=== PATIENT | female | born 1995 | race Caucasian/White ===

== ENCOUNTER 2021-01-01 10:14 | Emergency (ER) | payer BC, SELFPAY ==
[2021-01-01 11:43] VITALS: BP 106/68; PULSE 51; RESP 14; TEMP 36.9; O2SAT 100; BMI 33.3
[2021-01-01 11:45] VITALS: BP 106/68; PULSE 53; RESP 14; TEMP 36.9
--- NOTE | 2021-01-01 11:59 | ED_ITS ---
[facility] [place] Disposition Clinical Impression: Exposure to COVID-19 virus Disposition: Home, Self-Care Condition on Discharge: Good Instructions: Preventing the Spread of Coronavirus Discharge Instructions Additional Instructions: You have been tested for COVID19. Please isolate yourself as if you are positive until test results received. Referrals: Almita West [Primary Care Provider] - Forms: Work/School Release Time of Disposition: 12:02 Medical Decision Making - Fercho Inquiry Pt receiving controlled substance: No Vital Signs: 01/01/21 11:43 01/01/21 11:45 Temperature 98.4 F 98.4 F Temperature Source Oral Pulse Rate 53 L Pulse Rate [Left] 51 L Respiratory Rate 14 14 Blood Pressure 106/68 L Blood Pressure [Right Arm] 106/68 L Blood Pressure Mean [Right Arm] 80 02 Sat by Pulse Oximetry 100 [facility] [place] HPI - General Stated complaint: covid test Time Seen by Provider: 01/01/21 11:59 Mode of Arrival: Ambulatory Source of Information: Patient Limitations: No Limitations Description of Symptoms (Recalled from Triage Doc. by RN): pt c/o a cough and MELISSA HEENT Symptoms (Recalled from RN notes): Yes (MELISSA) Resp Symptoms (Recalled from RN notes): Yes (cough) Skin Symptoms (Recalled from RN notes): No MS Symptoms (Recalled from RN notes): No Functional Status (Recalled from RN notes): na - History of Present Illness Provider Complaint: Mild cough, runny nose, headache X 2-3 days. No fever. Has been exposed to COVID19 and needs to be tested. No loss of taste or smell. No vomiting or diarrhea. Onset (ago): day(s) (3) Location: head Relieving factors: none Exacerbating factors: none Associated symptoms: headaches, malaise Treatments prior to arrival: NSAID - Worker's Comp Is this a Worker's Comp case?: No [facility] History - Hepatitis A Screen Drug use history?: No High risk sexual behaviors?: No History of sexually transmitted infection?: No Currently employed?: No Childcare worker?: No Do you have indoor plumbing?: Yes Do you have electricity?: Yes Attestation statement:: This patient has been screened for Hepatitis A risk factors. I have reviewed the patient's past medical history: Yes ROS Obtained: Yes All systems reviewed & no additional complaints - ENT Ears, Nose, Mouth, and Throat: Reports nasal congestion - Respiratory Respiratory: Reports cough Physical Exam - General General appearance: alert, in no apparent distress - Head Head exam: normocephalic - Eye Eye exam: Present: PERRL - ENT ENT exam: Present: normal oropharynx, TM's normal bilaterally - Expanded ENT Exam Nose exam: Absent: sinus tenderness Throat exam: Present: normal inspection - Chest Chest inspection: Present: normal inspection, symmetric chest wall rise - Respiratory Respiratory exam: Present: normal lung sounds bilaterally - Cardiovascular Cardiovascular exam: Present: regular rate, normal rhythm - Neurological Exam Neurological exam: Present: alert, oriented X3 - Psychiatric Psychiatric exam: Present: normal affect, normal mood - Skin Skin exam: Present: warm, dry, intact
== END 2021-01-01 12:44 | disposition home or self-care (01) ==
PROVIDERS: Emergency Provider Physician Assistant; PCP Nurse Practitioner Family
DX: Z20.822 Contact with and (suspected) exposure to COVID-19 (principal); R05 Cough
CPT/HCPCS: 99202; G0463; U0003

== ENCOUNTER → 2021-06-26 16:20 | Outpatient (CLI) | payer BC, SELFPAY ==
[2021-06-26 18:31] LABS: HCG,Quantitative 186 mIU/ml (0-5.42)
== END ==
PROVIDERS: Visit Provider Nurse Practitioner Obstetrics & Gynecology
DX: N92.6 Irregular menstruation, unspecified (principal)
CPT/HCPCS: 36415; 84702

== ENCOUNTER → 2021-07-10 12:05 | Outpatient (CLI) | payer BC, SELFPAY ==
[2021-07-10 12:52] LABS: Basophils # 0.1 K/mm3 (0-0.2); Basophils % 1.1 % (0.1-2.0); Eosinophils # 0.1 K/mm3 (0.0-0.4); Eosinophils % 1.2 % (0.1-12.0); Lymphocytes % 22.6 % (10-50); Mean Corpuscular HGB Conc 33.3 g/dL (31.8-35.4); Mean Corpuscular Hemoglobin 28.9 pg (27.0-31.2); Mean Corpuscular Volume 86.7 fl (81-99); Mean Platelet Volume 7.2 fl (7.4-10.4); Monocytes # 0.6 K/mm3 (0.1-1.0); Monocytes % 6.2 % (1.7-9.3); Neutrophils # 6.2 K/mm3 (1.8-7.8); Neutrophils % 68.9 % (37.0-80.0); Platelet Count 351 K/mm3 (142-424); Red Blood Count 4.85 M/mm3 (4.20-5.40); Red Cell Distribution Width 12.9 % (11.5-17.5)
[2021-07-11 07:12] LABS: HIV Screen 4th Generation wRfx Non Reactive (Non Reactive)
[2021-07-11 08:18] LABS: HSV 1 IgG, Type Spec <0.91 index (0.00-0.90); HSV 2 IgG, Type Spec 5.62 index (0.00-0.90); Rubella Antibodies, IgG 1.75 index (Immune >0.99)
[2021-07-11 10:18] LABS: Hepatitis B Surface Antigen Negative (Negative); Hepatitis C Antibody <0.1 s/co ratio (0.0-0.9); Rapid Plasma Reagin Ab Titer Non Reactive (NonRea<1:1)
== END ==
PROVIDERS: Visit Provider Nurse Practitioner Obstetrics & Gynecology
DX: Z34.90 Encounter for supervision of normal pregnancy, unspecified, unspecified trimester (principal); Z3A.01 Less than 8 weeks gestation of pregnancy
CPT/HCPCS: 36415; 85025; 86592; 86695; 86703; 86762; 86790; 86850; 87340; 87380; G0432

== ENCOUNTER → 2021-07-13 10:29 | Outpatient (CLI) | payer BC, SELFPAY ==
--- NOTE | 2021-07-13 10:29 | US_ITS ---
FINAL REPORT TECHNIQUE: Sonographic imaging of the pelvis was obtained. CLINICAL HISTORY: US OB before 14 wks, DATES and confirmation pt asymptomatic -- dr Chinchilla notified FINDINGS: The uterus measures 7.4 x 4.9 x 3.9 cm. There is a heterogeneous area seen in the endometrium measuring 1.2 cm. Blood clot not excluded. No intrauterine is identified. The right ovary measures 3.3 cm in length. Left ovary measures 3.2 cm in length. There are multiple small follicles bilaterally. There is a mass in the right adnexa measuring 2.6 x 1.8 x 2.1 cm of uncertain etiology. Ectopic not excluded. No free fluid is identified. IMPRESSION: No intrauterine identified. Possible blood clot within the endometrial cavity. Right adnexal mass, ectopic not excluded. Reviewed, Interpreted and Dictated by Eduardo Baez III, MD Transcribed by Molly Perez Authenticated by Eduardo Baez III, MD on 07/13/2021 12:31:34 PM [facility]
[2021-07-13 12:58] LABS: HCG,Quantitative 1590 mIU/ml (0-5.42)
== END ==
PROVIDERS: Visit Provider Nurse Practitioner Obstetrics & Gynecology
DX: O26.841 Uterine size-date discrepancy, first trimester (principal)
CPT/HCPCS: 36415; 76801; 84702

== ENCOUNTER → 2021-07-15 09:31 | Outpatient (CLI) | payer BC, SELFPAY ==
[2021-07-15 10:13] LABS: Basophils # 0.1 K/mm3 (0-0.2); Basophils % 1.6 % (0.1-2.0); Eosinophils # 0.2 K/mm3 (0.0-0.4); Eosinophils % 2.4 % (0.1-12.0); Hematocrit 42.6 % (37.0-47.0); Hemoglobin 14.3 g/dL (12.2-16.2); Lymphocytes % 24.1 % (10-50); Mean Corpuscular HGB Conc 33.6 g/dL (31.8-35.4); Mean Corpuscular Hemoglobin 29.2 pg (27.0-31.2); Mean Corpuscular Volume 86.9 fl (81-99); Mean Platelet Volume 7.9 fl (7.4-10.4); Monocytes # 0.5 K/mm3 (0.1-1.0); Monocytes % 6.4 % (1.7-9.3); Neutrophils # 5.4 K/mm3 (1.8-7.8); Neutrophils % 65.4 % (37.0-80.0); Platelet Count 387 K/mm3 (142-424); Red Cell Distribution Width 12.7 % (11.5-17.5); White Blood Count 8.3 K/mm3 (4.8-10.8)
[2021-07-15 11:29] LABS: Anion Gap 12.2 mEq/L (5-15); Blood Urea Nitrogen 15 mg/dl (7-17); Carbon Dioxide 25 mmol/L (22.0-30.0); Chloride 106 mmol/L (98-107); Estimated Glomerular Filt Rate 124 ml/min (>60); GFR (African American) 150 ML/MIN (>60); Glucose 65 mg/dl (74-100); Potassium 4.2 mmoL/L (3.5-5.1); Sodium 139 mmol/L (136-145)
[2021-07-15 11:45] LABS: HCG,Quantitative 2035 mIU/ml (0-5.42)
== END ==
PROVIDERS: Visit Provider Nurse Practitioner Obstetrics & Gynecology
DX: Z01.818 Encounter for other preprocedural examination (principal); O02.1 Missed abortion; U07.1 COVID-19
CPT/HCPCS: 36415; 80048; 84702; 85025; C9803; U0003; U0005

== ENCOUNTER 2021-07-18 08:55 | Day surgery (SDC) | payer BC, SELFPAY ==
[2021-07-17 15:22] VITALS: BMI 34.7
[2021-07-18] VITALS (10 sets, daily range): BP systolic 110–142; BP diastolic 64–78; PULSE 70–94; RESP 16–18; TEMP 36.1–43; O2SAT 97–100
--- NOTE | 2021-07-18 09:15 | US_ITS ---
FINAL REPORT CLINICAL HISTORY: verify if viable preop COMPARISON: 07/13/2021 FINDINGS: Transvaginal sonographic images of the pelvis were obtained. The uterus measures 8.0 x 3.9 x 5.3 cm. there is no gestational sac identified in the uterus. There is heterogeneous endometrial thickening measuring up 17 mm with a possible clot. The right ovary measures 3.5 cm in length. There is a hypoechoic mass in the right adnexa adjacent to the right ovary measuring 3 cm of uncertain etiology. This was present on the prior exam and is stable. A right adnexal ectopic is not excluded. The left ovary is normal measuring 2.9 cm in length. There is normal blood flow with no mass. There is no significant free fluid. IMPRESSION: No evidence of intrauterine . Endometrial thickening with possible endometrial cavity clot. Stable right adnexal cyst of uncertain etiology. Ectopic not excluded. Reviewed, Interpreted and Dictated by Eduardo Baez III, MD Transcribed by Maggie Kam Authenticated by Eduardo Baez III, MD on 07/18/2021 11:06:[address] [facility]
--- NOTE | 2021-07-18 12:53 | HMH.OPNOTE ---
Date of procedure: 07/18/21 Pre-op Diagnosis:: Missed , possible ectopic on the right Post-op Diagnosis:: Missed , no obvious mass on the right-hand side. Possible retroperitoneal mass, ovarian adhesions Procedure performed:: Hysteroscopy, dilation and curettage, Kermit suction, diagnostic laparoscopy Surgeon:: Alberto Chinchilla MD DISPUTE SPECIALIST:: Dieudonne Delaney Anesthesia: GETA Estimated blood loss (mL): 50 Clinical Note:: She is a 25-year-old 1 now para 0 who had slowly rising beta hCGs. She had a small amount of spotting a couple days ago. She had an ultrasound that showed a mass on the right side. There was no within the uterine cavity but there was thickened endometrium consistent with placental tissue. After having discussed the risks and benefits we elected to perform a dilation and evacuation with Collingsworth suction. We also performed a diagnostic laparoscopy to look at this mass on the right side. Operative findings:: She had an anteverted bulky uterus that had copious tissue within the endometrium. On examination of the pelvis at the time of laparoscopy there were some filmy adhesions from the pelvic sidewall to the right ovary. The right tube appeared normal and had a couple of small adhesions but the distal end was completely clear. There were no masses on the right side that I could see. The right ovary was however adherent to the right pelvic sidewall. The left ovary appeared normal and the left tube was adherent with filmy adhesions to the pelvic sidewall but the distal end of the left tube was completely clear. The appendix was visualized and appeared normal. She had had a previous suspension surgery that shortened her round ligaments to the inguinal canal bilaterally. There were permanent sutures here evident. The rest the pelvis appeared completely normal. Operative note:: She was taken the operating room where general anesthesia was found be adequate. She is prepped draped normal sterile fashion in the semilithotomy position. A weighted speculum is placed in the vagina and the anterior lip of the cervix was grasped with a tenaculum. I dilated the cervix to approximately 10 mm. Then using a 10 mm curved Kermit suction curette I evacuated the uterine contents. This was followed by gentle curettage. I then changed gloves and reposition the patient. I injected 10 cc of 0.25% ropivacaine around the umbilicus and made a small incision within the umbilicus. I then inserted a Veress needle into the abdominal cavity. The abdominal cavity was then insufflated to a pressure of 20 mmHg with carbon dioxide gas. I then inserted a 5 mm trocar under direct vision. I injected through and through the pubic hairline, made a small incision here and inserted another 5 mm trocar under direct vision. The findings were as previously dictated. I then injected approximately 10 cc of 0.25% ropivacaine into the pelvis. The secondary trocar was removed under direct vision. The gas was letter the abdomen and once again hemostasis was assured. The 5 mm trochars were then closed with subcuticular 4-0 Monocryl suture. Sterile dressings were applied. She tolerated procedure well and was taken to recovery room in excellent condition. All sponge, instrument and needle counts were correct. Estimated blood loss was less than 50 cc. Condition: stable Disposition: PACU Specimens:: Products of conception Complications:: None
--- NOTE | 2021-07-18 12:57 | P.PN_ITS ---
[facility] Anesthesia Checklist - Patient Identification Patient Identification: Arm Band - Structural Data Admitted From: Home Planned Operative Procedure/s: D&C, Diagnostic Laparoscopy Consent for Planned Operative Procedure(s) Verified: Yes Verified Documents: Surgical Consent, History and Physical - NPO Status Verified Time NPO: 00:00 - Additional verifications Anesthesia Reactions: No Hx Blood Transfusions: No Blood Transfusion Reaction: No - Airway Assessment C-Spine Mobility Assessed: Yes (mp2) TMJ Mobility Assessed: Yes Dentition: Good Dentition - Neurological Assessment Level of Consciousness: Awake, Alert - Anesthesia Plan Anesthesia Risk discussed: Yes Anesthesia Plan: Verified ASA Class: I Anesthesia Type: General [facility] History I have reviewed the patient's past medical history: Yes Medical History: Reports:: Anxiety Denies:: Cancer, Diabetes Mellitus Type 1, Diabetes Mellitus Type 2, Internal Pacemaker, MRSA, Seizures *Have you ever received a pneumonia vaccine?: No *Have you received a flu vaccine this season?: Yes Other Medical History: Denies: Blood Transfusion Reaction Anesthesia experience/problems:: nac Other Surgeries: Yes: Other. No: Pacemaker Amputation: No Fractures: No - *Social History Last grade of school completed: Some college Smoking Status: Never smoker Alcohol Intake: never Alcohol Intake Frequency:: other Substance Use Type: denies use *Occupational Status:: employed Housing: house Household Members: spouse *Travel in the last 8 weeks: None - Psychiatric History Pschychiatric History:: Reports:: Anxiety Family Hx:: No significant family history
--- NOTE | 2021-07-18 12:59 | HMH.ANESI ---
[facility] Anesthesia Record Part I Intake, IV Amount: 600 Estimated blood loss (mL): 50 Urine output (mL): 0 Blood Pressure: 133/78 SaO2: 97 Pulse Rate: 94 Respiratory Rate: 16 Temperature: 97 F Patient is:: Drowsy, Stable Stable to PACU at:: 12:50
--- NOTE | 2021-07-19 08:26 | HMH.ANESII ---
[facility] Anesthesia Record Part II Discharge Time: 13:20 Destination: Surgical Day Care (OP Surgery) PACU nurse assessment reviewed?: Yes Patient Condition:: Good Anesthesia Complications:: None Swallowing reflex intact?: Yes Cyanosis?: No Blood Pressure: 115/78 Pulse Rate: 72 Temperature: 97.1 F Mental Status: Alert & Oriented Pain level:: 0 Nausea and/or vomitting:: None Intake, IV Amount: 0
[2021-07-19 08:27] VITALS: BP 115/78; PULSE 72; TEMP 36.2
== END 2021-07-18 13:52 | disposition home or self-care (01) ==
LOC: OR 08:55
PROVIDERS: PCP Nurse Practitioner Family; Visit Provider Nurse Practitioner Obstetrics & Gynecology
PROC: (CPT 59820; principal; 2021-07-18 10:30)
DX: O02.1 Missed abortion (principal); F41.9 Anxiety disorder, unspecified
CPT/HCPCS: 59820; 76830; 96374; J2405; J2710

== ENCOUNTER → 2022-02-05 16:21 | Outpatient (CLI) | payer BC, SELFPAY ==
[2022-02-05 18:43] LABS: HCG,Quantitative 3386 mIU/ml (0-5.42)
== END ==
PROVIDERS: PCP Nurse Practitioner Family; Visit Provider Nurse Practitioner Obstetrics & Gynecology
DX: N92.6 Irregular menstruation, unspecified (principal)
CPT/HCPCS: 36415; 84702

== ENCOUNTER → 2022-02-13 14:06 | Outpatient (CLI) | payer BC, SELFPAY ==
[2022-02-13 14:47] LABS: Basophils # 0.2 K/mm3 (0-0.2); Basophils % 1.6 % (0.1-2.0); Eosinophils # 0.1 K/mm3 (0.0-0.4); Eosinophils % 1.4 % (0.1-12.0); Hematocrit 43.6 % (37.0-47.0); Hemoglobin 14.8 g/dL (12.2-16.2); Lymphocytes # 2.2 K/mm3 (0.7-4.5); Lymphocytes % 22.4 % (10-50); Mean Corpuscular HGB Conc 33.8 g/dL (31.8-35.4); Mean Corpuscular Hemoglobin 29.4 pg (27.0-31.2); Mean Corpuscular Volume 86.8 fl (81-99); Mean Platelet Volume 7.3 fl (7.4-10.4); Monocytes # 0.6 K/mm3 (0.1-1.0); Monocytes % 6.1 % (1.7-9.3); Neutrophils # 6.8 K/mm3 (1.8-7.8); Neutrophils % 68.5 % (37.0-80.0); Platelet Count 351 K/mm3 (142-424); Red Blood Count 5.03 M/mm3 (4.20-5.40); Red Cell Distribution Width 12.5 % (11.5-17.5)
[2022-02-15 06:10] LABS: HIV Screen 4th Generation wRfx Non Reactive (Non Reactive)
[2022-02-15 07:14] LABS: Hepatitis B Surface Antigen Negative (Negative); Hepatitis C Antibody <0.1 s/co ratio (0.0-0.9)
[2022-02-15 08:15] LABS: Rubella Antibodies, IgG 1.63 index (Immune >0.99)
[2022-02-15 12:20] LABS: Rapid Plasma Reagin Ab Titer Non Reactive (NonRea<1:1)
== END ==
PROVIDERS: PCP Nurse Practitioner Family; Visit Provider Nurse Practitioner Obstetrics & Gynecology
DX: Z34.90 Encounter for supervision of normal pregnancy, unspecified, unspecified trimester (principal)
CPT/HCPCS: 36415; 85025; 86592; 86703; 86762; 86850; 87340; 87380; G0432

== ENCOUNTER 2022-02-15 08:05 | Emergency (ER) | payer BC, SELFPAY ==
[2022-02-15 08:06] VITALS: BP 121/71; PULSE 94; RESP 15; TEMP 36.8; O2SAT 98; BMI 33.5
--- NOTE | 2022-02-15 08:25 | US_ITS ---
FINAL REPORT CLINICAL HISTORY: bleeding in first trimester FINDINGS: PELVIC ULTRASOUND A single living intrauterine is present. A yolk sac is identified. Cardiac activity is confirmed at 118 beats per minute. Estimated gestational age is 6 weeks 3 days based on a crown-rump length of 5.4 mm. Appropriate amount of fluid is present. There may be a minimal amount of fluid in the cervix anterior to the gestational sac. The right ovary 2 measures up to 3.7 cm. The left ovary measures up to 2.0 cm. IMPRESSION: Single living intrauterine with an estimated gestational age of 6 weeks 3 days. Reviewed, Interpreted and Dictated by Jarrett Kumar MD Transcribed by Chan Siddiqi Authenticated and [facility]
--- NOTE | 2022-02-15 08:28 | HMH.EDGENADL ---
Discharge Plan Disposition Patient Disposition: Home, Self-Care Condition: Good Prescriptions Prescriptions: No Action prenat.vits,saira,[id number] Tablet 1 tab PO DAILY Referrals Follow up/Referrals: Almita West [Primary Care Provider] - See instructions Activity Restrictions/Add. Instructions Additional Instructions/Restrictions: Pelvic rest. Avoid strenuous activity. Follow-up promptly with your SPECIAL PROCEDURE TECH. Return for worsening bleeding, pain or other concerns. Off work through and including February 18. Afterwards follow-up with your SPECIAL PROCEDURE TECH for additional work leave recommendations. Clinical Impressions Clinical Impression: Threatened miscarriage in early Stand Alone Forms Stand Alone Forms: Work/School Release Discharge ED Provider: Scooter Beverly Adult HPI General Chief complaint: OB/Uterine Contractions Stated complaint: 6 weeks Antepartum, cramping and bleeding Time Seen by Provider: 02/15/22 08:31 Mode of Arrival: Ambulatory Source of Information: Patient Limitations: No Limitations Description of Symptoms (Recalled from ER Triage Doc. by RN): Pt states that she seen OB on 02/13 and was diagnosed with being 6 weeks . Pt states that following her appt she went to work. While at work, pt states that she coughed and had a large amount of vaginal bleeding. Advises of minor abd cramping that day, but denies any pain or bleeding since Saturday. History of Present Illness MD complaint: Patient presents complaining of pelvic pain and vaginal bleeding that began Related Data Home Medications Medication Instructions Recorded Confirmed prenat.vits,saira,[id number] 1 tab PO DAILY Supplement 07/10/21 02/13/22 Allergies Allergy/AdvReac Type Severity Reaction Status Date / Time No Known Allergies Allergy Verified 02/13/22 13:30 PFSH PFSH Surgical History Hx of dilation and curettage Social History (Updated 02/13/22 @ 13:31 by LOU Sloan) Smoking Status: Never smoker alcohol intake: former substance use type: marijuana current occupational status: employed Travel in the last 8 weeks: None household members: spouse housing: house current occupational exposures/hazards: No caffeine: Yes ROS Obtained: Yes All systems reviewed & no additional complaints except as documented Physical Exam General General appearance: alert and in no apparent distress Head Head exam: atraumatic Eye Eye exam: Present normal appearance ENT ENT exam: Present normal exam Neck Neck exam: Present normal inspection Chest Chest inspection: Present normal inspection Respiratory Respiratory exam: Present normal lung sounds bilaterally Cardiovascular Cardiovascular exam: Present regular rate and normal rhythm Abdominal Exam Abdominal exam: Present soft and tenderness (There is mild bilateral lower abdominal tenderness without rebound or guarding. Bowel sounds are normal.) External exam: Present normal external exam Extremities Exam Extremities exam: Present normal inspection Back Exam Back exam: Present normal inspection Neurological Exam Neurological exam: Present alert and oriented X3 Psychiatric Psychiatric exam: Present normal affect Skin Skin exam: Present warm and dry Lymphatic Lymphatic Findings: no adenopathy Medical Decision Making Fercho Inquiry Pt receiving controlled substance: No Vital Signs: 02/15/22 08:06 02/15/22 10:04 Temperature 98.3 F 98.4 F Temperature Source Oral Oral Pulse Rate 83 Pulse Rate [Right Radial] 94 H Respiratory Rate 15 16 Blood Pressure 112/63 Blood Pressure [Right Arm] 121/71 Blood Pressure Mean [Right Arm] 87 Blood Pressure Source Automatic Cuff Blood Pressure Source [Right Arm] Automatic Cuff Blood Pressure Position Supine Blood Pressure Position [Right Arm] Sitting 02 Sat by Pulse Oximetry 98 Oxygen Delivery Method Room Air Room Air
--- NOTE | 2022-02-15 08:34 | PC.NURSE ---
pt given gown, feminine pad and blanket
[2022-02-15 09:04] LABS: Basophils # 0.2 K/mm3 (0-0.2); Basophils % 2.4 % (0.1-2.0); Eosinophils # 0.1 K/mm3 (0.0-0.4); Eosinophils % 1.3 % (0.1-12.0); Hematocrit 39.6 % (37.0-47.0); Hemoglobin 13.5 g/dL (12.2-16.2); Lymphocytes # 1.6 K/mm3 (0.7-4.5); Lymphocytes % 20.9 % (10-50); Mean Corpuscular Hemoglobin 29.1 pg (27.0-31.2); Mean Corpuscular Volume 85.6 fl (81-99); Mean Platelet Volume 7.5 fl (7.4-10.4); Monocytes # 0.5 K/mm3 (0.1-1.0); Monocytes % 6.1 % (1.7-9.3); Neutrophils # 5.5 K/mm3 (1.8-7.8); Neutrophils % 69.3 % (37.0-80.0); Platelet Count 324 K/mm3 (142-424); Red Blood Count 4.63 M/mm3 (4.20-5.40); Red Cell Distribution Width 12.6 % (11.5-17.5); White Blood Count 7.9 K/mm3 (4.8-10.8)
[2022-02-15 09:32] LABS: Chloride 103 mmol/L (98-107)
[2022-02-15 09:33] LABS: Potassium 3.6 mmoL/L (3.5-5.1); Sodium 138 mmol/L (136-145)
[2022-02-15 09:35] LABS: Alanine Aminotransferase 43 U/L (12-78); Aspartate Amino Transferase 43 U/L (14-36); Blood Urea Nitrogen 14 mg/dl (7-17); Creatinine Clearance Estimated 189 mL/min (50-200); Estimated Glomerular Filt Rate 123 ml/min (>60); GFR (African American) 149 ML/MIN (>60)
[2022-02-15 09:36] LABS: Albumin Level 4.1 g/dl (3.5-5.0); Albumin/Globulin Ratio 1.4 (1.1-1.8); Alkaline Phosphatase 66 U/L (38-126); Anion Gap 13.6 mEq/L (5-15); Bilirubin,Total 0.5 mg/dl (0.2-1.3); Calcium 8.6 mg/dl (8.4-10.2); Carbon Dioxide 25 mmol/L (22.0-30.0); Globulin 2.9 g/dL (1.3-3.2); Glucose 91 mg/dl (74-100)
[2022-02-15 10:04] VITALS: BP 112/63; PULSE 83; RESP 16; TEMP 36.9; O2SAT 98
== END 2022-02-15 10:02 | disposition home or self-care (01) ==
PROVIDERS: Emergency Provider Emergency Medicine; PCP Nurse Practitioner Family
DX: O20.0 Threatened abortion (principal); Z3A.01 Less than 8 weeks gestation of pregnancy
CPT/HCPCS: 76801; 80053; 85025; 99283

== ENCOUNTER → 2022-05-24 12:30 | Outpatient (CLI) | payer BC, SELFPAY ==
--- NOTE | 2022-05-24 12:30 | US_ITS ---
FINAL REPORT CLINICAL HISTORY: 20 week anatomy scan COMPARISON: 02/15/2022 FINDINGS: There is a single live intrauterine gestation. Presentation is cephalic. The cervix is closed and measures 3.33 cm. Placenta is posterior. movement is noted. heart rate is documented at 153 beats per minute. Three-vessel cord with satisfactory umbilical cord insertion. Four-chamber heart is noted. brain and ventricles are unremarkable. Chest and diaphragm are unremarkable. ABDOMEN: Both kidneys are unremarkable. Stomach is unremarkable. SPINE: No anomalies identified. Both arms and legs noted. AMNIOTIC FLUID: Appropriate amount. MEASUREMENTS: ULTRASOUND AGE: 19 weeks 6 days. GESTATION AGE: 20 weeks 1 days. ESTIMATED WEIGHT: 302 g GROWTH PERCENTILE: 19 % BPD: 4.7 cm consistent with 20 weeks 2 days. OFD: 5.81 cm consistent with 20 weeks 1 days. HC: 16.6 cm consistent with 19 weeks 3 days. AC: 14.2 cm consistent with 19 weeks 4 days. FL: 3.12 cm consistent with 19 weeks 5 days. HUMERUS: 3.1 cm consistent with 20 weeks 3 days. HC/AC: 1.17 CI: 81% FL/BPD: 66% FL/AC: 22% IMPRESSION: Single living IUP with ultrasound age of 19 weeks 6 days Reviewed, Interpreted and Dictated by Phyllis Santamaria MD Transcribed by Sheron Yeager Authenticated and . [facility]
== END ==
LOC: RAD 12:30
PROVIDERS: PCP Nurse Practitioner Family; Visit Provider Nurse Practitioner Obstetrics & Gynecology
DX: Z34.90 Encounter for supervision of normal pregnancy, unspecified, unspecified trimester (principal); Z3A.20 20 weeks gestation of pregnancy
CPT/HCPCS: 76811

== ENCOUNTER 2022-06-01 18:24 | Emergency (ER) | payer BC, SELFPAY ==
[2022-06-01 18:25] VITALS: BP 129/73; PULSE 120; RESP 17; TEMP 36.7; O2SAT 100; BMI 37.3
--- NOTE | 2022-06-01 18:33 | HMH.EDGENADL ---
Discharge Plan Disposition Patient Disposition: Home, Self-Care Condition: Fair Chief Complaint: Nausea/Vomiting/Diarrhea Prescriptions Prescriptions: No Action famotidine [Pepcid] 20 mg tablet 20 mg PO DAILY Qty: 60 4RF prenat.vits,saira,[id number] Tablet 1 tab PO DAILY promethazine 25 mg tablet 25 mg PO Q6H PRN (Reason: ) Qty: 20 4RF ferrous sulfate [Feosol] 325 mg (65 mg iron) tablet 325 mg PO DAILY Qty: 30 8RF Referrals Follow up/Referrals: Almita West [Primary Care Provider] - See instructions Activity Restrictions/Add. Instructions Additional Instructions/Restrictions: Drink plenty of fluids. You may take Tylenol for fever control and pain. Follow-up with your school services officer in the next 2 to 3 days if you do not feel better. Return to the emergency department immediately if you feel worse in any way. Your strep screen today was negative. Clinical Impressions Clinical Impression: Upper respiratory infection, viral Instructions Patient Instructions: DI for Viral Upper Respiratory Infection -- Adult Discharge ED Provider: Riana Ash General Adult HPI General Chief complaint: Nausea/Vomiting/Diarrhea Stated complaint: Preg due 10/10 Fever& MELISSA Time Seen by Provider: 06/01/22 18:33 Mode of Arrival: Ambulatory Source of Information: Patient History of Present Illness HPI narrative: Patient presents to the emergency department complaining of sore throat and stuffiness. She states that she measured a temperature of 101 at home. She is afebrile here. She states that she is approximately 21 weeks . She denies any bleeding, diarrhea, vomiting. She does confirm some mild coughing. Onset (ago): hour(s) (10) Related Data Home Medications Medication Instructions Recorded Confirmed prenat.vits,saira,[id number] 1 tab PO DAILY Supplement 07/10/21 05/31/22 Previous Rx's Medication Instructions Recorded promethazine 25 mg tablet 25 mg PO Q6H PRN #20 tabs 02/16/22 famotidine 20 mg tablet (Pepcid) 20 mg PO DAILY #60 tabs 05/03/22 ferrous sulfate 325 mg (65 mg 325 mg PO DAILY #30 tabs 05/31/22 iron) tablet (Feosol) Allergies Allergy/AdvReac Type Severity Reaction Status Date / Time No Known Allergies Allergy Verified 05/31/22 09:25 [facility] Disclaimer: The information contained in this section may have been updated after the patient was seen, as this information can be updated by other users. Surgical History Hx of dilation and curettage Family History Other Diabetes Hyperlipidemia Hypertension Stroke Social History Smoking Status: Never smoker alcohol intake: former substance use type: marijuana current occupational status: employed Travel in the last 8 weeks: None household members: spouse housing: house current occupational exposures/hazards: No caffeine: Yes ROS Obtained: Yes All systems reviewed & no additional complaints except as documented Physical Exam General General appearance: alert Head Head exam: atraumatic Eye Eye exam: Present normal appearance ENT ENT exam: Present normal exam, normal oropharynx and TM's normal bilaterally Neck Neck exam: Present normal inspection, full ROM and trachea midline; Absent tenderness or meningismus Chest Chest inspection: Present normal inspection and symmetric chest wall rise; Absent tenderness Respiratory Respiratory exam: Present normal lung sounds bilaterally; Absent respiratory distress or accessory muscle use Cardiovascular Cardiovascular exam: Present regular rate, normal rhythm, tachycardia and normal heart sounds Abdominal Exam Abdominal exam: Present soft and normal bowel sounds; Absent distention, tenderness, heel tap sign, Neff's sign, Rovsing's sign, tenderness at M
--- NOTE | 2022-06-01 18:45 | PC.NURSE ---
Strep swab sent to lab. Patient currently drinking Gatorade for rehydration per attending order
[2022-06-01 18:52] LABS: Strep Scrn Group A (Rapid) Negative (Negative)
[2022-06-01 19:16] VITALS: BP 105/66; PULSE 112; RESP 18; TEMP 37.1; O2SAT 98
== END 2022-06-01 19:23 | disposition home or self-care (01) ==
PROVIDERS: Emergency Provider Emergency Medicine; PCP Nurse Practitioner Family
DX: O99.891 Other specified diseases and conditions complicating pregnancy (principal); J06.9 Acute upper respiratory infection, unspecified; Z3A.21 21 weeks gestation of pregnancy; Z83.3 Family history of diabetes mellitus; Z82.49 Family history of ischemic heart disease and other diseases of the circulatory system; Z83.42 Family history of familial hypercholesterolemia; Z82.3 Family history of stroke
CPT/HCPCS: 87430; 99283

== ENCOUNTER → 2022-07-12 07:04 | Outpatient (CLI) | payer BC, SELFPAY ==
[2022-07-12 07:33] LABS: Basophils # 0.1 K/mm3 (0-0.2); Basophils % 0.6 % (0.1-2.0); Eosinophils # 0.1 K/mm3 (0.0-0.4); Eosinophils % 1.2 % (0.1-12.0); Hemoglobin 12.7 g/dL (12.2-16.2); Mean Corpuscular HGB Conc 34.4 g/dL (31.8-35.4); Mean Corpuscular Hemoglobin 29.8 pg (27.0-31.2); Mean Corpuscular Volume 86.7 fl (81-99); Mean Platelet Volume 7.5 fl (7.4-10.4); Monocytes # 0.5 K/mm3 (0.1-1.0); Monocytes % 4.8 % (1.7-9.3); Neutrophils # 8.2 K/mm3 (1.8-7.8); Neutrophils % 75.4 % (37.0-80.0); Platelet Count 318 K/mm3 (142-424); Red Blood Count 4.27 M/mm3 (4.20-5.40); Red Cell Distribution Width 13.2 % (11.5-17.5); White Blood Count 10.9 K/mm3 (4.8-10.8)
[2022-07-12 08:59] LABS: Glucose,Fasting 99 mg/dl (74-100)
[2022-07-12 09:52] LABS: Glucose 1 Hour 125 mg/dL (74-100)
== END ==
PROVIDERS: PCP Nurse Practitioner Family; Visit Provider Nurse Practitioner Obstetrics & Gynecology
DX: Z34.90 Encounter for supervision of normal pregnancy, unspecified, unspecified trimester (principal)
CPT/HCPCS: 36415; 82951; 85025

== ENCOUNTER 2022-08-22 09:58 | Observation (INO) | payer BC, SELFPAY ==
[2022-08-22 07:19] VITALS: BMI 41.1
[2022-08-22 07:40] LABS: Microscopic, Urine URINE MICROSCOPIC (MICROSCOPIC)
[2022-08-22 07:48] LABS: Appearance,Urine CLEAR (Clear); Bilirubin,Urine Negative (Negative); Blood, Urine Negative (Negative); Color,Urine YELLOW (Yellow); Glucose,Urine (UA) Negative (Negative); Ketones,Urine Negative (Negative); Leukocyte Esterase,Urine 2+ (Negative); Nitrate,Urine Negative (Negative); PH,Urine 6.5 (5.0-8.5); Protein,Urine Negative (Negative); Specific Gravity, Urine 1.015 (1.005-1.030); Urobilinogen,Urine 0.2 EU/dl (0.2)
[2022-08-22 07:49] VITALS: BMI 41.1
[2022-08-22 08:01] LABS: Barbiturates Screen,Urine Negative ng/ml (<200)
[2022-08-22 08:02] LABS: Amphetamine/Metha Screen,Urine Negative ng/ml (<1000); Benzodiazepines Screen,Urine Negative ng/ml (<200)
[2022-08-22 08:03] LABS: Methadone Screen,Urine Negative ng/ml (<300)
--- NOTE | 2022-08-22 08:03 | US_ITS ---
FINAL REPORT CLINICAL HISTORY: rlq pain FINDINGS: Sonographic images of the right upper quadrant were obtained. The pancreas is partially obscured.The liver has an unremarkable appearance. There is a large amount of sludge within the gallbladder with questionable small stones without well-defined shadowing. There is no evidence of biliary ductal dilatation.The common duct measures 2 mm. The appendix is not well seen. The right kidney measures 12.8 cm in length. There is mild right hydronephrosis which is normal in . IMPRESSION: Large amount of sludge within the gallbladder with questionable small stones. Reviewed, Interpreted and Dictated by Eduardo Baez III, MD Transcribed by Angy Landin Authenticated and [facility]
[2022-08-22 08:04] LABS: Cannabinoid Screen,Urine Negative ng/ml (<50); Cocaine Screen,Urine Negative ng/ml (<300)
[2022-08-22 08:05] LABS: Bacteria,Urine 4+ /lpf; Opiate Screen,Urine Negative ng/ml (<300); Phencyclidine Screen,Urine Negative ng/ml (<25)
[2022-08-22 08:10] LABS: Fetal Fibronectin (Rapid) Negative (Negative)
[2022-08-22 08:20] VITALS: BP 122/74; PULSE 87; RESP 17; TEMP 36.6; O2SAT 100
--- NOTE | 2022-08-22 08:35 | US_ITS ---
FINAL REPORT CLINICAL HISTORY: rt lower quad pain FINDINGS: TRANSABDOMINAL ULTRASOUND There is a single live intrauterine gestation. Presentation is breech. The cervix measures 1.5 cm in length with some endocervical fluid present and funneling. Placenta is lateral posterior, grade 1. Cardiac activity is confirmed at 135 bpm. breathing and movement is noted. NURIA: 10.2 cm MEASUREMENTS: GESTATION AGE: 33 weeks 2 days. BREATHIN/2 MOVEMENT: 2/2 TONE: 2/2 FLUID VOLUME: 2/2 BPP SCORE: 8/8 IMPRESSION: Single living IUP with a gestation age of 33 weeks 2 days. Breech position. BPP SCORE: 8/8 NURIA: 10.2 1.5 cm cervix with some endocervical fluid and funneling. Ordering physician was notified of this finding by the coroner forensic technician at the time of the exam. Reviewed, Interpreted and Dictated by Eduardo Baez III, MD Transcribed by Angy Landin Authenticated and [facility]
[2022-08-22 08:39] LABS: Basophils % 0.2 % (0.1-2.0); Eosinophils # 0.1 K/mm3 (0.0-0.4); Eosinophils % 0.8 % (0.1-12.0); Hematocrit 35.8 % (37.0-47.0); Hemoglobin 11.8 g/dL (12.2-16.2); Lymphocytes # 1.8 K/mm3 (0.7-4.5); Lymphocytes % 18.6 % (10-50); Mean Corpuscular HGB Conc 33.1 g/dL (31.8-35.4); Mean Corpuscular Volume 84.6 fl (81-99); Mean Platelet Volume 7.7 fl (7.4-10.4); Monocytes # 0.6 K/mm3 (0.1-1.0); Monocytes % 6.1 % (1.7-9.3); Neutrophils # 7.3 K/mm3 (1.8-7.8); Neutrophils % 74.4 % (37.0-80.0); Platelet Count 274 K/mm3 (142-424); Red Blood Count 4.23 M/mm3 (4.20-5.40); Red Cell Distribution Width 13.2 % (11.5-17.5); White Blood Count 9.8 K/mm3 (4.8-10.8)
[2022-08-22 08:43] LABS: Chloride 104 mmol/L (98-107)
[2022-08-22 08:44] LABS: Sodium 134 mmol/L (136-145)
[2022-08-22 08:46] LABS: Alanine Aminotransferase 20 U/L (12-78); Alkaline Phosphatase 134 U/L (38-126); Aspartate Amino Transferase 22 U/L (14-36); Bilirubin,Total 0.4 mg/dl (0.2-1.3); Blood Urea Nitrogen 7 mg/dl (7-17); Creatinine Clearance Estimated 280 mL/min (50-200); Estimated Glomerular Filt Rate 152 ml/min (>60); GFR (African American) 183 ML/MIN (>60)
[2022-08-22 08:47] LABS: Albumin Level 3.1 g/dl (3.5-5.0); Anion Gap 8.8 mEq/L (5-15); Calcium 8.3 mg/dl (8.4-10.2); Carbon Dioxide 24 mmol/L (22.0-30.0); Globulin 3.2 g/dL (1.3-3.2); Glucose 102 mg/dl (74-100); Total Protein,Serum 6.3 g/dl (6.3-8.2)
[2022-08-22 08:52] LABS: Potassium 2.8 mmoL/L (3.5-5.1)
[2022-08-22 11:18] LABS: Coronavirus 19, PCR Not Detected (NotDetected); Influenza A, PCR Not Detected (NotDetected); Influenza B, PCR Not Detected (NotDetected)
--- NOTE | 2022-08-22 12:35 | EXP.OB.APHP ---
OB - H&P: HPI Antepartum History of Present Illness Chief complaint: RLQ pain, acute abdominal pain History of present illness: Ms Librado Delgado is a 26 yo at 33w2d who presented to [facility] L&D with complaint of RLQ abdominal pain that began last night. Baby is active. No vaginal bleeding or leakage of fluid. Denies fever/chills, chest pain and shortness of breath. No nausea or vomiting. History of Present Criteria for establishing EDC:: based on 1st trimester US only care: good care Ultrasounds: normal mid trimester US Obstetrical complications: none Medical complications: none Labs Blood type: A (+) positive Rubella: immune RPR/VDRL: nonreactive HBsAG: negative PFSH [facility] Disclaimer: The information contained in this section may have been updated after the patient was seen, as this information can be updated by other users. Medical History (Updated 08/22/22 @ 12:59 by Micaela Rao DO) 33 weeks gestation of Breech presentation PCOS (polycystic ovarian syndrome) uterine contractions in third trimester, antepartum RLQ abdominal pain Short cervix in third trimester, antepartum Surgical History Hx of dilation and curettage Family History Other Diabetes Hyperlipidemia Hypertension Stroke Social History Smoking Status: Never smoker alcohol intake: former substance use type: marijuana current occupational status: employed Travel in the last 8 weeks: None household members: spouse housing: house current occupational exposures/hazards: No caffeine: Yes Review of Systems Review of Systems Review of systems:: pertinent systems reviewed and negative unless documented below *Gastrointestinal Gastrointestinal: Reports abdominal pain Meds Home Medications and Allergies Home Medications Medication Instructions Recorded Confirmed Type prenat.vits,saira,yqu-oude-imqbb 1 tab PO DAILY Supplement 07/10/21 08/13/22 History famotidine 20 mg tablet (Pepcid) 20 mg PO DAILY #60 tabs 05/03/22 08/13/22 Rx ferrous sulfate 325 mg (65 mg 325 mg PO DAILY #30 tabs 05/31/22 08/13/22 Rx iron) tablet (Feosol) potassium chloride 20 mEq 40 meq PO TID #10 tabs 08/22/22 Rx tablet,extended release New Prescriptions to Start Prescriptions: Allergies Allergy/AdvReac Type Severity Reaction Status Date / Time No Known Allergies Allergy Verified 08/13/22 08:52 OB - H&P: Exam Constitutional no acute distress Routine HEENT Exam Head: Present normocephalic and atraumatic Eye: Absent conjunctivae pink ENT: Present mucous membranes moist and dentition normal Routine Neck Exam Present full ROM Routine Respiratory Exam Present CTA bilaterally and normal respiratory effort Routine Cardiovascular Exam Present RRR Routine Abdominal Exam Present soft (Gravid); Absent tenderness Routine Rectal Exam Patient deferred: visual exam Routine Exam Patient deferred: external exam Routine Extremities Exam Present full ROM; Absent edema or calf tenderness Detailed Labor and Delivery Exam Dilation (cm): 0 Effacement (%): 30 Cervix position: posterior station: -3 Membranes: intact Baseline heart rate: 140 monitor accelerations: Present monitor decelerations: None sales vice president variability: Moderate (11-25) Comments: [place]: occasoinal irregular contractions with irritability OB - Results Labs Labs: Short CBC 08/22/22 Range/Units 08:20 WBC 9.8 (4.8-10.8) K/mm3 Hgb 11.8 L (12.2-16.2) g/dL Hct 35.8 L (37.0-47.0) % Plt Count 274 (142-424) K/mm3 BMP 08/22/22 08:20 Sodium 134 L Potassium 2.8 L* Chloride 104 Carbon Dioxide 24 BUN 7 Creatinine 0.50 L Glucose 102 H Calcium 8.3 L Liver Function 08/22/22 Range/Units 08:20
[2022-08-22 12:40] VITALS: BP 118/69; PULSE 72; RESP 18
[2022-08-22 20:00] VITALS: BP 116/68; PULSE 121; RESP 17; TEMP 36.5; O2SAT 98
[2022-08-23 04:00] VITALS: BP 113/68; PULSE 85; RESP 18; TEMP 36.9; O2SAT 99
[2022-08-23 07:57] LABS: Potassium 3.1 mmoL/L (3.5-5.1)
[2022-08-23 08:39] VITALS: BP 124/71; PULSE 103; RESP 18; TEMP 37
--- NOTE | 2022-08-23 11:44 | EXP.DC.SUM ---
General Admission date:: 08/22/22 Discharge date: 08/23/22 HPI HPI HPI: She was admitted with right lower quadrant pain. Ultrasound did not show an enlarged appendix. She did however have shortening of her cervix. It was about a centimeter long. On digital examination the cervix was closed. She does not have any further episodes of contractions. She was having a few contractions on admission. She has received a course of steroids. She also received 1 dose of Procardia. Hospital Course Hospital Course Hospital Course: She is admitted and observed overnight. She has received 2 doses of steroids for lung maturity. She received 1 dose of Procardia for contractions. An ultrasound did not reveal a cause of her right lower quadrant pain but she did have shortening of the cervix. There was also some funneling. She has done well and today is doing much better. She denies any contractions. The baby is active. Nonstress test is reactive. We will plan to send her home and she will follow-up with me in a few days time in the office. She will remain on bedrest while at home. We will recheck her cervical length at that time. Exam Data for Last 24 hours Vital signs and Labs for Last 24 Hours: Temp Pulse Resp BP Pulse Ox 98.6 F 103 H 18 124/71 99 08/23/22 08:39 08/23/22 08:39 08/23/22 08:39 08/23/22 08:39 08/23/22 04:00 Laboratory Results - last 24 hr 08/22/22 11:00: SARS-CoV-2 (PCR) Not detected, Influenza A Untype (PCR) Not detected, Influenza Type B (PCR) Not detected 08/23/22 07:43: Potassium 3.1 L I & O for Last 24 hours: Intake & Output 08/20/22 08/21/22 08/22/22 08/23/22 11:59 11:59 11:59 11:59 Weight 225 lb Microbiology Reports for the Last 24 Hours: Microbiology 08/22/22 07:13 Urine,Clean Catch Urine Culture - Preliminary NO GROWTH AFTER 24 HOURS Constitutional Constitutional: no acute distress and obese *Routine HEENT Exam Head: Present normocephalic *Routine Respiratory Exam Respiratory: Present normal respiratory effort; Absent accessory muscle use Results Data Completed and Pending Labs on day of discharge: Labs from last 24 hours 08/23/22 08/22/22 07:43 11:00 Potassium 3.1 L SARS-CoV-2 (PCR) Not detected Influenza A Untype (PCR) Not detected Influenza Type B (PCR) Not detected Preliminary micro results at discharge 08/22/22 07:13 Urine Culture - Preliminary Urine,Clean Catch NO GROWTH AFTER 24 HOURS DS: Diagnosis Discharge Diagnosis (1) 33 weeks gestation of : Status: Acute (2) RLQ abdominal pain: Status: Acute (3) uterine contractions in third trimester, antepartum: Status: Acute (4) Short cervix in third trimester, antepartum: Status: Acute (5) Breech presentation: Status: Acute Meds Home Medications and Allergies Home Medications Medication Instructions Recorded Confirmed Type prenat.vits,saira,[id number] 1 tab PO DAILY Supplement 07/10/21 08/22/22 History famotidine 20 mg tablet (Pepcid) 20 mg PO DAILY Heartburn 08/22/22 08/22/22 History ferrous sulfate 325 mg (65 mg 325 mg PO DAILY Supplement 08/22/22 08/22/22 History iron) tablet (Feosol) potassium chloride 20 mEq 40 meq PO TID #10 tabs 08/22/22 Rx tablet,extended release nifedipine 10 mg capsule 10 mg PO QID PRN Contractions #60 08/23/22 Rx caps New Prescriptions to Start Prescriptions: nifedipine Alberto Chinchilla Allergies Allergy/AdvReac Type Severity Reaction Status Date / Time No Known Allergies Allergy Verified 08/13/22 08:52 Discharge Plan Disposition Patient Disposition: Home, Self-Care Follow up Plan Follow up with: Alberto Chinchilla MD [Staff Physician] - Enter time for follow up Prescriptions/Medication Reconciliation: New nifedipine 10 mg capsule 10 mg PO QID PRN (Reason: Contractions) Qty: 60 1RF Harish
== END 2022-08-23 13:20 | disposition home or self-care (01) ==
LOC: OBOUT 09:59 → OB 09:59
PROVIDERS: Admitting Provider Obstetrics & Gynecology; PCP Nurse Practitioner Family; Visit Provider Obstetrics & Gynecology
DX: O60.03 Preterm labor without delivery, third trimester (principal); Z3A.33 33 weeks gestation of pregnancy; R10.31 Right lower quadrant pain; O32.1XX0 Maternal care for breech presentation, not applicable or unspecified; O26.873 Cervical shortening, third trimester
CPT/HCPCS: 36415; 59025; 76705; 76819; 80053; 80305; 81001; 82731; 84132; 85025; 87086; 96372; C9803; G0378; U0003; U0005

== ENCOUNTER 2022-08-27 08:59 | Outpatient (CLI) | payer BC, SELFPAY ==
[2022-08-27 09:14] VITALS: BMI 41.1
[2022-08-27 09:22] VITALS: BP 138/90; PULSE 98; RESP 18; TEMP 36.9; O2SAT 97; BMI 41.1
[2022-08-27 09:56] LABS: Microscopic, Urine URINE MICROSCOPIC (MICROSCOPIC)
[2022-08-27 10:07] LABS: Appearance,Urine CLEAR (Clear); Bilirubin,Urine Negative (Negative); Blood, Urine Negative (Negative); Color,Urine YELLOW (Yellow); Glucose,Urine (UA) TRACE (Negative); Ketones,Urine Negative (Negative); Leukocyte Esterase,Urine 1+ (Negative); Nitrate,Urine Negative (Negative); PH,Urine 6.5 (5.0-8.5); Protein,Urine Negative (Negative); Urobilinogen,Urine 0.2 EU/dl (0.2)
[2022-08-27 10:29] LABS: Barbiturates Screen,Urine Negative ng/ml (<200)
[2022-08-27 10:30] LABS: Amphetamine/Metha Screen,Urine Negative ng/ml (<1000); Benzodiazepines Screen,Urine Negative ng/ml (<200)
[2022-08-27 10:31] LABS: Cannabinoid Screen,Urine Negative ng/ml (<50)
[2022-08-27 10:32] LABS: Cocaine Screen,Urine Negative ng/ml (<300)
[2022-08-27 10:33] LABS: Methadone Screen,Urine Negative ng/ml (<300); Opiate Screen,Urine Negative ng/ml (<300)
[2022-08-27 10:34] LABS: Phencyclidine Screen,Urine Negative ng/ml (<25)
[2022-08-27 10:39] LABS: Bacteria,Urine Trace /lpf
== END 2022-08-27 10:35 | disposition home or self-care (01) ==
LOC: OBOUT 09:01 → OB 09:02
PROVIDERS: PCP Nurse Practitioner Family; Visit Provider Obstetrics & Gynecology
DX: O26.893 Other specified pregnancy related conditions, third trimester (principal); Z3A.34 34 weeks gestation of pregnancy; R10.2 Pelvic and perineal pain; R11.0 Nausea; R51.9 Headache, unspecified
CPT/HCPCS: 59025; 80305; 81001; 87086; G0463

== ENCOUNTER → 2022-09-10 16:41 | Outpatient (CLI) | payer BC, SELFPAY | PROVIDERS: PCP Obstetrics & Gynecology; Visit Provider Obstetrics & Gynecology | DX: Z34.90 Encounter for supervision of normal pregnancy, unspecified, unspecified trimester (principal) | CPT/HCPCS: 86403 ==

== ENCOUNTER 2022-09-17 15:02 | Inpatient (IN) | payer BC, SELFPAY ==
[2022-09-17 15:16] VITALS: BMI 45.8
[2022-09-17 15:42] LABS: Coronavirus 19, PCR Not Detected (NotDetected); Influenza A, PCR Not Detected (NotDetected); Influenza B, PCR Not Detected (NotDetected); Microscopic, Urine URINE MICROSCOPIC (MICROSCOPIC)
[2022-09-17 15:48] LABS: Appearance,Urine SL CLOUDY (Clear); Bilirubin,Urine Negative (Negative); Blood, Urine Negative (Negative); Color,Urine YELLOW (Yellow); Glucose,Urine (UA) Negative (Negative); Ketones,Urine Negative (Negative); Leukocyte Esterase,Urine 1+ (Negative); Nitrate,Urine Negative (Negative); PH,Urine 6.5 (5.0-8.5); Protein,Urine Negative (Negative); Specific Gravity, Urine 1.015 (1.005-1.030)
[2022-09-17 16:03] LABS: Barbiturates Screen,Urine Negative ng/ml (<200); Benzodiazepines Screen,Urine Negative ng/ml (<200)
[2022-09-17 16:04] LABS: Amphetamine/Metha Screen,Urine Negative ng/ml (<1000); Cannabinoid Screen,Urine Negative ng/ml (<50)
[2022-09-17 16:05] LABS: Cocaine Screen,Urine Negative ng/ml (<300)
[2022-09-17 16:06] LABS: Methadone Screen,Urine Negative ng/ml (<300); Opiate Screen,Urine Negative ng/ml (<300)
[2022-09-17 16:07] LABS: Phencyclidine Screen,Urine Negative ng/ml (<25)
[2022-09-17 16:11] LABS: Amorphous Sediment,Urine 3+ /lpf; Bacteria,Urine 1+ /lpf
[2022-09-17 16:21] LABS: Basophils % 0.1 % (0.1-2.0); Eosinophils # 0.1 K/mm3 (0.0-0.4); Eosinophils % 0.8 % (0.1-12.0); Hematocrit 32.4 % (37.0-47.0); Mean Corpuscular HGB Conc 34.1 g/dL (31.8-35.4); Mean Corpuscular Hemoglobin 27.6 pg (27.0-31.2); Mean Corpuscular Volume 80.8 fl (81-99); Mean Platelet Volume 8.9 fl (7.4-10.4); Monocytes # 0.7 K/mm3 (0.1-1.0); Neutrophils # 7.6 K/mm3 (1.8-7.8); Neutrophils % 73.1 % (37.0-80.0); Platelet Count 306 K/mm3 (142-424); Red Cell Distribution Width 13.3 % (11.5-17.5); White Blood Count 10.4 K/mm3 (4.8-10.8)
--- NOTE | 2022-09-17 16:23 | EXP.HP ---
History of Present Illness *Admission Date: 09/17/22 *Reason for visit:: -induced hypertension, breech presentation *History of present illness: She is a 26-year-old 2 para 0 at 37 weeks gestational age. She was seen in my office today for an NST and her blood pressure was found to be elevated in the 150s over 90s range. She also has significant pedal edema. She is known to have a breech presentation. This has not changed. As result of the increased blood pressure she is admitted and we will plan a tomorrow. [facility] Disclaimer: The information contained in this section may have been updated after the patient was seen, as this information can be updated by other users. Medical History Breech presentation Hypokalemia PCOS (polycystic ovarian syndrome) RLQ abdominal pain Short cervix in third trimester, antepartum Upper respiratory infection, viral Surgical History Hx of dilation and curettage Family History Diabetes Hyperlipidemia Hypertension Stroke Social History Smoking Status: Never smoker alcohol intake: former substance use type: marijuana current occupational status: unemployed Travel in the last 8 weeks: None household members: spouse housing: house current occupational exposures/hazards: No caffeine: Yes Review of Systems Review of Systems Review of systems:: pertinent systems reviewed and negative unless documented below Meds Home Medications and Allergies Home Medications Medication Instructions Recorded Confirmed Type prenat.vits,saira,yek-ywhk-zpaff 1 tab PO DAILY Supplement 07/10/21 09/17/22 History famotidine 20 mg tablet (Pepcid) 20 mg PO DAILY Heartburn 08/22/22 09/17/22 History ferrous sulfate 325 mg (65 mg 325 mg PO DAILY Supplement 08/22/22 09/17/22 History iron) tablet (Feosol) nifedipine 10 mg capsule 10 mg PO QID PRN Contractions #60 08/23/22 09/17/22 Rx caps New Prescriptions to Start Prescriptions: Allergies Allergy/AdvReac Type Severity Reaction Status Date / Time No Known Allergies Allergy Verified 09/17/22 13:57 Exam Data for Last 24 hours Vital signs and Labs for Last 24 Hours: Laboratory Results - last 24 hr 09/17/22 15:21: Urine Opiates Screen Negative, Urine Methadone Screen Negative, Ur Barbituates Screen Negative, Ur Phencyclidine Scrn Negative, Ur Amphetamines Screen Negative, U Benzodiazepines Scrn Negative, Urine Cocaine Screen Negative, U Marijuana (THC) Screen Negative 09/17/22 15:21: Urine Color Yellow, Urine Appearance Sl cloudy, Urine pH 6.5, Ur Specific [place] 1.015, Urine Protein Negative, Urine Glucose (UA) Negative, Urine Ketones Negative, Urine Blood Negative, Urine Nitrate Negative, Urine Bilirubin Negative, Urine Urobilinogen 1.0, Ur Leukocyte Esterase 1+ A, Urine RBC None, Urine WBC 3-5, Ur Squamous Epith Cells 3-5, Amorphous Sediment 3+, Urine Bacteria 1+ I & O for Last 24 hours: Intake & Output 09/15/22 09/16/22 09/17/22 09/18/22 11:59 11:59 11:59 11:59 Weight 251 lb Constitutional Constitutional: no acute distress *Routine HEENT Exam Head: Present normocephalic Eye: Present EOMI and PERRL ENT: Present mucous membranes moist *Routine Neck Exam Neck: Present supple; Absent lymphadenopathy *Routine Respiratory Exam Respiratory: Present CTA bilaterally *Routine Cardiovascular Exam Cardiovascular: Present RRR *Routine Abdominal Exam Abdominal: Present soft and normoactive bowel sounds; Absent tenderness *Routine Rectal Exam Rectal:: deferred *Routine Genitalia Exam Genitalia:: deferred *Routine Extremities Exam Extremities: Absent cyanosis, clubbing or edema *Routine Skin Exam Skin: Present warm; Absent rash *Routine Neurological Exam Neurological: Present alert and orie
[2022-09-17 16:26] VITALS: BP 142/77; PULSE 87; RESP 18; TEMP 36.8; O2SAT 98; BMI 46.1
[2022-09-17 16:34] LABS: Activated Partial Thrombo Time 23.4 seconds (22.8-30.6); Fibrinogen 443 mg/dL (229.9-363.5); INR 0.92 (0.9-1.1)
[2022-09-17 16:52] LABS: D-Dimer 1.96 ug/mL (0.0-0.5)
[2022-09-17 16:57] LABS: Alanine Aminotransferase 21 U/L (12-78); Anion Gap 13.2 mEq/L (5-15); Aspartate Amino Transferase 26 U/L (14-36); Blood Urea Nitrogen 8 mg/dl (7-17); Calcium 8.4 mg/dl (8.4-10.2); Carbon Dioxide 24 mmol/L (22.0-30.0); Chloride 101 mmol/L (98-107); Creatinine Clearance Estimated 131 mL/min (50-200); Estimated Glomerular Filt Rate 152 ml/min (>60); GFR (African American) 183 ML/MIN (>60); Glucose 115 mg/dl (74-100); Potassium 3.2 mmoL/L (3.5-5.1); Sodium 135 mmol/L (136-145)
[2022-09-17 20:22] VITALS: BP 140/78; PULSE 72; RESP 20; TEMP 36.8; O2SAT 98
[2022-09-17 21:35] VITALS: BP 143/82; PULSE 75
[2022-09-17 22:05] VITALS: BP 135/65; PULSE 79
[2022-09-17 22:36] VITALS: BP 137/77; PULSE 86
[2022-09-17 23:52] LABS: Magnesium 1.5 mg/dl (1.6-2.3)
[2022-09-18] VITALS (39 sets, daily range): BP systolic 115–195; BP diastolic 57–102; PULSE 58–100; RESP 16–20; TEMP 36.5–36.9; O2SAT 98–99
--- NOTE | 2022-09-18 07:20 | HMH.PHAINT1 ---
Pharmacy Intervention Comments: MEDICATION RECONCILIATION COMPLETED ON PATIENT USING EXTERNAL FILL HISTORY FROM PHARMACY AND LIST FROM [facility] OFFICE. -LIVIA ZULETAD
--- NOTE | 2022-09-18 07:57 | EXP.ANES.CKL ---
[facility] Disclaimer: The information contained in this section may have been updated after the patient was seen, as this information can be updated by other users. Medical History Breech presentation Hypokalemia PCOS (polycystic ovarian syndrome) RLQ abdominal pain Short cervix in third trimester, antepartum Upper respiratory infection, viral Surgical History Hx of dilation and curettage Family History Other Diabetes Hyperlipidemia Hypertension Stroke Social History Smoking Status: Never smoker alcohol intake: former substance use type: marijuana current occupational status: employed Travel in the last 8 weeks: None household members: spouse housing: house current occupational exposures/hazards: No caffeine: Yes [facility] Anesthesia Checklist Patient Identification Patient Identification: Arm Band and Verbal (Name & ) Structural Data Admitted From: Inpatient Planned Operative Procedure/s: C Section Consent for Planned Operative Procedure(s) Verified: Yes NPO Status Verified Time NPO: 00:00 Chart Verification Results Verified: CBC and BMP Additional verifications Patient : Yes Anesthesia Reactions: No Hx Blood Transfusions: No Blood Transfusion Reaction: No Airway Assessment C-Spine Mobility Assessed: Yes TMJ Mobility Assessed: Yes Dentition: Good Dentition Neurological Assessment Level of Consciousness: Awake Hx Seizures: No Numbness or tingling in extremities: No Anesthesia Plan Anesthesia Risk discussed: Yes Anesthesia Plan: Verified ASA Class: III Anesthesia Type: Spinal
--- NOTE | 2022-09-18 11:52 | P.PNANES_ITS ---
[facility] Anesthesia Record Part I Anesthesia Record I Intake, IV Amount: 700 Estimated blood loss (mL): 600 Urine output (mL): 100 Blood Pressure: 140/87 SaO2: 99 Pulse Rate: 88 Respiratory Rate: 16 Temperature: 97.7 F Patient is:: Awake Stable to PACU at:: 11:50
--- NOTE | 2022-09-18 11:59 | EXP.OP.NOTE ---
Date of procedure: 09/18/22 Pre-op Diagnosis:: -induced hypertension, breech presentation, mild polyhydramnios, Post-op Diagnosis:: -induced hypertension, breech presentation, mild polyhydramnios, large for gestational age infant Procedure performed:: Primary lower segment transverse section Surgeon:: Alberto Chinchilla MD Net Application Support Specialist(s):: Dr. Jhaveri STRUCTURAL STEEL ENGINEER:: Florencio Smith Anesthesia: spinal Estimated blood loss (mL): 600 Clinical Note:: She is a 26-year-old 2 para 0 at 37 weeks gestational age. She was seen in my office yesterday and her blood pressure was elevated in the 150s over 90s. As result of that she was admitted for control of her blood pressure and monitoring of her blood pressure. Her blood pressure remains slightly elevated in the 140 range. She has been taking nifedipine and we started her on labetalol 200 mg this morning. Her blood work was all normal. There was no evidence of help syndrome. As result of the elevated blood pressure we elected to deliver her today. Operative findings:: She delivered a liveborn female child in the neeru breech presentation at 11:09 AM on the morning of September 18, 2022. Baby had Apgars of 7 at 1 minute and 9 at 5 minutes. pH was 7.43. Ovaries and tubes appeared normal. Operative note:: She was taken to the operating room where spinal anesthesia was found be adequate. She was prepped and draped in normal sterile fashion in the supine position. A Bacon catheter was in the bladder. A Pfannenstiel skin incision was made with knife then carried through to the underlying layer of fascia with cautery. The fascia was opened in the midline with cautery and extended laterally using Camarena scissors. Rock clamps were applied to the superior aspect of the fascial incision which was tented up and the underlying rectus muscles dissected off using cautery. The Badin clamps were then applied to the inferior aspect of the fascial incision which in a similar fashion was tented up and the underlying rectus muscles dissected off using cautery. The rectus muscles were then in the midline, the peritoneum identified, and entered sharply. An Gaurang retractor was then inserted into the abdominal cavity. Transverse incision was made through the uterine muscle above the bladder flap to the amnion. This incision was then extended superiorly and inferiorly using the fingers as traction. The amnion was entered sharply with knife. There was clear amniotic fluid. The infant's breech was then delivered atraumatically. This was followed by the shoulders and the infant's head atraumatically. The oropharynx and nasopharynx were bulb suctioned. The cord was then doubly clamped and cut. The was then handed off to Dr. raymundo who assigned Apgars of 7 at 1 minute and 9 at 5 minutes. We then obtained cord blood as well as cord pH. Using gentle traction on the cord and fundal massage I was able to easily deliver the placenta intact. It had a normal three-vessel cord. The uterus was then cleared of clots and debris . The uterine incision was then closed using running 0 Vicryl suture in a locked fashion. A second layer of the same suture was used to imbricate the first layer. The bladder peritoneum was then closed using running 2-0 Vicryl suture in a locked fashion. There was a small amount of bleeding at the left side of the bladder peritoneum and individual [id number] sutures were used here to obtain excellent hemostasis. The gutters and cul-de-sac were then cleared of clots and debris . Once again hemostasis was assured. I placed a large piece of Surgicel along the bladder peritoneum. I then closed the peritoneum using running 2-0 Vicryl suture. I reapproximated the rectus muscles using running 0 Vicryl suture. The fascia was closed using running #1 Vicryl suture. The subcutaneous tissues were then irrigated with warm water followed by closure Caroline's fascia using running 2-0 Monocryl suture. The skin
--- NOTE | 2022-09-18 13:41 | SUR.OPER ---
1109- tob of viable female . Apgars 7/9. PH 7.43
[2022-09-18 13:45] LABS: Microscopic,Cath URINE MICROSCOPIC (MICROSCOPIC)
--- NOTE | 2022-09-18 13:47 | SUR.PHASEI ---
1218- detailed report called to maverick tony on OB floor 1221- pt left in stable condition with maverick tony. Pt VSS, dressings CDI. maverick Tony confirming placement at bedside.
[2022-09-18 13:51] LABS: Appearance,Urine/Cath CLEAR (Clear); Bilirubin,Cath Negative (Negative); Blood, Urine/Cath Negative (Negative); Color,Urine/Cath YELLOW (Yellow); Glucose,Urine/Cath (UA) Negative (Negative); Ketones,Urine/Cath 1+ (Negative); Leukocyte Esterase,Cath Negative (Negative); Nitrate,Cath Negative (Negative); Protein,Urine/Cath TRACE (Negative); Specific Gravity, Urine/Cath 1.015 (1.005-1.030)
[2022-09-18 14:25] LABS: Amorphous Sediment,Ur/Cath 2+ /lpf; Bacteria,Urine/Cath 1+ /lpf; RBC,Urine/Cath Occasional # /hpf (0-3)
[2022-09-19] VITALS (12 sets, daily range): BP systolic 119–151; BP diastolic 60–89; PULSE 82–96; RESP 16–18; TEMP 36.6–37.1; O2SAT 96–100
[2022-09-19 07:02] LABS: Hemoglobin 9.5 g/dL (12.2-16.2)
[2022-09-19 07:09] LABS: Magnesium 4.7 mg/dl (1.6-2.3)
--- NOTE | 2022-09-19 08:17 | EXP.ANES.II ---
[facility] Anesthesia Record Part II Anesthesia Record Part II Discharge Time: 12:20 Destination: Obstetric Gynecology Dept PACU nurse assessment reviewed?: Yes Patient Condition:: Good Anesthesia Complications:: None Swallowing reflex intact?: Yes Cyanosis?: No Blood Pressure: 145/89 Pulse Rate: 91 Temperature: 97.9 F Mental Status: Alert & Oriented Pain level:: 0 Nausea and/or vomitting:: None Intake, IV Amount: 0
--- NOTE | 2022-09-19 08:47 | EXP.ACUTE.PN ---
Subjective *Date: 09/19/22 *Time: 08:47 Interval history: She continues to do very well. She is eating and drinking and ambulating. She is still on magnesium sulfate 2 g an hour we will keep this up for 24 hours. Her blood pressures have improved and they are in the 120s over 70s. She denies headache or scotomata. Medical Exam Vital signs and Labs for Last 24 Hours: Vital Signs Temp Pulse Pulse Resp BP BP Pulse Ox 09/19/22 07:10 88 16 131/67 09/19/22 08:03 98.2 F 95 H 16 126/77 100 09/19/22 06:01 140/73 09/19/22 05:58 134/70 09/19/22 05:58 17 09/19/22 04:02 98.8 F 89 17 127/66 96 09/19/22 02:02 119/70 09/19/22 03:02 133/73 09/19/22 01:02 134/71 09/19/22 00:08 98.2 F 96 H 17 127/60 100 09/18/22 23:53 18 09/18/22 23:06 145/79 H 09/18/22 22:50 117/57 L 09/18/22 21:54 130/58 L 09/18/22 21:35 18 143/82 H 09/18/22 20:02 98 F 92 H 17 122/70 98 09/18/22 18:50 122/70 09/18/22 15:20 134/85 09/18/22 14:17 136/75 09/18/22 14:12 132/62 09/18/22 14:07 146/64 H 09/18/22 14:02 156/70 H 09/18/22 13:55 148/76 H 09/18/22 13:35 150/100 H 09/18/22 12:45 168/88 H 09/18/22 17:24 124/77 09/18/22 16:24 139/73 09/18/22 13:09 195/98 H 09/18/22 12:28 174/90 H 09/18/22 12:20 97.9 F 91 H 16 145/89 H 99 09/18/22 12:10 90 16 142/93 H 99 09/18/22 12:00 89 16 138/90 99 09/18/22 11:50 97.7 F 100 H 16 140/87 99 09/19/22 08:18 97.9 F 91 H 145/89 H 09/18/22 11:55 97.7 F 88 16 140/87 Intake and Output 09/18/22 09/19/22 09/19/22 19:59 03:59 11:59 Intake Total 0 / 0 Output Total 400 / 1100 700 / 1100 Balance -400 / -1100 -700 / -1100 Intake: Intake, Total IV Amount 0 / 0 Output: Output, Urine Amount 400 / 1100 700 / 1100 Other: Number of Voids 1 Laboratory Results - last 24 hr 09/18/22 10:40: Urine Color Yellow, Urine Appearance Clear, Urine pH 7.0, Ur Specific [place] 1.015, Urine Protein Trace, Urine Glucose (UA) Negative, Urine Ketones 1+, Urine Blood Negative, Urine Nitrate Negative, Urine Bilirubin Negative, Urine Urobilinogen 1.0, Ur Leukocyte Esterase Negative, Urine RBC Occasional, Urine WBC 3-5, Ur Squamous Epith Cells 3-5, Urine Bacteria 1+ 09/19/22 06:49: Hgb 9.5 L, Hct 28.0 L 09/19/22 06:49: Magnesium 4.7 H D I & O for Labs for Last 24 Hours: Intake & Output 09/16/22 09/17/22 09/18/22 09/19/22 11:59 11:59 11:59 11:59 Intake Total 700 / 700 0 / 0 Output Total 1100 / 1100 Balance 700 / 700 -1100 / -1100 Weight 251 lb 0.011 oz Microbiology Reports for the Last 24 Hours: Microbiology 09/17/22 15:21 Urine,Clean Catch Urine Culture - Preliminary Head: Present atraumatic ENT: Present normal exam Neck: Present normal inspection Respiratory: Present normal respiratory effort; Absent accessory muscle use Assessment and Plan *Assessment and plan (1) Hypertension affecting in third trimester: Status: Acute Category: Medical Code(s): O16.3 - Unspecified maternal hypertension, third trimester (2) Breech presentation: Status: Acute Category: Medical Code(s): O32.1XX0 - Maternal care for breech presentation, not applicable or unspecified (3) delivery delivered: Status: Acute Category: Medical Code(s): O82 - Encounter for delivery without indication Plan She is doing very well this morning. Her pain is well controlled. She had a tap block yesterday. Her blood pressures have stabilized. She will continue with the magnesium sulfate for a total of 24 hours. We will continue with the labetalol 200 mg twice daily as well. We will plan to send her home in 48 hours.
[2022-09-20 00:18] VITALS: BP 143/82
[2022-09-20 04:00] VITALS: BP 126/58; PULSE 88; RESP 18; TEMP 36.6; O2SAT 98
--- NOTE | 2022-09-20 09:04 | EXP.ACUTE.PN ---
Subjective *Date: 09/20/22 *Time: 09:04 Interval history: She is doing well again this morning. She is breast-feeding but does not have a lot of breastmilk yet. She is supplementing. Her pain is well controlled. Her blood pressures have been slightly elevated at times in the 150/90 range. She denies any headache or scotomata. She is can continue to take her labetalol 200 mg twice daily. Medical Exam Vital signs and Labs for Last 24 Hours: Vital Signs Temp Pulse Resp BP Pulse Ox 09/20/22 04:00 97.9 F 88 18 126/58 L 98 09/20/22 00:18 143/82 H 09/19/22 20:03 97.9 F 82 18 151/75 H 99 09/19/22 13:45 16 Intake and Output 09/19/22 09/20/22 09/20/22 19:59 03:59 11:59 Other: Number of Bowel Movements 1 I & O for Labs for Last 24 Hours: Intake & Output 09/17/22 09/18/22 09/19/22 09/20/22 11:59 11:59 11:59 11:59 Intake Total 700 / 700 0 / 0 Output Total 1100 / 1100 Balance 700 / 700 -1100 / -1100 Weight 251 lb 0.011 oz Microbiology Reports for the Last 24 Hours: Microbiology 09/17/22 15:21 Urine,Clean Catch Urine Culture - Final Multiple organisms, suggests contamination. Head: Present atraumatic ENT: Present normal exam Neck: Present normal inspection Respiratory: Present normal respiratory effort Extremities: Present full ROM and edema (She has significant pedal edema.); Absent calf tenderness Assessment and Plan *Assessment and plan (1) delivery delivered: Status: Acute Category: Medical Code(s): O82 - Encounter for delivery without indication (2) Hypertension affecting in third trimester: Status: Acute Category: Medical Code(s): O16.3 - Unspecified maternal hypertension, third trimester (3) Breech presentation: Status: Acute Category: Medical Code(s): O32.1XX0 - Maternal care for breech presentation, not applicable or unspecified Plan She is doing well although she has decreased breast milk production. She really has not started producing enough yet. I encouraged her to continue pumping. Her blood pressure is slightly labile with it being up occasionally but not critically high. At this point in time we will continue with her labetalol 200 mg twice daily. We will plan to send her home tomorrow.
[2022-09-20 09:18] VITALS: BP 155/75; PULSE 80; RESP 16; TEMP 36.7; O2SAT 100
--- NOTE | 2022-09-20 09:42 | SW/DCPLANNER ---
Addendum entered by Paty Heller 09/24/22 14:16: Infant cord screen is NEGATIVE. Original Note: I received a consult on this patient regarding THC during first visit. Patient did test positive on 02/13/22. Patient and were negative on admission on 09/18/22. Patient stated that she did not use THC once she found out she was . Patient, and infant's father (Keven Delgado 03/31/96) will reside at [address] [place] [address]. Patient's phone number [phone]. Patient is currently established with [facility] and is interested in HANDS. I will call and [facility] pool/ NIK and inform her of patient delivering and interested in services. Patient stated that she has the following items at home: crib, carseat, clothing, diapers and will be bottle/breast feeding. Patient will have transportation to all follow up appointments. PEDS MD is Dr Meyers. The plan for this patient pending no setbacks is to discharge home tomorrow 09/21/22.
[2022-09-20 22:06] VITALS: BP 141/82; PULSE 90; RESP 17; TEMP 37.1; O2SAT 100
[2022-09-21 04:15] VITALS: BP 128/62; PULSE 69; RESP 17; TEMP 36.6; O2SAT 98
--- NOTE | 2022-09-21 07:43 | EXP.DC.SUM ---
General Admission date:: 09/17/22 Discharge date: 09/21/22 HPI HPI HPI: POD # 3 Sitting at bedside table eating breakfast. States she is feeling well. Pain is controlled. She is breast and formula feeding. Voiding without difficulty and passing flatus. Light lochia. Denies headaches and vison changes. Admits to lower extremity swelling. Denies calf pain. Hospital Course Hospital Course Hospital Course: Ms Librado Delgado is a 26-year-old 2 para 0 at 37 weeks gestational age admitted to [facility] for preeclampsia, BP 150's/90's and lower extremity swelling. Baby was breech presentation.?She was taking Procardia 10 mg TID. Procardia was stopped and she was started on Labetalol 200 mg BID the morning of 09/18/22. She underwent primary section on 09/18/22. She had a live female baby (baby's name is Mariaelena Pena) weighing 8 lb 2 oz, APGARs 7, 9. She was started on magnesium sulfate and it was continued for 24 hours after delivery. She did well /post operatively. Pain controlled. Light lochia. She is breast and formula feeding. Voiding without difficulty and passing flatus. Tolerating regular diet. She continued on Labetalol 200 mg BID. BP mild range and normotensive. Remainder of vitals stable, afebrile. Heart regular rate and rhythm. Lungs clear to auscultation. Abdomen soft, nontender. Incision clean/dry/intact. She has +3 bilateral lower extremity/pedal edema. No calf pain. She was discharged home on POD # 3 and instructed to follow-up in 5 days for BP check. Normal hospital course. Exam Data for Last 24 hours Vital signs and Labs for Last 24 Hours: Temp Pulse Resp BP Pulse Ox 97.9 F 69 17 128/62 98 09/21/22 04:15 09/21/22 04:15 09/21/22 04:15 09/21/22 04:15 09/21/22 04:15 I & O for Last 24 hours: Intake & Output 09/18/22 09/19/22 09/20/22 09/21/22 23:59 23:59 23:59 23:59 Intake Total 700 / 700 0 / 0 Output Total 400 / 400 700 / 700 Balance 300 / 300 -700 / -700 Microbiology Reports for the Last 24 Hours: Microbiology 09/17/22 15:21 Urine,Clean Catch Urine Culture - Final Multiple organisms, suggests contamination. Constitutional Constitutional: no acute distress *Routine HEENT Exam Head: Present normocephalic and atraumatic Eye: Absent conjunctivae pink ENT: Present mucous membranes moist and dentition normal *Routine Neck Exam Neck: Present full ROM *Routine Respiratory Exam Respiratory: Present CTA bilaterally and normal respiratory effort *Routine Cardiovascular Exam Cardiovascular: Present RRR *Routine Abdominal Exam Abdominal: Present soft and normoactive bowel sounds; Absent tenderness Comments: Uterine fundus firm and below umbilicus, pfannenstiel incision clean/dry/intact *Routine Rectal Exam Patient deferred: visual exam *Routine Exam Patient deferred: external exam *Routine Extremities Exam Extremities: Present edema (+3 bilateral lower extremity edema) and full ROM; Absent calf tenderness *Routine Neurological Exam Neurological: Present alert, oriented X3 and moving all extremities Routine Psychiatric Exam Psychiatric: Present normal affect and cooperative DS: Diagnosis Discharge Diagnosis (1) delivery delivered: Status: Acute (2) Hypertension affecting in third trimester: Status: Acute (3) Breech presentation: Status: Acute (4) Acute blood loss anemia: Status: Acute Meds Home Medications and Allergies Home Medications Medication Instructions Recorded Confirmed Type prenat.vits,saira,[id number] 1 tab PO DAILY Supplement 07/10/21 09/17/22 History ferrous sulfate 325 mg (65 mg 325 mg PO DAILY Supplement 08/22/22 09/17/22 History iron) tablet (Feosol) ibuprofen 400 mg tablet 800 mg PO Q8H PRN Mild To Moderate 09/21/22 Rx Pain #40 tabs labetalol 100 mg tablet 200 mg PO BID #120 tabs 09/21/22 Rx oxycodone-acetaminophen 5 mg-325 1 tab PO Q6H PRN mare
== END 2022-09-21 10:00 | disposition home or self-care (01) | DRG 787 ==
PROVIDERS: Admitting Provider Nurse Practitioner Obstetrics & Gynecology; PCP Nurse Practitioner Family; Visit Provider Nurse Practitioner Obstetrics & Gynecology
PROC: 10D00Z1 Extraction of Products of Conception, Low, Open Approach (ICD-10-PCS; CPT 59514; principal; 2022-09-18 12:00)
DX: O13.4 Gestational [pregnancy-induced] hypertension without significant proteinuria, complicating childbirth (principal); D62 Acute posthemorrhagic anemia; Z3A.37 37 weeks gestation of pregnancy; Z37.0 Single live birth; O40.3XX0 Polyhydramnios, third trimester, not applicable or unspecified; O36.63X0 Maternal care for excessive fetal growth, third trimester, not applicable or unspecified; Z23 Encounter for immunization; O90.81 Anemia of the puerperium; O32.1XX0 Maternal care for breech presentation, not applicable or unspecified
CPT/HCPCS: 59514; 36415; 59025; 80048; 80305; 81001; 82800; 83735; 84450; 84460; 84550; 85014; 85018; 85025; 85378; 85384; 85610; 85730; 86850; 87086; 87636; 94761; C9290; C9803; G0283; J2405; U0003; U0005

== ENCOUNTER 2022-09-23 20:12 | Outpatient (CLI) | payer BC, SELFPAY ==
[2022-09-23] VITALS (7 sets, daily range): BP systolic 141–163; BP diastolic 86–107; PULSE 80–96; RESP 18; TEMP 37.1; O2SAT 100; BMI 43.4
--- NOTE | 2022-09-23 20:40 | PC.NURSE ---
PT ARRIVED TO UNIT STATING SHE JUST DOES NOT FEEL WELL,UA OBTAINED .PT REPORTS ONLY PAIN IS HER RIGHT FOOT.SHE DENIES ANY MELISSA OR VISUIAL DISTURBANCES,SHE SAID LAST NIGHT SHE HAD SOME LINES ACROSS HER EYES.B/P WAS 154/103.HR 96,TEMP 98.8,RESP-18,SAT LEVEL ON RA 100%.3+PITTING EDEMA IN FEET AND ANKLES AND LOWER LEGS.
[2022-09-23 20:42] LABS: Microscopic, Urine URINE MICROSCOPIC (MICROSCOPIC)
[2022-09-23 20:44] LABS: Appearance,Urine TURBID (Clear); Bilirubin,Urine Negative (Negative); Blood, Urine 3+ (Negative); Color,Urine RED (Yellow); Glucose,Urine (UA) Negative (Negative); Ketones,Urine Negative (Negative); Leukocyte Esterase,Urine 3+ (Negative); Nitrate,Urine Negative (Negative); PH,Urine 7.5 (5.0-8.5); Protein,Urine 1+ (Negative); Specific Gravity, Urine 1.015 (1.005-1.030)
--- NOTE | 2022-09-23 20:50 | PC.NURSE ---
NOTIFIED OF PT ARRIVAL AND HER FIRST 2 B/P WAS 154/103,P-96 AND 159/104 P-88,DENIES ANY MELISSA OR VISUIAL DISTURBANCES,REPORTS LINES BEFORE EYES LAST NIGHT,3+ PITTING EDEMA IN FEET AND LEGS,DTR'S LITTLE BRISK,NO CLONUS,WAITING ON URINE RESULTS,ORDERS FOR CBC,CMP AND LABETOLOL 20 MD IV NOW
--- NOTE | 2022-09-23 20:50 | PC.NURSE ---
IV STARTED PER JABIER WANG RN AND CBC AND CMP DRAW AT THIS TIME,PT TOLERATED WELL
[2022-09-23 20:59] LABS: Bacteria,Urine 1+ /lpf; RBC,Urine TNTC #/hpf (0-3)
--- NOTE | 2022-09-23 21:02 | PC.NURSE ---
LABETOLOL 20 MG IV GIVEN
[2022-09-23 21:08] LABS: Basophils % 0.2 % (0.1-2.0); Eosinophils # 0.4 K/mm3 (0.0-0.4); Eosinophils % 4.2 % (0.1-12.0); Hematocrit 28.4 % (37.0-47.0); Hemoglobin 9.5 g/dL (12.2-16.2); Lymphocytes # 1.9 K/mm3 (0.7-4.5); Lymphocytes % 18.5 % (10-50); Mean Corpuscular HGB Conc 33.5 g/dL (31.8-35.4); Mean Corpuscular Hemoglobin 27.8 pg (27.0-31.2); Mean Platelet Volume 7.7 fl (7.4-10.4); Monocytes # 0.6 K/mm3 (0.1-1.0); Monocytes % 5.7 % (1.7-9.3); Neutrophils # 7.2 K/mm3 (1.8-7.8); Neutrophils % 71.3 % (37.0-80.0); Platelet Count 354 K/mm3 (142-424); Red Blood Count 3.43 M/mm3 (4.20-5.40); Red Cell Distribution Width 13.5 % (11.5-17.5); White Blood Count 10.1 K/mm3 (4.8-10.8)
[2022-09-23 21:12] LABS: Alanine Aminotransferase 29 U/L (12-78); Albumin Level 3.3 g/dl (3.5-5.0); Alkaline Phosphatase 133 U/L (38-126); Anion Gap 10.2 mEq/L (5-15); Aspartate Amino Transferase 28 U/L (14-36); Bilirubin,Total 0.3 mg/dl (0.2-1.3); Blood Urea Nitrogen 17 mg/dl (7-17); Calcium 8.5 mg/dl (8.4-10.2); Carbon Dioxide 27 mmol/L (22.0-30.0); Chloride 106 mmol/L (98-107); Creatinine Clearance Estimated 86 mL/min (50-200); Estimated Glomerular Filt Rate 88 ml/min (>60); GFR (African American) 107 ML/MIN (>60); Globulin 3.2 g/dL (1.3-3.2); Glucose 89 mg/dl (74-100); Potassium 3.2 mmoL/L (3.5-5.1); Sodium 140 mmol/L (136-145); Total Protein,Serum 6.5 g/dl (6.3-8.2)
--- NOTE | 2022-09-23 21:50 | PC.NURSE ---
NOTIFIED DR BELLA THAT PT FEELING BETTER LAST 2 B/P WAS 156/86 AND 141/98,CBC WAS OK,CMP THE POTASSIUM WAS 3.2 ns her urine was 3+ blood and 3 + leuks,1+ bacteria but pt is still having lochiaorders for potassim 40meq and labetolol 200mg po now and send her home.have her take her dose of labetolol in morning,rest and call office tomorrow to see if yanez wants to see her before sat.will take several weeks for janeth to go down.wait to see want urine culture shows
--- NOTE | 2022-09-23 22:23 | PC.NURSE ---
labetolol 200mg po and potassium 40 meq.po given.iv d/c.gauze and coban applied,preeclampsia discharge instructions given.pt and and infant leaving unit
== END 2022-09-23 22:25 | disposition home or self-care (01) ==
LOC: OBOUT 20:15 → OB 20:16
PROVIDERS: PCP Nurse Practitioner Family; Visit Provider Obstetrics & Gynecology
DX: O16.5 Unspecified maternal hypertension, complicating the puerperium (principal)
CPT/HCPCS: 80053; 81001; 85025; 87086

== ENCOUNTER → 2023-01-22 14:06 | Outpatient (CLI) | payer BC, SELFPAY ==
[2023-01-22 16:26] LABS: HCG,Quantitative 3986 mIU/ml (0-5.42)
[2023-01-24 08:38] LABS: Progesterone 7.9 ng/mL (.)
== END ==
PROVIDERS: PCP Nurse Practitioner Family; Visit Provider Nurse Practitioner Obstetrics & Gynecology
DX: Z32.01 Encounter for pregnancy test, result positive (principal)
CPT/HCPCS: 36415; 84144; 84702

== ENCOUNTER → 2023-02-19 10:06 | Outpatient (CLI) | payer BC, SELFPAY ==
[2023-02-19 10:30] LABS: Basophils % 0.3 % (0.1-2.0); Eosinophils # 0.2 K/mm3 (0.0-0.4); Eosinophils % 1.8 % (0.1-12.0); Hematocrit 37.2 % (37.0-47.0); Hemoglobin 13.2 g/dL (12.2-16.2); Lymphocytes # 1.8 K/mm3 (0.7-4.5); Lymphocytes % 20.6 % (10-50); Mean Corpuscular HGB Conc 35.4 g/dL (31.8-35.4); Mean Corpuscular Hemoglobin 27.6 pg (27.0-31.2); Mean Platelet Volume 6.8 fl (7.4-10.4); Monocytes # 0.3 K/mm3 (0.1-1.0); Monocytes % 3.8 % (1.7-9.3); Neutrophils # 6.5 K/mm3 (1.8-7.8); Neutrophils % 73.5 % (37.0-80.0); Platelet Count 283 K/mm3 (142-424); Red Blood Count 4.76 M/mm3 (4.20-5.40); White Blood Count 8.9 K/mm3 (4.8-10.8)
[2023-02-20 10:55] LABS: HIV Screen 4th Generation wRfx Non Reactive (Non Reactive)
[2023-02-20 12:05] LABS: Rapid Plasma Reagin Ab Titer Non Reactive titer (NonRea<1:1)
[2023-02-21 23:37] LABS: Neisseria gonorrhoeae, NAA Negative (Negative)
[2023-02-27 12:04] LABS: Hepatitis B Surface Antigen Negative; Hepatitis C Antibody Non Reactive
[2023-02-27 12:05] LABS: Rubella Antibodies, IgG 1.66
== END ==
PROVIDERS: PCP Nurse Practitioner Family; Visit Provider Obstetrics & Gynecology
DX: Z34.91 Encounter for supervision of normal pregnancy, unspecified, first trimester (principal); Z3A.09 9 weeks gestation of pregnancy
CPT/HCPCS: 36415; 85025; 86593; 86703; 86762; 86850; 87086; 87340; 87380; 87491; 87591; G0432

== ENCOUNTER 2023-05-08 14:52 | Outpatient (CLI) | payer BC, SELFPAY ==
--- NOTE | 2023-05-08 14:53 | US_ITS ---
PROCEDURE: US OB /MATERNAL DETAIL CLINICAL INDICATION: 20 WEEK ANATOMY SCAN COMPARISON: No exams were available for comparison FINDINGS: Transabdominal sonographic images of the pelvis were obtained. From her established due date she is 20 weeks 2 days. Single viable intrauterine gestation. Breech position. Placenta: Posteriorplacenta grade 1. There is an average amount of fluid. The cervix appears satisfactory. Closed and measuring 3.1 cm in length. Complete survey performed and was unremarkable on the submitted images as in PACS. No discrete anomalies identified on survey imaging by technologist. Active fetus. Three-vessel cord with satisfactory umbilical cord insertion. 4- chamber heart noted. Situs, aortic arch, LVOT, RVOT, three-vessel view appear normal. Survey of brain & ventricles Unremarkable. Cerebellum, thalamus, choroid plexus, cisterna magna appear normal. There is a 6.3 mm right choroid plexus cyst. Face and neck survey unremarkable. Profile, nasion, lips and nose appeared normal. Diaphragm and chest views unremarkable. Abdomen: Both kidneys noted and unremarkable. Stomach and bladder noted and satisfactory. Spine: Survey of the spine satisfactory with no anomalies identified nor imaged. Cervical, thoracic, lower spine appear normal. Both arms and legs noted. Amniotic Fluid: Adequate. Measurements: Average ultrasound age 20weeks 1day. Estimated due date by ultrasound age 0509/24/2023. Estimated weight 341g BPD = 20weeks 0 days HC = 19weeks 5days AC = 20weeks 4days FL = 20weeks 1day Growth Percentile= 42 Heart Rate = 153bpm Cerebellum = 19weeks 5days Humerus = 20weeks HC/AC is 1.1 FL/BPD is 0.7 FL/AC is 0.21 IMPRESSION: 1. Viable fetus in the breech presentation with a posterior placenta grade 1. 2. The fluid is within normal limits. 3. Anatomical scan appears normal. 4. There is a 6.3 mm right choroid plexus cyst and recommend consult with [facility] for completeness. 5. biometry is consistent with a dates. Dictated by: Alberto Chinchilla MD 05/08/2023 17:17 Alberto Chinchilla MD in OV 05/08/2023 17:17
== END 2023-05-08 23:59 ==
LOC: RAD 14:53
PROVIDERS: PCP Nurse Practitioner Family; Visit Provider Obstetrics & Gynecology
DX: Z34.92 Encounter for supervision of normal pregnancy, unspecified, second trimester (principal); Z3A.20 20 weeks gestation of pregnancy
CPT/HCPCS: 76811

== ENCOUNTER 2023-06-15 08:53 | Outpatient (CLI) | payer BC, SELFPAY ==
[2023-06-15 09:29] LABS: Basophils % 0.2 % (0.1-2.0); Eosinophils # 0.1 K/mm3 (0.0-0.4); Eosinophils % 0.6 % (0.1-12.0); Hematocrit 37.1 % (37.0-47.0); Hemoglobin 12.5 g/dL (12.2-16.2); Lymphocytes # 2.2 K/mm3 (0.7-4.5); Mean Corpuscular HGB Conc 33.8 g/dL (31.8-35.4); Mean Corpuscular Hemoglobin 27.4 pg (27.0-31.2); Mean Corpuscular Volume 81.1 fl (81-99); Mean Platelet Volume 7.9 fl (7.4-10.4); Monocytes # 0.7 K/mm3 (0.1-1.0); Monocytes % 5.7 % (1.7-9.3); Neutrophils % 75.4 % (37.0-80.0); Platelet Count 291 K/mm3 (142-424); Red Blood Count 4.57 M/mm3 (4.20-5.40); Red Cell Distribution Width 14.5 % (11.5-17.5); White Blood Count 11.9 K/mm3 (4.8-10.8)
[2023-06-15 09:44] LABS: Glucose,Fasting 96 mg/dl (74-100)
[2023-06-15 10:43] LABS: Glucose 1 Hour 146 mg/dL (74-100)
== END 2023-06-15 23:59 ==
LOC: LAB 08:54
PROVIDERS: PCP Nurse Practitioner Family; Visit Provider Obstetrics & Gynecology
DX: Z34.92 Encounter for supervision of normal pregnancy, unspecified, second trimester (principal); Z3A.25 25 weeks gestation of pregnancy
CPT/HCPCS: 36415; 82951; 85025

== ENCOUNTER 2023-06-24 07:36 | Outpatient (CLI) | payer BC, SELFPAY ==
[2023-06-24 08:38] LABS: Glucose,Fasting 98 mg/dl (74-100)
[2023-06-24 09:52] LABS: Glucose 1 Hour 127 mg/dL (74-100)
[2023-06-24 11:11] LABS: Glucose 2 Hour 107 mg/dL (74-100)
[2023-06-24 12:01] LABS: Glucose 3 Hour 112 mg/dL (74-100)
== END 2023-06-24 23:59 ==
LOC: LAB 07:36
PROVIDERS: PCP Nurse Practitioner Family; Visit Provider Obstetrics & Gynecology
DX: O26.892 Other specified pregnancy related conditions, second trimester (principal); Z3A.26 26 weeks gestation of pregnancy
CPT/HCPCS: 36415; 82951

== ENCOUNTER 2023-08-20 17:26 | Outpatient (CLI) | payer BC, SELFPAY ==
[2023-08-20 17:34] VITALS: BMI 45.3
[2023-08-20 17:44] VITALS: BP 120/70; PULSE 94; RESP 16; TEMP 37.1; O2SAT 96; BMI 45.3
[2023-08-20 18:20] LABS: Microscopic, Urine URINE MICROSCOPIC (MICROSCOPIC)
[2023-08-20 18:40] LABS: Appearance,Urine SL CLOUDY (Clear); Bilirubin,Urine Negative (Negative); Blood, Urine Negative (Negative); Color,Urine YELLOW (Yellow); Glucose,Urine (UA) TRACE (Negative); Ketones,Urine Negative (Negative); Leukocyte Esterase,Urine 2+ (Negative); Nitrate,Urine Negative (Negative); PH,Urine 6.5 (5.0-8.5); Protein,Urine Negative (Negative); Specific Gravity, Urine 1.025 (1.005-1.030)
[2023-08-20 18:54] LABS: Amphetamine/Metha Screen,Urine Negative ng/ml (<1000)
[2023-08-20 18:55] LABS: Barbiturates Screen,Urine Negative ng/ml (<200)
[2023-08-20 18:56] LABS: Benzodiazepines Screen,Urine Negative ng/ml (<200); Cannabinoid Screen,Urine Negative ng/ml (<50)
[2023-08-20 18:57] LABS: Cocaine Screen,Urine Negative ng/ml (<300)
[2023-08-20 18:58] LABS: Methadone Screen,Urine Negative ng/ml (<300); Opiate Screen,Urine Negative ng/ml (<300)
[2023-08-20 18:59] LABS: Phencyclidine Screen,Urine Negative ng/ml (<25)
[2023-08-20 19:11] LABS: Bacteria,Urine Trace /lpf; RBC,Urine Occasional #/hpf (0-3)
[2023-08-20 19:12] LABS: Calcium Oxalate Crystals,Urine Trace /lpf
== END 2023-08-20 19:16 | disposition home or self-care (01) ==
LOC: OBOUT 17:28 → OB 17:28
PROVIDERS: PCP Nurse Practitioner Family; Visit Provider Obstetrics & Gynecology
DX: O36.8130 Decreased fetal movements, third trimester, not applicable or unspecified (principal); Z3A.35 35 weeks gestation of pregnancy
CPT/HCPCS: 80307; 81001; 87086; G0463

== ENCOUNTER 2023-08-21 11:20 | Outpatient (CLI) | payer BC, SELFPAY ==
[2023-08-21 11:52] VITALS: BMI 45.3
[2023-08-21 11:59] VITALS: BP 133/85; PULSE 94; RESP 18; TEMP 37.3; O2SAT 99; BMI 45.3
[2023-08-21 12:56] LABS: Chloride 108 mmol/L (98-107)
[2023-08-21 12:57] LABS: Potassium 3.2 mmoL/L (3.5-5.1); Sodium 135 mmol/L (136-145)
[2023-08-21 12:59] LABS: Blood Urea Nitrogen 6 mg/dl (7-17); Creatinine Clearance Estimated 136 mL/min (50-200); Estimated Glomerular Filt Rate 150 ml/min (>60); GFR (African American) 182 ML/MIN (>60)
[2023-08-21 13:00] LABS: Alanine Aminotransferase 20 U/L (12-78); Anion Gap 5.2 mEq/L (5-15); Aspartate Amino Transferase 24 U/L (14-36); Calcium 8.8 mg/dl (8.4-10.2); Carbon Dioxide 25 mmol/L (22.0-30.0); Glucose 83 mg/dl (74-100)
[2023-08-21] MEDS: ACETAMINOPHEN 325MG TAB 650 MG PO (13:04)
[2023-08-21] MEDS: DEXTROSE 5%-LACTATED RINGERS 1,000 ML 999 ML IV (13:06)
[2023-08-21 13:11] LABS: Uric Acid 3.5 mg/dl (2.5-6.2)
[2023-08-21 13:18] LABS: Amphetamine/Metha Screen,Urine Negative ng/ml (<1000); Barbiturates Screen,Urine Negative ng/ml (<200)
[2023-08-21 13:19] LABS: Benzodiazepines Screen,Urine Negative ng/ml (<200)
[2023-08-21 13:20] LABS: Cannabinoid Screen,Urine Negative ng/ml (<50); Cocaine Screen,Urine Negative ng/ml (<300)
[2023-08-21 13:21] LABS: Methadone Screen,Urine Negative ng/ml (<300)
[2023-08-21 13:21] LABS: Basophils % 0.4 % (0.1-2.0); Eosinophils % 0.4 % (0.1-12.0); Hemoglobin 10.3 g/dL (12.2-16.2); Lymphocytes # 1.6 K/mm3 (0.7-4.5); Lymphocytes % 19.3 % (10-50); Mean Corpuscular HGB Conc 33.1 g/dL (31.8-35.4); Mean Corpuscular Hemoglobin 24.7 pg (27.0-31.2); Mean Corpuscular Volume 74.5 fl (81-99); Mean Platelet Volume 7.6 fl (7.4-10.4); Monocytes # 0.5 K/mm3 (0.1-1.0); Monocytes % 5.8 % (1.7-9.3); Neutrophils # 6.3 K/mm3 (1.8-7.8); Platelet Count 247 K/mm3 (142-424); Red Blood Count 4.17 M/mm3 (4.20-5.40); Red Cell Distribution Width 15.2 % (11.5-17.5); White Blood Count 8.5 K/mm3 (4.8-10.8)
[2023-08-21 13:22] LABS: Opiate Screen,Urine Negative ng/ml (<300); Phencyclidine Screen,Urine Negative ng/ml (<25)
[2023-08-21 13:47] LABS: Activated Partial Thrombo Time 25.5 seconds (22.8-30.6); Fibrinogen 541 mg/dL (229.9-363.5); INR 0.95 (0.9-1.1); Prothrombin Time 10.3 seconds (10.1-12.5)
[2023-08-21 14:04] LABS: Microscopic, Urine URINE MICROSCOPIC (MICROSCOPIC)
[2023-08-21] MEDS: BUTALB/ACETAMINOPHEN/CAFFEINE 50MG/325MG/40MG TAB 1 EACH PO (14:05)
[2023-08-21 14:37] LABS: Appearance,Urine CLEAR (Clear); Bilirubin,Urine Negative (Negative); Blood, Urine Negative (Negative); Color,Urine YELLOW (Yellow); Glucose,Urine (UA) Negative (Negative); Ketones,Urine TRACE (Negative); Leukocyte Esterase,Urine 2+ (Negative); Nitrate,Urine Negative (Negative); Protein,Urine Negative (Negative); Specific Gravity, Urine 1.015 (1.005-1.030)
[2023-08-21 15:07] LABS: Bacteria,Urine Trace /lpf
== END 2023-08-21 15:04 | disposition home or self-care (01) ==
LOC: OBOUT 11:23 → OB 11:24
PROVIDERS: PCP Nurse Practitioner Family; Visit Provider Nurse Practitioner Obstetrics & Gynecology
DX: O26.853 Spotting complicating pregnancy, third trimester (principal); R51.9 Headache, unspecified; R42 Dizziness and giddiness; Z3A.35 35 weeks gestation of pregnancy; B96.89 Other specified bacterial agents as the cause of diseases classified elsewhere
CPT/HCPCS: 36415; 80048; 80307; 81001; 84450; 84460; 84550; 85025; 85384; 85610; 85730; G0463

== ENCOUNTER 2023-08-23 14:35 | Outpatient (CLI) | payer BC, SELFPAY ==
[2023-08-23 14:42] VITALS: BMI 45.3
[2023-08-23 15:06] VITALS: BP 120/72; PULSE 101; RESP 22; TEMP 37.1; O2SAT 98; BMI 45.5
[2023-08-23 15:21] LABS: Microscopic, Urine URINE MICROSCOPIC (MICROSCOPIC)
[2023-08-23 15:24] LABS: Appearance,Urine SL CLOUDY (Clear); Blood, Urine TRACE-I (Negative); Color,Urine YELLOW (Yellow); Glucose,Urine (UA) Negative (Negative); Ketones,Urine Negative (Negative); Leukocyte Esterase,Urine 2+ (Negative); Nitrate,Urine Negative (Negative); PH,Urine 6.5 (5.0-8.5); Protein,Urine TRACE (Negative); Specific Gravity, Urine 1.025 (1.005-1.030)
[2023-08-23 15:28] LABS: Bilirubin,Urine 1+ (Negative)
[2023-08-23 15:40] LABS: Benzodiazepines Screen,Urine Negative ng/ml (<200)
[2023-08-23 15:41] LABS: Amphetamine/Metha Screen,Urine Negative ng/ml (<1000); Barbiturates Screen,Urine Positive ng/ml (<200)
[2023-08-23 15:42] LABS: Cannabinoid Screen,Urine Negative ng/ml (<50)
[2023-08-23 15:43] LABS: Cocaine Screen,Urine Negative ng/ml (<300); Methadone Screen,Urine Negative ng/ml (<300)
[2023-08-23 15:45] LABS: Opiate Screen,Urine Negative ng/ml (<300); Phencyclidine Screen,Urine Negative ng/ml (<25)
[2023-08-23 15:47] LABS: Bacteria,Urine 3+ /lpf
== END 2023-08-23 16:39 | disposition home or self-care (01) ==
LOC: OBOUT 14:37 → OB 14:38
PROVIDERS: PCP Nurse Practitioner Family; Visit Provider Obstetrics & Gynecology
DX: O26.893 Other specified pregnancy related conditions, third trimester (principal); B95.2 Enterococcus as the cause of diseases classified elsewhere; B96.89 Other specified bacterial agents as the cause of diseases classified elsewhere; N39.0 Urinary tract infection, site not specified; Z3A.35 35 weeks gestation of pregnancy
CPT/HCPCS: 80307; 81001; 87070; 87086; 87205; G0463

== ENCOUNTER 2023-08-27 21:36 | Inpatient (IN) | payer BC, SELFPAY ==
[2023-08-27 15:41] VITALS: BMI 46.4
[2023-08-27 15:48] LABS: Microscopic, Urine URINE MICROSCOPIC (MICROSCOPIC)
[2023-08-27 15:56] VITALS: BP 135/68; PULSE 86; RESP 18; TEMP 36.8; O2SAT 98; BMI 46.4
[2023-08-27 16:12] LABS: Appearance,Urine CLEAR (Clear); Bilirubin,Urine Negative (Negative); Blood, Urine Negative (Negative); Color,Urine YELLOW (Yellow); Glucose,Urine (UA) Negative (Negative); Ketones,Urine Negative (Negative); Leukocyte Esterase,Urine 1+ (Negative); Nitrate,Urine Negative (Negative); Protein,Urine Negative (Negative); Specific Gravity, Urine 1.025 (1.005-1.030)
[2023-08-27 16:24] LABS: Barbiturates Screen,Urine Positive ng/ml (<200)
[2023-08-27 16:25] LABS: Benzodiazepines Screen,Urine Negative ng/ml (<200)
[2023-08-27 16:26] LABS: Amphetamine/Metha Screen,Urine Negative ng/ml (<1000); Methadone Screen,Urine Negative ng/ml (<300)
[2023-08-27 16:27] LABS: Cannabinoid Screen,Urine Negative ng/ml (<50)
[2023-08-27 16:28] LABS: Cocaine Screen,Urine Negative ng/ml (<300); Opiate Screen,Urine Negative ng/ml (<300)
[2023-08-27 16:29] LABS: Phencyclidine Screen,Urine Negative ng/ml (<25)
[2023-08-27] MEDS: LACTATED RINGERS 1000ML 1,000 ML 999 ML IV (16:30)
[2023-08-27 16:45] LABS: Bacteria,Urine 1+ /lpf
[2023-08-27] MEDS: BETAMETHASONE ACET/PHOS 6MG/ML 5ML MDV 12 MG IM (17:32)
[2023-08-27] MEDS: TERBUTALINE SULFATE 1MG/ML VIAL 0.25 MG SQ (18:19)
[2023-08-27] MEDS: BUTORPHANOL TARTRATE 2 MG/ML VIAL 1 MG IV (20:00)
[2023-08-27] MEDS: LACTATED RINGERS 1000ML 2,000 ML 999 ML IV (21:37)
--- NOTE | 2023-08-27 21:45 | PC.NURSE ---
OR team paged at 2140 Molly returned call at 2141 Jagruti returned call at 2142 Swathi returned call at 2144
--- NOTE | 2023-08-27 21:46 | PC.NURSE ---
Dr Gareth alexander.
--- NOTE | 2023-08-27 21:50 | PC.NURSE ---
Dr. Servin returned call and spoke with Marni.
[2023-08-27] MEDS: AZITHROMYCIN 500 MG in 0.9 % SODIUM CHLORIDE 250 ML 250 MG IV (22:08)
[2023-08-27] MEDS: CEFAZOLIN SODIUM 2 GM in 0.9 % SODIUM CHLORIDE 100 ML IV (22:08)
--- NOTE | 2023-08-27 22:10 | EXP.HP ---
History of Present Illness *Admission Date: 08/27/23 *Reason for visit:: abdominal pain *History of present illness: Becky Delgado is a 27yo at 36w1d gestation with an MARTINEZ of 09/23/23 based on first trimester US. She presented to labor and delivery with regular painful contractions that were persistent after terbutaline and Butorphanol. The FHT were Cat I on arrival but Deteriorated to category 2 with persistent tachycardia and decreasing variability Her has been complicated by short interval , history of delivery, anxiety, marijuana use, and maternal obesity. On presentation patient endorsed good movement and denies any leakage of fluid or vaginal bleeding. She has been admitted several times throughout the last week for similar abdominal pain/contraction complaints A+, antibody negative, rubella immune, hepatitis B negative, hepatitis C negative, RPR negative, HIV negative 1 hour GTT: 146 3 hour GTT: 98/127/107/112 PFSH PFS Disclaimer: The information contained in this section may have been updated after the patient was seen, as this information can be updated by other users. Medical History (Updated 08/27/23 @ 23:22 by Nay Manzo DO) Anxiety in , antepartum 35 weeks gestation of Marijuana use during Short interval between pregnancies complicating , antepartum Maternal obesity affecting , antepartum History of gestational hypertension hypertension Acute blood loss anemia Hypokalemia PCOS (polycystic ovarian syndrome) Surgical History History of delivery Hx of dilation and curettage Family History Other Diabetes Hyperlipidemia Hypertension Stroke Social History Smoking Status: Never smoker alcohol intake: former substance use type: marijuana current occupational status: employed Travel in the last 8 weeks: None household members: spouse housing: house current occupational exposures/hazards: No caffeine: Yes Review of Systems Review of Systems Review of systems (narrative): Review of Systems Constitutional: Denies fever, chills, and sweats Eyes: Denies vision change/ pain Respiratory: Denies cough and shortness of breath Cardiovascular: Denies chest pain and lightheadedness Gastrointestinal: Admits abdominal pain with contractions. Denies nausea, vomiting. Genitourinary: Denies dysuria and incontinence Musculoskeletal: Denies shoulder pain and back pain Neurological: Denies change in speech or headaches Meds Home Medications and Allergies Home Medications Medication Instructions Recorded Confirmed Type prenat.vits,saira,cly-jeko-nerqn 1 tab PO DAILY Supplement 07/10/21 08/19/23 History aspirin 81 mg tablet,delayed 81 mg PO DAILY 05/15/23 08/19/23 History release (Adult Low Dose Aspirin) famotidine 20 mg tablet 20 mg PO BID #60 tabs 07/01/23 08/19/23 Rx buspirone 10 mg tablet 10 mg PO PRN 08/05/23 08/19/23 History sertraline 50 mg tablet 50 mg PO DAILY 08/05/23 08/19/23 History New Prescriptions to Start Prescriptions: Allergies Allergy/AdvReac Type Severity Reaction Status Date / Time No Known Allergies Allergy Verified 08/19/23 09:10 Exam Data for Last 24 hours Vital signs and Labs for Last 24 Hours: Temp Pulse Resp BP Pulse Ox O2 Del Method 98.2 F 86 18 135/68 98 Room Air 08/27/23 15:56 08/27/23 15:56 08/27/23 15:56 08/27/23 15:56 08/27/23 15:56 08/27/23 15:56 Laboratory Results - last 24 hr 08/27/23 15:40: Urine Color Yellow, Urine Appearance Clear, Urine pH 7.0, Ur Specific [place] 1.025, Urine Protein Negative, Urine Glucose (UA) Negative, Urine Ketones Negative, Urine Blood Negative, Urine Nitrate Negative, Urine Bilirubin Negative, Urine Urobilinogen 1.0, Ur Leukocyte Esterase 1+ A, Urine RBC None, Urine WBC 3-5, Ur Squamous Epith Cells 5-10, Urine Bacteria 1+, Urine Opiates Screen Negative, Urine Methadone Screen Negative, Ur Barbituates Screen Positive H, Ur Phencyclidine Scrn Negative, Ur Amphetamines Screen Negative, U Benzodiazepines Scrn Negative, Urine Cocaine Screen Negative, U Marijuana (THC) Screen Negative I & O for Last 24 hours: Intake & Output 08/24/23 08/25/23 08/26/23 08/27/23 23:59 23:59 23:59 23:59 Weight 254 lb Narrative: General: patient is alert oriented in mild to moderate distress with contractions. Responds appropriately to questions. HEENT: NCAT, EOMI, moist mucous membranes, neck supple with full ROM Cardiovascular: RRR +S1/S2, no murmurs or rubs Pulmonary: Clear to auscultation bilaterally, nonlabored breathing, symmetric chest rise Abdominal: Gravid abdomen appropriate for gestation. No guarding, rebound noted. Patient visibly in pain with contractions every 1 to 2 minutes SVE: No change from previous exam. 1-1/2 cm dilated, per RN. No vaginal bleeding noted Extremities: trace edema, no tenderness or cyanosis noted Skin: Normal turgor, intact, warm. Negative for erythema, pallor, petechia, or lesions Neurologic: Negative for sensory or motor deficit Psychiatric: Normal affect, normal thought process, good judgment and insight, no depression or anxious mood appreciated. *Routine HEENT Exam Head: Present normocephalic and atraumatic Eye: Present EOMI, PERRL and normal accommodation; Absent conjunctival icterus, scleral injection, nystagmus or exophthalmos ENT: Present mucous membranes moist *Routine Respiratory Exam Respiratory: Present CTA bilaterally, normal respiratory effort, able to speak in complete sentences and symmetric chest movement; Absent accessory muscle use, decreased breath sounds, rales, respiratory distress, wheezes, distant breath sounds or diminished air movement *Routine Cardiovascular Exam Cardiovascular: Present RRR, Normal S1 and Normal S2; Absent murmur or gallop *Routine Abdominal Exam Abdominal: Present soft and normoactive bowel sounds; Absent tenderness, distended, rebound or guarding *Routine Rectal Exam Rectal:: deferred *Routine Genitalia Exam Genitalia:: normal female Assessment and Plan *Assessment and plan (1) Anxiety in , antepartum: Status: Acute Category: Medical Code(s): O99.340 - Other mental disorders complicating , unspecified trimester; F41.9 - Anxiety disorder, unspecified (2) Marijuana use during : Status: Acute Category: Medical Code(s): O99.320 - Drug use complicating , unspecified trimester; F12.90 - Cannabis use, unspecified, uncomplicated (3) Short interval between pregnancies complicating , antepartum: Status: Acute Category: Medical Code(s): O09.899 - Supervision of other high risk pregnancies, unspecified trimester (4) Maternal obesity affecting , antepartum: Status: Acute Qualifiers: Obesity type affecting : unspecified obesity Qualified Code(s): O99.210 - Obesity complicating , unspecified trimester Category: Medical Code(s): O99.210 - Obesity complicating , unspecified trimester (5) History of delivery: Status: Acute Category: Surgical Code(s): Z98.891 - History of uterine scar from previous surgery (6) History of gestational hypertension: Status: Acute Category: Medical Code(s): Z87.59 - Personal history of other complications of , childbirth and the puerperium (7) PCOS (polycystic ovarian syndrome): Status: Acute Category: Medical Code(s): E28.2 - Polycystic ovarian syndrome (8) Category II heart rate tracing during maternal care in third trimester: Status: Acute Category: Medical Code(s): O36.8330 - Maternal care for abnormalities of the heart rate or rhythm, third trimester, not applicable or unspecified Plan Patient was initially admitted to labor and delivery for monitoring secondary to persistent uterine contractions. She was given terbutaline which relieved her contractions for approximately 45 minutes followed by dose of Stadol which provided relief for approximately 30 minutes. After these medications were off each time she was in severe persistent pain. Initially the infant heart rate was reassuring and reactive with category 1 tracing. The patient was given a dose of betamethasone for lung maturity. We discussed repeating this dose in 24 hours. However secondary to persistent uterine contractions and abdominal pain and a category 2 tracing decision was made to proceed with repeat delivery. I personally counseled the patient on risk of repeat delivery to include an increased injury risk to the surrounding structures including the bowel, bladder, reproductive organs, and neurovascular bundles. The patient consented to a blood transfusion if deemed medically necessary. She will be given Ancef and azithromycin for infection prophylaxis. The patient stated she had no known drug allergies. She consented to a blood transfusion if deemed medically necessary. We discussed the small and very rare risk of hysterectomy if her bleeding was not able to be controlled. We discussed that after 2 delivery she would not be a candidate for a trial of labor or a . I discussed with the patient that this could possibly be a uterine rupture and the importance of delivery. We discussed with the gestational age the possibility of needing NICU care and transfer of the infant. The patient voiced understanding to all of these risk and consented to proceed with delivery.
[2023-08-27 22:19] LABS: Basophils % 0.1 % (0.1-2.0); Eosinophils % 0.1 % (0.1-12.0); Hematocrit 28.7 % (37.0-47.0); Hemoglobin 9.6 g/dL (12.2-16.2); Lymphocytes # 1.1 K/mm3 (0.7-4.5); Lymphocytes % 9.7 % (10-50); Mean Corpuscular HGB Conc 33.3 g/dL (31.8-35.4); Mean Corpuscular Volume 72.3 fl (81-99); Mean Platelet Volume 8.7 fl (7.4-10.4); Monocytes # 0.2 K/mm3 (0.1-1.0); Monocytes % 1.7 % (1.7-9.3); Neutrophils # 9.7 K/mm3 (1.8-7.8); Neutrophils % 88.5 % (37.0-80.0); Platelet Count 277 K/mm3 (142-424); Red Blood Count 3.97 M/mm3 (4.20-5.40)
[2023-08-27 22:21] LABS: Anion Gap 9.1 mEq/L (5-15); Blood Urea Nitrogen 6 mg/dl (7-17); Calcium 8.9 mg/dl (8.4-10.2); Carbon Dioxide 22 mmol/L (22.0-30.0); Chloride 108 mmol/L (98-107); Creatinine Clearance Estimated 136 mL/min (50-200); Estimated Glomerular Filt Rate 150 ml/min (>60); GFR (African American) 182 ML/MIN (>60); Glucose 124 mg/dl (74-100); Potassium 3.1 mmoL/L (3.5-5.1); Sodium 136 mmol/L (136-145)
[2023-08-27 22:24] LABS: MANUAL DIFFERENTIAL MANUAL DIFFERENTIAL (MANUAL DIFF)
[2023-08-27 22:44] LABS: Lymphocytes % 9 % (10-50); Monocytes % 1 % (2-9); Neutrophils % 90 % (42-76); Total Cells Counted 100
[2023-08-27 22:45] LABS: Hypochromasia 1+; Microcytosis 1+; Platelet Estimate Normal
--- NOTE | 2023-08-27 23:26 | P.OP_ITS ---
Date of procedure: 08/27/23 Pre-op Diagnosis:: 1. 36 weeks 1days gestation, Prakash 2. Previous delivery 3. Category 2 heart rate tracing 4. Suspected possible uterine dehiscence 5. Abdominal pain/persistent uterine contractions 6. Rh Positive Post-op Diagnosis:: 1. 36 weeks 1days gestation, Prakash 2. Previous delivery 3. Category 2 heart rate tracing 4. Suspected possible uterine dehiscence 5. Abdominal pain/persistent uterine contractions 6. Rh Positive 7. Uterine Window 8. Meconium stained fluid Procedure performed:: Repeat Delivery Surgeon:: Nay Manzo DO Front Desk Auxiliary(s):: Valentin Rao DO JUDICIAL ADMINISTRATIVE ASSISTANT:: Molly Hagen Anesthesia: spinal Estimated blood loss (mL): 400 Operative findings:: 1. Live viable female : Andreina Soto. Weight: pending at this time. Apgars 6 and 7 at 1 and 5 minutes respectively 2. Normal-appearing fallopian tubes and ovaries bilaterally Operative note:: Medications: 2 g of Ancef, 500mg IV Azithromycin Summary: Procedure explained in its entirety. The patient was counseled on the risks and benefits of section including bleeding, vascular injury, infection, and injury to the surrounding structures. Hemorrhage requiring life saving blood transfusion resulting in blood born viral infection or allergic reaction was explained and the patient consented to blood transfusion. Possible need for further operative measures prolonging recovery time and hospitalization reviewed to include hysterectomy. Procedure explained in its entirety and patient had no further questions. Consented to procedure. The patient was taken back to the operating room where adequate spinal anesthesia was obtained. Pneumatic compression stockings applied to lower extremities. Above listed medications were administered for infection prophylaxis. She was placed in the dorsal supine position Urinary catheter was placed and found to be draining clear urine. The patient was prepped and draped in sterile fashion. Anesthesia was tested and and found to be adequate. A Pfannenstiel skin incision was made with the scalpel. Subcutaneous bleeding vessels were cauterized with the bovie. There was some scarring of the subcutaneous tissue but the fascia was easily identified. The incision was taken down to the fascia with the bovie. The fascia was knicked in the midline and sharply extended laterally. The superior aspect of the fascia was grasped with Barber clamps and the rectus muscle was taken down with the Bovie. The rectus muscle was sharply dissected from the midline with Mayos. This process was repeated inferiorly. The rectus muscles were adherent in the midline but and peritoneum was identified and entered bluntly. Quick evaluation revealed that there were no bowel adhesions appreciated. The bladder blade was placed and there were significant bladder adhesions on the anterior abdominal wall. These were carefully taken down with Metzenbaum scissors and [place] pickups until the lower uterine segment was easily identified. Bladder blade removed and Gaurang O retractor was placed and the bladder was noted to be out of the operative field. Of note there was an area in the lower uterine segment which was avoided in the incisional line that was noted to be approximately 2 cm and very thin, approximately 1 cell layer. The lower uterine segment was easily identified, sharply incised, and entered bluntly with the surgeon's index finger. Incision was then extended in a superior and inferior fashion by blunt separation. Membranes were ruptured revealing meconium stained fluid. The fetus was in cephalic presentation. The head was carefully elevated out of the pelvis. Fundal pressure was applied when head was brought into incision. The infants head was delivered without difficulty. The shoulder and body followed without complication. The mouth and nose were suctioned with a bulb. The umbilical cord was clamped and cut. Infant was taken to warmer for evaluation by the wallcovering texturer. Cord blood was collected and sent for routine evaluation. The placenta was delivered via fundal massage and found to be normal and intact. IV Pitocin was initiated. Inside of the uterus was gently cleared of blood and clots with lap sponge. The hysterotomy was closed with #1 Vicryl in a running locked fashion. A second #1 Vicryl was used to place an imbricating layer across the hysterotomy. A small [id number] stitch was placed to reapproximate the thin uterine dehiscence area. The lower uterine segment was visualized and noted to be hemostatic. The ovaries and tubes were found to be normal. The posterior aspect of the uterus was cleared of blood clot with a damp lap sponge. The gutters were inspected bilaterally and cleared of blood and clots with lap sponges. The uterine incision was reinspected and hemostasis noted. Gaurang O retractor was removed. The peritoneum was reapproximated using a 2-0 Monocryl in a nonlocked running fashion. The fascia was closed in a running nonlocked fashion using 0 Vicryl x2 meeting right of midline. Fascia was noted as not having gaps or defects. The subcutaneous fat was closed with 2-0 Vicryl inter rupted sutures x3. Skin was closed with the INSORB suture in a subcuticular fashion. Patient tolerated the procedure well and all counts were correct x3, per nursing. Patient was taken to the OB PACU in stable condition. Condition: stable Disposition: PACU Specimens:: Live viable female Placenta Complications:: None
--- NOTE | 2023-08-27 23:56 | EXP.ANES.CKL ---
[facility] Disclaimer: The information contained in this section may have been updated after the patient was seen, as this information can be updated by other users. Medical History (Updated 08/27/23 @ 23:22 by Nay Manzo DO) Anxiety in , antepartum 35 weeks gestation of Marijuana use during Short interval between pregnancies complicating , antepartum Maternal obesity affecting , antepartum History of gestational hypertension hypertension Acute blood loss anemia Hypokalemia PCOS (polycystic ovarian syndrome) Surgical History History of delivery Hx of dilation and curettage Family History Other Diabetes Hyperlipidemia Hypertension Stroke Social History Smoking Status: Never smoker alcohol intake: former substance use type: marijuana current occupational status: employed Travel in the last 8 weeks: None household members: spouse housing: house current occupational exposures/hazards: No caffeine: Yes [facility] Anesthesia Checklist Patient Identification Patient Identification: Arm Band and Verbal (Name & ) Structural Data Admitted From: Inpatient (275) Planned Operative Procedure/s: Emergent C-sxn Consent for Planned Operative Procedure(s) Verified: Yes Verified Documents: Surgical Consent and History and Physical NPO Status Verified Time NPO: 18:00 Chart Verification Results Verified: CBC and BMP Additional verifications Patient : Yes (36 wk. IUP in labor) Anesthesia Reactions: No Hx Blood Transfusions: No Blood Transfusion Reaction: No Cardiovascular Assessment Heart Sounds: S1 & S2 Pulse Rhythm: Irregular Peripheral Edema: No Airway Assessment Mallampati Score:: Class II C-Spine Mobility Assessed: Yes (FROM) TMJ Mobility Assessed: Yes Dentition: Good Dentition (Nothing loose per pt.) Neurological Assessment Level of Consciousness: Awake, Alert, Appropriate and Follows Commands Hx Seizures: No Numbness or tingling in extremities: No Anesthesia Plan Anesthesia Risk discussed: Yes Anesthesia Type: Spinal (+ TAY TAP blocks for post-op pain control)
--- NOTE | 2023-08-27 23:57 | P.PNANES_ITS ---
[facility] Anesthesia Record Part I Anesthesia Record I Intake, IV Amount: 1,500 Hydration: Adequate Estimated blood loss (mL): 500 Urine output (mL): 100 Blood Products used (#): none Blood Pressure: 144/68 SaO2: 96 Pulse Rate: 94 Airway Patency: Patent Respiratory Rate: 18 Temperature: 98.1 F Patient is:: Awake (Talking) and Stable Stable to PACU at:: 23:47
[2023-08-27 23:59] VITALS: BP 144/68; PULSE 94; RESP 18; TEMP 36.7; O2SAT 96
[2023-08-28] MEDS: KETOROLAC 30MG/ML VIAL 30 MG IV ×3 (01:24→17:31)
[2023-08-28] MEDS: HYDROMORPHONE 2MG/ML SYRINGE 2 MG IV ×2 (01:25→13:28)
[2023-08-28] MEDS: OXYTOCIN/RINGERS LACTATE 30 UNITS/500 ML BAG 40 UNITS IV (01:25)
--- NOTE | 2023-08-28 02:31 | SUR.OPER ---
2245- viable infant female born at this time No cord blood gas needed per MD Servin 2343- Bedside report given to Kelsy Doshi RN at this time. Bed in lowest position and wheels locked. All questions answered. Pt voiced no questions or concerns at this time
[2023-08-28 07:00] LABS: Basophils % 0.1 % (0.1-2.0); Hematocrit 28.1 % (37.0-47.0); Hemoglobin 9.2 g/dL (12.2-16.2); Lymphocytes # 1.1 K/mm3 (0.7-4.5); Mean Corpuscular HGB Conc 32.7 g/dL (31.8-35.4); Mean Corpuscular Hemoglobin 24.1 pg (27.0-31.2); Mean Corpuscular Volume 73.9 fl (81-99); Mean Platelet Volume 9.4 fl (7.4-10.4); Monocytes # 0.2 K/mm3 (0.1-1.0); Monocytes % 1.7 % (1.7-9.3); Neutrophils % 90.1 % (37.0-80.0); Platelet Count 303 K/mm3 (142-424); Red Cell Distribution Width 16.1 % (11.5-17.5); White Blood Count 13.3 K/mm3 (4.8-10.8)
[2023-08-28 07:04] LABS: MANUAL DIFFERENTIAL MANUAL DIFFERENTIAL (MANUAL DIFF)
--- NOTE | 2023-08-28 07:25 | P.PN_ITS ---
Date: 08/28/23 Time: 07:25 Noted: doing well Comment:: resuscitation note: Asked to be at the emergency of this that was done because of decelerations and tachycardia. Mom is 36 weeks but extremely short interval between pregnancies. done, uncomplicated. delivered on the abdomen, cried immediately, kept on the abdomen for 1 minute for placental flow facilitation. Handed to pediatrics table crying and slightly hypotonic. Initial at 1 minute was 6 with 1 off for tone, color and cry, along with heart rate of 90. Initial resuscitation was 30 seconds of positive pressure ventilation and towel drying and stimulation. Heart rate responded very nicely. Infant was noted to have thin meconium. Suctioning was done on the abdomen and with DeLee suctioning on the table. Lots of thin yellow mucus was obtained from mouth and nose. Infant responded well was transferred to nursery in good condition. Given age and high likelihood of TTN placed on oxygen in nursery for TTN issues. Follow-Up Objective Objective: Last Vital Signs:: Last Vital Signs Temp 98.1 F 08/27/23 23:59 Pulse 94 H 08/27/23 23:59 Resp 18 08/27/23 23:59 BP 144/68 H 08/27/23 23:59 Pulse Ox 98 08/27/23 15:56 O2 Del Method Room Air 08/27/23 15:56 Test Results for Last 24 Hours: Laboratory Results - last 24 hr 08/27/23 15:40: Urine Color Yellow, Urine Appearance Clear, Urine pH 7.0, Ur Specific [place] 1.025, Urine Protein Negative, Urine Glucose (UA) Negative, Urine Ketones Negative, Urine Blood Negative, Urine Nitrate Negative, Urine Bilirubin Negative, Urine Urobilinogen 1.0, Ur Leukocyte Esterase 1+ A, Urine RBC None, Urine WBC 3-5, Ur Squamous Epith Cells 5-10, Urine Bacteria 1+, Urine Opiates Screen Negative, Urine Methadone Screen Negative, Ur Barbituates Screen Positive H, Ur Phencyclidine Scrn Negative, Ur Amphetamines Screen Negative, U Benzodiazepines Scrn Negative, Urine Cocaine Screen Negative, U Marijuana (THC) Screen Negative 08/27/23 21:55: WBC 11.0 H, RBC 3.97 L, Hgb 9.6 L, Hct 28.7 L, MCV 72.3 L, MCH 24.0 L, MCHC 33.3, RDW 16.0, Plt Count 277, MPV 8.7, Neut % (Auto) 88.5 H, Lymph % (Auto) 9.7 L, [place] % (Auto) 1.7, Eos % (Auto) 0.1, Baso % (Auto) 0.1, Neut # (Auto) 9.7 H, Lymph # (Auto) 1.1, [place] # (Auto) 0.2, Eos # (Auto) 0.0, Baso # (Auto) 0.0, Total Counted 100, Neutrophils % (Manual) 90 H, Lymphocytes % (Manual) 9 L, Monocytes % (Manual) 1 L, Platelet Estimate Normal, Hypochromasia 1+, Microcytosis 1+, Sodium 136, Potassium 3.1 L, Chloride 108 H, Carbon Dioxide 22, Anion Gap 9.1, BUN 6 L, Creatinine 0.50 L, Estimated Creat Clear 136, Estimated GFR 150, Est GFR ( Amer) 182, Glucose 124 H, Calcium 8.9, Blood Type A Positive, Antibody Screen Negative 08/28/23 06:34: WBC 13.3 H, RBC 3.80 L, Hgb 9.2 L, Hct 28.1 L, MCV 73.9 L, MCH 24.1 L, MCHC 32.7, RDW 16.1, Plt Count 303, MPV 9.4, Neut % (Auto) 90.1 H, Lymph % (Auto) 8.0 L, [place] % (Auto) 1.7, Eos % (Auto) 0.0 L, Baso % (Auto) 0.1, Neut # (Auto) 12.0 H, Lymph # (Auto) 1.1, [place] # (Auto) 0.2, Eos # (Auto) 0.0, Baso # (Auto) 0.0 [facility] NB Plan Plan Current Active Problems (Updated 08/27/23 @ 23:22 by Nay Manzo DO) Category II heart rate tracing during maternal care in third trimester (Acute) Anxiety in , antepartum (Acute) Marijuana use during (Acute) Short interval between pregnancies complicating , antepartum (Acute) Maternal obesity affecting , antepartum (Acute) History of delivery (Acute) History of gestational hypertension (Acute) PCOS (polycystic ovarian syndrome) (Acute) Medications: Current Medications Acetaminophen (Acetaminophen 500mg Tab) 1,000 mg PO Q6H [facility] Stop: 09/26/23 23:44 Last Admin: 08/28/23 07:03 Dose: Not Given Al Hydrox/Mg Hydrox/Simethicone (Aluminum/Magnesium/Simethicone 30ml Udc) 30 ml PO Q4HP PRN PRN Reason: Dyspepsia Stop: 09/26/23 23:35 Benzocaine/Menthol (Benzocaine-Menthol [place] 56gm Can) 0 gm TP NEEDED PRN PRN Reason: Vaginal Irritation Stop: 09/26/23 23:35 Buspirone HCl (Buspirone Hcl 10 Mg Tablet) 10 mg PO DAILY [facility] Stop: 09/27/23 08:59 Diphenhydramine HCl (Diphenhydramine 25mg Capsule) 25 mg PO Q6HP PRN PRN Reason: Itching Stop: 09/26/23 23:35 Diphenhydramine HCl (Diphenhydramine 50mg/Ml Vial) 12.5 mg IV Q6HP PRN PRN Reason: Itching Stop: 09/26/23 23:52 Emollient Ointment (Lanolin Cream 40gm) 0 gm TP NEEDED PRN PRN Reason: Breast Tenderness Stop: 09/26/23 23:35 Famotidine (Famotidine 20mg Tablet) 20 mg PO BID [facility] Stop: 09/27/23 08:59 Glycerin (Glycerin Adult 3gm Supp) 3 gm RC NEEDED PRN PRN Reason: Constipation Stop: 09/26/23 23:35 Hydromorphone HCl (Hydromorphone 2mg/Ml Syringe) 2 mg IV Q3HP PRN PRN Reason: Severe Pain (7-10) Stop: 08/28/23 23:36 Last Admin: 08/28/23 01:25 Dose: 2 mg Hydromorphone HCl (Hydromorphone 2mg/Ml Syringe) 1 mg IV Q3HP PRN PRN Reason: Moderate Pain (4-6) Stop: 08/28/23 23:36 Lactated Ringer's (Lactated Ringer's 1000 Ml Bag) 2,000 mls @ 999 mls/hr IV .Q2H1M ONE Stop: 08/27/23 23:47 Last Admin: 08/27/23 21:37 Dose: 999 mls/hr Azithromycin 500 mg/ Sodium (Chloride) 250 mls @ 250 mls/hr IV ONCE ONE Stop: 08/27/23 21:49 Last Admin: 08/27/23 22:08 Dose: 250 mls/hr Cefazolin Sodium 2 gm/ Sodium (Chloride) 100 mls @ 200 mls/hr IV PREOP ONE Stop: 08/27/23 22:18 Last Admin: 08/27/23 22:08 Dose: 200 mls/hr Lactated Ringer's (Lactated Ringer's 1000 Ml Bag) 1,000 mls @ 125 mls/hr IV .Q8H [facility] Stop: 09/26/23 23:44 Last Admin: 08/28/23 07:03 Dose: Not Given Oxytocin/Lactated Ringer's (Pitocin 30 Units/Lr 500ml Iv) 30 units in 500 mls @ 40 mls/hr IV .[id number] [facility] Stop: 09/26/23 23:44 Last Admin: 08/28/23 01:25 Dose: 40 mls/hr Ibuprofen (Ibuprofen 400 Mg Tablet) 800 mg PO Q8H [facility] Stop: 09/27/23 23:44 Ketorolac Tromethamine (Ketorolac 30mg/Ml Vial) 30 mg IV Q6H [facility] Stop: 08/28/23 23:37 Last Admin: 08/28/23 07:03 Dose: Not Given Measles/Mumps/Rubella Vaccine Live (Measles,Mumps,Rubella Vaccine Vial) 0.5 ml SQ NEEDED PRN PRN Reason: Immunization Stop: 09/26/23 23:35 Morphine Sulfate (Morphine 2mg/Ml Syringe) 2 mg IV Q6MINP PRN PRN Reason: Moderate Pain (4-6) Stop: 08/28/23 01:54 Naloxone HCl (Naloxone 0.4mg/Ml Vial) 0.4 mg IV Q3MINP PRN PRN Reason: Decreased Respirations Stop: 08/28/23 01:54 Nicotine (Nicotine 21mg/24hr Patch) 21 mg TD DAILYP PRN PRN Reason: Smoking Cessation Stop: 09/26/23 23:35 Ondansetron HCl (Ondansetron 4mg/2ml Vial) 4 mg IV Q6HP PRN PRN Reason: Nausea Stop: 08/28/23 01:54 Oxycodone HCl (Oxycodone 5mg Immediate Release Tablet) 5 mg PO Q4HP PRN PRN Reason: Moderate Pain (4-6) Stop: 09/26/23 23:35 Pneumococcal Polyvalent Vaccine (Pneumovax 25mcg/0.5ml Vial) 0.5 ml IM .ONCE ONE Stop: 08/27/23 23:37 Last Admin: 08/28/23 07:03 Dose: Not Given Multivit/Folic Acid/Iron ( Multivitamin W/Iron) 1 each PO 1700 [facility] Stop: 09/27/23 16:59 Promethazine HCl (Promethazine Hcl 25mg/Ml 1ml Vial) 12.5 mg IV Q4HP PRN PRN Reason: Nausea And Vomiting Stop: 08/28/23 23:36 Sennosides (Senna 8.6mg Tablet) 8.6 mg PO BIDP PRN PRN Reason: Constipation Stop: 09/26/23 23:35 Sertraline HCl (Sertraline 50mg Tablet) 50 mg PO DAILY [facility] Stop: 09/27/23 08:59 Simethicone (Simethicone 80mg Chewable Tablet) 160 mg PO Q4HP PRN PRN Reason: Gas Pain and Discomfort Stop: 09/26/23 23:35 Sodium Chloride (Sodium Chloride 0.9% 10ml Flush Syringe) 10 ml IV NEEDED PRN PRN Reason: Maintain IV Site Stop: 09/26/23 23:35 Sodium Chloride (Sodium Chloride 0.9% 25ml Bag) 25 ml IV NEEDED PRN PRN Reason: for Use with IV Promethazine Stop: 09/26/23 23:35 Tetanus/Reduced Diphtheria/Acell Pertussis (Tet/Diphth/Pert-Adult 0.5ml Syringe) 0.5 ml IM NEEDED PRN PRN Reason: Immunization Stop: 09/26/23 23:35 Witch Kelley (Witch Kelley 40 Pads/Box) 1 each TP NEEDED PRN PRN Reason: Hemorrhoids Stop: 09/26/23 23:35
--- NOTE | 2023-08-28 07:35 | P.CONPHA_ITS ---
Pharmacy Intervention Comments: MEDICATION RECONCILIATION COMPLETED ON PATIENT USING EXTERNAL FILL HISTORY FROM PHARMACY AND LIST FROM [employer] [facility] OFFICE. -LIVIA ZULETAD
--- NOTE | 2023-08-28 07:35 | HMH.PHAINT1 ---
Pharmacy Intervention Comments: MEDICATION RECONCILIATION COMPLETED ON PATIENT USING EXTERNAL FILL HISTORY FROM PHARMACY AND LIST FROM [employer] OFFICE. -LIVIA ZULETAD
--- NOTE | 2023-08-28 07:35 | HMH.PHAINT1 ---
Pharmacy Intervention Comments: HOME MEDICATION LIST VERIFIED VIA OUTSIDE PHARMACY AND OFFICE VISIT NOTE
[2023-08-28] MEDS: ACETAMINOPHEN 500MG TAB 1000 MG PO ×3 (07:40→23:27)
[2023-08-28] MEDS: SERTRALINE 50MG TABLET 50 MG PO (08:05)
[2023-08-28] MEDS: FAMOTIDINE 20MG TABLET 20 MG PO ×2 (08:05→20:00)
--- NOTE | 2023-08-28 09:09 | EXP.ACUTE.PN ---
Subjective *Date: 08/28/23 *Time: 09:09 Interval history: POD # 1 s/p RLTCS Resting comfortably. Pain controlled. Lochia appropriate. Formula feeding. Bacon catheter in place and draining clear urine. No nausea or vomiting. Denies fever/chills, chest pain and shortness of breath. No headaches, vision changes or RUQ pain. Admits to lower extremity swelling. No calf pain. Medical Exam Vital signs and Labs for Last 24 Hours: Vital Signs Temp Pulse Pulse Resp BP BP Pulse Ox 08/27/23 23:59 98.1 F 94 H 18 144/68 H 08/27/23 15:56 98.2 F 86 18 135/68 98 O2 Del Method 08/27/23 23:59 08/27/23 15:56 Room Air Intake and Output 08/27/23 08/28/23 08/28/23 23:59 07:59 15:59 Intake Total 1500 / 1500 Balance 1500 / 1500 Intake: Intake, Total IV Amount 1500 / 1500 Laboratory Results - last 24 hr 08/27/23 15:40: Urine Color Yellow, Urine Appearance Clear, Urine pH 7.0, Ur Specific [place] 1.025, Urine Protein Negative, Urine Glucose (UA) Negative, Urine Ketones Negative, Urine Blood Negative, Urine Nitrate Negative, Urine Bilirubin Negative, Urine Urobilinogen 1.0, Ur Leukocyte Esterase 1+ A, Urine RBC None, Urine WBC 3-5, Ur Squamous Epith Cells 5-10, Urine Bacteria 1+, Urine Opiates Screen Negative, Urine Methadone Screen Negative, Ur Barbituates Screen Positive H, Ur Phencyclidine Scrn Negative, Ur Amphetamines Screen Negative, U Benzodiazepines Scrn Negative, Urine Cocaine Screen Negative, U Marijuana (THC) Screen Negative 08/27/23 21:55: WBC 11.0 H, RBC 3.97 L, Hgb 9.6 L, Hct 28.7 L, MCV 72.3 L, MCH 24.0 L, MCHC 33.3, RDW 16.0, Plt Count 277, MPV 8.7, Neut % (Auto) 88.5 H, Lymph % (Auto) 9.7 L, [place] % (Auto) 1.7, Eos % (Auto) 0.1, Baso % (Auto) 0.1, Neut # (Auto) 9.7 H, Lymph # (Auto) 1.1, [place] # (Auto) 0.2, Eos # (Auto) 0.0, Baso # (Auto) 0.0, Total Counted 100, Neutrophils % (Manual) 90 H, Lymphocytes % (Manual) 9 L, Monocytes % (Manual) 1 L, Platelet Estimate Normal, Hypochromasia 1+, Microcytosis 1+, Sodium 136, Potassium 3.1 L, Chloride 108 H, Carbon Dioxide 22, Anion Gap 9.1, BUN 6 L, Creatinine 0.50 L, Estimated Creat Clear 136, Estimated GFR 150, Est GFR ( Amer) 182, Glucose 124 H, Calcium 8.9, Blood Type A Positive, Antibody Screen Negative 08/28/23 06:34: WBC 13.3 H, RBC 3.80 L, Hgb 9.2 L, Hct 28.1 L, MCV 73.9 L, MCH 24.1 L, MCHC 32.7, RDW 16.1, Plt Count 303, MPV 9.4, Neut % (Auto) 90.1 H, Lymph % (Auto) 8.0 L, [place] % (Auto) 1.7, Eos % (Auto) 0.0 L, Baso % (Auto) 0.1, Neut # (Auto) 12.0 H, Lymph # (Auto) 1.1, [place] # (Auto) 0.2, Eos # (Auto) 0.0, Baso # (Auto) 0.0 I & O for Labs for Last 24 Hours: Intake & Output 08/25/23 08/26/23 08/27/23 08/28/23 23:59 23:59 23:59 23:59 Intake Total 1500 / 1500 Balance 1500 / 1500 Weight 254 lb Head: Present atraumatic and normocephalic ENT: Present mucous membranes moist Neck: Present normal inspection Respiratory: Present CTA bilaterally and normal respiratory effort Cardiac: Present Reg Rate and Rhythm GI: Present soft and normal bowel sounds; Absent distention or tenderness Comments:: Uterine fundus firm and below umbilicus, pfannenstiel incision clean/dry/intact Rectal (female): Present deferred (female): Present deferred Extremities: Present full ROM and edema (+3 bilateral lower extremity edema); Absent calf tenderness Neuro: Present alert, awake and moves all extremities Assessment and Plan *Assessment and plan (1) S/P : Status: Acute Category: Surgical Code(s): Z98.891 - History of uterine scar from previous surgery (2) 36 weeks gestation of : Status: Acute Category: Medical Code(s): Z3A.36 - 36 weeks gestation of (3) Category II heart rate tracing during maternal care in third trimester: Status: Acute Category: Medical Code(s): O36.8330 - Maternal care for abnormalities of the heart rate or rhythm, third trimester, not applicable or unspecified (4) Short interval between pregnancies complicating , antepartum: Status: Acute Category: Medical Code(s): O09.899 - Supervision of other high risk pregnancies, unspecified trimester (5) Maternal obesity affecting , antepartum: Status: Acute Qualifiers: Obesity type affecting : unspecified obesity Qualified Code(s): O99.210 - Obesity complicating , unspecified trimester Category: Medical Code(s): O99.210 - Obesity complicating , unspecified trimester (6) Anxiety in , antepartum: Status: Acute Category: Medical Code(s): O99.340 - Other mental disorders complicating , unspecified trimester; F41.9 - Anxiety disorder, unspecified (7) Marijuana use during : Status: Acute Category: Medical Code(s): O99.320 - Drug use complicating , unspecified trimester; F12.90 - Cannabis use, unspecified, uncomplicated (8) History of delivery: Status: Acute Category: Surgical Code(s): Z98.891 - History of uterine scar from previous surgery (9) History of gestational hypertension: Status: Acute Category: Medical Code(s): Z87.59 - Personal history of other complications of , childbirth and the puerperium (10) Acute on chronic anemia: Status: Acute Category: Medical Code(s): D64.9 - Anemia, unspecified Plan Continue routine care Encouraged increased ambulation later today Ferrous sulfate 325 mg PO daily Plan d/c home POD #2 or POD # 3
[2023-08-28 09:19] LABS: Hypochromasia 1+; Lymphocytes % 13 % (10-50); Neutrophils % 87 % (42-76); Platelet Estimate Normal; Total Cells Counted 100
[2023-08-28] MEDS: SIMETHICONE 80MG CHEWABLE TABLET 160 MG PO (10:07)
[2023-08-28] MEDS: OXYCODONE 5MG IMMEDIATE RELEASE TABLET 5 MG PO (10:07)
[2023-08-28] MEDS: SENNA 8.6MG TABLET 8.59999999999999964 MG PO (10:09)
[2023-08-28] MEDS: FERROUS SULFATE 325MG TABLET 325 MG PO (10:17)
[2023-08-28 11:04] VITALS: BP 136/72; PULSE 72; RESP 18; TEMP 36.8; O2SAT 96
--- NOTE | 2023-08-28 13:31 | P.PNANES_ITS ---
[facility] Anesthesia Record Part II Anesthesia Record Part II Discharge Time: 00:12 Destination: Obstetric Gynecology Dept PACU nurse assessment reviewed?: Yes Patient Condition:: Good Anesthesia Complications:: None Swallowing reflex intact?: Yes Airway Patency: Patent Cyanosis?: No Blood Pressure: 145/71 SaO2: 99 Respiratory Rate: 17 Pulse Rate: 87 Temperature: 97.7 F Mental Status: Alert & Oriented Pain level:: 0 Nausea and/or vomitting:: None Intake, IV Amount: 1,500 Hydration: Adequate
[2023-08-28 13:33] VITALS: BP 145/71; PULSE 87; RESP 17; TEMP 36.5; O2SAT 99
[2023-08-28] MEDS: PROMETHAZINE 25MG TABLET 25 MG PO (16:00)
[2023-08-28 16:15] VITALS: BP 136/78; PULSE 78; RESP 16; TEMP 36.8; O2SAT 98
[2023-08-28] MEDS: PRENATAL MULTIVITAMIN W/IRON 1 EACH PO (17:33)
[2023-08-28] MEDS: IBUPROFEN 400 MG TABLET 800 MG PO (23:27)
[2023-08-29] MEDS: IBUPROFEN 400 MG TABLET 800 MG PO (08:46)
[2023-08-29] MEDS: ACETAMINOPHEN 500MG TAB 1000 MG PO (08:53)
[2023-08-29 09:15] VITALS: BP 140/70; PULSE 71; RESP 16; TEMP 36.7; O2SAT 100
[2023-08-29] MEDS: FAMOTIDINE 20MG TABLET 20 MG PO (09:54)
[2023-08-29] MEDS: FERROUS SULFATE 325MG TABLET 325 MG PO (09:54)
[2023-08-29] MEDS: SERTRALINE 50MG TABLET 50 MG PO (09:55)
[2023-08-29] MEDS: SENNA 8.6MG TABLET 8.59999999999999964 MG PO (09:58)
[2023-08-29] MEDS: OXYCODONE 5MG IMMEDIATE RELEASE TABLET 5 MG PO (09:58)
--- NOTE | 2023-08-29 12:10 | EXP.DC.SUM ---
General Admission date:: 08/27/23 Discharge date: 08/29/23 HPI HPI HPI: POD # 2 s/p RLTCS Becky is resting comfortably. Pain controlled. Formula feeding. Light lochia. Voiding without difficulty and passing flatus. No nausea or vomiting. Tolerating regular diet. Denies fever/chills, chest pain and shortness of breath. No headaches, vision changes, or RUQ pain. Admits to lower extremity swelling. No calf pain. Ambulating well ad salomón. Hospital Course Hospital Course Hospital Course: Mrs Becky Delgado is a 27yo at 36w1d gestation with an MARTINEZ of 09/23/23 based on first trimester US. She presented to labor and delivery with regular painful contractions that were persistent after terbutaline and Butorphanol. The FHT were Category 1 on arrival but Deteriorated to category 2 with persistent tachycardia and decreasing variability. Her has been complicated by short interval , history of delivery, anxiety, marijuana use, and maternal obesity. She has been admitted several times throughout the last week for similar abdominal pain/contraction complaints. Decision was made to proceed with repeat secondary to persistent uterine contractions, abdominal pain and a category 2 tracing. She underwent repeat on 08/27/23. She delivered a live female baby, Andreina Soto, weighing 7 lb 10. APGARs 6 (1 min), 7 (5 min). EBL 400 mL. She did well /postoperatively. Pain controlled. Formula feeding. Light lochia. Voiding without difficulty and passing flatus. Tolerating regular diet. Denies fever/chills, chest pain and shortness of breath. No headaches, dizziness/lightheadedness or vision changes. Vital signs stable, afebrile. Heart regular rate and rhythm. Lungs clear to auscultation. Abdomen soft, nontender. She had +2 bilateral lower extremity swelling. No calf tenderness to palpation. Ambulating well ad salomón. Normal hospital course. She was discharged to home on POD # 2 with instructions to follow-up in the office in 2 weeks or sooner if needed. Exam Data for Last 24 hours Vital signs and Labs for Last 24 Hours: Temp Pulse Resp BP Pulse Ox O2 Del Method FiO2 98.1 F 71 16 140/70 100 Room Air 08/29/23 09:15 08/29/23 09:15 08/29/23 09:15 08/29/23 09:15 08/29/23 09:15 08/29/23 09:15 08/28/23 08:15 I & O for Last 24 hours: Intake & Output 08/26/23 08/27/23 08/28/23 08/29/23 23:59 23:59 23:59 23:59 Intake Total 1500 / 1500 1500 / 1500 Balance 1500 / 1500 1500 / 1500 Weight 254 lb Constitutional Constitutional: no acute distress and cooperative *Routine HEENT Exam Head: Present normocephalic and atraumatic Eye: Absent conjunctivae pink ENT: Present mucous membranes moist *Routine Neck Exam Neck: Present full ROM *Routine Respiratory Exam Respiratory: Present CTA bilaterally and normal respiratory effort *Routine Cardiovascular Exam Cardiovascular: Present RRR *Routine Abdominal Exam Abdominal: Present soft and normoactive bowel sounds; Absent tenderness or distended Comments: Uterine fundus firm and below umbilicus, pfannenstiel incision clean/dry/intact *Routine Rectal Exam Patient deferred: visual exam *Routine Exam Patient deferred: external exam *Routine Extremities Exam Extremities: Present edema (+2 bilateral lower extremity edema ) and full ROM; Absent calf tenderness *Routine Neurological Exam Neurological: Present alert, moving all extremities and normal speech Routine Psychiatric Exam Psychiatric: Present normal affect and cooperative DS: Diagnosis Discharge Diagnosis (1) S/P : Status: Acute Code(s): Z98.891 - History of uterine scar from previous surgery (2) 36 weeks gestation of : Status: Acute Code(s): Z3A.36 - 36 weeks gestation of (3) Category II heart rate tracing during maternal care in third trimester: Status: Acute Code(s): O36.8330 - Maternal care for abnormalities of the heart rate or rhythm, third trimester, not applicable or unspecified (4) Short interval between pregnancies complicating , antepartum: Status: Acute Code(s): O09.899 - Supervision of other high risk pregnancies, unspecified trimester (5) Maternal obesity affecting , antepartum: Status: Acute Code(s): O99.210 - Obesity complicating , unspecified trimester Qualifiers: Obesity type affecting : unspecified obesity Qualified Code(s): O99.210 - Obesity complicating , unspecified trimester (6) Anxiety in , antepartum: Status: Acute Code(s): O99.340 - Other mental disorders complicating , unspecified trimester; F41.9 - Anxiety disorder, unspecified (7) Marijuana use during : Status: Acute Code(s): O99.320 - Drug use complicating , unspecified trimester; F12.90 - Cannabis use, unspecified, uncomplicated (8) History of delivery: Status: Acute Code(s): Z98.891 - History of uterine scar from previous surgery (9) History of gestational hypertension: Status: Acute Code(s): Z87.59 - Personal history of other complications of , childbirth and the puerperium (10) Acute on chronic anemia: Status: Acute Code(s): D64.9 - Anemia, unspecified Meds Home Medications and Allergies Home Medications Medication Instructions Recorded Confirmed Type famotidine 20 mg tablet 20 mg PO BID #60 tabs 07/01/23 08/28/23 Rx buspirone 10 mg tablet 10 mg PO TIDP PRN Anxiety 08/05/23 08/28/23 History sertraline 50 mg tablet 50 mg PO DAILY 08/05/23 08/28/23 History ibuprofen 800 mg tablet 800 mg PO Q8H PRN pain #20 tabs 08/29/23 Rx oxycodone 5 mg tablet 5 mg PO Q4-6H PRN Moderate Pain 08/29/23 Rx (4-6) #20 tabs New Prescriptions to Start Prescriptions: Micaela Fong oxycodone Micaela Rao Allergies Allergy/AdvReac Type Severity Reaction Status Date / Time No Known Allergies Allergy Verified 08/19/23 09:10 Discharge Plan Disposition Patient Disposition: Home, Self-Care Condition: Good Discharge Order Discharge Orders: Discharge Order (Routine); Ordered 08/29/23 Ordered By: Micaela Rao Follow up Plan Follow up with: Micaela Rao DO [Staff Physician] - 09/10/23 10:15 am Prescriptions/Medication Reconciliation: New oxycodone 5 mg Tablet 5 mg PO Q4-6H PRN (Reason: Moderate Pain (4-6)) Qty: 20 0RF ibuprofen 800 mg tablet 800 mg PO Q8H PRN (Reason: pain) Qty: 20 0RF Continued buspirone 10 mg tablet 10 mg PO TIDP PRN (Reason: Anxiety) sertraline 50 mg tablet 50 mg PO DAILY famotidine 20 mg tablet 20 mg PO BID Qty: 60 3RF Discontinued aspirin [Adult Low Dose Aspirin] 81 mg tablet,delayed release (DR/EC) 81 mg PO DAILY PNV cmb#[id number]-ferrous fumarate-FA [] 28 mg iron- 800 mcg Tablet 1 tab PO DAILY Problem Reconciliation Problems Reviewed?: Yes Patient Discharge Instructions ACTIVITY: Limited activity DIET: continue same diet and regular diet Additional Instructions: Discharge: 1. Take 800 mg Ibuprofen every 8 hours as needed for pain. You can also take 500-1000 mg of Tylenol in between doses, every 6-8 hours. If pain persists you can take Oxycodone 5 mg, 1 tablet every 4-6 hours or longer, as needed. 2. Nothing in the vagina for 6 weeks - no intercourse, douching or tampons. No tub baths/hot tubs or swimming pools - Drink plenty of fluids. - No strenuous activity or driving until released by your doctor. - Don't lift anything heavier than your . 3. Reasons to return to L&D or call On-Call doctor - fever (greater than 100.4) - heavy vaginal bleeding (soaking through 1 pad in less than 2 hours) - vaginal discharge (malodorous and/or purulent) - severe headaches not resolved by medication or rest and leg tenderness/edema 4. depression/blues - Normal to feel anxious/overwhelmed for first 2 weeks - Talk to your doctor if: severe anxiety, trouble bonding with baby, withdrawing from other family members, thoughts of harming yourself or others Patient Instructions: Depression, Hemorrhage, DI for , DI for Pre-eclampsia, [facility] Post Discharge Instructions Providers Primary Care Provider: Almita West Admit Provider: Nay Manzo Attending Provider: Nay Manzo
== END 2023-08-29 13:30 | disposition home or self-care (01) | DRG 787 ==
LOC: OBOUT 21:37 → OB 21:37
PROVIDERS: Admitting Provider Obstetrics & Gynecology; PCP Nurse Practitioner Family; Visit Provider Obstetrics & Gynecology
PROC: 10D00Z1 Extraction of Products of Conception, Low, Open Approach (ICD-10-PCS; CPT 59514; principal; 2023-08-27 22:15)
DX: O34.211 Maternal care for low transverse scar from previous cesarean delivery (principal); O99.324 Drug use complicating childbirth; O99.214 Obesity complicating childbirth; O77.0 Labor and delivery complicated by meconium in amniotic fluid; Z3A.36 36 weeks gestation of pregnancy; Z37.0 Single live birth; F41.9 Anxiety disorder, unspecified; O99.344 Other mental disorders complicating childbirth; O90.81 Anemia of the puerperium
CPT/HCPCS: 59514; 36415; 80048; 80307; 81001; 85007; 85025; 86850; 87086; 94761; C9290; G0283; G0463; J0456; J0690; J2405

== ENCOUNTER 2023-10-28 10:25 | Outpatient (CLI) | payer BC, SELFPAY ==
[2023-10-28 11:11] LABS: Basophils % 0.6 % (0.1-2.0); Eosinophils # 0.1 K/mm3 (0.0-0.4); Eosinophils % 2.2 % (0.1-12.0); Hematocrit 35.4 % (37.0-47.0); Hemoglobin 11.5 g/dL (12.2-16.2); Lymphocytes # 2.3 K/mm3 (0.7-4.5); Lymphocytes % 37.1 % (10-50); Mean Corpuscular HGB Conc 32.4 g/dL (31.8-35.4); Mean Corpuscular Hemoglobin 24.3 pg (27.0-31.2); Mean Corpuscular Volume 74.8 fl (81-99); Mean Platelet Volume 7.7 fl (7.4-10.4); Monocytes # 0.4 K/mm3 (0.1-1.0); Monocytes % 6.6 % (1.7-9.3); Neutrophils # 3.2 K/mm3 (1.8-7.8); Neutrophils % 53.5 % (37.0-80.0); Platelet Count 315 K/mm3 (142-424); Red Blood Count 4.73 M/mm3 (4.20-5.40); Red Cell Distribution Width 18.4 % (11.5-17.5); White Blood Count 6.1 K/mm3 (4.8-10.8)
[2023-10-28 11:27] LABS: Chloride 105 mmol/L (98-107); Potassium 4.5 mmoL/L (3.5-5.1); Sodium 136 mmol/L (136-145)
[2023-10-28 11:30] LABS: Alanine Aminotransferase 87 U/L (12-78); Albumin Level 4.2 g/dl (3.5-5.0); Albumin/Globulin Ratio 1.3 (1.1-1.8); Alkaline Phosphatase 110 U/L (38-126); Anion Gap 10.5 mEq/L (5-15); Aspartate Amino Transferase 43 U/L (14-36); Bilirubin,Total 0.4 mg/dl (0.2-1.3); Blood Urea Nitrogen 21 mg/dl (7-17); Calcium 9.5 mg/dl (8.4-10.2); Carbon Dioxide 25 mmol/L (22.0-30.0); Estimated Glomerular Filt Rate 76 ml/min (>60); GFR (African American) 92 ML/MIN (>60); Globulin 3.2 g/dL (1.3-3.2); Glucose 90 mg/dl (74-100); Total Protein,Serum 7.4 g/dl (6.3-8.2)
[2023-10-28 11:34] LABS: Urine Pregnancy, HCG Qual. Negative (Negative)
== END 2023-10-28 23:59 | disposition home or self-care (01) ==
LOC: LAB 10:26
PROVIDERS: PCP Nurse Practitioner Family; Visit Provider Surgery
DX: R10.11 Right upper quadrant pain (principal)
CPT/HCPCS: 80053; 81025; 85025

== ENCOUNTER 2023-10-31 06:19 | Day surgery (SDC) | payer BC, SELFPAY ==
[2023-10-29 13:05] VITALS: BMI 41.1
[2023-10-31] VITALS (10 sets, daily range): BP systolic 104–175; BP diastolic 42–99; PULSE 49–114; RESP 13–23; TEMP 36.1–43; O2SAT 94–100
[2023-10-31] MEDS: LACTATED RINGERS 1000ML 1,000 ML 25 ML IV (07:09)
--- NOTE | 2023-10-31 07:20 | ECG_ITS ---
APPROVED REPORT Exam: Resting ECG HR:51 bpm ECG Measurements Heart Rate 51 AXES ND 149 P 46 QRSd 87 QRS 56 QT 463 T 36 QTc 440 Conclusion SINUS BRADYCARDIA WITH SINUS ARRHYTHMIA BORDERLINE ECG UNCONFIRMED REPORT Electronically signed by : Marcelino Servin MD 11/01/2023 08:46:44
--- NOTE | 2023-10-31 08:07 | EXP.ANES.CKL ---
[facility] Disclaimer: The information contained in this section may have been updated after the patient was seen, as this information can be updated by other users. Medical History Encounter for insertion of mirena IUD Acute on chronic anemia 36 weeks gestation of Anxiety in , antepartum 35 weeks gestation of Marijuana use during Short interval between pregnancies complicating , antepartum Maternal obesity affecting , antepartum History of gestational hypertension hypertension Acute blood loss anemia Hypokalemia PCOS (polycystic ovarian syndrome) Surgical History History of hysterectomy S/P History of delivery Hx of dilation and curettage Family History Other Diabetes Hyperlipidemia Hypertension Stroke Social History Smoking Status: Never smoker alcohol intake: former substance use type: marijuana current occupational status: employed Travel in the last 8 weeks: None household members: spouse housing: house current occupational exposures/hazards: No caffeine: Yes [facility] Anesthesia Checklist Patient Identification Patient Identification: Arm Band and Verbal (Name & ) Structural Data Admitted From: Home Planned Operative Procedure/s: Lap cholecystectomy Consent for Planned Operative Procedure(s) Verified: Yes Verified Documents: Surgical Consent and History and Physical NPO Status Verified Time NPO: 00:00 Chart Verification Results Verified: HCG Additional verifications Anesthesia Reactions: No Hx Blood Transfusions: No Blood Transfusion Reaction: No Airway Assessment Mallampati Score:: Class II C-Spine Mobility Assessed: Yes TMJ Mobility Assessed: Yes Dentition: Good Dentition Neurological Assessment Level of Consciousness: Awake Hx Seizures: No Numbness or tingling in extremities: No Anesthesia Plan Anesthesia Risk discussed: Yes Anesthesia Plan: Verified ASA Class: III Anesthesia Type: General
[2023-10-31] MEDS: CEFAZOLIN SODIUM 2 GM in 0.9 % SODIUM CHLORIDE 100 ML IV (08:26)
[2023-10-31] MEDS: LIDOCAINE 1% 20ML MDV 20 ML (08:44)
--- NOTE | 2023-10-31 09:23 | P.OP_ITS ---
Date of procedure: 10/31/23 Pre-op Diagnosis:: Chronic calculus cholecystitis Post-op Diagnosis:: Same Procedure performed:: Laparoscopic cholecystectomy Surgeon:: Bhupendra Montenegro MD POLICE CLERK:: Florencio Smith Anesthesia: BRANDON Estimated blood loss (mL): 10 Operative findings:: Infundibular thickening Operative note:: After informed consent was obtained, the patient was taken to the operating room and placed in the supine position. General anesthesia was induced and the abdomen was prepped and draped in a sterile fashion. After infiltration with local anesthetic an infraumbilical incision was made. A Veress needle was placed in position. The abdomen was insufflated. A 5 mm optical trocar was placed in position. Under direct visualization, a 12 mm trocar was placed in the subxiphoid position and 2 additional 5 mm trocars were placed in the right upper quadrant. The gallbladder was elevated up and over the liver margin. The tissue around the cystic duct was carefully dissected. 3 clips were placed proximally and the duct was transected with harmonic lucero. Harmonic lucero were then utilized to dissect the gallbladder away from the liver margin with careful attention to the control of the cystic artery. The gallbladder was placed in a retrieval bag and removed through the subxiphoid trocar site. The right upper quadrant was thoroughly irrigated. No active bleeding or bile leak was noted. Fascia at the subxiphoid trocar site was reapproximated utilizing the NeoClose device. The remaining trocars were removed. All wounds were irrigated and skin was closed with 4-0 Monocryl in a subcuticular fashion. Steri-Strips were applied. The patient's anesthetic agents were reversed and extubation was completed prior to transfer to recovery in stable condition. Condition: stable Disposition: PACU Specimens:: Gallbladder and contents Complications:: No immediate
--- NOTE | 2023-10-31 09:46 | P.PNANES_ITS ---
[facility] Anesthesia Record Part I Anesthesia Record I Intake, IV Amount: 1,000 Hydration: Adequate Estimated blood loss (mL): 15 Urine output (mL): 0 Blood Pressure: 162/99 SaO2: 94 Pulse Rate: 114 Airway Patency: Patent Respiratory Rate: 23 Temperature: 98.1 F Patient is:: Awake Stable to PACU at:: 09:45
[2023-10-31] MEDS: MEPERIDINE 25MG/ML 1ML SYRINGE 12.5 MG IV (09:55)
[2023-10-31] MEDS: MORPHINE 2MG/ML SYRINGE 2 MG IV (10:11)
--- NOTE | 2023-11-01 14:30 | P.PNANES_ITS ---
[facility] Anesthesia Record Part II Anesthesia Record Part II Discharge Time: 10:12 Destination: Surgical Day Care (OP Surgery) PACU nurse assessment reviewed?: Yes Patient Condition:: Good Anesthesia Complications:: None Swallowing reflex intact?: Yes Airway Patency: Patent Cyanosis?: No Blood Pressure: 110/78 SaO2: 99 Respiratory Rate: 16 Pulse Rate: 80 Temperature: 97.5 F Mental Status: Alert & Oriented Pain level:: 3 Nausea and/or vomitting:: None Intake, IV Amount: 0 Hydration: Adequate
[2023-11-01 14:31] VITALS: BP 110/78; PULSE 80; RESP 16; TEMP 36.4; O2SAT 99
== END 2023-10-31 10:47 | disposition home or self-care (01) ==
PROVIDERS: PCP Nurse Practitioner Family; Visit Provider Surgery
PROC: 0FT44ZZ Resection of Gallbladder, Percutaneous Endoscopic Approach (ICD-10-PCS; CPT 47562; principal; 2023-10-31 08:30)
DX: R10.11 Right upper quadrant pain (principal); K80.10 Calculus of gallbladder with chronic cholecystitis without obstruction
CPT/HCPCS: 47562; 93005; J3490; J0131; J0690; J1100; J1885; J2175; J2250; J2270; J2405; J3010; J7120

== ENCOUNTER 2023-11-19 17:22 | Emergency (ER) | payer BC, SELFPAY ==
[2023-11-19 18:05] VITALS: BP 113/67; PULSE 109; RESP 19; TEMP 38.5; O2SAT 100; BMI 40.6
[2023-11-19] MEDS: IBUPROFEN 600 MG TABLET PO (18:18)
[2023-11-19 18:24] LABS: Apearance,Urine Cloudy (Clear); Bilirubin,Urine Negative (Negative); Blood, Urine Trace (Negative); Color,Urine Yellow (Yellow); Glucose,Urine (UA) Negative (Negative); Ketones,Urine Negative (Negative); PH,Urine 6.5 (5.0-8.5); Protein,Urine 1+ (Negative); Specific Gravity, Urine 1.015 (1.005-1.030); UTC Leukocyte Esterase,Urine 2+ (Negative); UTC Nitrate,Urine Negative (Negative); UTC Pregnancy Test, Urine Negative (Negative); Urobilinogen,Urine 0.2 EU/dl (0.2)
--- NOTE | 2023-11-19 18:41 | EXP.UTC ---
Discharge Plan Disposition Patient Disposition: Still a Patient Condition: Fair Prescriptions Prescriptions: No Action No Known Home Medications Referrals Follow up/Referrals: Almita West [Primary Care Provider] - See instructions Discharge ED Provider: Scooter Blake [facility] HPI General Stated complaint: poss UTI Mode of Arrival: Ambulatory Source of Information: Patient Limitations: No Limitations Time Seen by Provider: 11/19/23 18:42 Description of Symptoms (Recalled from Triage Doc. by RN): PATIENT C/O LOWER BACK PAIN, PAIN WITH URINATION THAT STARTED A FEW WEEKS AGO AND WAS WORSE TODAY, AND PATIENT STATES SHE RECENTLY STARTED HAVING CHILLS AND GENERALLY FEELING BAD HEENT Symptoms (Recalled from RN notes): No Resp Symptoms (Recalled from RN notes): No Skin Symptoms (Recalled from RN notes): No MS Symptoms (Recalled from RN notes): No Functional Status (Recalled from RN notes): WNL History of Present Illness Provider Complaint: Patient states that she started about 2 weeks ago with low back pain and burning with urination States that she took some OTC UTI Medication and she thought it was getting better but today she started having body aches, chills, low back pain, and over all not feeling well so this evening as her she continued to feel worse she came in to get checked worried that she may have a bad UTI Related Data Home Medications Medication Instructions Recorded Confirmed No Known Home Medications 11/19/23 11/19/23 Allergies Allergy/AdvReac Type Severity Reaction Status Date / Time No Known Allergies Allergy Verified 11/13/23 10:59 Worker's Comp Is this a Worker's Comp case?: No [facility] Disclaimer: The information contained in this section may have been updated after the patient was seen, as this information can be updated by other users. Medical History (Updated 11/13/23 @ 10:59 by Bhupendra Montenegro MD) Encounter for insertion of mirena IUD Acute on chronic anemia 36 weeks gestation of Anxiety in , antepartum 35 weeks gestation of Marijuana use during Short interval between pregnancies complicating , antepartum Maternal obesity affecting , antepartum History of gestational hypertension hypertension Acute blood loss anemia Hypokalemia PCOS (polycystic ovarian syndrome) Surgical History (Updated 11/13/23 @ 10:59 by Bhupendra Montenegro MD) Hx laparoscopic cholecystectomy History of hysterectomy S/P History of delivery Hx of dilation and curettage Family History Other Diabetes Hyperlipidemia Hypertension Stroke Social History Smoking Status: Never smoker alcohol intake: former substance use type: marijuana current occupational status: employed Travel in the last 8 weeks: None household members: spouse housing: house current occupational exposures/hazards: No caffeine: Yes ROS Obtained: Yes All systems reviewed & no additional complaints except as documented and Yes Systems reviewed as appropriate & no additional complaints except as documented Constitutional Constitutional: Reports system reviewed and no additional complaints, except as documented, Reports as per HPI, Reports body ache, Reports chills and Reports fever(s) ENT Ears, Nose, Mouth, and Throat: Reports system reviewed and no additional complaints, except as documented and Reports as per HPI Cardiovascular Cardiovascular: Reports system reviewed and no additional complaints, except as documented and Reports as per HPI Respiratory Respiratory: Reports system reviewed and no additional complaints, except as documented and Reports as per HPI Gastrointestinal Gastrointestingal: Reports system reviewed and no additional complaints, except as documented, as per HPI and nausea Genitourinary Female Genitourinary: Reports system reviewed and no additional complaints, except as documented, Reports as per HPI, Reports dysuria, Reports urinary frequency and Reports urinary urgency Musculoskeletal Musculoskeletal: Reports system reviewed and no additional complaints, except as documented, Reports as per HPI and Reports back pain (reports achy like pain in lower back area) Physical Exam General General appearance: alert and in no apparent distress Respiratory Respiratory exam: Present normal lung sounds bilaterally; Absent respiratory distress or wheezes Cardiovascular Cardiovascular exam: Present regular rate, normal rhythm and tachycardia Back Exam Back 1 view image: 1. Patient reports achy like feeling in her lower back area Neurological Exam Neurological exam: Present alert, oriented X3 and normal gait Medical Decision Making Fercho Inquiry Pt receiving controlled substance: No Fercho was queried for this patient: No Vital Signs: 11/19/23 18:05 Temperature 101.3 F H Temperature Source Oral Pulse Rate [Left Brachial] 109 H Respiratory Rate 19 Blood Pressure [Left Arm] 113/67 Blood Pressure Mean [Left Arm] 82 Blood Pressure Source [Left Arm] Automatic Cuff Blood Pressure Position [Left Arm] Sitting 02 Sat by Pulse Oximetry 100 Oxygen Delivery Method Room Air Lab Data Lab results reviewed: Yes I reviewed the patient's lab results. Lab Results 11/19/23 18:18: Urine Color Yellow, Urine Appearance Cloudy, Urine pH 6.5, Ur Specific Melvin 1.015, Urine Protein 1+, Urine Glucose (UA) Negative, Urine Ketones Negative, Urine Blood Trace, Urine Nitrate Negative, Urine Bilirubin Negative, Urine Urobilinogen 0.2, Ur Leukocyte Esterase 2+ A, Tst Clinic Negative Orders (Tests/Meds): ED MEDICATIONS Generic Name Dose Route Start Last Admin Trade Name Rakesh PRN Reason Stop Dose Admin Ibuprofen 600 mg 11/19/23 18:17 11/19/23 18:18 Ibuprofen 600 Mg Tablet PO 11/19/23 18:18 600 mg ONCE ONE Administration ORDERS Category Date Time Status Urine Culture Stat Micro 11/19/23 18:18 Ordered Medical Decision Narrative: Patient laying on exam table states does not feel well cheeks flush States she started a couple weeks ago with burning with urination and took OTC medicine for it but today she began to feel worse, having chills, body aches, fever and achy like pain in her lower back and just not feeling well so this evening she came in Discussed with patient and due to patient having fever with other associated symptoms recommended transfer to the ED for further work up and testing and she agreed Spoke to ED and patient was moved to the ED for further work up and evaluation
[2023-11-19] MEDS: ACETAMINOPHEN 325MG TAB 650 MG PO (18:56)
--- NOTE | 2023-11-19 19:11 | HMH.EDGENADL ---
Discharge Plan Disposition Patient Disposition: Still a Patient Condition: Fair Prescriptions Prescriptions: No Action No Known Home Medications Referrals Follow up/Referrals: Almita Wset [Primary Care Provider] - See instructions Discharge ED Provider: Scooter Blake General Adult HPI General Stated complaint: poss UTI Time Seen by Provider: 11/19/23 18:42 Mode of Arrival: Ambulatory Source of Information: Patient Limitations: No Limitations Description of Symptoms (Recalled from ER Triage Doc. by RN): PATIENT C/O LOWER BACK PAIN, PAIN WITH URINATION THAT STARTED A FEW WEEKS AGO AND WAS WORSE TODAY, AND PATIENT STATES SHE RECENTLY STARTED HAVING CHILLS AND GENERALLY FEELING BAD Related Data Home Medications Medication Instructions Recorded Confirmed No Known Home Medications 11/19/23 11/19/23 Allergies Allergy/AdvReac Type Severity Reaction Status Date / Time No Known Allergies Allergy Verified 11/13/23 10:59 [facility] Disclaimer: The information contained in this section may have been updated after the patient was seen, as this information can be updated by other users. Medical History (Updated 11/13/23 @ 10:59 by Bhupendra Montenegro MD) Encounter for insertion of mirena IUD Acute on chronic anemia 36 weeks gestation of Anxiety in , antepartum 35 weeks gestation of Marijuana use during Short interval between pregnancies complicating , antepartum Maternal obesity affecting , antepartum History of gestational hypertension hypertension Acute blood loss anemia Hypokalemia PCOS (polycystic ovarian syndrome) Surgical History (Updated 11/13/23 @ 10:59 by Bhupendra Montenegro MD) Hx laparoscopic cholecystectomy History of hysterectomy S/P History of delivery Hx of dilation and curettage Family History Other Diabetes Hyperlipidemia Hypertension Stroke Social History Smoking Status: Never smoker alcohol intake: former substance use type: marijuana current occupational status: employed Travel in the last 8 weeks: None household members: spouse housing: house current occupational exposures/hazards: No caffeine: Yes ROS Obtained: Yes Systems reviewed as appropriate & no additional complaints except as documented Physical Exam General General appearance: alert and in no apparent distress Head Head exam: atraumatic and normal inspection Eye Eye exam: Present normal appearance, PERRL and EOMI ENT ENT exam: Present normal exam, normal oropharynx and mucous membranes moist Neck Neck exam: Present normal inspection, full ROM and trachea midline; Absent lymphadenopathy Chest Chest inspection: Present normal inspection and symmetric chest wall rise Respiratory Respiratory exam: Present normal lung sounds bilaterally; Absent accessory muscle use Cardiovascular Cardiovascular exam: Present regular rate, normal rhythm, normal heart sounds, +S1 and +S2 Abdominal Exam Abdominal exam: Present soft and normal bowel sounds; Absent tenderness, guarding or rebound Extremities Exam Extremities exam: Present normal inspection and full ROM Neurological Exam Neurological exam: Present alert, oriented X3 and CN II-XII intact Psychiatric Psychiatric exam: Present normal affect and normal mood Skin Skin exam: Present warm, dry and normal color Lymphatic Lymphatic Findings: no adenopathy Medical Decision Making Vital Signs: 11/19/23 18:05 Temperature 101.3 F H Temperature Source Oral Pulse Rate [Left Brachial] 109 H Respiratory Rate 19 Blood Pressure [Left Arm] 113/67 Blood Pressure Mean [Left Arm] 82 Blood Pressure Source [Left Arm] Automatic Cuff Blood Pressure Position [Left Arm] Sitting 02 Sat by Pulse Oximetry 100 Oxygen Delivery Method Room Air Lab Data Lab Results 11/19/23 18:18: Urine Color Yellow, Urine Appearance Cloudy, Urine pH 6.5, Ur Specific [place] 1.015, Urine Protein 1+, Urine Glucose (UA) Negative, Urine Ketones Negative, Urine Blood Trace, Urine Nitrate Negative, Urine Bilirubin Negative, Urine Urobilinogen 0.2, Ur Leukocyte Esterase 2+ A, Tst Clinic Negative Orders (Tests/Meds): ED MEDICATIONS Discontinued Medications Generic Name Dose Route Start Last Admin Trade Name Freq PRN Reason Stop Dose Admin Acetaminophen 650 mg 11/19/23 18:52 11/19/23 18:56 Acetaminophen 325mg Tab PO 11/19/23 18:53 650 mg ONCE ONE Administration Ibuprofen 600 mg 11/19/23 18:17 11/19/23 18:18 Ibuprofen 600 Mg Tablet PO 11/19/23 18:18 600 mg ONCE ONE Administration ORDERS Category Date Time Status Urine Culture Stat Micro 11/19/23 18:18 Ordered Medical Decision Narrative: In summary patient is a [age, sex] who presents to the emergency department for evaluation of [complaint]. Patient is [hemodynamically stable/unstable] upon arrival, [febrile/afebrile]. [Unremarkable physical exam, nonfocal exam versus focal remarkable exam]. Differential diagnosis includes [DDx]. Initial workup will be conducted with [hematologic labs, imaging, respiratory swab, describe workup]. Initial interventions include [crystalloid bolus, medications, p.o. challenge, etc.] initial workup reviewed by me [hematologic labs are remarkable for... Imaging remarkable for... Urinalysis remarkable for]. Upon repeat evaluation [patient had acceptable resolution of symptoms, had persistent pain for which additional interventions were conducted (describe interventions), tolerated p.o., was ambulatory, etc.]. Given this [patient is appropriate for discharge at this time and will be discharged with a prescription for... The case was discussed with hospital medicine regarding management and they will admit the patient their service for continued evaluation at this time... Etc.] Places where you can increase complexity: I informally interpreted the patient's chest x-ray or CT read and is remarkable for... Documenting what the convex grinder shows with rate and rhythm Consideration of test but deferring. Ex: I considered chest x-ray on this patient however given that they have no oxygen requirement and are clear to auscultation all lung johnson will be deferred. Social determinants of health: Given that patient is undomiciled increases complexity. Given that patient has polysubstance abuse compounds all aspects of care
[2023-11-19 19:13] VITALS: BP 118/77; PULSE 111; RESP 18; TEMP 38.1; O2SAT 99; BMI 40.6
[2023-11-19 19:27] LABS: Microscopic, Urine URINE MICROSCOPIC (MICROSCOPIC)
[2023-11-19 19:29] LABS: Appearance,Urine SL CLOUDY (Clear); Bilirubin,Urine Negative (Negative); Blood, Urine TRACE-I (Negative); Color,Urine YELLOW (Yellow); Glucose,Urine (UA) Negative (Negative); Ketones,Urine Negative (Negative); Leukocyte Esterase,Urine 2+ (Negative); Nitrate,Urine POSITIVE (Negative); Protein,Urine 1+ (Negative)
[2023-11-19 19:38] LABS: Basophils % 0.2 % (0.1-2.0); Eosinophils # 0.1 K/mm3 (0.0-0.4); Eosinophils % 0.5 % (0.1-12.0); Hematocrit 32.4 % (37.0-47.0); Hemoglobin 10.9 g/dL (12.2-16.2); Lymphocytes # 1.2 K/mm3 (0.7-4.5); Lymphocytes % 9.1 % (10-50); Mean Corpuscular HGB Conc 33.7 g/dL (31.8-35.4); Mean Corpuscular Hemoglobin 24.6 pg (27.0-31.2); Mean Platelet Volume 7.4 fl (7.4-10.4); Monocytes # 0.9 K/mm3 (0.1-1.0); Monocytes % 6.5 % (1.7-9.3); Neutrophils # 11.3 K/mm3 (1.8-7.8); Neutrophils % 83.8 % (37.0-80.0); Platelet Count 297 K/mm3 (142-424); Red Blood Count 4.43 M/mm3 (4.20-5.40); Red Cell Distribution Width 17.8 % (11.5-17.5); White Blood Count 13.5 K/mm3 (4.8-10.8)
[2023-11-19 19:40] LABS: Bacteria,Urine 3+ /lpf; Squamous Epithelial Cell,Urine Occasional #/hpf (0-5); WBC,Urine 20-50 #/hpf (0-3)
[2023-11-19 19:41] LABS: Chloride 108 mmol/L (98-107); Sodium 138 mmol/L (136-145)
[2023-11-19 19:42] LABS: Potassium 3.5 mmoL/L (3.5-5.1)
[2023-11-19 19:44] LABS: Alanine Aminotransferase 106 U/L (12-78); Albumin Level 4.2 g/dl (3.5-5.0); Albumin/Globulin Ratio 1.2 (1.1-1.8); Alkaline Phosphatase 126 U/L (38-126); Anion Gap 10.5 mEq/L (5-15); Aspartate Amino Transferase 43 U/L (14-36); Bilirubin,Total 0.7 mg/dl (0.2-1.3); Blood Urea Nitrogen 19 mg/dl (7-17); Carbon Dioxide 23 mmol/L (22.0-30.0); Creatinine Clearance Estimated 113 mL/min (50-200); Estimated Glomerular Filt Rate 54 ml/min (>60); GFR (African American) 66 ML/MIN (>60); Globulin 3.4 g/dL (1.3-3.2); Total Protein,Serum 7.6 g/dl (6.3-8.2)
[2023-11-19 19:45] LABS: Calcium 8.9 mg/dl (8.4-10.2); Glucose 103 mg/dl (74-100)
[2023-11-19] MEDS: CEFTRIAXONE 1 GM 1 GM in 0.9 % SODIUM CHLORIDE 50 ML IV (19:45)
[2023-11-19] MEDS: LACTATED RINGERS 1000ML 1,000 ML 999 ML IV (19:51)
--- NOTE | 2023-11-19 20:18 | ED_ITS ---
Discharge Plan Disposition Patient Disposition: Home, Self-Care Condition: Fair Prescriptions Prescriptions: New cefdinir 300 mg capsule 300 mg PO BID 10 Days Qty: 20 0RF Referrals Follow up/Referrals: Almita West [Primary Care Provider] - See instructions Activity Restrictions/Add. Instructions Additional Instructions/Restrictions: Cefdinir twice daily for 10 days. Take Tylenol 1000 mg every 6 hours (4 times daily) and ibuprofen 400 mg every 6 hours (4 times daily) as needed with food and water to prevent GI upset and kidney damage. Call your family doctor to establish care for this visit to the emergency department and schedule follow-up within 48 hours to ensure improvement. If you have any worsening of your condition or any other concerning signs or symptoms, return to the emergency department or your primary care doctor for further evaluation. Clinical Impressions Clinical Impression: Pyelonephritis Instructions Patient Instructions: DI for Urinary Tract Infection (UTI), DI for Urinary Tract Infection in Children Discharge ED Provider: Scooter Blake General Adult HPI General Chief complaint: Urogenital-Female Stated complaint: poss UTI Time Seen by Provider: 11/19/23 18:42 Mode of Arrival: Ambulatory Source of Information: Patient Limitations: No Limitations Description of Symptoms (Recalled from ER Triage Doc. by RN): Patient sent from [facility] to ER with complaints of bilateral flank pain along with radiating lower back pain. She states that this pain has continued x1week. Complains of burning and frequency with urination and is febrile upon assessment of 100.5. History of Present Illness HPI narrative: Please note that above description of symptoms, in this electronic medical record under categorization of recalled from ER triage doctor by RN are reflective of an initial nursing assessment, however, is not reflective of my full history and physical exam that was personally taken and clarified. Consequentially, this preceding description of symptoms, which may include the patient's categorized chief complaint in the EMR, do not reflect my personal clinical impression, and the ultimate description of history of present illness and patient stated complaints should be deferred to this section of the note. Unless stated otherwise or congruent with this section of the note, additional signs, symptoms, or incongruence should be interpreted as inaccurate with my clinical impression. Related Data Previous Rx's Medication Instructions Recorded cefdinir 300 mg capsule 300 mg PO BID 10 days #20 caps 11/19/23 Allergies Allergy/AdvReac Type Severity Reaction Status Date / Time No Known Allergies Allergy Verified 11/13/23 10:59 [facility] Disclaimer: The information contained in this section may have been updated after the patient was seen, as this information can be updated by other users. Medical History (Updated 11/19/23 @ 21:11 by Scooter Blake MD) Encounter for insertion of mirena IUD Acute on chronic anemia 36 weeks gestation of Anxiety in , antepartum 35 weeks gestation of Marijuana use during Short interval between pregnancies complicating , antepartum Maternal obesity affecting , antepartum History of gestational hypertension hypertension Acute blood loss anemia Hypokalemia PCOS (polycystic ovarian syndrome) Surgical History (Updated 11/13/23 @ 10:59 by Bhupendra Montenegro MD) Hx laparoscopic cholecystectomy History of hysterectomy S/P History of delivery Hx of dilation and curettage Family History Other Diabetes Hyperlipidemia Hypertension Stroke Social History Smoking Status: Never smoker alcohol intake: former substance use type: marijuana current occupational status: employed Travel in the last 8 weeks: None household members: spouse housing: house current occupational exposures/hazards: No caffeine: Yes ROS Obtained: Yes All systems reviewed & no additional complaints except as documented Physical Exam General General appearance: alert and in no apparent distress Head Head exam: atraumatic and normocephalic Eye Eye exam: Present normal appearance, PERRL and EOMI Neck Neck exam: Present normal inspection, full ROM and trachea midline Respiratory Respiratory exam: Absent respiratory distress, wheezes, stridor, accessory muscle use or prolonged expiratory phase Cardiovascular Cardiovascular exam: Present other (Pulses equal symmetric in upper and lower extremities) Abdominal Exam Abdominal exam: Present soft; Absent distention, tenderness or pulsatile mass Extremities Exam Extremities exam: Absent edema Back Exam Back exam: Present CVA tenderness (L); Absent CVA tenderness (R) Neurological Exam Neurological exam: Present alert, oriented X3 and CN II-XII intact; Absent motor sensory deficit Skin Skin exam: Present warm and dry; Absent diaphoresis or erythema Medical Decision Making Medical Records Medical records reviewed: Yes I reviewed the patient's medical records. Fercho Inquiry Pt receiving controlled substance: No Fercho was queried for this patient: No Vital Signs: 11/19/23 18:05 11/19/23 19:13 Temperature 101.3 F H 100.5 F H Temperature Source Oral Oral Pulse Rate [Left Brachial] 109 H 111 H Respiratory Rate 19 18 Blood Pressure [Left Arm] 113/67 118/77 Blood Pressure Mean [Left Arm] 82 90 Blood Pressure Source [Left Arm] Automatic Cuff Blood Pressure Position [Left Arm] Sitting 02 Sat by Pulse Oximetry 100 99 Oxygen Delivery Method Room Air Room Air Lab Data Lab Results 11/19/23 18:00: Urine Color Yellow, Urine Appearance Sl cloudy, Urine pH 6.0, Ur Specific [place] 1.010, Urine Protein 1+, Urine Glucose (UA) Negative, Urine Ketones Negative, Urine Blood Trace-i, Urine Nitrate Positive, Urine Bilirubin Negative, Urine Urobilinogen 1.0, Ur Leukocyte Esterase 2+ A, Urine RBC 3-5, Urine WBC 20-50, Ur Squamous Epith Cells Occasional, Urine Bacteria 3+ 11/19/23 18:18: Urine Color Yellow, Urine Appearance Cloudy, Urine pH 6.5, Ur Specific [place] 1.015, Urine Protein 1+, Urine Glucose (UA) Negative, Urine Ketones Negative, Urine Blood Trace, Urine Nitrate Negative, Urine Bilirubin Negative, Urine Urobilinogen 0.2, Ur Leukocyte Esterase 2+ A, Tst Clinic Negative 11/19/23 19:25: WBC 13.5 H, RBC 4.43, Hgb 10.9 L, Hct 32.4 L, MCV 73.0 L, MCH 24.6 L, MCHC 33.7, RDW 17.8 H, Plt Count 297, MPV 7.4, Neut % (Auto) 83.8 H, L ymph % (Auto) 9.1 L, [place] % (Auto) 6.5, Eos % (Auto) 0.5, Baso % (Auto) 0.2, N eut # (Auto) 11.3 H, Lymph # (Auto) 1.2, [place] # (Auto) 0.9, Eos # (Auto) 0.1, Baso # (Auto) 0.0, Sodium 138, Potassium 3.5, Chloride 108 H, Carbon Dioxide 23, Anion Gap 10.5, BUN 19 H, Creatinine 1.20 H, Estimated Creat Clear 113, E stimated GFR 54 L, Est GFR ( Amer) 66, Glucose 103 H, Calcium 8.9, Total Bilirubin 0.7, AST 43 H, ALT 106 H, Alkaline Phosphatase 126, Total Protein 7.6, Albumin 4.2, Globulin 3.4 H, Albumin/Globulin Ratio 1.2 11/19/23 20:13: Lactate 0.7 11/19/23 19:25 11/19/23 19:25 Orders (Tests/Meds): ED MEDICATIONS Discontinued Medications Generic Name Dose Route Start Last Admin Trade Name Rakesh PRN Reason Stop Dose Admin Acetaminophen 650 mg 11/19/23 18:52 11/19/23 18:56 Acetaminophen 325mg Tab PO 11/19/23 18:53 650 mg ONCE ONE Administration Ceftriaxone Sodium 1 gm/ 50 mls @ 100 mls/hr 11/19/23 19:36 11/19/23 19:45 Sodium Chloride IV 11/19/23 20:05 100 mls/hr ONCE ONE Administration Lactated Ringer's 1,000 mls @ 999 mls/hr 11/19/23 19:50 11/19/23 19:51 Lactated Ringer's 1000 Ml Bag IV 11/19/23 20:50 999 mls/hr .Q1H1M ONE Administration Ibuprofen 600 mg 11/19/23 18:17 11/19/23 18:18 Ibuprofen 600 Mg Tablet PO 11/19/23 18:18 600 mg ONCE ONE Administration ORDERS Category Date Time Status POCUS Point of Care (ER Only) Stat Exams 11/19/23 19:17 Ordered CBC w/Auto Diff [Complete Blood Count Auto Diff] Stat Lab 11/19/23 19:25 Completed CMP [Comprehensive Metabolic Panel] Stat Lab 11/19/23 19:25 Completed Lactic Acid Stat Lab 11/19/23 20:13 Completed UA [Urinalysis and Microscopic] Stat Lab 11/19/23 18:00 Completed Blood Culture Stat Micro 11/19/23 19:25 Received Urine Culture Stat Micro 11/19/23 18:00 Received Medical Decision Narrative: 28-year-old female history of cholecystectomy presenting with concern for fever, low back pain. Patient states that she has had UTIs in the past, never history of kidney infection. States that this has been going on for couple of days, started with low back pain that she says was responsive to 600 mg ibuprofen. Has been taking notes, has been feeling better, but today, 11/18, started having fevers up to 101 ?F. Also responsive to Tylenol and Motrin. Went to the urgent care, because of flank pain, was sent to the emergency department for further evaluation. Patient also having associated dysuria without hematuria. No vomiting, change in bowel pattern, or any other concerns. History was obtained via conversation with patient and [facility] provider. On arrival, patient hemodynamically stable, alert, oriented x4, appropriate, GCS 15, moving all extremities spontaneously, pupils equal and reactive to light. Full physical exam performed and significant for uncomfortable appearing female in no acute distress. She is mildly tachycardic. Abdomen is soft, nontender, nondistended, right upper quadrant exam negative. She does have left flank tenderness on percussion. Differential includes pyelonephritis,, nephrolithiasis, ectopic , intrauterine , PID, among others. Patient was given fluids, ceftriaxone 1 g for symptomatic management and correction of underlying abnormalities. On independent rotation, workup significant for leukocytosis 13.5 with neutrophilia. Patient's kidney function with mild DEYSI creatinine 1.2 up from normal baseline. LFTs mildly elevated. hCG negative. Lactate negative. Blood cultures drawn. Urinalysis with bacteria, leukocyte Estrace, protein and blood. This concerning for pyelonephritis. Bedside [id number] ultrasound without perinephric abscess, hydronephrosis, or any other concerns.On reevaluation, patient resting comfortably, feeling much better after meds and 1 L fluid. Given patient presentation, workup, history, this most likely represents uncomplicated pyelonephritis. Because patient at baseline without signs or symptoms of clinical decompensation, deemed appropriate for discharge. Results were relayed to patient who voiced understanding and were agreeable to outpatient management and follow up. I discussed my clinical impression with patient and answered all questions. At this time, the evidence for any other entities in the differential is insufficient to warrant any further testing or ED observation. This was explained as well. Advisory was given that persistent or worsening symptoms require further evaluation. I confirmed the understanding of this discussion. Furnace Clerk disclaimer Much of this encounter note is an electronic labor delivery specialist spoken language to printed text. Electronic labor delivery specialist of the spoken language may permit errors. Although I have reviewed the note, some errors may still exist. Procedures Limited Ultrasound Indication:: Limited renal ultrasound Indication: A focused ultrasound of the kidneys was performed to evaluate for hydronephrosis and nephrolithiasis. The ultrasound was performed with the following indications, as noted in the H&P: Flank pain, fever Identified structures: Bilateral kidneys Findings: Normal bilateral kidneys, no evidence of hydronephrosis, perinephric inflammation, abscess, or other abnormality Impression: Normal bilateral renal ultrasound Images were saved to permanent archive The study was technically adequate CPT: 45281-57 This study was performed by me, and I personally interpreted all images/videos. Based on my clinical judgement, these images were adequate and did not necessitate further imaging. Critical Care Critical Care Time Critical Care Time: No
[2023-11-19 20:28] LABS: Lactic Acid 0.7 mmol/L (0.7-2.1)
[2023-11-19 21:37] VITALS: BP 108/67; PULSE 82; RESP 15; TEMP 36.9; O2SAT 97
--- NOTE | 2023-11-21 15:35 | PC.NURSE ---
DISCUSSED URINE CULTURE WITH DR MOSHER, WOULD LIKE STAFF TO CALL AND FOLLOW-UP WITH PT AND SEE HOW SHE IS FEELING. ATTEMPTED TO CALL PT, NO ANSWER. MESSAGE LEFT TO RETURN CALL
--- NOTE | 2023-11-22 10:28 | PC.NURSE ---
attempted to call pt and follow-up again. no answer. message left
--- NOTE | 2023-11-22 16:00 | PC.NURSE ---
spoke with pt's mother, will try and talk with pt and have pt call back
--- NOTE | 2023-11-22 16:19 | PC.NURSE ---
spoke with pt, reports continued intermittent fevers and chills. instructed to return to ed for further treatment. 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
== END 2023-11-19 21:38 | disposition home or self-care (01) ==
LOC: UTC 18:50 → ER 19:04
PROVIDERS: Nurse Practitioner; Emergency Provider Emergency Medicine; PCP Nurse Practitioner Family
DX: N10 Acute pyelonephritis (principal); B96.29 Other Escherichia coli [E. coli] as the cause of diseases classified elsewhere; R50.9 Fever, unspecified; M54.59 Other low back pain; R30.0 Dysuria
CPT/HCPCS: 80053; 81001; 81003; 81025; 83605; 85025; 87040; 87086; 87088; 87186; 96365; 99284; J0696; J7120

== ENCOUNTER 2023-11-22 20:03 | Observation (INO) | payer BC, SELFPAY ==
[2023-11-22 20:04] VITALS: BP 116/76; PULSE 69; RESP 17; TEMP 37.1; O2SAT 98; BMI 36.6
--- NOTE | 2023-11-22 20:20 | PC.NURSE ---
Dr. Jhaveri at bedside. Pt has not SIRS criteria at this time. Blood cultures have been obtained
--- NOTE | 2023-11-22 20:26 | ED_ITS ---
Discharge Plan Disposition Patient Disposition: Admitted Prescriptions Prescriptions: No Action cefdinir 300 mg capsule 300 mg PO BID 10 Days Qty: 20 0RF Referrals Follow up/Referrals: Almita West [Primary Care Provider] - See instructions Clinical Impressions Clinical Impression: Infection due to ESBL-producing Escherichia coli, Pyelonephritis Discharge ED Provider: Kavya Jhaveri General Adult HPI General Stated complaint: Recheck,F/U Urine test Time Seen by Provider: 11/22/23 20:15 History of Present Illness HPI narrative: Patient is a 28-year-old female brought in today after she was found to have an ESBL E. coli organism growing on her urine culture with a recent diagnosis of sepsis and pyelonephritis. She was here few days ago with started on cefdinir for which this organism is resistant. She was called and stated that she has had fevers as recently as yesterday she does feel little bit better today. Urinary symptoms have improved somewhat. She was advised to come back to the hospital to be admitted for IV meropenem or ertapenem establishment of a PICC line and outpatient infusion to be coordinated. She has no other new complaints. Related Data Previous Rx's Medication Instructions Recorded cefdinir 300 mg capsule 300 mg PO BID 10 days #20 caps 11/19/23 Allergies Allergy/AdvReac Type Severity Reaction Status Date / Time No Known Allergies Allergy Verified 11/13/23 10:59 [facility] Disclaimer: The information contained in this section may have been updated after the patient was seen, as this information can be updated by other users. Medical History (Updated 11/22/23 @ 20:23 by Kavya Jhaveri MD) Encounter for insertion of mirena IUD Acute on chronic anemia 36 weeks gestation of Anxiety in , antepartum 35 weeks gestation of Marijuana use during Short interval between pregnancies complicating , antepartum Maternal obesity affecting , antepartum History of gestational hypertension hypertension Acute blood loss anemia Hypokalemia PCOS (polycystic ovarian syndrome) Surgical History (Updated 11/13/23 @ 10:59 by Bhupendra Montenegro MD) Hx laparoscopic cholecystectomy History of hysterectomy S/P History of delivery Hx of dilation and curettage Family History Other Diabetes Hyperlipidemia Hypertension Stroke Social History (Reviewed 10/31/23 @ 08:08 by AMADOR Werner Smoking Status: Never smoker alcohol intake: former substance use type: marijuana current occupational status: employed Travel in the last 8 weeks: None household members: spouse housing: house current occupational exposures/hazards: No caffeine: Yes ROS Obtained: Yes All systems reviewed & no additional complaints except as documented Physical Exam General General appearance: alert Respiratory Respiratory exam: Present normal lung sounds bilaterally Cardiovascular Cardiovascular exam: Present normal rhythm Abdominal Exam Abdominal exam: Present soft; Absent distention or tenderness Back Exam Back exam: Absent CVA tenderness (R) or CVA tenderness (L) Neurological Exam Neurological exam: Present alert and oriented X3 Medical Decision Making Fercho Inquiry Pt receiving controlled substance: No Orders (Tests/Meds): ED MEDICATIONS Generic Name Dose Route Start Last Admin Trade Name Freq PRN Reason Stop Dose Admin Lactated Ringer's 1,000 mls @ 999 mls/hr 11/22/23 20:30 Lactated Ringer's 1000 Ml Bag IV 11/22/23 21:30 .Q1H1M LEIF Discontinued Medications Generic Name Dose Route Start Last Admin Trade Name Freq PRN Reason Stop Dose Admin Ertapenem 1 gm/ Sodium 50 mls @ 100 mls/hr 11/22/23 20:22 Chloride IV 11/22/23 20:23 ONCE ONE ORDERS Category Date Time Status CBC w/Auto Diff [Complete Blood Count Auto Diff] Stat Lab 11/22/23 20:21 Ordered CMP [Comprehensive Metabolic Panel] Stat Lab 11/22/23 20:21 Ordered Lactic Acid Stat Lab 11/22/23 20:21 Ordered UA [Urinalysis and Microscopic] Stat Lab 11/22/23 20:21 Ordered Blood Culture Stat Micro 11/22/23 20:21 Ordered Medical Decision Narrative: 28-year-old with recent pyelonephritis and sepsis symptomatic and febrile as recently as yesterday. She states that she feels somewhat better today but felt miserable yesterday. Given the fact that she has an ESBL E. coli organism with no oral medications that are susceptible to this we advised that she come back in to be admitted for IV antibiotics namely ertapenem or meropenem. I initiated a ertapenem given the fact that I think she looks good enough to likely go home in the morning after PICC line is established and outpatient infusions are arranged. She is aware this plan and will be admitted for further management. Critical Care Critical Care Time Critical Care Time: No
[2023-11-22 20:31] LABS: Basophils % 0.6 % (0.1-2.0); Eosinophils # 0.2 K/mm3 (0.0-0.4); Eosinophils % 3.3 % (0.1-12.0); Hematocrit 33.3 % (37.0-47.0); Hemoglobin 10.9 g/dL (12.2-16.2); Lymphocytes # 2.5 K/mm3 (0.7-4.5); Lymphocytes % 37.2 % (10-50); Mean Corpuscular HGB Conc 32.7 g/dL (31.8-35.4); Mean Corpuscular Hemoglobin 24.5 pg (27.0-31.2); Mean Platelet Volume 7.5 fl (7.4-10.4); Monocytes # 0.5 K/mm3 (0.1-1.0); Monocytes % 6.8 % (1.7-9.3); Neutrophils # 3.5 K/mm3 (1.8-7.8); Neutrophils % 52.1 % (37.0-80.0); Platelet Count 345 K/mm3 (142-424); Red Blood Count 4.45 M/mm3 (4.20-5.40); Red Cell Distribution Width 17.8 % (11.5-17.5); White Blood Count 6.7 K/mm3 (4.8-10.8)
[2023-11-22 20:33] LABS: Chloride 108 mmol/L (98-107); Potassium 3.3 mmoL/L (3.5-5.1); Sodium 142 mmol/L (136-145)
[2023-11-22 20:35] LABS: Alanine Aminotransferase 87 U/L (12-78); Blood Urea Nitrogen 21 mg/dl (7-17); Estimated Glomerular Filt Rate 60 ml/min (>60); GFR (African American) 73 ML/MIN (>60); Lactic Acid 0.5 mmol/L (0.7-2.1)
[2023-11-22 20:36] LABS: Albumin Level 4.1 g/dl (3.5-5.0); Albumin/Globulin Ratio 1.1 (1.1-1.8); Alkaline Phosphatase 109 U/L (38-126); Anion Gap 9.3 mEq/L (5-15); Aspartate Amino Transferase 39 U/L (14-36); Bilirubin,Total 0.3 mg/dl (0.2-1.3); Calcium 9.8 mg/dl (8.4-10.2); Carbon Dioxide 28 mmol/L (22.0-30.0); Globulin 3.8 g/dL (1.3-3.2); Glucose 87 mg/dl (74-100); Total Protein,Serum 7.9 g/dl (6.3-8.2)
[2023-11-22] MEDS: ERTAPENEM SODIUM 1 GM in 0.9 % SODIUM CHLORIDE 50 ML IV (20:38)
[2023-11-22] MEDS: LACTATED RINGERS 1000ML 1,000 ML 999 ML IV (20:38)
--- NOTE | 2023-11-22 20:38 | PC.NURSE ---
Dr. Jhaveri s/w hospitalist for admission
[2023-11-22 20:40] LABS: Creatinine Clearance Estimated 111 mL/min (50-200)
--- NOTE | 2023-11-22 20:41 | PC.NURSE ---
house servant notified of need for room
--- NOTE | 2023-11-22 20:53 | PC.NURSE ---
Report called to NENO Kahn
[2023-11-22 21:00] VITALS: BP 116/75; PULSE 60; RESP 16; TEMP 36.9; O2SAT 99
[2023-11-22 21:10] VITALS: BP 118/72; PULSE 54; RESP 16; TEMP 36.9; O2SAT 100; BMI 42.0
--- NOTE | 2023-11-22 21:12 | PC.NURSE ---
Pt arrived to the floor via wheelchair @ 2108
[2023-11-22 22:42] LABS: Microscopic, Urine URINE MICROSCOPIC (MICROSCOPIC)
[2023-11-22 22:44] LABS: Blood, Urine Negative (Negative); Color,Urine YELLOW (Yellow); Glucose,Urine (UA) Negative (Negative); Ketones,Urine TRACE (Negative); Leukocyte Esterase,Urine Negative (Negative); Nitrate,Urine Negative (Negative); Protein,Urine Negative (Negative); Specific Gravity, Urine 1.025 (1.005-1.030); Urobilinogen,Urine 0.2 EU/dl (0.2)
[2023-11-22 22:47] VITALS: O2SAT 100
[2023-11-22 22:48] LABS: Appearance,Urine Clear (Clear); Bilirubin,Urine 1+ (Negative)
[2023-11-22 22:59] LABS: Bacteria,Urine Trace /lpf; Mucus,Urine Trace /lpf; Squamous Epithelial Cell,Urine Occasional #/hpf (0-5); WBC,Urine Occasional #/hpf (0-3)
--- NOTE | 2023-11-22 23:27 | EXP.HP ---
History of Present Illness *Admission Date: 11/22/23 *Reason for visit:: Positive Urine culture *History of present illness: Librado Delgado is a 28-year-old female past medical history significant for PCOS who initially presented to the emergency room couple of days ago for UTI symptoms. Patient was having dysuria, severe flank pain, and was having some chills and fevers at home. Patient's urine at that time was noted to be positive for acute cystitis. She was sent home with cefdinir and has been taking medications as prescribed. Culture of the urine actually came back today and was noted to have ESBL producing E. coli which was resistant to cefdinir. Patient actually tells me that today she felt better than she has in the last 2 days. Denies any back pain at this time, no dysuria, hematuria noted. No fevers noted today. Denies any chest pain, cough, shortness of breath, abdominal pain, bowel or bladder dysfunction. No focal neurodeficits noted. Does not take any blood thinners. Denies tobacco use, alcohol use, illicit drug use. Lab work showed cellulitic creatinine of 1.1, potassium below 3.3. ALT and AST slightly elevated at 87 and 39. UA looks improved from 3 days ago. No white count noted. H&H a bit low at 10.9 and 33 which is stable for her. She will be admitted to the hospitalist service for acute cystitis Secondary to ESBL producing E. coli. [facility] Disclaimer: The information contained in this section may have been updated after the patient was seen, as this information can be updated by other users. Medical History (Updated 11/22/23 @ 23:33 by Kimberly Mcclain APRN) Encounter for insertion of mirena IUD Acute on chronic anemia 36 weeks gestation of Anxiety in , antepartum 35 weeks gestation of Marijuana use during Short interval between pregnancies complicating , antepartum Maternal obesity affecting , antepartum History of gestational hypertension hypertension Acute blood loss anemia Hypokalemia PCOS (polycystic ovarian syndrome) Surgical History Hx laparoscopic cholecystectomy History of hysterectomy S/P History of delivery Hx of dilation and curettage Family History Other Diabetes Hyperlipidemia Hypertension Stroke Social History (Updated 11/22/23 @ 21:37 by Criss Perez RN) Smoking Status: Never smoker alcohol intake: former substance use type: marijuana current occupational status: employed Travel in the last 8 weeks: None household members: spouse housing: house current occupational exposures/hazards: No caffeine: Yes Review of Systems Review of Systems Review of systems:: pertinent systems reviewed and negative unless documented below Meds Home Medications and Allergies Home Medications Medication Instructions Recorded Confirmed Type Ertapenem Sodium [Invanz 1gm Vial] 100 mls/hr IV 1500 11/23/23 Rx 1 gm New Prescriptions to Start Prescriptions: Ertapenem Sodium [Invanz 1gm Vial] 1 gm 0.9 % Sodium Chloride [Sod Chlor 0.9% 50mL bag] 50 ml 100 mls/hr IV 1500 Allergies Allergy/AdvReac Type Severity Reaction Status Date / Time No Known Allergies Allergy Verified 11/13/23 10:59 Exam Data for Last 24 hours Vital signs and Labs for Last 24 Hours: Temp Pulse Resp BP Pulse Ox O2 Del Method 98.4 F 54 L 16 118/72 100 Room Air 11/22/23 21:10 11/22/23 21:10 11/22/23 21:10 11/22/23 21:10 11/22/23 22:47 11/22/23 23:00 Laboratory Results - last 24 hr 11/22/23 20:15: WBC 6.7, RBC 4.45, Hgb 10.9 L, Hct 33.3 L, MCV 75.0 L, MCH 24.5 L, MCHC 32.7, RDW 17.8 H, Plt Count 345, MPV 7.5, Neut % (Auto) 52.1, Lymph % (Auto) 37.2, [place] % (Auto) 6.8, Eos % (Auto) 3.3, Baso % (Auto) 0.6, Neut # (Auto) 3.5, Lymph # (Auto) 2.5, [place] # (Auto) 0.5, Eos # (Auto) 0.2, Baso # (Auto) 0.0, Sodium 142, Potassium 3.3 L, Chloride 108 H, Carbon Dioxide 28, Anion Gap 9.3, BUN 21 H, Creatinine 1.10 H, Estimated Creat Clear 111, Estimated GFR 60, Est GFR ( Amer) 73, Glucose 87, Lactate 0.5 L, Calcium 9.8, Total Bilirubin 0.3, AST 39 H, ALT 87 H, Alkaline Phosphatase 109, Total Protein 7.9, Albumin 4.1, Globulin 3.8 H, Albumin/Globulin Ratio 1.1 11/22/23 22:37: Urine Color Yellow, Urine Appearance Clear, Urine pH 6.0, Ur Specific [place] 1.025, Urine Protein Negative, Urine Glucose (UA) Negative, Urine Ketones Trace, Urine Blood Negative, Urine Nitrate Negative, Urine Bilirubin 1+ A, Urine Urobilinogen 0.2, Ur Leukocyte Esterase Negative, Urine RBC None, Urine WBC Occasional, Ur Squamous Epith Cells Occasional, Urine Bacteria Trace, Urine Mucus Trace I & O for Last 24 hours: Intake & Output 11/19/23 11/20/23 11/21/23 11/22/23 23:59 23:59 23:59 23:59 Intake Total 1100 / 1100 Output Total 0 / 0 Balance 1100 / 1100 Weight 103.737 kg *Routine HEENT Exam Head: Present normocephalic and atraumatic Eye: Present EOMI and PERRL ENT: Present mucous membranes moist *Routine Neck Exam Neck: Present supple *Routine Respiratory Exam Respiratory: Present CTA bilaterally *Routine Cardiovascular Exam Cardiovascular: Present RRR, Normal S1 and Normal S2 *Routine Abdominal Exam Abdominal: Present soft and normoactive bowel sounds *Routine Rectal Exam Rectal:: deferred *Routine Genitalia Exam Genitalia:: deferred *Routine Extremities Exam Extremities: Present pulses intact and normal capillary refill *Routine Skin Exam Skin: Present intact *Routine Neurological Exam Neurological: Present alert and oriented X3 Assessment and Plan *Assessment and plan (1) Infection due to ESBL-producing Escherichia coli: Status: Acute Category: Medical Code(s): A49.8 - Other bacterial infections of unspecified site; Z16.12 - Extended spectrum beta lactamase (ESBL) resistance (2) Pyelonephritis: Status: Acute Category: Medical Code(s): N12 - Tubulo-interstitial nephritis, not specified as acute or chronic (3) Acute cystitis: Status: Acute Category: Medical Code(s): N30.00 - Acute cystitis without hematuria Plan Assessment: This is a 28-year-old female being admitted for acute cystitis secondary to ESBL producing E. coli. On my exam, patient is lying in bed in no acute stress. No complaints this time. Acute cystitis ESBL producing E. coli Pyelonephritis -Patient symptoms are actually improving -Sensitivity report shows bacteria susceptible to ertapenem, ertapenem was started in the ER, will continue -Will give a liter of IV fluids as patient creatinine is still slightly bumped -Pain management as needed -PICC line needed for IV antibiotics at home Hypokalemia -Replace per protocol -Recheck potassium level in the morning DVT prophylaxis: Lovenox CODE STATUS: Full code Surrogate decision maker: Shaina [phone] Skin: Low risk Rounded on patient after nurse practitioner. Personally examined and interviewed patient. Agree with exam findings and care plan as documented.
[2023-11-23] MEDS: LACTATED RINGERS 1000ML 1,000 ML 100 ML IV
[2023-11-23] MEDS: POTASSIUM CHLORIDE 20MEQ TAB 40 MEQ PO
[2023-11-23 04:00] VITALS: BP 122/60; PULSE 52; RESP 16; TEMP 36.8; O2SAT 100; BMI 42.0
--- NOTE | 2023-11-23 04:03 | PC.NURSE ---
Patient id alert & oriented x4. Has rested well tonight. Tolerating room air well. Tolerating ambulation independently to/from bathroom. Urine sample collected and sent to lab for UA. LR currently running at 100 mls/hr, patient tolerating well. Potassium administered this shift per JUL. Patient states there is no frequent urination, burning with urination, or other urinary complaints. Lung sounds clear. Bowel sounds active. No needs or complaints expressed this shift. VSS. Call light within reach.
[2023-11-23 07:15] LABS: Anion Gap 7.8 mEq/L (5-15); Blood Urea Nitrogen 18 mg/dl (7-17); Calcium 9.3 mg/dl (8.4-10.2); Carbon Dioxide 28 mmol/L (22.0-30.0); Chloride 109 mmol/L (98-107); Creatinine Clearance Estimated 80 mL/min (50-200); Estimated Glomerular Filt Rate 87 ml/min (>60); GFR (African American) 105 ML/MIN (>60); Glucose 97 mg/dl (74-100); Potassium 3.8 mmoL/L (3.5-5.1); Sodium 141 mmol/L (136-145)
[2023-11-23 07:21] LABS: Basophils % 0.4 % (0.1-2.0); Eosinophils # 0.2 K/mm3 (0.0-0.4); Eosinophils % 3.6 % (0.1-12.0); Hematocrit 31.8 % (37.0-47.0); Hemoglobin 10.4 g/dL (12.2-16.2); Lymphocytes # 1.8 K/mm3 (0.7-4.5); Lymphocytes % 29.9 % (10-50); Mean Corpuscular HGB Conc 32.7 g/dL (31.8-35.4); Mean Corpuscular Hemoglobin 24.6 pg (27.0-31.2); Mean Corpuscular Volume 75.3 fl (81-99); Mean Platelet Volume 7.6 fl (7.4-10.4); Monocytes # 0.4 K/mm3 (0.1-1.0); Monocytes % 6.6 % (1.7-9.3); Neutrophils # 3.5 K/mm3 (1.8-7.8); Neutrophils % 59.5 % (37.0-80.0); Platelet Count 317 K/mm3 (142-424); Red Blood Count 4.22 M/mm3 (4.20-5.40); Red Cell Distribution Width 17.6 % (11.5-17.5)
[2023-11-23 08:00] VITALS: BP 121/75; PULSE 72; RESP 18; TEMP 36.8; O2SAT 98
--- NOTE | 2023-11-23 08:01 | EXP.DC.SUM ---
General Admission date:: 11/22/23 Discharge date: 11/23/23 HPI HPI HPI: Librado Delgado is a 28-year-old female past medical history significant for PCOS who initially presented to the emergency room couple of days ago for UTI symptoms. Patient was having dysuria, severe flank pain, and was having some chills and fevers at home. Patient's urine at that time was noted to be positive for acute cystitis. She was sent home with cefdinir and has been taking medications as prescribed. Culture of the urine actually came back today and was noted to have ESBL producing E. coli which was resistant to cefdinir. Patient actually tells me that today she felt better than she has in the last 2 days. Denies any back pain at this time, no dysuria, hematuria noted. No fevers noted today. Denies any chest pain, cough, shortness of breath, abdominal pain, bowel or bladder dysfunction. No focal neurodeficits noted. Does not take any blood thinners. Denies tobacco use, alcohol use, illicit drug use. Lab work showed cellulitic creatinine of 1.1, potassium below 3.3. ALT and AST slightly elevated at 87 and 39. UA looks improved from 3 days ago. No white count noted. H&H a bit low at 10.9 and 33 which is stable for her. She will be admitted to the hospitalist service for acute cystitis Secondary to ESBL producing E. coli. Hospital Course Hospital Course Hospital Course: Ms. Delgado is a 28-year-old female being admitted for acute cystitis secondary to ESBL producing E. coli. On my exam, patient is lying in bed in no acute stress. No complaints this time. Admitted to medicine for further management. Initially presented to the ER on , started on cefdinir. Urine culture showed resistance with ESBL. Admitted for initiation of IV antibiotics. Has been stable overnight. Will continue antibiotics as an outpatient with daily infusions. Problems addressed as follows: Acute cystitis ESBL producing E. coli Pyelonephritis, improving -Admitted for acute cystitis. Had fever on Saturday but is afebrile with normal white count on admission to the hospital at this time. Based on previous culture, E. coli sensitive to meropenem and ertapenem. Patient started on ertapenem for once daily dosing. Received a dose at admission. Second dose on afternoon of discharge. Will complete 5 days total of antibiotics given normal white count of 6, no CVA tenderness, no fever, and normal kidney function. Attempted to place midline, unfortunately unable to during admission. Will plan for daily IV placement and infusion for 3 more days. Instructed patient to return to registration in the afternoon for the next 3 days for 1 g ertapenem infusion. Overall doing well. Stable to discharge home. Hypokalemia -Replaced overnight. Improved to 3 point 7 in the morning. Extensive discussion about need for continued IV antibiotics. Explained how her resistance pattern cannot be treated with oral antibiotics. Total time spent on discharge 32 minutes in counseling, documentation, chart review, and direct care with patient. Exam Data for Last 24 hours Vital signs and Labs for Last 24 Hours: Temp Pulse Resp BP Pulse Ox O2 Del Method 98.3 F 52 L 16 122/60 100 Room Air 11/23/23 04:00 11/23/23 04:00 11/23/23 04:00 11/23/23 04:00 11/23/23 04:00 11/23/23 06:51 Laboratory Results - last 24 hr 11/22/23 20:15: WBC 6.7, RBC 4.45, Hgb 10.9 L, Hct 33.3 L, MCV 75.0 L, MCH 24.5 L, MCHC 32.7, RDW 17.8 H, Plt Count 345, MPV 7.5, Neut % (Auto) 52.1, Lymph % (Auto) 37.2, [place] % (Auto) 6.8, Eos % (Auto) 3.3, Baso % (Auto) 0.6, Neut # (Auto) 3.5, Lymph # (Auto) 2.5, [place] # (Auto) 0.5, Eos # (Auto) 0.2, Baso # (Auto) 0.0, Sodium 142, Potassium 3.3 L, Chloride 108 H, Carbon Dioxide 28, Anion Gap 9.3, BUN 21 H, Creatinine 1.10 H, Estimated Creat Clear 111, Estimated GFR 60, Est GFR ( Amer) 73, Glucose 87, Lactate 0.5 L, Calcium 9.8, Total Bilirubin 0.3, AST 39 H, ALT 87 H, Alkaline Phosphatase 109, Total Protein 7.9, Albumin 4.1, Globulin 3.8 H, Albumin/Globulin Ratio 1.1 11/22/23 22:37: Urine Color Yellow, Urine Appearance Clear, Urine pH 6.0, Ur Specific [place] 1.025, Urine Protein Negative, Urine Glucose (UA) Negative, Urine Ketones Trace, Urine Blood Negative, Urine Nitrate Negative, Urine Bilirubin 1+ A, Urine Urobilinogen 0.2, Ur Leukocyte Esterase Negative, Urine RBC None, Urine WBC Occasional, Ur Squamous Epith Cells Occasional, Urine Bacteria Trace, Urine Mucus Trace 11/23/23 06:45: WBC 6.0, RBC 4.22, Hgb 10.4 L, Hct 31.8 L, MCV 75.3 L, MCH 24.6 L, MCHC 32.7, RDW 17.6 H, Plt Count 317, MPV 7.6, Neut % (Auto) 59.5, Lymph % (Auto) 29.9, [place] % (Auto) 6.6, Eos % (Auto) 3.6, Baso % (Auto) 0.4, Neut # (Auto) 3.5, Lymph # (Auto) 1.8, [place] # (Auto) 0.4, Eos # (Auto) 0.2, Baso # (Auto) 0.0, Sodium 141, Potassium 3.8, Chloride 109 H, Carbon Dioxide 28, Anion Gap 7.8, BUN 18 H, Creatinine 0.80 D, Estimated Creat Clear 80, Estimated GFR 87, Est GFR ( Amer) 105 D, Glucose 97, Calcium 9.3 I & O for Last 24 hours: Intake & Output 11/20/23 11/21/23 11/22/23 11/23/23 23:59 23:59 23:59 23:59 Intake Total 1100 / 1100 687 / 687 Output Total 0 / 0 0 / 0 Balance 1100 / 1100 687 / 687 Weight 103.737 kg 103.555 kg Constitutional Constitutional: no acute distress and cooperative *Routine HEENT Exam Head: Present normocephalic and atraumatic Eye: Absent conjunctivae pink ENT: Present mucous membranes moist *Routine Neck Exam Neck: Present full ROM *Routine Respiratory Exam Respiratory: Present CTA bilaterally and normal respiratory effort; Absent rhonchi, wheezes or crackles *Routine Cardiovascular Exam Cardiovascular: Present RRR *Routine Abdominal Exam Abdominal: Present soft and normoactive bowel sounds; Absent tenderness or distended *Routine Rectal Exam Patient deferred: visual exam *Routine Exam Patient deferred: external exam *Routine Extremities Exam Extremities: Present full ROM; Absent edema or calf tenderness Routine Back/Spine/Pelvis Exam Back/Spine: Absent CVA tenderness *Routine Skin Exam Skin: Present intact; Absent cyanosis *Routine Neurological Exam Neurological: Present alert, oriented X3, moving all extremities and normal speech Routine Psychiatric Exam Psychiatric: Present normal affect and cooperative Results Data Completed and Pending Labs on day of discharge: Labs from last 24 hours 11/23/23 11/22/23 11/22/23 06:45 22:37 20:15 WBC 6.0 6.7 RBC 4.22 4.45 Hgb 10.4 L 10.9 L Hct 31.8 L 33.3 L MCV 75.3 L 75.0 L MCH 24.6 L 24.5 L MCHC 32.7 32.7 RDW 17.6 H 17.8 H Plt Count 317 345 MPV 7.6 7.5 Neut % (Auto) 59.5 52.1 Lymph % (Auto) 29.9 37.2 [place] % (Auto) 6.6 6.8 Eos % (Auto) 3.6 3.3 Baso % (Auto) 0.4 0.6 Neut # (Auto) 3.5 3.5 Lymph # (Auto) 1.8 2.5 [place] # (Auto) 0.4 0.5 Eos # (Auto) 0.2 0.2 Baso # (Auto) 0.0 0.0 Sodium 141 142 Potassium 3.8 3.3 L Chloride 109 H 108 H Carbon Dioxide 28 28 Anion Gap 7.8 9.3 BUN 18 H 21 H Creatinine 0.80 D 1.10 H Estimated Creat Clear 80 111 Estimated GFR 87 60 Est GFR ( Amer) 105 D 73 Glucose 97 87 Lactate 0.5 L Calcium 9.3 9.8 Total Bilirubin 0.3 AST 39 H ALT 87 H Alkaline Phosphatase 109 Total Protein 7.9 Albumin 4.1 Globulin 3.8 H Albumin/Globulin Ratio 1.1 Urine Color Yellow Urine Appearance Clear Urine pH 6.0 Ur Specific [place] 1.025 Urine Protein Negative Urine Glucose (UA) Negative Urine Ketones Trace Urine Blood Negative Urine Nitrate Negative Urine Bilirubin 1+ A Urine Urobilinogen 0.2 Ur Leukocyte Esterase Negative Urine RBC None Urine WBC Occasional Ur Squamous Epith Cells Occasional Urine Bacteria Trace Urine Mucus Trace DS: Diagnosis Discharge Diagnosis (1) Infection due to ESBL-producing Escherichia coli: Status: Acute Code(s): A49.8 - Other bacterial infections of unspecified site; Z16.12 - Extended spectrum beta lactamase (ESBL) resistance (2) Pyelonephritis: Status: Acute Code(s): N12 - Tubulo-interstitial nephritis, not specified as acute or chronic (3) Acute cystitis: Status: Acute Code(s): N30.00 - Acute cystitis without hematuria Meds Home Medications and Allergies Home Medications Medication Instructions Recorded Confirmed Type Ertapenem Sodium [Invanz 1gm Vial] 100 mls/hr IV 1500 11/23/23 Rx 1 gm New Prescriptions to Start Prescriptions: Ertapenem Sodium [Invanz 1gm Vial] 1 gm 0.9 % Sodium Chloride [Sod Chlor 0.9% 50mL bag] 50 ml 100 mls/hr IV 1500 Allergies Allergy/AdvReac Type Severity Reaction Status Date / Time No Known Allergies Allergy Verified 11/13/23 10:59 Discharge Plan Disposition Patient Disposition: Home, Self-Care Condition: Good Follow up Plan Follow up with: Almita West [Primary Care Provider] - 1 week (please call for appointment. ) Prescriptions/Medication Reconciliation: New Ertapenem Sodium [Invanz 1gm Vial] 1 GM 0.9 % Sodium Chloride [Sod Chlor 0.9% 50mL bag] 50 ML 100 mls/hr IV 1500 Ordered By: Francisco Gambino MD Last Taken: Unknown Discontinued cefdinir 300 mg capsule 300 mg PO BID 10 Days Qty: 20 0RF Problem Reconciliation Problems Reviewed?: Yes Patient Discharge Instructions ACTIVITY: Continue current activity DIET: continue same diet Patient Instructions: DI for Acute Cystitis Providers Primary Care Provider: Almita West Admit Provider: Francisco Gambino Attending Provider: Francisco Gambino
--- NOTE | 2023-11-23 12:19 | PC.NURSE ---
Midline insertion attempted 1040, unsuccessful. unable to insert introducer. Dr Gambino notified, 1135 pt does not wish for second attempt, states that she is willing to have new iv started daily.
[2023-11-23] MEDS: ERTAPENEM SODIUM 1 GM in 0.9 % SODIUM CHLORIDE 50 ML IV (14:19)
--- NOTE | 2023-11-25 14:05 | CARE MANAGER ---
Contacted patient related to hospital discharge. She is coming to get her IV antibiotics. She denies questions or concerns. NENO Poole
== END 2023-11-23 14:50 | disposition home or self-care (01) ==
LOC: ER 20:23 → 2ND 21:16
PROVIDERS: Nurse Practitioner Acute Care; Admitting Provider Internal Medicine Adolescent Medicine; Emergency Provider Student in an Organized Health Care Education/Training Program; PCP Nurse Practitioner Family; Visit Provider Internal Medicine Adolescent Medicine
DX: Z16.12 Extended spectrum beta lactamase (ESBL) resistance; N30.00 Acute cystitis without hematuria; B96.29 Other Escherichia coli [E. coli] as the cause of diseases classified elsewhere
CPT/HCPCS: 80048; 80053; 81001; 83605; 85025; 87040; 99221; 99285; G0378; J1335; J7120

== ENCOUNTER 2023-11-24 15:00 | Outpatient (CLI) | payer BC, SELFPAY ==
[2023-11-24] MEDS: ERTAPENEM SODIUM 1 GM in 0.9 % SODIUM CHLORIDE 50 ML IV (15:25)
== END 2023-11-24 23:59 | disposition home or self-care (01) ==
LOC: INF 15:03
PROVIDERS: PCP Nurse Practitioner Family; Visit Provider Internal Medicine Adolescent Medicine
DX: N39.0 Urinary tract infection, site not specified (principal); Z16.12 Extended spectrum beta lactamase (ESBL) resistance; Z79.2 Long term (current) use of antibiotics
CPT/HCPCS: 96365; J1335

== ENCOUNTER 2023-11-25 17:17 | Outpatient (CLI) | payer BC, SELFPAY ==
[2023-11-25] MEDS: ERTAPENEM SODIUM 1 GM in 0.9 % SODIUM CHLORIDE 50 ML IV (17:48)
[2023-11-25 17:52] VITALS: BMI 42.0
== END 2023-11-25 18:20 | disposition home or self-care (01) ==
LOC: INF 17:18
PROVIDERS: PCP Nurse Practitioner Family; Visit Provider Internal Medicine Adolescent Medicine
DX: N39.0 Urinary tract infection, site not specified (principal); Z16.12 Extended spectrum beta lactamase (ESBL) resistance; Z79.2 Long term (current) use of antibiotics
CPT/HCPCS: J1335

== ENCOUNTER 2023-11-26 17:12 | Outpatient (CLI) | payer BC, SELFPAY ==
[2023-11-26 17:20] VITALS: BMI 34.3
[2023-11-26] MEDS: ERTAPENEM SODIUM 1 GM in 0.9 % SODIUM CHLORIDE 50 ML IV (17:22)
== END 2023-11-26 18:04 | disposition home or self-care (01) ==
LOC: INF 17:13
PROVIDERS: PCP Nurse Practitioner Family; Visit Provider Internal Medicine Adolescent Medicine
DX: N39.0 Urinary tract infection, site not specified (principal); Z16.12 Extended spectrum beta lactamase (ESBL) resistance; Z79.2 Long term (current) use of antibiotics
CPT/HCPCS: G0463; J1335

== ENCOUNTER 2024-01-01 07:31 | Emergency (ER) | payer BC, SELFPAY ==
[2024-01-01 07:32] VITALS: BP 115/62; PULSE 61; RESP 16; TEMP 36.7; O2SAT 100; BMI 42.0
--- NOTE | 2024-01-01 07:32 | ECG_ITS ---
APPROVED REPORT Exam: Resting ECG HR:59 bpm ECG Measurements Heart Rate 59 AXES FL 148 P 55 QRSd 88 QRS 64 QT 432 T 47 QTc 431 Conclusion SINUS BRADYCARDIA WITH MARKED SINUS ARRHYTHMIA BORDERLINE ECG UNCONFIRMED REPORT Electronically signed by : Antoine George, 01/01/2024 10:33:44
--- NOTE | 2024-01-01 07:34 | HMH.EDGENADL ---
Discharge Plan Disposition Patient Disposition: Home, Self-Care Prescriptions Prescriptions: New famotidine [Pepcid] 20 mg tablet 20 mg PO DAILY Qty: 30 0RF No Action Mirena 21 mcg/24 hr (8 yrs) 52 mg intrauterine device intrauterine amoxicillin-pot clavulanate 875-125 mg tablet 1 tab PO Q12H 7 Days Qty: 14 0RF Referrals Follow up/Referrals: Almita West [Primary Care Provider] - See instructions Activity Restrictions/Add. Instructions Additional Instructions/Restrictions: Take Pepcid as needed for reflux symptoms. Follow-up with primary care doctor regarding elevated liver function test. Please return emerged part with any new, concerning, worsening symptoms. Clinical Impressions Clinical Impression: Chest pain Qualifiers: Chest pain type: unspecified Qualified Code(s): R07.9 - Chest pain, unspecified Print Language Print Language: Vietnamese Discharge ED Provider: Antoine George General Adult HPI General Chief complaint: Chest Pain Stated complaint: Chest Pain Time Seen by Provider: 01/01/24 07:33 Mode of Arrival: EMS Source of Information: Patient History of Present Illness HPI narrative: This is a 28-year-old female with a history of cholecystectomy and no other significant past medical history who presents with chest pain that woke her up from sleep at approximately 1 AM this morning. States that the chest pain is dull in nature and radiates to her back, last for 30 minutes associated with shortness of breath and then improves. States that it is associated with exertion. Denies any nausea/vomiting. States that it feels similar to whenever she had gallstones in the past prior to having her gallbladder removed. States that she has an IUD and has never had a blood clot before. Related Data Home Medications ?Medication ?Instructions ?Recorded ?Confirmed levonorgestrel 21 mcg/24 hr (up to intrauterine 12/09/23 12/09/23 8 years) 52 mg intrauterine device (Mirena) Previous Rx's ?Medication ?Instructions ?Recorded amoxicillin 875 mg-potassium 1 tab PO Q12H 7 days #14 tabs 12/12/23 clavulanate 125 mg tablet famotidine 20 mg tablet (Pepcid) 20 mg PO DAILY #30 tabs 01/01/24 Allergies Allergy/AdvReac Type Severity Reaction Status Date / Time No Known Allergies Allergy Verified 12/09/23 14:12 [facility] Disclaimer: The information contained in this section may have been updated after the patient was seen, as this information can be updated by other users. Medical History (Updated 01/01/24 @ 09:26 by Antoine George MD) Other specified abnormal uterine and vaginal bleeding Encounter for insertion of mirena IUD Acute on chronic anemia 36 weeks gestation of Anxiety in , antepartum 35 weeks gestation of Marijuana use during Short interval between pregnancies complicating , antepartum Maternal obesity affecting , antepartum History of gestational hypertension hypertension Acute blood loss anemia Hypokalemia PCOS (polycystic ovarian syndrome) Surgical History Hx laparoscopic cholecystectomy History of hysterectomy S/P History of delivery Hx of dilation and curettage Family History Other Diabetes Hyperlipidemia Hypertension Stroke Social History Smoking Status: Unknown if ever smoked alcohol intake: former substance use type: marijuana current occupational status: employed Travel in the last 8 weeks: None household members: spouse housing: house current occupational exposures/hazards: No caffeine: Yes ROS Obtained: Yes All systems reviewed & no additional complaints except as documented Physical Exam General General appearance: alert and in no apparent distress Eye Eye e
--- NOTE | 2024-01-01 07:35 | PC.NURSE ---
DR ZARAGOZA AT BEDSIDE
--- NOTE | 2024-01-01 07:50 | XR_ITS ---
FINAL REPORT TECHNIQUE: Chest PA & Lateral CLINICAL HISTORY: chest pain radiating to back. COMPARISON: None FINDINGS: 2 views of the chest were performed. The heart size is normal. The mediastinum is within normal limits. There is no acute cardiopulmonary process. There are no pleural effusions. There is no pneumothorax. The bony thorax appears intact. IMPRESSION: No acute cardiopulmonary process. Reviewed, Interpreted and Dictated by Jarrett Kumar MD Transcribed by Sheron Yeager Authenticated and [facility]
[2024-01-01 07:54] VITALS: BP 112/60; PULSE 49; O2SAT 98
[2024-01-01 08:01] VITALS: BP 116/55; PULSE 95; O2SAT 99
[2024-01-01 08:01] LABS: Basophils % 0.5 % (0.1-2.0); Eosinophils # 0.1 K/mm3 (0.0-0.4); Eosinophils % 1.2 % (0.1-12.0); Hematocrit 38.1 % (37.0-47.0); Hemoglobin 12.2 g/dL (12.2-16.2); Lymphocytes # 1.7 K/mm3 (0.7-4.5); Lymphocytes % 25.4 % (10-50); Mean Corpuscular Hemoglobin 24.8 pg (27.0-31.2); Mean Corpuscular Volume 77.5 fl (81-99); Mean Platelet Volume 7.8 fl (7.4-10.4); Monocytes # 0.3 K/mm3 (0.1-1.0); Monocytes % 5.1 % (1.7-9.3); Neutrophils # 4.4 K/mm3 (1.8-7.8); Neutrophils % 67.8 % (37.0-80.0); Platelet Count 298 K/mm3 (142-424); Red Blood Count 4.92 M/mm3 (4.20-5.40); Red Cell Distribution Width 15.8 % (11.5-17.5); White Blood Count 6.5 K/mm3 (4.8-10.8)
[2024-01-01 08:04] LABS: Albumin Level 4.2 g/dl (3.5-5.0); Chloride 109 mmol/L (98-107); Potassium 4.7 mmoL/L (3.5-5.1); Sodium 139 mmol/L (136-145)
[2024-01-01 08:07] LABS: Alanine Aminotransferase 151 U/L (12-78); Albumin/Globulin Ratio 1.3 (1.1-1.8); Alkaline Phosphatase 101 U/L (38-126); Anion Gap 8.7 mEq/L (5-15); Aspartate Amino Transferase 106 U/L (14-36); Bilirubin,Total 0.5 mg/dl (0.2-1.3); Blood Urea Nitrogen 22 mg/dl (7-17); Carbon Dioxide 26 mmol/L (22.0-30.0); Creatinine Clearance Estimated 67 mL/min (50-200); Estimated Glomerular Filt Rate 67 ml/min (>60); GFR (African American) 81 ML/MIN (>60); Globulin 3.3 g/dL (1.3-3.2); Lipase 51 U/L (23-300); Total Protein,Serum 7.5 g/dl (6.3-8.2)
[2024-01-01 08:08] LABS: Calcium 9.1 mg/dl (8.4-10.2); Glucose 98 mg/dl (74-100)
--- NOTE | 2024-01-01 08:28 | PC.NURSE ---
PT TO XR
--- NOTE | 2024-01-01 08:32 | PC.NURSE ---
pt back to room via wheelchair
[2024-01-01 08:36] LABS: Troponin I < 0.01 ng/ml (0.00-0.034)
[2024-01-01 09:10] LABS: D-Dimer 0.75 ug/mL (0.0-0.5)
[2024-01-01 09:28] VITALS: BP 97/61; PULSE 57; RESP 18; TEMP 36.7; O2SAT 98
== END 2024-01-01 09:30 | disposition home or self-care (01) ==
PROVIDERS: Emergency Provider Student in an Organized Health Care Education/Training Program; PCP Nurse Practitioner Family
DX: R07.9 Chest pain, unspecified (principal); R06.02 Shortness of breath; R00.1 Bradycardia, unspecified
CPT/HCPCS: 71046; 80053; 83690; 84484; 85025; 85378; 93005; 99284

== ENCOUNTER 2024-01-02 12:52 | Emergency (ER) | payer BC, SELFPAY ==
[2024-01-02] VITALS (7 sets, daily range): BP systolic 98–117; BP diastolic 64–75; PULSE 45–53; RESP 16–20; TEMP 36.7; O2SAT 98–100; BMI 42.0
[2024-01-02 13:22] LABS: Microscopic, Urine URINE MICROSCOPIC (MICROSCOPIC)
[2024-01-02 13:36] LABS: Appearance,Urine CLEAR (Clear); Blood, Urine Negative (Negative); Color,Urine DARK YELLOW (Yellow); Glucose,Urine (UA) Negative (Negative); Ketones,Urine Negative (Negative); Leukocyte Esterase,Urine TRACE (Negative); Nitrate,Urine Negative (Negative); Protein,Urine TRACE (Negative); Specific Gravity, Urine >= 1.030 (1.005-1.030)
[2024-01-02 13:39] LABS: Bilirubin,Urine 2+ (Negative)
[2024-01-02 13:41] LABS: Albumin Level 4.6 g/dl (3.5-5.0); Basophils # 0.1 K/mm3 (0-0.2); Basophils % 1.6 % (0.1-2.0); Chloride 107 mmol/L (98-107); Eosinophils # 0.1 K/mm3 (0.0-0.4); Eosinophils % 1.3 % (0.1-12.0); Hematocrit 40.8 % (37.0-47.0); Hemoglobin 13.1 g/dL (12.2-16.2); Lymphocytes # 1.3 K/mm3 (0.7-4.5); Lymphocytes % 25.9 % (10-50); Mean Corpuscular HGB Conc 32.1 g/dL (31.8-35.4); Mean Corpuscular Hemoglobin 24.9 pg (27.0-31.2); Mean Corpuscular Volume 77.6 fl (81-99); Mean Platelet Volume 7.6 fl (7.4-10.4); Monocytes # 0.3 K/mm3 (0.1-1.0); Monocytes % 6.5 % (1.7-9.3); Neutrophils # 3.3 K/mm3 (1.8-7.8); Neutrophils % 64.8 % (37.0-80.0); Platelet Count 306 K/mm3 (142-424); Potassium 3.8 mmoL/L (3.5-5.1); Red Blood Count 5.25 M/mm3 (4.20-5.40); Red Cell Distribution Width 15.6 % (11.5-17.5); Sodium 138 mmol/L (136-145); White Blood Count 5.2 K/mm3 (4.8-10.8)
[2024-01-02 13:41] LABS: Urine Pregnancy, HCG Qual. Negative (Negative)
[2024-01-02 13:44] LABS: Albumin/Globulin Ratio 1.2 (1.1-1.8); Alkaline Phosphatase 217 U/L (38-126); Anion Gap 9.8 mEq/L (5-15); Bilirubin,Total 2.3 mg/dl (0.2-1.3); Carbon Dioxide 25 mmol/L (22.0-30.0); Globulin 3.9 g/dL (1.3-3.2); Total Protein,Serum 8.5 g/dl (6.3-8.2)
[2024-01-02 13:45] LABS: Calcium 9.2 mg/dl (8.4-10.2); Glucose 99 mg/dl (74-100)
[2024-01-02 13:49] LABS: Blood Urea Nitrogen 21 mg/dl (7-17); Creatinine Clearance Estimated 84 mL/min (50-200); Estimated Glomerular Filt Rate 87 ml/min (>60); GFR (African American) 105 ML/MIN (>60)
[2024-01-02 13:53] LABS: Alanine Aminotransferase 1494 U/L (12-78); Aspartate Amino Transferase 1020 U/L (14-36)
--- NOTE | 2024-01-02 14:09 | CT_ITS ---
FINAL REPORT TECHNIQUE: After the administration of intravenous contrast, axial images were obtained through the abdomen and pelvis by computed tomography. The study was performed with techniques to keep radiation dose as low as reasonably achievable, (ALARA). Individual dose reduction techniques using automated exposure control or adjustment of mA and/or kV according to the patient's size were employed. CLINICAL HISTORY: elevated liver enzymes, belly pain COMPARISON: None FINDINGS: Abdomen: The lung bases are clear. There is mild fatty infiltration of the liver. The gallbladder has been surgically resected. The spleen, pancreas, and kidneys appear unremarkable. There is a left adrenal mass, 1.5 x 1 cm in size, heterogeneous in density, likely an adrenal adenoma not requiring follow-up. The aorta is normal in caliber. There is no free fluid or adenopathy. Pelvis: The appendix is normal. The urinary bladder is incompletely distended. There is no free fluid or adenopathy. The uterus is anteverted and contains an IUD. IMPRESSION: Mild fatty infiltration of the liver, post cholecystectomy. No acute intra-abdominal or intrapelvic process seen. Reviewed, Interpreted and Dictated by Jarrett Kumar MD Transcribed by Felisa Valadez Authenticated and . [facility]
[2024-01-02 14:12] LABS: WBC,Urine Occasional #/hpf (0-3)
[2024-01-02 14:13] LABS: Bacteria,Urine Trace /lpf; RBC,Urine Occasional #/hpf (0-3)
--- NOTE | 2024-01-02 14:13 | HMH.EDGENADL ---
Discharge Plan Disposition Patient Disposition: Xfer Short-Term Hosp Prescriptions Prescriptions: No Action Mirena 21 mcg/24 hr (8 yrs) 52 mg intrauterine device intrauterine amoxicillin-pot clavulanate 875-125 mg tablet 1 tab PO Q12H 7 Days Qty: 14 0RF famotidine [Pepcid] 20 mg tablet 20 mg PO DAILY Qty: 30 0RF Referrals Follow up/Referrals: Almita West [Primary Care Provider] - See instructions Clinical Impressions Clinical Impression: Elevated liver transaminase level, Nausea, Abdominal pain Stand Alone Forms Stand Alone Forms: Transfer Record - ED Instructions Patient Instructions: DI for Acute Abdominal Pain Print Language Print Language: Belarusian Discharge ED Provider: Scooter Blake General Adult HPI <WILMER Steward - Last Filed: 01/02/24 18:54> General Chief complaint: Abdominal Pain Stated complaint: sent from [facility] fo CT scan, abd pain Time Seen by Provider: 01/02/24 14:12 Mode of Arrival: Ambulatory Source of Information: Patient Limitations: No Limitations Description of Symptoms (Recalled from ER Triage Doc. by RN): pt presents to ED c/o RUQ abdominal pain. pt states she was seen in ED 2 nights ago here. pt states today she was [facility] in [facility] who tested her for H. Pylori. pt states she was sent here for a ct scan of her abdomen. pt reports nausea and diarrhea. denies vomiting. History of Present Illness HPI narrative: 28-year-old female presents emerged department 2-day history of nausea and abdominal pain, she was seen actually 2 days ago in the emerged part and had negative cardiac workup with troponins and EKG, lipase at that visit as well. She denies any episodes of vomiting, admits to several episodes of dyspepsia, takes Pepcid at home for this, any fever or chills, chest pain or shortness of breath currently, denies any patient, admits to diarrhea, states that she was seen and treated for E. coli , a month ago. Recently she had a cholecystectomy around 2 months ago, the urinary send otology, denies melena, hematochezia, hematemesis, he has no real relevant past medical history, takes no other medications at home, she is a non-smoker, denies alcohol use, admits to occasional marijuana use, of note, she was seen at urgent care today and was tested for H. pylori, this test is not yet completed, and she was advised to come to the emergency department for a further workup/advanced imaging studies. Triage vitals grossly unremarkable, with the exception of bradycardia at 56 bpm. Onset (ago): day(s) Related Data Home Medications ?Medication ?Instructions ?Recorded ?Confirmed levonorgestrel 21 mcg/24 hr (up to intrauterine 12/09/23 12/09/23 8 years) 52 mg intrauterine device (Mirena) Previous Rx's ?Medication ?Instructions ?Recorded amoxicillin 875 mg-potassium 1 tab PO Q12H 7 days #14 tabs 12/12/23 clavulanate 125 mg tablet famotidine 20 mg tablet (Pepcid) 20 mg PO DAILY #30 tabs 01/01/24 Allergies Allergy/AdvReac Type Severity Reaction Status Date / Time No Known Allergies Allergy Verified 12/09/23 14:12 [facility] <WILMER Steward - Last Filed: 01/02/24 18:54> [facility] Disclaimer: The information contained in this section may have been updated after the patient was seen, as this information can be updated by other users. Medical History (Updated 01/02/24 @ 18:15 by WILMER Steward) Other specified abnormal uterine and vaginal bleeding Encounter for insertion of mirena IUD Acute on chronic anemia 36 weeks gestation of Anxiety in , antepartum 35 weeks gestation of Marijuana use during Short interval between pregnancies complicating , antepartum Maternal obesity affecting , antepartum History of gestational hypertension hypertension Acute blood loss anemia Hypokalemia PCOS (polycystic ovarian syndrome) Surgical History Hx laparoscopic cholecystectomy History of hysterectomy S/P History of delivery Hx of dilation and curettage Family History Other Diabetes Hyperlipidemia Hypertension Stroke Social History Smoking Status: Current every day smoker alcohol intake: former substance use type: marijuana current occupational status: employed Travel in the last 8 weeks: None household members: spouse housing: house current occupational exposures/hazards: No caffeine: Yes <WILMER Steward - Last Filed: 01/02/24 18:54> ROS Obtained: Yes All systems reviewed & no additional complaints except as documented Physical Exam <WILMER Steward Last Filed: 01/02/24 18:54> General General appearance: alert and in no apparent distress Head Head exam: atraumatic and normocephalic Eye Eye exam: Present PERRL and EOMI ENT ENT exam: Present mucous membranes moist Neck Neck exam: Present normal inspection Chest Chest inspection: Present normal inspection and symmetric chest wall rise Respiratory Respiratory exam: Present normal lung sounds bilaterally; Absent respiratory distress Cardiovascular Cardiovascular exam: Present normal rhythm and bradycardia Abdominal Exam Abdominal exam: Present soft, tenderness and Neff's sign; Absent rebound or rigidity Abdominal tenderness: Present RUQ Comment: Faintly positive Neff sign to my exam, most the patient's tenderness is located in the RUQ, Extremities Exam Extremities exam: Present normal inspection Neurological Exam Neurological exam: Present alert and oriented X3 Psychiatric Psychiatric exam: Present normal affect Skin Skin exam: Present warm and dry Medical Decision Making <WILMER Steward Last Filed: 01/02/24 18:54> Fercho Inquiry Pt receiving controlled substance: No Fercho was queried for this patient: No Vital Signs: 01/02/24 12:54 01/02/24 14:31 01/02/24 15:00 Pulse Rate 49 L 46 L Pulse Rate [Right Radial] 53 L Respiratory Rate 16 16 Blood Pressure 100/64 L 112/75 Blood Pressure [Left Arm] 117/67 Blood Pressure Mean 80 90 Blood Pressure Mean [Left Arm] 83 Blood Pressure Source [Left Arm] Automatic Cuff Blood Pressure Position [Left Arm] Sitting 02 Sat by Pulse Oximetry 99 99 100 Oxygen Delivery Method Room Air 01/02/24 15:31 01/02/24 16:01 01/02/24 18:32 Pulse Rate 45 L 48 L 52 L Pulse Rate [Right Radial] Respiratory Rate Blood Pressure 98/67 L 105/71 L 113/64 Blood Pressure [Left Arm] Blood Pressure Mean 77 80 77 Blood Pressure Mean [Left Arm] Blood Pressure Source [Left Arm] Blood Pressure Position [Left Arm] 02 Sat by Pulse Oximetry 99 99 99 Oxygen Delivery Method Lab Data Lab Results 01/02/24 13:14: Urine Color Dark yellow, Urine Appearance Clear, Urine pH 6.0, Ur Specific Sw[place] >= 1.030, Urine Protein Trace, Urine Glucose (UA) Negative, Urine Ketones Negative, Urine Blood Negative, Urine Nitrate Negative, Urine Bilirubin 2+ A, Urine Urobilinogen 2.0, Ur Leukocyte Esterase Trace, Urine RBC Occasional, Urine WBC Occasional, Ur Squamous Epith Cells 5-10, Urine Bacteria Trace 01/02/24 13:15: Urine HCG, Qual Negative 01/02/24 13:16: WBC 5.2, RBC 5.25, Hgb 13.1, Hct 40.8, MCV 77.6 L, MCH 24.9 L, MCHC 32.1, RDW 15.6, Plt Count 306, MPV 7.6, Neut % (Auto) 64.8, Lymph % (Auto) 25.9, [place] % (Auto) 6.5, Eos % (Auto) 1.3, Baso % (Auto) 1.6, Neut # (Auto) 3.3, Lymph # (Auto) 1.3, [place] # (Auto) 0.3, Eos # (Auto) 0.1, Baso # (Auto) 0.1, PT 11.2, INR 1.00, Sodium 138, Potassium 3.8, Chloride 107, Carbon Dioxide 25, Anion Gap 9.8, BUN 21 H, Creatinine 0.80, Estimated Creat Clear 84, Estimated GFR 87, Est GFR ( Amer) 105 D, Glucose 99, Calcium 9.2, Total Bilirubin 2.3 H, Direct Bilirubin 1.5 H, AST 1020 H* D, ALT 1494 H*, Alkaline Phosphatase 217 H, Total Protein 8.5 H, Albumin 4.6, Globulin 3.9 H, Albumin/Globulin Ratio 1.2, Salicylates < 1.0 L, Acetaminophen < 10 L, Plasma/Serum Alcohol < 10 01/02/24 15:07: Lactate 1.0 01/02/24 : Lipase 55 01/02/24 13:16 01/02/24 13:16 Orders (Tests/Meds): ED MEDICATIONS Discontinued Medications Generic Name Dose Route Start Last Admin Trade Name Freq PRN Reason Stop Dose Admin Lactated Ringer's 1,000 mls @ 999 mls/hr 01/02/24 14:19 01/02/24 14:25 Lactated Ringer's 1000 Ml Bag IV 01/02/24 15:19 999 mls/hr .Q1H1M ONE Administration Metronidazole 500 mg in 100 mls @ 100 mls/hr 01/02/24 17:53 01/02/24 18:20 Flagyl 500mg/100ml Ivpb IV 01/02/24 18:52 100 mls/hr ONCE ONE Administration Ceftriaxone Sodium 1 gm/ 50 mls @ 100 mls/hr 01/02/24 17:54 01/02/24 18:20 Sodium Chloride IV 01/02/24 18:23 100 mls/hr ONCE ONE Administration Iopamidol 75 ml 01/02/24 14:26 01/02/24 14:26 Iopamidol-370 (76%);100ml Bottle IV 01/02/24 14:27 75 ml ONCE ONE Administration Ondansetron HCl 4 mg 01/02/24 14:15 01/02/24 14:25 Ondansetron 4mg/2ml Vial IV 01/02/24 14:16 4 mg ONCE ONE Administration Ondansetron HCl 4 mg 01/02/24 17:14 01/02/24 17:18 Ondansetron 4mg/2ml Vial IV 01/02/24 17:15 4 mg ONCE ONE Administration Sodium Chloride 10 ml 01/02/24 14:26 01/02/24 14:26 Sodium Chloride 0.9% 10ml Syr (Rad Only) IV 01/02/24 14:27 10 ml ONCE ONE Administration ORDERS Category Date Time Status CT abdomen pelvis w con Stat Cat Scan 01/02/24 14:09 Completed POCUS Point of Care (ER Only) Stat Exams 01/02/24 15:33 Completed US abdomen limited Stat Exams 01/02/24 16:22 Completed Acetaminophen Stat Lab 01/02/24 13:16 Completed Bilirubin,Direct Stat Lab 01/02/24 13:16 Completed Complete Blood Count Auto Diff Stat Lab 01/02/24 13:16 Completed Comprehensive Metabolic Panel Stat Lab 01/02/24 13:16 Completed Ethanol [Ethyl Alcohol] Stat Lab 01/02/24 13:16 Completed HCV RNA PCR, Quant Stat Lab 01/02/24 16:16 Received Hepatitis Panel Stat Lab 01/02/24 16:16 Received Lactic Acid Stat Lab 01/02/24 15:07 Completed Lipase Stat Lab 01/02/24 Completed Prothrombin Time INR Stat Lab 01/02/24 13:16 Completed Salicylate Stat Lab 01/02/24 13:16 Completed Urinalysis and Microscopic Stat Lab 01/02/24 13:14 Completed Urine , HCG Qual. Stat Lab 01/02/24 13:15 Completed Medical Decision Narrative: 28-year-old female presents emergency department for abdominal pain, nausea, no episodes of vomiting, diarrhea for the last several days, differential diagnose include but not limited to, biliary colic, cholelithiasis, gastritis, GERD, PUD, colitis, ileitis, gastroenteritis. Obtain CBC CMP, urinalysis, lipase, lactate CT abdomen pelvis without contrast further evaluate/characterization, will give 1 L LR IV, bolus 4 mg IV Zofran for nausea. CBC notable for an decreased MCV at 77 CMP notable for mild BUN elevation of 21, total bilirubin is elevated at 2.3, AST is markedly elevated at 1020, ALT oculi elevated at 1494, Alk phos elevated at 217 hCG qualitative negative uro bilirubin is elevated at 2+ Additional history obtained by the patient, patient denies any excessive acetaminophen use, denies any overt alcohol use. However we will add salicylate and acetaminophen level, as well as fractionated bilirubin, hepatitis panel, ethanol level. Expanding on the differential now to include hepatitis, cirrhosis, acute liver failure, acetaminophen overdose. Both the attending physician Dr. Blake and I performed a right upper quadrant bedside POCUS for further evaluation as characterization. I reviewed the patient's CT abdomen pelvis without contrast on the corresponding radiologic report, mild fatty infiltration of the liver, postcholecystectomy no acute intra-abdominal or intrapelvic process seen. Salicylate level normal, Tylenol level normal, ethanol level normal. Lactate and lipase are within normal limits , hepatitis panel pending. Discussed this patient's case with [facility] transfer center DIANE Katalina Soni APRN at 4:20 PM, currently [facility] is on divert, she recommends trending the patient's CMP/transaminases, recommends formal right upper quadrant ultrasound for further evaluation/characterization and to rule out any fatty infiltration/hepatitis. Recommends also adding INR and PT for further evaluation as characterization, and possibly admit to hospitalist service at [facility] Will add on PT/INR, as well as right upper quadrant ultrasound for further evaluation of characterization. PT and INR within normal limits. Contacted [facility], they are on a wait list currently not accepting new patients at this time. Reexamination the patient at 5:10 PM, patient has remained hemodynamically stable, updated her on transfer potential, will attempt transfer to [facility] for higher level of care. Patient also complaining of some nausea, will give additional dose of 4 mg Zofran IV. I reviewed the patient's abdominal ultrasound along with corresponding radiologic report, no acute findings, prior cholecystectomy. Discussed this patient's case with the management trainee program stores Dr. Maynor Oneal at [facility] at 5:40 PM, he recommends n.p.o., cover with prophylactic antibiotics, and transfer to [facility] pending hospitalist consultation. Working diagnosis is hepatitis versus cholelithiasis with nondilated bile duct. Start the patient on ceftriaxone 1 g IV as well as Flagyl 500 mg IV. Discussed this patient's case with the hospitalist at [facility] at 6:07 PM he is in agreement with current transfer plan/treatment plan patient will be admitted to [facility] telemetry at [facility], for gastroenterology consultation/higher level of care, working diagnosis is acute hepatitis. Facilitate transfer to [facility]. Patient finished her IV antibiotic administration, patient will go POV to [facility] for further evaluation/management and obtained service unobtainable at this facility (gastroenterology). I was consulted by the DIANE, and we discussed the complexity of the problems being addressed. I approved the treatment and management plan for this patient's care in the Emergency Department, thus performing a substantive portion of the medical decision making. Scooter Blake MD <Scooter Blake MD - Last Filed: 01/02/24 18:44> Vital Signs: 01/02/24 12:54 01/02/24 14:31 01/02/24 15:00 Pulse Rate 49 L 46 L Pulse Rate [Right Radial] 53 L Respiratory Rate 16 16 Blood Pressure 100/64 L 112/75 Blood Pressure [Left Arm] 117/67 Blood Pressure Mean 80 90 Blood Pressure Mean [Left Arm] 83 Blood Pressure Source [Left Arm] Automatic Cuff Blood Pressure Position [Left Arm] Sitting 02 Sat by Pulse Oximetry 99 99 100 Oxygen Delivery Method Room Air 01/02/24 15:31 01/02/24 16:01 01/02/24 18:32 Pulse Rate 45 L 48 L 52 L Pulse Rate [Right Radial] Respiratory Rate Blood Pressure 98/67 L 105/71 L 113/64 Blood Pressure [Left Arm] Blood Pressure Mean 77 80 77 Blood Pressure Mean [Left Arm] Blood Pressure Source [Left Arm] Blood Pressure Position [Left Arm] 02 Sat by Pulse Oximetry 99 99 99 Oxygen Delivery Method Lab Data Lab Results 01/02/24 13:14: Urine Color Dark yellow, Urine Appearance Clear, Urine pH 6.0, Ur Specific [place] >= 1.030, Urine Protein Trace, Urine Glucose (UA) Negative, Urine Ketones Negative, Urine Blood Negative, Urine Nitrate Negative, Urine Bilirubin 2+ A, Urine Urobilinogen 2.0, Ur Leukocyte Esterase Trace, Urine RBC Occasional, Urine WBC Occasional, Ur Squamous Epith Cells 5-10, Urine Bacteria Trace 01/02/24 13:15: Urine HCG, Qual Negative 01/02/24 13:16: WBC 5.2, RBC 5.25, Hgb 13.1, Hct 40.8, MCV 77.6 L, MCH 24.9 L, MCHC 32.1, RDW 15.6, Plt Count 306, MPV 7.6, Neut % (Auto) 64.8, Lymph % (Auto) 25.9, [place] % (Auto) 6.5, Eos % (Auto) 1.3, Baso % (Auto) 1.6, Neut # (Auto) 3.3, Lymph # (Auto) 1.3, [place] # (Auto) 0.3, Eos # (Auto) 0.1, Baso # (Auto) 0.1, PT 11.2, INR 1.00, Sodium 138, Potassium 3.8, Chloride 107, Carbon Dioxide 25, Anion Gap 9.8, BUN 21 H, Creatinine 0.80, Estimated Creat Clear 84, Estimated GFR 87, Est GFR ( Amer) 105 D, Glucose 99, Calcium 9.2, Total Bilirubin 2.3 H, Direct Bilirubin 1.5 H, AST 1020 H* D, ALT 1494 H*, Alkaline Phosphatase 217 H, Total Protein 8.5 H, Albumin 4.6, Globulin 3.9 H, Albumin/Globulin Ratio 1.2, Salicylates < 1.0 L, Acetaminophen < 10 L, Plasma/Serum Alcohol < 10 01/02/24 15:07: Lactate 1.0 01/02/24 : Lipase 55 Orders (Tests/Meds): ED MEDICATIONS Discontinued Medications Generic Name Dose Route Start Last Admin Trade Name Rakesh PRN Reason Stop Dose Admin Lactated Ringer's 1,000 mls @ 999 mls/hr 01/02/24 14:19 01/02/24 14:25 Lactated Ringer's 1000 Ml Bag IV 01/02/24 15:19 999 mls/hr .Q1H1M ONE Administration Metronidazole 500 mg in 100 mls @ 100 mls/hr 01/02/24 17:53 01/02/24 18:20 Flagyl 500mg/100ml Ivpb IV 01/02/24 18:52 100 mls/hr ONCE ONE Administration Ceftriaxone Sodium 1 gm/ 50 mls @ 100 mls/hr 01/02/24 17:54 01/02/24 18:20 Sodium Chloride IV 01/02/24 18:23 100 mls/hr ONCE ONE Administration Iopamidol 75 ml 01/02/24 14:26 01/02/24 14:26 Iopamidol-370 (76%);100ml Bottle IV 01/02/24 14:27 75 ml ONCE ONE Administration Ondansetron HCl 4 mg 01/02/24 14:15 01/02/24 14:25 Ondansetron 4mg/2ml Vial IV 01/02/24 14:16 4 mg ONCE ONE Administration Ondansetron HCl 4 mg 01/02/24 17:14 01/02/24 17:18 Ondansetron 4mg/2ml Vial IV 01/02/24 17:15 4 mg ONCE ONE Administration Sodium Chloride 10 ml 01/02/24 14:26 01/02/24 14:26 Sodium Chloride 0.9% 10ml Syr (Rad Only) IV 01/02/24 14:27 10 ml ONCE ONE Administration ORDERS Category Date Time Status CT abdomen pelvis w con Stat Cat Scan 01/02/24 14:09 Completed POCUS Point of Care (ER Only) Stat Exams 01/02/24 15:33 Completed US abdomen limited Stat Exams 01/02/24 16:22 Completed Acetaminophen Stat Lab 01/02/24 13:16 Completed Bilirubin,Direct Stat Lab 01/02/24 13:16 Completed Complete Blood Count Auto Diff Stat Lab 01/02/24 13:16 Completed Comprehensive Metabolic Panel Stat Lab 01/02/24 13:16 Completed Ethanol [Ethyl Alcohol] Stat Lab 01/02/24 13:16 Completed HCV RNA PCR, Quant Stat Lab 01/02/24 16:16 Received Hepatitis Panel Stat Lab 01/02/24 16:16 Received Lactic Acid Stat Lab 01/02/24 15:07 Completed Lipase Stat Lab 01/02/24 Completed Prothrombin Time INR Stat Lab 01/02/24 13:16 Completed Salicylate Stat Lab 01/02/24 13:16 Completed Urinalysis and Microscopic Stat Lab 01/02/24 13:14 Completed Urine , HCG Qual. Stat Lab 01/02/24 13:15 Completed Medical Decision Narrative: 28-year-old female presents emergency department for abdominal pain, nausea, no episodes of vomiting, diarrhea for the last several days, differential diagnose include but not limited to, biliary colic, cholelithiasis, gastritis, GERD, PUD, colitis, ileitis, gastroenteritis. Obtain CBC CMP, urinalysis, lipase, lactate CT abdomen pelvis without contrast further evaluate/characterization, will give 1 L LR IV, bolus 4 mg IV Zofran for nausea. CBC notable for an decreased MCV at 77 CMP notable for mild BUN elevation of 21, total bilirubin is elevated at 2.3, AST is markedly elevated at 1020, ALT oculi elevated at 1494, Alk phos elevated at 217 hCG qualitative negative uro bilirubin is elevated at 2+ Additional history obtained by the patient, patient denies any excessive acetaminophen use, denies any overt alcohol use. However we will add salicylate and acetaminophen level, as well as fractionated bilirubin, hepatitis panel, ethanol level. Expanding on the differential now to include hepatitis, cirrhosis, acute liver failure, acetaminophen overdose. Both the attending physician Dr. Blake and I performed a right upper quadrant bedside POCUS for further evaluation as characterization. I reviewed the patient's CT abdomen pelvis without contrast on the corresponding radiologic report, mild fatty infiltration of the liver, postcholecystectomy no acute intra-abdominal or intrapelvic process seen. Salicylate level normal, Tylenol level normal, ethanol level normal. Lactate and lipase are within normal limits , hepatitis panel pending. Discussed this patient's case with [facility] transfer center DIANE Katalina Soni APRN at 4:20 PM, currently [facility] is on divert, she recommends trending the patient's CMP/transaminases, recommends formal right upper quadrant ultrasound for further evaluation/characterization and to rule out any fatty infiltration/hepatitis. Recommends also adding INR and PT for further evaluation as characterization, and possibly admit to hospitalist service at [facility] Will add on PT/INR, as well as right upper quadrant ultrasound for further evaluation of characterization. PT and INR within normal limits. Contacted [facility], they are on a wait list currently not accepting new patients at this time. Reexamination the patient at 5:10 PM, patient has remained hemodynamically stable, updated her on transfer potential, will attempt transfer to [facility] for higher level of care. Patient also complaining of some nausea, will give additional dose of 4 mg Zofran IV. I reviewed the patient's abdominal ultrasound along with corresponding radiologic report, no acute findings, prior cholecystectomy. Discussed this patient's case with the management trainee program stores Dr. Maynor Oneal at [facility] at 5:40 PM, he recommends n.p.o., cover with prophylactic antibiotics, and transfer to [facility] pending hospitalist consultation. Working diagnosis is hepatitis versus cholelithiasis with nondilated bile duct. Start the patient on ceftriaxone 1 g IV as well as Flagyl 500 mg IV. Discussed this patient's case with the hospitalist at [facility] at 6:07 PM he is in agreement with current transfer plan/treatment plan patient will be admitted to [facility] telemetry at [facility], for gastroenterology consultation/higher level of care, working diagnosis is acute hepatitis. Facilitate transfer to [facility]. I was consulted by the DIANE, and we discussed the complexity of the problems being addressed. I approved the treatment and management plan for this patient's care in the Emergency Department, thus performing a substantive portion of the medical decision making. Scooter Blake MD Procedures <Scooter Blake MD - Last Filed: 01/02/24 18:44> Limited Ultrasound Indication:: Limited RUQ ultrasound Indication: Epigastric pain, jaundice Identified structures: -Gallbladder -Gallbladder wall -Common bile duct -Liver Findings: Sonographic Neff sign: Absent Gallbladder surgically absent Common bile duct width (mm) (normal is </= 6mm): Normal Impression: Surgically absent gallbladder Otherwise normal right quadrant ultrasound Images were saved to permanent archive The study was technically adequate CPT 52715-50 This study was performed by me, and I personally interpreted all images/videos. Based on my clinical judgement, these images were adequate and did necessitate further imaging. Critical Care <WILMER Steward - Last Filed: 01/02/24 18:54> Critical Care Time Critical Care Time: No
[2024-01-02] MEDS: ONDANSETRON 4MG/2ML VIAL 4 MG IV ×2 (14:25→17:18)
[2024-01-02] MEDS: LACTATED RINGERS 1000ML 1,000 ML 999 ML IV (14:25)
[2024-01-02] MEDS: IOPAMIDOL-370 (76%);100ML BOTTLE 75 ML IV (14:26)
[2024-01-02] MEDS: SODIUM CHLORIDE 0.9% 10ML SYR (RAD ONLY) 10 ML IV (14:26)
[2024-01-02 15:06] LABS: Lipase 55 U/L (23-300)
[2024-01-02 15:43] LABS: Bilirubin,Direct 1.5 mg/dl (0.0-0.4)
[2024-01-02 15:53] LABS: Acetaminophen < 10 ug/ml (10-30); Salicylate < 1.0 mg/dL (2.0-20.0)
--- NOTE | 2024-01-02 15:56 | PC.NURSE ---
Called [facility] per Dr Blake to speak with someone about this pt.
[2024-01-02 16:11] LABS: Ethyl Alcohol < 10 mg/dl (0-10)
--- NOTE | 2024-01-02 16:14 | PC.NURSE ---
MDs called back and WILMER Shepherd is speaking with them
--- NOTE | 2024-01-02 16:22 | US_ITS ---
PROCEDURE INFORMATION: Exam: US Abdomen, Limited; Right Upper Quadrant Exam date and time: 01/02/2024 4:22 PM Age: 28 years old Clinical indication: Abnormal findings; Abnormal lab test; Elevated liver enzymes; Prior surgery; Surgery date: 1-6 months; Surgery type: Cholecystectomy; Additional info: Elevated transaminases, concern for hepatitis. TECHNIQUE: Imaging protocol: Real time ultrasound of the abdomen with image documentation. Limited exam focused on the right upper quadrant. COMPARISON: US ABDOMEN LIMITED 08/22/2022 8:38 AM FINDINGS: Liver: Normal. No masses. Gallbladder: Surgically absent. Biliary ducts: Normal. No stones. No dilation. Pancreas: Visualized pancreas is unremarkable. Right kidney: Normal. No mass. No hydronephrosis. IMPRESSION: 1. No acute findings. 2. Cholecystectomy.
[2024-01-02 16:28] LABS: Prothrombin Time 11.2 seconds (10.1-12.5)
--- NOTE | 2024-01-02 17:19 | PC.NURSE ---
Called [facility] and waiting for a call back about a potential transfer
[2024-01-02] MEDS: CEFTRIAXONE SODIUM 1 GM in 0.9 % SODIUM CHLORIDE 50 ML IV (18:20)
[2024-01-02] MEDS: METRONIDAZ/SOD CHL 500 MG/100 ML PIGGYBACK 100 MG IV (18:20)
--- NOTE | 2024-01-02 19:20 | PC.NURSE ---
still awaiting bed assignment from [facility] , rn called for an update and they are unable to give me one at this time as its during shift change, rn will call back
--- NOTE | 2024-01-02 19:40 | PC.NURSE ---
rn called bed board at [facility] and they are still unable to give me bed assignment, bed board states they have had two deaths are waiting for the beds to become available
--- NOTE | 2024-01-02 20:45 | PC.NURSE ---
called report to [facility] on [address] and answered all questions
[2024-01-04 08:18] LABS: HBsAg Screen Negative (Negative); HCV Ab Non Reactive (Non Reactive); Hep A Ab, IGM Negative (Negative); Hep B Core Ab, IgM Negative (Negative)
== END 2024-01-02 20:48 | disposition short-term general hospital (02) ==
PROVIDERS: Physician Assistant; Student in an Organized Health Care Education/Training Program; Emergency Provider Emergency Medicine; PCP Nurse Practitioner Family
DX: R10.11 Right upper quadrant pain (principal); R11.0 Nausea; R74.01 Elevation of levels of liver transaminase levels; R00.1 Bradycardia, unspecified; E28.2 Polycystic ovarian syndrome; F17.200 Nicotine dependence, unspecified, uncomplicated
CPT/HCPCS: 74177; 76705; 80053; 80074; 80320; 80329; 81001; 81025; 82248; 83605; 83690; 85025; 85610; 87522; 96361; 96365; 96367; 96375; 96376; 99285; G0480; J0696; J2405; J7120; Q9967

== ENCOUNTER 2024-12-24 07:15 | Outpatient (CLI) | payer BC, SELFPAY ==
--- OUTSIDE RECORDS SUMMARY | 2024-12-24 07:18 | XMS_ITS | Clinical Summary ---
Author Organization [facility] ([place], [place], [place], [place]) Address [address] [place] [address] Care Team Providers Care Marine Fireman Name Role Phone [facility], Provider Not In The System MD Primary Care Provider Unavailable Medications famotidine (PEPCID) 20 MG tablet Take 1 tablet (20 mg total) by mouth daily. Active sertraline (ZOLOFT) 50 MG tablet Take 1 tablet (50 mg total) by mouth daily. Active Active Problems Problem Noted Date Diagnosed Date Acute hepatitis 01/02/2024 Social History Tobacco Use Types Packs/Day Years Used Date Smoking Tobacco: Never Smokeless Tobacco: Never Tobacco Cessation:Counseling Given: Not Answered Family and Community Support Answer Valentino e Recorded Help with Day to Day Activities Not on file 01/02/2024 Feeling Lonely or Isolated Not on file 01/01 Educational Attainment Answer Date Eb rded Speak language other than Arabic at home Not on file 01/02/2024 Want help with school or training Not on file 01/02/2024 Substance Use Answer Date Recorded Used prescription meds for non-medical reasons N ot on file 01/02/2024 Used illegal drugs past 12 months Not on file 01/02/2024 Comments Unknown Sex and Gender Information Value Date Recorded Sex Assigned at Female 10/31/2021 8:48 PM CDT Legal Sex Female 8:48 PM CDT Gender Identity Female 10/31/2021 8:48 PM CDT Sexual Orientation Not on file Last Filed Vital Signs Vital Sign Reading Time Taken Comments Blood Pressure 126/66 01/04/2024 9:49 AM EDT Pulse 63 01/04/2024 9:49 AM EDT Temperature 36.6 C (97.9 F) 01/04/2024 9:49 AM EDT Respiratory Rate 18 01/04/2024 9:49 AM EDT Oxygen Saturation 97% 01/04/2024 9:49 AM EDT Inhaled Oxygen Concentration - - Weight 99.8 kg (220 lb 1.6 oz) 01/02/2024 10:35 PM EDT Height 157.5 cm (5' 2 ) 01/02/2024 10:35 PM EDT Body Mass Index 40.26 01/02/2024 10:35 PM EDT Plan of Treatment Health Maintenance Due Date Last Done Comments Depression Screening (12+) 2009 Tobacco Cessation Counseling and Screening (12+) 2009 Pneumococcal Vaccine: 0-49 Y ears (1 of 2 - PCV) 2016 Lipid Panel 2017 Pap Smear 2018 COVID-19 VACCINE (1 - season) 2024 Influenza Vaccine (#1) 2025 01/18/2020 DTAP/TDAP/TD VACCINES (3 - Td or Tdap) 07/07/2033, 10/07/2018 HIV Screening Completed 01/02/2024 Hepatitis C Screening Completed 01/02/2024 Procedures Procedure Name Priority Date/Time Associated Diagnosis Comments HEPATITIS PANEL, ACUTE Routine 01/02/2024 10:59 PM EDT HIV 1/2 AG/AB COMBO Routine 01/02/2024 1 0:59 PM EDT from Last 3 Months or Most Recently Relevant to Health Maintenance Results * HIV 1/2 AG/AB Combo (01/02/2024 10:59 PM EDT) HIV-1 P24 Antigen Nonreactive Nonreactive 01/03/2024 2:55 AM EDT [facility] Comment: The Combo HIV procedure is a fourth generation HIV test which detects BOTH p24 antigen AND HIV antibodies to HIV virus types 0, 1, and 2. A reactive result does not distinguish between the antigen or the antibody and does not specify which antibody is present. Additional testing is required to differentiate the component causing the reactive result. Biotin supplements can cause clinically significant incorrect lab results. The FDA has seen an increase in the number of adverse events related to biotin interference with lab tests. Blood Venipuncture / Unknown 01/02/2024 10:59 PM EDT 01/02/2024 11:10 PM EDT Panfilo Doshi DO LAB BLOOD ORDERABLES Final Res ult [facility] [address] [phone] * Hepatitis panel, acute (01/02/2024 10:59 PM EDT) Hep A IgM Nonreactive Nonreactive, Equivocal 01/03/2024 2:59 AM EDT [facility] Hep B C IgM Nonreactive Nonreactive 01/03/2024 2:59 AM EDT [facility] Hepatitis B surface antigen Nonreactive Nonreactive, Equivocal 01/03/2024 2:59 AM EDT [facility] Hepatitis C Ab Nonreactive Nonreactive, Equivocal 01/03/2024 2:59 AM EDT [facility] Blood Venipuncture / Unknown 01/02/2024 10:59 PM EDT 01/02/2024 11:10 PM EDT Narrative [facility] - 01/03/2024 2:59 AM EDT Hepatitis A Antibody IgM: (a) A negative test result does not exclude the possibility of exposure to the hepatitis A virus. (b) This test can be used to determine if a patient has or recently had an acute or asymptomatic hepatitis A infection. (c) A reactive result does not exclude co-infection by another hepatitis virus. Biotin supplements can cause clinically significant incorrect lab results. The FDA has seen an increase in the number of adverse events related to biotin interference with lab tests. Hepatitis B Core Antibody IgM: A reactive anti-HBc IgM result does not exclude co-infection by another hepatitis virus. Biotin supplements can cause clinically significant incorrect lab results. The FDA has seen an increase in the number of adverse events related to biotin interference with lab tests. Hepatitis B Surface Antibody Qual: This test does not differentiate between a vaccine induced immune response and an immune response induced by infection with HBV. Individuals that have received blood component therapies, (e.g. whole blood, plasma, immunoglobulin) administered during the previous 3 to 6 months may have a false reactive anti HBs due to passive transfer of anti HBs. A positive anti HBs result does not exclude co infection by another hepatitis virus. Biotin supplements can cause clinically significant incorrect lab results. The FDA has seen an increase in the number of adverse events related to biotin interference with lab tests. Hepatitis B Surface Antigen: This test may not detect all HBV mutants. If acute or chronic HBV infection is suspected and this test is non-reactive other HBV markers should be tested. Biotin supplements can cause clinically significant incorrect lab results. The FDA has seen an increase in the number of adverse events related to biotin interference with lab tests. Hepatitis C Antibody: A negative test result does not exclude the possibility of exposure to the hepatitis C virus and a reactive result does not exclude co-infection by another hepatitis virus. Biotin supplements can cause clinically significant incorrect lab results. The FDA has seen an increase in the number of adverse events related to biotin interference with lab tests. Panfilo Doshi DO LAB BLOOD ORDERABLES Final Res ult Performing Organization Address City/State/[facility] Co de Phone Number [facility] [address] [phone] from Last 3 Months or Most Recently Relevant to Health Maintenance Insurance BLUE [employer]OSS/[employer]UE [employer] Advance Directives For more information, please contact: [phone] * Full Code (Latest Code Status on File) Date Activated Date Inactivated Comments 01/02/2024 10:13 PM 01/04/2024 5:29 PM -Attempt Re suscitation if person has no pulse and is not breathing. -If no pulse or not breathing attempt CPR/CODE. -Call Rapid Response if patient is in distress. Care Teams Marine Fireman Relationship Specialty Start Date End Date [facility], Provider Not In The System, [place] [address] PCP - General 01/02/24
--- OUTSIDE RECORDS SUMMARY | 2024-12-24 07:18 | XMS_ITS | Encounter Summary ---
Author Organization [employer] ([place], [place], [place], [place]) Address [address] [place] [address] Care Team Providers Care Scouring Train Operator Chief Name Role Phone Sj, Provider Not In The System Primary Care Provider Unavailable Encounter Details Date Type Department Care Team (Late st Contact Info) Description 06/08/2020 Transcribed Document [facility] [place] [address] ProviderFran MD [address] [place] [id number] Social History Tobacco Use Types Packs/Day Years Used Date Smoking Tobacco: Never Assessed Comments Unknown Sex and Gender Information Value Date Recorded Sex Assigned at Female 10/31/2021 8:48 PM CDT Legal Sex Female 8:48 PM CDT Gender Identity Female 10/31/2021 8:48 PM CDT Sexual Orientation Not on file documented as of this encounter Miscellaneous Notes * Cerner Conversion Note - Historical ProviderMD - 06/08/2020 12:57 PM MECHANICAL DESIGNER [facility] Main OR IntraOp Summary Primary Physician: Kavya SCHNEIDER MD-OBG Finalized Date/Time: 06/08/20 13:52:36 Pt. Name: OLEARY LIBRADO BETSEY /Sex: 1995 Female Med Rec #: [id number] Physician: Kavya SCHNEIDER MD-OBG Financial #: [id number] Pt. Type: O Room/Bed: [facility] Admit/Disch: 06/08/20 03:52:00 - Institution: [facility] [place] [facility] Case Attendance Entry 1 Entry 2 Entry 3 Case Attendee Kavya SCHNEIDER Dooley, Carol, LATESHA CARRILLO MD-OBG COMPLETION ENGINEER Role Performed Surgeon/Proceduralist, Aquatics Manager, First COMPLETION ENGINEER/Nurse Supervisor Firearms First Time In 06/08/20 12:35:00 06/08/20 12:35:00 06/08/20 12:35:00 Time Out 06/08/20 13:48:00 06/08/20 13:48:00 06/08/20 13:48:00 Procedure Laparoscopy Operative Laparoscopy Operative Laparoscopy Operative Robotic, Uterine D and Robotic, Uterine D and Robotic, Uterine D and C Hysteroscopy, C Hysteroscopy, C Hysteroscopy, Cystoscopy Adult, Cystoscopy Adult, Cystoscopy Adult, Vaginal Suspension, Vaginal Suspension, Vaginal Suspension, Ovarian Cystectomy Ovarian Cystectomy Ovarian Cystectomy Laparoscopic Laparoscopic Laparoscopic Other Attendee Superficial Wound Closed By: Last Modified By: Terese Pacheco RN Dooley, Carol, Terese Alcala, NENO 06/08/20 13:51:51 06/08/20 13:51:51 06/08/20 13:51:51 Entry 4 Entry 5 Entry 6 Case Attendee CUBA CHANEY PA-C TAYLOR, SARAH, ST OTHER, ATTENDEE #1 Role Performed Grocery Specialist, First Scrub, First Scrub, Second Time In 06/08/20 12:35:00 06/08/20 12:35:00 06/08/20 12:35:00 Time Out 06/08/20 13:48:00 06/08/20 13:48:00 06/08/20 13:48:00 Procedure Laparoscopy Operative Laparoscopy Operative Laparoscopy Operative Robotic, Uterine D and Robotic, Uterine D and Robotic, Uterine D and C Hysteroscopy, C Hysteroscopy, C Hysteroscopy, Cystoscopy Adult, Cystoscopy Adult, Cystoscopy Adult, Vaginal Suspension, Vaginal Suspension, Vaginal Suspension, Ovarian Cystectomy Ovarian Cystectomy Ovarian Cystectomy Laparoscopic Laparoscopic Laparoscopic Other Attendee elijah hammond Superficial Wound Closed By: Last Modified By: Terese Pacheco, Terese Alcala, Terese Alcala, NENO 06/08/20 13:51:51 06/08/20 13:51:51 06/08/20 13:51:51 [facility] IntraOp Case Attendance Audit 06/08/20 13:51:51 Badger Distiller Operator: DOOLEYC Modifier: DOOLEYC 1 <+> Time Out 1 <*> Procedure Laparoscopy Operative Robotic, Uterine D and C Hysteroscopy, Cystoscopy Adult, Vaginal Suspension, Ovarian Cystectomy Laparoscopic 2 <+> Time Out 2 <*> Procedure Laparoscopy Operative Robotic, Uterine D and C Hysteroscopy, Cystoscopy Adult, Vaginal Suspension, Ovarian Cystectomy Laparoscopic 3 <+> Time Out 3 <*> Procedure Laparoscopy Operative Robotic, Uterine D and C Hysteroscopy, Cystoscopy Adult, Vaginal Suspension, Ovarian Cystectomy Laparoscopic 4 <+> Time Out 4 <*> Procedure Laparoscopy Operative Robotic, Uterine D and C Hysteroscopy, Cystoscopy Adult, Vaginal Suspension, Ovarian Cystectomy Laparoscopic 5 <+> Time Out 5 <*> Procedure Laparoscopy Operative Robotic, Uterine D and C Hysteroscopy, Cystoscopy Adult, Vaginal Suspension, Ovarian Cystectomy Laparoscopic 6 <+> Time Out 6 <*> Procedure Laparoscopy Operative Robotic, Uterine D and C Hysteroscopy, Cystoscopy Adult, Vaginal Suspension, Ovarian Cystectomy Laparoscopic 06/08/20 13:13:34 Badger Distiller Operator: DOOLEYC Modifier: DOOLEYC 1 <*> Procedure Laparoscopy Operative Robotic, Uterine D and C Hysteroscopy, Cystoscopy Adult 2 <*> Procedure Laparoscopy Operative Robotic, Uterine D and C Hysteroscopy, Cystoscopy Adult 3 <*> Procedure Laparoscopy Operative Robotic, Uterine D and C Hysteroscopy, Cystoscopy Adult 4 <*> Procedure Laparoscopy Operative Robotic, Uterine D and C Hysteroscopy, Cystoscopy Adult 5 <*> Procedure Laparoscopy Operative Robotic, Uterine D and C Hysteroscopy, Cystoscopy Adult 6 <*> Procedure Laparoscopy Operative Robotic, Uterine D and C Hysteroscopy, Cystoscopy Adult 06/08/20 12:57:54 Badger Distiller Operator: DOOLEYC Modifier: DOOLEYC 1 <+> Time In 1 <*> Procedure Laparoscopy Operative Robotic, Uterine D and C Hysteroscopy, Cystoscopy Adult 2 <+> Time In 2 <*> Procedure Laparoscopy Operative Robotic, Uterine D and C Hysteroscopy, Cystoscopy Adult 3 <+> Time In 3 <*> Procedure Laparoscopy Operative Robotic, Uterine D and C Hysteroscopy, Cystoscopy Adult 4 <+> Time In 4 <*> Procedure Laparoscopy Operative Robotic, Uterine D and C Hysteroscopy, Cystoscopy Adult 5 <+> Time In 5 <*> Procedure Laparoscopy Operative Robotic, Uterine D and C Hysteroscopy, Cystoscopy Adult 6 <+> Time In 6 <*> Procedure Laparoscopy Operative Robotic, Uterine D and C Hysteroscopy, Cystoscopy Adult 06/08/20 12:51:42 Badger Distiller Operator: DOOLEYC Modifier: DOOLEYC <+> 1 Procedure <+> 2 Case Attendee <+> 2 Role Performed <+> 2 Procedure <+> 3 Case Attendee <+> 3 Role Performed <+> 3 Procedure <+> 4 Case Attendee <+> 4 Role Performed <+> 4 Procedure <+> 5 Case Attendee <+> 5 Role Performed <+> 5 Procedure <+> 6 Case Attendee <+> 6 Role Performed <+> 6 Procedure <+> 6 Other Attendee [facility] IntraOp Case Times Entry 1 Patient In Room Time 06/08/20 12:35:00 Out Room Time 06/08/20 13:48:00 Anesthesia Start Time 06/08/20 12:35:00 Stop Time 06/08/20 13:48:00 Anesthesia Ready 06/08/20 12:35:00 Surgery / Procedure Times Start Time 06/08/20 12:57:00 Stop Time 06/08/20 13:38:00 Last Modified By: Terese Pacheco RN 06/08/20 13:51:50 [facility] IntraOp Case Times Audit 06/08/20 13:51:50 Badger Distiller Operator: DOOLEYC Modifier: DOOLEYC <+> 1 Out Room Time <+> 1 Stop Time <+> 1 Stop Time 06/08/20 12:58:00 Badger Distiller Operator: DOOLEYC Modifier: DOOLEYC <+> 1 Start Time [facility] IntraOp Cautery Entry 1 ESU Identification Cautery Type Monopolar ESU ID Number erbe ID Type Hospital Number Cautery Settings Cut Setting 4 Coag Setting 4 Bipolar Setting 4 ESU Grounding Pad Ground Pad Type Adult Grounding Pad Site Left thigh Grounding Pad Terese Pacheco RN Applied By Grounding Pad Site Intact Skin Condition Before Cautery Grounding Pad Site Intact Skin Condition After Cautery Last Modified By: Terese Pacheco RN 06/08/20 12:52:15 [facility] IntraOp Communication Entry 1 Communication To Family/Significant other Communication By Terese Pacheco RN Last Modified By: Terese aPcheco RN 06/08/20 12:52:22 [facility] IntraOp Counts Verification Entry 1 Procedure Laparoscopy Operative Robotic, Uterine D and C Hysteroscopy, Cystoscopy Adult, Vaginal Suspension, Ovarian Cystectomy Laparoscopic Count Info Count Type Sponge, Sharps, Instrument, Miscellaneous Counts Verification Baseline/pre-procedure Sequence Count Results Not Applicable Counts Performed By Count Performed By IRMA GUZMAN ST (Scrub) Count Performed By Terese Pacheco RN (RN) Last Modified By: Terese Pacheco RN 06/08/20 13:13:36 [facility] IntraOp Counts Verification Audit 06/08/20 13:13:36 Badger Distiller Operator: DOOLEYC Modifier: DOOLEYC 1 <*> Procedure Laparoscopy Operative Robotic, Uterine D and C Hysteroscopy, Cystoscopy Adult [facility] IntraOp Counts Final Entry 1 Procedure Laparoscopy Operative Robotic, Uterine D and C Hysteroscopy, Cystoscopy Adult, Vaginal Suspension, Ovarian Cystectomy Laparoscopic Final Count Info Count Type Sponge, Sharps Counts Verification Skin Closure/end of Sequence procedure Count Results Correct, surgeon notified Counts Performed By Count Performed By OTHER, ATTENDEE #1 (Scrub) Count Performed By Terese Pacheco RN (RN) Last Modified By: Terese Pacheco RN 06/08/20 13:27:32 [facility] IntraOp Cultures and Spec Summary Entry 1 Cultrures and Specimens Specimen Ordered: Yes Test(s) Routine/Path-Lab Requested/Final Disposition Last Modified By: Terese Pacheco RN 06/08/20 12:52:44 [facility] IntraOp Departure from OR Entry 1 Integumentary Assessment Transfer/Handoff Transfer to PACU Phase I Handoff Method Bedside/Face to face Post-op Transport Stretcher/Gurney Via Patient Transport Terese Pacheco RN, Accompanied by LATESHA GLASGOW CRNA Last Modified By: Terese Pacheco RN 06/08/20 12:52:56 [facility] IntraOp Dressing and Packing Entry 1 Type Dressing Location ABDOMEN Wound Dressing Item Skin Closure Glue Applied By CUBA CHANEY PA-C Last Modified By: Terese Pacheco RN 06/08/20 12:53:01 [facility] IntraOp Fire Risk Assessment Entry 1 Fire Info Surgical Site or 0- No Incision Above the Xyphoid Open O2 Source 0- No (Mask or Cannula) Available Ignition 1- Yes (ESU, Laser, Light Source) Fire Risk 1 Assessment Score Fire Score Fire Risk Yes Assessment Complete Fire Risk Terese Pacheco RN Assessment Verified By Fire Risk 06/08/20 12:35:00 Assessment Verified Date/Time Fire Risk High Risk Protocol Yes Implemented Standard Fire Yes Safety Precautions Followed Last Modified By: Terese Pacheco RN 06/08/20 12:53:06 [facility] IntraOp General Case Kiln Tester 1 Case Information OR OR 07 [facility] Case Level 1 Room Verified Yes Wound Class II - Clean-Contaminated Specialty SN Gynecology Anesthesia Type General ASA Class 2 Diagnosis Preop Diagnosis pcos Postop Same As Preop Yes Postop Diagnosis pcos Last Modified By: Terese Pacheco RN 06/08/20 12:53:33 [facility] IntraOp Intraoperative Assessment Entry 1 Handoff Method Bedside/Face to face Valid History / Yes Physical in Chart Preoperative Yes Checklist Reviewed/Evaluated Allergies Reviewed Yes Patient is Latex No Sensitive Isolation Not applicable Precautions Noted Level of WDL Consciousness (WDL = Alert, Oriented to Person, Place, and Time) Skin Assessment Yes Verified Present Upon IVs Arrival to OR Last Modified By: Terese Pacheco RN 06/08/20 12:53:43 [facility] IntraOp Intraoperative Equipment Entry 1 Type Equipment Equipment Equipment Robot Intraop Monitoring Electrocardiogram Three lead placement (ECG) Electrode Placement Antiembolic Devices Scopes Photo/Video Documentation Last Modified By: Terese Pacheco RN 06/08/20 12:53:50 [facility] IntraOp Medication Admin Entry 1 Medication/Irrigant Marcaine 0.5% 30ml vial - [id number] Route of LOCAL Administration Dose Dose 30 Unit of Measure ml Administered By Kavya SCHNEIDER MD-OBG Procedure Irrigation Last Modified By: Terese Pacheco RN 06/08/20 12:54:00 [facility] IntraOp Patient Positioning Entry 1 Procedure Laparoscopy Operative Robotic, Uterine D and C Hysteroscopy, Cystoscopy Adult, Vaginal Suspension, Ovarian Cystectomy Laparoscopic Body Position Modified lithotomy Left Arm Position Tucked and padded at side Right Arm Position Tucked and padded at side Left Leg Position Secured in Leg Calles Right Leg Position Secured in Leg Calles Feet Uncrossed Yes Pressure Points Yes Checked Positioning Devices Bowen Bag, Stirrups/Leg Calles, Boot Positioned By Terese Pacheco RN, LATESHA GLASGOW, SIM, Kavya SCHNEIDER MD-OBG Position Verified Positioning Yes Verified by Anesthesia Positioning Yes Verified by Surgeon Last Modified By: Terese Pacheco RN 06/08/20 13:13:36 [facility] IntraOp Patient Positioning Audit 06/08/20 13:13:36 Badger Distiller Operator: DOOLEYC Modifier: DOOLEYC 1 <*> Procedure Laparoscopy Operative Robotic, Uterine D and C Hysteroscopy, Cystoscopy Adult [facility] IntraOp Sign In Entry 1 Patient, Site, Yes Procedure Identified Surgical Consent Yes Confirmed Relevant Surgical Yes Documents Available Surgical Site N/A Marked by person performing procedure Anesthesia Machine Yes Check Completed Medication Checks Yes Completed Allergies No Airway Difficult No Airway/Aspiration Risk Difficult Yes Airway/Aspiration Intervention Equipment Available Blood Loss Risk Yes Blood Loss Yes Intervention Equipment Prepared and Ready Blood Identifiers Not applicable Verified Per Policy Hypothermia Risk Yes Warming Measures Yes Taken Last Modified By: Terese Pacheco RN 06/08/20 12:55:32 [facility] Intra Op Sign Out Entry 1 RN Confirmation Surgical Yes Procedure(s) Identified Instrument, Sponge Yes and Sharps Counts Correct/Documented Equipment Problems N/A Documented Specimen Labeled Yes Correctly Urinary Catheter N/A Documented in IView Pulliam Patient Yes Recovery Concerns Reviewed with Anesthesia Provider, Surgeon and RN Pulliam Patient Yes Management Concerns Reviewed with Anesthesia Provider, Surgeon and RN Safety Checklist Yes Elements Complete? RN Sign Out Terese Pacheco RN Signature RN Sign Out 06/08/20 12:48:00 Signature Date/Time Plan of Care Outcome - Fire Risk OUTCOME STATEMENT: Goal met Patient is free from injury related to surgical fire Plan of Care Outcome - Pt Positioning OUTCOME STATEMENT: Goal met Absence of signs and symptoms of positioning injury. Plan of Care Outcome - Skin Prep OUTCOME STATEMENT: Goal met Intraoperative care is consistent with measures to prevent infection Plan of Care Outcome - Xray/Images OUTCOME STATEMENT: N/A Absence of observable signs or symptoms of radiation injury Plan of Care Outcome - Counts OUTCOME STATEMENT: Goal met Absence of signs and symptoms of injury related to extraneous objects Last Modified By: Terese Pacheco RN 06/08/20 13:52:26 [facility] Intra Op Sign Out Audit 06/08/20 13:52:26 Badger Distiller Operator: DOOLEYC Modifier: DOOLEYC <+> 1 RN Sign Out Signature Date/Time [facility] IntraOp Skin Prep Entry 1 Procedure Laparoscopy Operative Robotic, Vaginal Suspension, Ovarian Cystectomy Laparoscopic Prescribed Yes Pre-Surgical Prep Completed Prep Area ABDOMEN, VAGINA Intraop Prep Integumentary WDL Assessment WDL Prep Agents Chloraprep, Betadine solution Prep by Terese Pacheco, RN Hair Removal Last Modified By: Terese Pacheco RN 06/08/20 13:13:36 [facility] IntraOp Skin Prep Audit 06/08/20 13:13:36 Badger Distiller Operator: DOOLEYC Modifier: DOOLEYC 1 <*> Procedure Laparoscopy Operative Robotic [facility] IntraOp Surgical Procedures Entry 1 Entry 2 Entry 3 Procedure Laparoscopy Operative Uterine D and C Cystoscopy Adult Robotic Hysteroscopy Modifiers Additional ROBOTIC DIAGNOSTIC Procedure LAPAROSCOPY; Description HYSTEROSCOPY; D&C; OVARIAN DRILLING; CYSTOSCOPY Primary Procedure Yes No No Primary Surgeon Kavya SCHNEIDER, Kavya SCHNEIDER, Kavya SCHNEIDER MD-OBG VERONICAOBG VERONICAOBG Start 06/08/20 12:57:00 06/08/20 12:57:00 06/08/20 12:57:00 Stop 06/08/20 13:38:00 06/08/20 13:38:00 06/08/20 13:38:00 Physician States Cecum Reached Anesthesia Type General General General Specialty SN Gynecology SN Gynecology SN Gynecology Wound Class I - Clean II - Clean-Contaminated II - Clean-Contaminated Last Modified By: Terese Pacheco, Terese Alcala, RN Terese Pacheco RN 06/08/20 13:52:31 06/08/20 13:52:31 06/08/20 13:52:31 Entry 4 Entry 5 Procedure Vaginal Suspension Ovarian Cystectomy Laparoscopic Modifiers Additional Procedure Description Primary Procedure No No Primary Surgeon Kavya SCHNEIDER GUILER, J MICHAEL, MD-OBG VERONICAOBMau Start 06/08/20 12:57:00 06/08/20 12:57:00 Stop 06/08/20 13:38:00 06/08/20 13:38:00 Physician States Cecum Reached Anesthesia Type General General Specialty SN Gynecology SN Gynecology Wound Class I - Clean I - Clean Last Modified By: Terese Pacheco, Terese Alcala, NENO 06/08/20 13:52:31 06/08/20 13:52:31 [facility] IntraOp Surgical Procedures Audit 06/08/20 13:52:31 Badger Distiller Operator: DOOLEYC Modifier: DOOLEYC <+> 1 Stop <+> 2 Stop <+> 3 Stop <+> 4 Start <+> 4 Stop <+> 5 Start <+> 5 Stop 06/08/20 13:13:28 Badger Distiller Operator: DOOLEYC Modifier: DOOLEYC <+> 1 Start <+> 2 Start <+> 3 Start <+> 4 Procedure <+> 4 Primary Procedure <+> 4 Primary Surgeon <+> 4 Specialty <+> 4 Wound Class <+> 4 Anesthesia Type <+> 5 Procedure <+> 5 Primary Procedure <+> 5 Primary Surgeon <+> 5 Specialty <+> 5 Wound Class <+> 5 Anesthesia Type [facility] IntraOp Time Out Entry 1 Procedure to be Laparoscopy Operative Performed Robotic, Uterine D and C Hysteroscopy, Cystoscopy Adult, Vaginal Suspension, Ovarian Cystectomy Laparoscopic Time Out Time Out Pause Time 06/08/20 12:56:00 All activity Yes suspended (unless life threatening emergency) Team Verbally Correct patient Confirms Information identity, Correct side and site are marked, Consent form is present and accurate, Agreement on the procedure to be done, Correct patient position, Relevant images/results properly labeled/appropriately displayed, Confirm antibiotics have been administered, Confirm the skin prep has dried, Confirm prosthesis/implant/devic e is present, Performed in location of procedure after prepped/draped, Performed before each procedure if multiple procedures, Reconcile problems if responses among team members differ Antibiotic Yes Prophylaxis Administered Or In Progress Within the Last 60 Minutes Beta Tu N/A Administered Venous Yes Thromboembolism Prophylaxis Required Anticipated Critical Events Surgeon None expected Anesthesia Provider None expected Nursing Assures Sterility of instruments Essential Imaging N/A Labeled and Displayed Last Modified By: Terese Pacheco, RN 06/08/20 13:13:37 [facility] IntraOp Time Out Audit 06/08/20 13:13:37 Badger Distiller Operator: DOOLEVAZQUEZ Modifier: DOOLEYC 1 <*> Procedure to be Performed Laparoscopy Operative Robotic, Uterine D and C Hysteroscopy, Cystoscopy Adult 06/08/20 13:12:32 Badger Distiller Operator: DOOLEVAZQUEZ Modifier: DOOLEYC 1 <+> Time Out Pause Time 1 <*> Procedure to be Performed Laparoscopy Operative Robotic, Uterine D and C Hysteroscopy, Cystoscopy Adult Case Comments <None> Finalized By: Terese Pacheco, RN Document Signatures Signed By: Terese Pacheco RN 06/08/20 13:52 Electronically signed by Nanda [facility] Conversion Restaurant Service Manager Cerner at 08/21/2022 10:28 AM CDT documented in this encounter Plan of Treatment Not on file documented as of this encounter Visit Diagnoses Not on filedocumented in this encounter Care Teams Scouring Train Operator Chief Relationship Specialty Start Date End Date [facility], Provider Not In The System, [place] [address] PCP - General 01/02/24 documented as of this encounter
--- OUTSIDE RECORDS SUMMARY | 2024-12-24 07:18 | XMS_ITS | Clinical Summary ---
Author Organization Healthcare Address [address] [place] [address] Care Team Providers Care Continuous Still Operator Name Role Phone Pcp, No Primary Care Provider Unavailabl e Allergies No known active allergies Active Problems Problem Noted Date Diagnosed Date Obesity 01/06/2024 Resolved Problems Problem Noted Date Diagnosed Date Resolved Date Transaminitis 01/06/2024 01/07/2024 Abdominal pain 01/06/2024 01/07/2024 Family History Medical History Relation Name Comments Cancer Paternal Grandfather Relation Name Status Comments Paternal Grandfather Social History Tobacco Use Types Packs/Day Years Used Date Smoking Tobacco: Never Smokeless Tobacco: Never Tobacco Cessation:Counseling Given: Not Answered Alcohol Use Standard Drinks/Week Comments Not Currently 0 (1 standard drink = 0.6 oz pur e alcohol) Comments Unknown Sex and Gender Information Value Date Recorded Sex Assigned at Not on file Legal Sex Female 3:55 PM EDT Gender Identity Not on file Sexual Orientation Not on file Last Filed Vital Signs Vital Sign Reading Time Taken Comments Blood Pressure 111/69 01/07/2024 11:30 AM EDT Pulse 50 01/07/2024 11:30 AM EDT Temperature 36.9 C (98.4 F) 01/07/2024 11:30 AM EDT Respiratory Rate 16 01/07/2024 11:30 AM EDT Oxygen Saturation 96% 01/07/2024 11:30 AM EDT Inhaled Oxygen Concentration - - Weight 99.8 kg (220 lb) 01/05/2024 8:39 PM EDT Height 157.5 cm (5' 2 ) 01/05/2024 8:39 PM EDT Body Mass Index 40.24 01/05/2024 8:39 PM EDT Plan of Treatment Health Maintenance Due Date Last Done Comments [facility]-Depression Screening 1995 [facility]-Infant/Child/Adol SDOH Screenings 1995 [facility]-Varicella Vaccines (1 of 2 - 13+ 2-dose series) 2010 [facility]- SDOH Screenings 11/11/2015 [facility]-Adult SDOH Screenings 11/11/2015 [facility]-Hepatitis B Vaccines (1 of 3 - 19+ 3-dose series) 2016 [facility]-Pap Smear 2018 [id number] Vaccine (1 - 2023-25 season) 2024 HPV Vaccines (1 - 3-dose SCD M series) 2024 [facility]-Influenza Vaccine (#1) 01/04/202503/07, 01/18/2020 [facility]-DTaP,Tdap,and Td Vaccine s (3 - Td or Tdap) 07/07/2033 07/08/2023, 10/07/2018 [facility]-Zoster Vaccines (1 of 2) 11/11/2047 [facility]-Obesity Intervention Completed 01/05/2024 [facility]-HIV Screening Completed 01/06/2024 [facility]-Hepatitis C Screening Completed 2023, 01/06/2024 [facility]-HIB Vaccines Aged Out No longer e ligible based on patient's age to complete this topic [facility]-Hepatitis A Vaccines Aged Out No longer eligible based on patient's age to complete this topic [facility]-IPV Vaccines Aged Out No longer e ligible based on patient's age to complete this topic [facility]-Pneumococcal Vaccine: Pediatrics (0 to 5 Years) and At-Risk Patients (6 to 49 Years) Aged Out No longer eligible b ased on patient's age to complete this topic [facility]-Rotavirus Vaccines Aged Out No lo nger eligible based on patient's age to complete this topic Procedures Procedure Name Priority Date/Time Associated Diagnosis Comments HEPATITIS C ANTIBODY - ED W/REFLEX TO HCV QUANT PCR Routine 01/06/2024 1:14 PM EDT ED HIV 1/2 ANTIBODY/ANTIGEN SCREEN WITH REFLEX TO HIV I/II DIFFERENTIATION Routine 01/06/2024 1:14 PM EDT from Last 3 Months or Most Recently Relevant to Health Maintenance Results * ED HIV 1/2 Antibody/Antigen Screen w/Reflex to HIV 1/2 Differentiation (01/06/2024 1:14 PM EDT) [facility] HIV 1 & 2 Antibody/Antigen Screen Non Reactive Non Reactive 01/06/2024 2:45 PM EDT [facility] Comment:Screening for HIV 1 & 2 antibodies, and P24 antigen is NONREACTIVE. No confirmatory testing is required. Blood Venous blood specimen / Unknown Venipuncture / Unknown 01/06/2024 1:14 PM EDT 01/06/2024 2:04 PM EDT Nighat Coats MD LAB BLOOD ORDERABLES Audrey l Result Performing Organization Address City/[facility]/ZIP Co de Phone Number [facility] [address] [place] [address] * Hepatitis C Antibody - ED (01/06/2024 1:14 PM EDT) [facility] Hepatitis C Antibody Negative Negative 01/06/2024 2:45 PM EDT [facility] Blood Venous blood specimen / Unknown Venipuncture / Unknown 01/06/2024 1:14 PM EDT 01/06/2024 2:04 PM EDT Nighat Coats MD LAB BLOOD ORDERABLES Audrey l Result Performing Organization Address City/[facility]/ZIP Co de Phone Number [facility] [address] [place] [address] from Last 3 Months or Most Recently Relevant to Health Maintenance Insurance Advance Directives * Full Code (Latest Code Status on File) Date Activated Date Inactivated Comments 01/06/2024 1:24 AM 01/07/2024 5:12 PM Question Answer Comments Patient has decision-making capacity? Yes Care Teams Continuous Still Operator Relationship Specialty Start Date End Date Pcp, No [address] [place] [address] PCP - General Family Medicine 01/06/24
--- OUTSIDE RECORDS SUMMARY | 2024-12-24 07:18 | XMS_ITS | Encounter Summary ---
Author Organization [employer] ([place], [place], [place], [place]) Address [address] [place] [address] Care Team Providers Care Clinical Informatics Specialist Name Role Phone Sj, Provider Not In The System Primary Care Provider Unavailable Encounter Details Date Type Department Care Team (Late st Contact Info) Description 06/08/2020 Transcribed Document [facility] Family Medicine [facility] [place] [address] ProviderFran MD [address] [place] [id number] Social History Tobacco Use Types Packs/Day [...] - Historical ProviderMD - 06/08/2020 12:57 PM CHARGE ENTRY CLERK [facility] Main OR PostOp Summary Primary Physician: Kavya SCHNEIDER MD-OBG Finalized Date/Time: 06/08/20 14:52:16 Pt. Name: OLEARY LIBRADO PAGE /Sex: 1995 Female Med Rec #: [id number] Physician: Kavya SCHNEIDER MD-OBG Financial #: [id number] Pt. Type: O Room/Bed: Admit/Disch: 06/08/20 03:52:00 - Institution: [facility] Main OR PostOp Case Times Entry 1 In PACU II 06/08/20 14:22:00 Ready for PACU II 06/08/20 14:52:00 Discharge Discharge from PACU 06/08/20 14:52:00 II Last Modified By: Kaylin Ballard RN 06/08/20 14:52:14 Finalized By: Kaylin Ballard, RN Document Signatures Signed By: Kaylin Ballard RN 06/08/20 14:52 documented in this encounter Plan of Treatment Not on file documented as of this encounter Visit Diagnoses Not on filedocumented in this encounter Care Teams Clinical Informatics Specialist Relationship Specialty Start Date End Date Chalo, Provider Not In The System, [place] [address] PCP - General 01/02/24 documented as of this encounter
--- OUTSIDE RECORDS SUMMARY | 2024-12-24 07:18 | XMS_ITS | Encounter Summary ---
Author Organization [employer] ([place], [place], [place], [place]) Address [address] [place] [address] Care Team Providers Care Channel Marketing Manager Name Role Phone Sj, Provider Not In The System Primary Care Provider Unavailable Encounter Details Date Type Department Care Team (Late st Contact Info) Description 06/08/2020 Transcribed Document [facility] Family Medicine [facility] [place] [address] ProviderFran MD [address] [place] [id number] Social History Tobacco Use Types Packs/Day [...] - Historical ProviderMD - 06/08/2020 12:57 PM PURIFICATION SUPERVISOR [facility] Main OR PACU Summary Primary Physician: Kavya SCHNEIDER MD-OBG Finalized Date/Time: 06/08/20 14:19:39 Pt. Name: MAMTA LIBRADO PAGE /Sex: 1995 Female Med Rec #: [id number] Physician: Kavya SCHNEIDER MD-OBG Financial #: [id number] Pt. Type: O Room/Bed: Admit/Disch: 06/08/20 03:52:00 - Institution: [facility] Main OR PACU Case Times Entry 1 In PACU I 06/08/20 13:45:00 Ready for PACU 06/08/20 14:21:00 Discharge Discharge from PACU 06/08/20 14:21:00 I Last Modified By: NICK ALEXANDRA 06/08/20 14:19:38 [facility] Main OR PACU Case Times Audit 06/08/20 14:19:38 Patternmaker Apprentice Wood: COLEMAM Modifier: COLEMAM 1 <*> Ready for PACU Discharge 06/08/20 14:18:00 1 <*> Discharge from PACU I 06/08/20 14:18:00 06/08/20 14:18:29 Patternmaker Apprentice Wood: COLEMAM Modifier: COLEMAM <+> 1 Ready for PACU Discharge <+> 1 Discharge from PACU I Finalized By: NICK ALEXANDRA Document Signatures Signed By: NICK ALEXANDRA 06/08/20 14:18 NICK ALEXANDRA 06/08/20 14:19 Unfinalized History Date/Time Username Reason for Unfinalizing Freetext Reason for Unfinalizing 06/08/20 14:19 RYAN Correct Documentation Electronically signed by Chalo Vee Conversion Progressive Care Unit Registered Nurse Cerner at 08/21/2022 10:34 AM CDT documented in this encounter Plan of Treatment Not on file documented as of this encounter Visit Diagnoses Not on filedocumented in this encounter Care Teams Channel Marketing Manager Relationship Specialty Start Date End Date [facility], Provider Not In The System, [place] [address] PCP - General 01/02/24 documented as of this encounter
--- OUTSIDE RECORDS SUMMARY | 2024-12-24 07:18 | XMS_ITS | Encounter Summary ---
Author Organization [employer] ([place], [place], [place], [place]) Address [address] [place] [address] Care Team Providers Care Protective Services Officer Name Role Phone Sj, Provider Not In The System Primary Care Provider Unavailable Encounter Details Date Type Department Care Team (Late st Contact Info) Description 06/08/2020 Transcribed Document [facility] Family Medicine [facility] [place] [address] ProviderFran MD [address] [place] [address] Social History Tobacco Use Types Packs/Day Years Used Date Smoking Tobacco: Never Assessed Comments Unknown Sex and Gender Information Value Date Recorded Sex Assigned at Female 10/31/2021 8:48 PM CDT Legal Sex Female 8:48 PM CDT Gender Identity Female 10/31/2021 8:48 PM CDT Sexual Orientation Not on file documented as of this encounter Miscellaneous Notes * Cerner Conversion Note - Fran ProviderMD - 06/08/2020 2:26 PM [employer] Patient Education Materials Follows: General Anesthesia, Adult, Care After This sheet gives you information about how to care for yourself after your procedure. Your health care provider may also give you more specific instructions. If you have problems or questions, contact your health care provider. What can I expect after the procedure? After the procedure, the following side effects are common: ??? Pain or discomfort at the IV site. ??? Nausea. ??? Vomiting. ??? Sore throat. ??? Trouble concentrating. ??? Feeling cold or chills. ??? Weak or tired. ??? Sleepiness and fatigue. ??? Soreness and body aches. These side effects can affect parts of the body that were not involved in surgery. Follow these instructions at home: For at least 24 hours after the procedure: ??? Have a responsible adult stay with you. It is important to have someone help care for you until you are awake and alert. ??? Rest as needed. ??? Do not: ? Participate in activities in which you could fall or become injured. ? Drive. ? Use heavy machinery. ? Drink alcohol. ? Take sleeping pills or medicines that cause drowsiness. ? Make important decisions or sign legal documents. ? Take care of children on your own. Eating and drinking ??? Follow any instructions from your health care provider about eating or drinking restrictions. ??? When you feel hungry, start by eating small amounts of foods that are soft and easy to digest (bland), such as toast. Gradually return to your regular diet. ??? Drink enough fluid to keep your urine pale yellow. ??? If you vomit, rehydrate by drinking water, juice, or clear broth. General instructions ??? If you have sleep apnea, surgery and certain medicines can increase your risk for breathing problems. Follow instructions from your health care provider about wearing your sleep device: ? Anytime you are sleeping, including during daytime naps. ? While taking prescription pain medicines, sleeping medicines, or medicines that make you drowsy. ??? Return to your normal activities as told by your health care provider. Ask your health care provider what activities are safe for you. ??? Take jdnd-fxz-rtjkbcj and prescription medicines only as told by your health care provider. ??? If you smoke, do not smoke without supervision. ??? Keep all follow-up visits as told by your health care provider. This is important. Contact a health care provider if: ??? You have nausea or vomiting that does not get better with medicine. ??? You cannot eat or drink without vomiting. ??? You have pain that does not get better with medicine. ??? You are unable to pass urine. ??? You develop a skin rash. ??? You have a fever. ??? You have redness around your IV site that gets worse. Get help right away if: ??? You have difficulty breathing. ??? You have chest pain. ??? You have blood in your urine or stool, or you vomit blood. Summary ??? After the procedure, it is common to have a sore throat or nausea. It is also common to feel tired. ??? Have a responsible adult stay with you for the first 24 hours after general anesthesia. It is important to have someone help care for you until you are awake and alert. ??? When you feel hungry, start by eating small amounts of foods that are soft and easy to digest (bland), such as toast. Gradually return to your regular diet. ??? Drink enough fluid to keep your urine pale yellow. ??? Return to your normal activities as told by your health care provider. Ask your health care provider what activities are safe for you. This information is not intended to replace advice given to you by your health care provider. Make sure you discuss any questions you have with your health care provider. Document Released: 07/29/2001 Document Revised: 04/25/2018 Document Reviewed: 12/06/2017 [employer] Patient Education ? 2020 [employer] Hysteroscopy, Care After This sheet gives you information about how to care for yourself after your procedure. Your health care provider may also give you more specific instructions. If you have problems or questions, contact your health care provider. What can I expect after the procedure? After the procedure, it is common to have: ??? Cramping. ??? Bleeding. This can vary from light spotting to menstrual-like bleeding. Follow these instructions at home: Activity ??? Rest for 1?2 days after the procedure. ??? Do not douche, use tampons, or have sex for 2 weeks after the procedure, or until your health care provider approves. ??? Do not drive for 24 hours after the procedure, or for as long as told by your health care provider. ??? Do not drive, use heavy machinery, or drink alcohol while taking prescription pain medicines. Medicines ??? Take gval-lek-sbgkfhu and prescription medicines only as told by your health care provider. ??? Do not take aspirin during recovery. It can increase the risk of bleeding. General instructions ??? Do not take baths, swim, or use a hot tub until your health care provider approves. Take showers instead of baths for 2 weeks, or for as long as told by your health care provider. ??? To prevent or treat constipation while you are taking prescription pain medicine, your health care provider may recommend that you: ? Drink enough fluid to keep your urine clear or pale yellow. ? Take araj-sfm-pwlnkcx or prescription medicines. ? Eat foods that are high in fiber, such as fresh fruits and vegetables, whole grains, and beans. ? Limit foods that are high in fat and processed sugars, such as fried and sweet foods. ??? Keep all follow-up visits as told by your health care provider. This is important. Contact a health care provider if: ??? You feel dizzy or lightheaded. ??? You feel nauseous. ??? You have abnormal vaginal discharge. ??? You have a rash. ??? You have pain that does not get better with medicine. ??? You have chills. Get help right away if: ??? You have bleeding that is heavier than a normal menstrual period. ??? You have a fever. ??? You have pain or cramps that get worse. ??? You develop new abdominal pain. ??? You faint. ??? You have pain in your shoulders. ??? You have shortness of breath. Summary ??? After the procedure, you may have cramping and some vaginal bleeding. ??? Do not douche, use tampons, or have sex for 2 weeks after the procedure, or until your health care provider approves. ??? Do not take baths, swim, or use a hot tub until your health care provider approves. Take showers instead of baths for 2 weeks, or for as long as told by your health care provider. ??? Report any unusual symptoms to your health care provider. ??? Keep all follow-up visits as told by your health care provider. This is important. This information is not intended to replace advice given to you by your health care provider. Make sure you discuss any questions you have with your health care provider. Document Released: 02/10/2014 Document Revised: 04/04/2018 Document Reviewed: 05/21/2017 [employer] Patient Education ? 2020 [employer] Diagnostic Laparoscopy, Care After This sheet gives you information about how to care for yourself after your procedure. Your health care provider may also give you more specific instructions. If you have problems or questions, contact your health care provider. What can I expect after the procedure? After the procedure, it is common to have: ??? Mild discomfort in the abdomen. ??? Sore throat. Women who have laparoscopy with pelvic examination may have mild cramping and fluid coming from the vagina for a few days after the procedure. Follow these instructions at home: Medicines ??? Take gvor-tbr-lamqdtw and prescription medicines only as told by your health care provider. ??? If you were prescribed an antibiotic medicine, take it as told by your health care provider. Do not stop taking the antibiotic even if you start to feel better. Driving ??? Do not drive for 24 hours if you were given a medicine to help you relax (sedative) during your procedure. ??? Do not drive or use heavy machinery while taking prescription pain medicine. Bathing ??? Do not take baths, swim, or use a hot tub until your health care provider approves. You may take showers. Incision care ??? Follow instructions from your health care provider about how to take care of your incisions. Make sure you: ? Wash your hands with soap and water before you change your bandage (dressing). If soap and water are not available, use hand lot porter. ? Change your dressing as told by your health care provider. ? Leave stitches (sutures), skin glue, or adhesive strips in place. These skin closures may need to stay in place for 2 weeks or longer. If adhesive strip edges start to loosen and curl up, you may trim the loose edges. Do not remove adhesive strips completely unless your health care provider tells you to do that. ??? Check your incision areas every day for signs of infection. Check for: ? Redness, swelling, or pain. ? Fluid or blood. ? Warmth. ? Pus or a bad smell. Activity ??? Return to your normal activities as told by your health care provider. Ask your health care provider what activities are safe for you. ??? Do not lift anything that is heavier than 10 lb (4.5 kg), or the limit that you are told, until your health care provider says that it is safe. General instructions ??? To prevent or treat constipation while you are taking prescription pain medicine, your health care provider may recommend that you: ? Drink enough fluid to keep your urine pale yellow. ? Take onik-sqs-dcccsll or prescription medicines. ? Eat foods that are high in fiber, such as fresh fruits and vegetables, whole grains, and beans. ? Limit foods that are high in fat and processed sugars, such as fried and sweet foods. ??? Do not use any products that contain nicotine or tobacco, such as cigarettes and e-cigarettes. If you need help quitting, ask your health care provider. ??? Keep all follow-up visits as told by your health care provider. This is important. Contact a health care provider if: ??? You develop shoulder pain. ??? You feel lightheaded or faint. ??? You are unable to pass gas or have a bowel movement. ??? You feel nauseous or you vomit. ??? You develop a rash. ??? You have redness, swelling, or pain around any incision. ??? You have fluid or blood coming from any incision. ??? Any incision feels warm to the touch. ??? You have pus or a bad smell coming from any incision. ??? You have a fever or chills. Get help right away if: ??? You have severe pain. ??? You have vomiting that does not go away. ??? You have heavy bleeding from the vagina. ??? Any incision opens. ??? You have trouble breathing. ??? You have chest pain. Summary ??? After the procedure, it is common to have mild discomfort in the abdomen and a sore throat. ??? Check your incision areas every day for signs of infection. ??? Return to your normal activities as told by your health care provider. Ask your health care provider what activities are safe for you. This information is not intended to replace advice given to you by your health care provider. Make sure you discuss any questions you have with your health care provider. Document Released: 04/02/2016 Document Revised: 04/04/2018 Document Reviewed: 10/16/2017 [employer] Patient Education ? 2020 [employer] documented in this encounter Plan of Treatment Not on file documented as of this encounter Visit Diagnoses Not on filedocumented in this encounter Care Teams Protective Services Officer Relationship Specialty Start Date End Date [facility], Provider Not In The System, [place] [address] PCP - General 01/02/24 documented as of this encounter
--- OUTSIDE RECORDS SUMMARY | 2024-12-24 07:18 | XMS_ITS | Encounter Summary ---
Author Organization [employer] ([place], [place], [place], [place]) Address [address] [place] [address] Care Team Providers Care Technology Consultant Name Role Phone [facility], Provider Not In The System Primary Care Provider Unavailable Encounter Details Date Type Department Care Team (Late st Contact Info) Description 06/07/2020 Transcribed Document [facility] Family Medicine [facility] [place] [address] ProviderFran MD [address] [place] [address] Social History Tobacco Use Types Packs/Day [...] Cerner Conversion Note - Historical ProviderMD - 06/07/2020 1:04 PM ACCOUNTANT HELPER PAT Adult Entered On: 06/07/2020 13:09 EST Performed On: 06/07/2020 13:04 EST by Batsheva Lyons Rn Vital Measurements Temperature Source : Temporal artery scanning Temperature Mode : Fahrenheit Temperature, Fahrenheit : 98.2 Deg F Clinical Temperature, C : 36.8 Deg C Pulse Method : Pulse Oximetry Peripheral Pulse Rate : 67 bpm Pulse Rhythm : Regular Respiratory Rate : 16 Breaths/Min Blood Pressure Location : Arm, left upper Blood Pressure Source : Non-Invasive BP Device Blood Pressure Position : Sitting Systolic Blood Pressure : 119 mmHg Diastolic Blood Pressure : 58 mmHg (LOW) Oxygen Saturation : 97 % Oxygen Therapy Mode : Room air Batsheva Lyons Rn - 06/07/2020 13:04 EST Height and Weight, Clinical Dosing Height Source : Stated Height Entry Format : [place] Height, Feet : 5 ft(Converted to: 152 cm, 60 Inch) Height, Inches : 2 Inch(Converted to: 0 ft 2 Inch, 5.08 cm) Clinical Height : 157.48 cm Weight Source : Standing scale Weight Entry Format : [place] Clinical Dosing Weight : 94.09 kg Weight, Pounds : 207 lb Body Surface Area (BSA) : 1.94 m2 Body Mass Index : 37.9 kg/m2 ([place]) Bruce Body Weight : 50 kg Batsheva Lyons Rn - 06/07/2020 13:04 EST Health Histories Smoking Status : Never (less than 100 in lifetime; none in last 30 days) Smokeless Tobacco Status : Never Batsheva Lyons Rn - 06/07/2020 13:04 EST Social History (As Of: 06/07/2020 13:09:33 EST) Tobacco: Never (less than 100 in lifetime) Smoking Status. Never Smokeless Tobacco Status. (Last Updated: 06/07/2020 13:03:56 EST by Batsheva Lyons Rn) Alcohol: Alcohol Use History Yes. Use in Last 12 Months: Yes. Alcohol Use Frequency Socially. (Last Updated: 06/07/2020 13:04:06 EST by Batsheva Lyons Rn) Substance Abuse: Drug Use Hx: No. Use in Last 12 Months: No. (Last Updated: 06/07/2020 13:04:12 EST by Batsheva Lyons Rn) Infectious Disease History Has the patient ever been tested for COVID-19? : Yes, Patient stated results Negative Date of COVID-19 test known? : No Does patient have symptoms of COVID-19? : No COVID19 Screening : No Experiencing Infectious Disease Symptoms : No symptoms Physical contact outside [place] in the last 30 days : No Infectious Disease History : MRSA Infectious Disease History Comment : left thumb wound Tuberculosis Symptoms : None Batsheva Lyons Rn - 06/07/2020 13:04 EST COVID19 PreProcedure Screening Is this an Emergent or Add on Procedure? : No Date PreProcedure COVID-19 test known? : No Has patient been isolated since the test : N/A - PreProcedure, in-person visit Exposed to COVID19 symptoms since test? : N/A - PreProcedure, in-person visit Batsheva Lyons Rn - 06/07/2020 13:04 EST Anesthesia/Transfusion History Family History of Anesthesia Reaction : No prior transfusion(s) Transfusion History : Prior anesthesia without reaction Family History of Anesthesia Reaction : None Batsheva Lyons Rn - 06/07/2020 13:04 EST Advance Directive Patient has Advance Directive *Q : No, patient refuses Advance Directive information Batsheva Lyons Rn - 06/07/2020 13:04 EST [place] Suicide Severity Rating Scale (C-SSRS) CSSRS Past Month Wish to be : No CSSRS Past Month Suicidal Thoughts : No CSSRS Lifetime Suicide Behavior : No Suicide Severity Rating Score : 0 Suicide Severity Rating : No Additional Care Required at this time Batsheva Lyons Rn - 06/07/2020 13:04 EST Psychosocial History Do You Have a History of the Following? : Anxiety, Depression Currently in Unsafe Situation : No Batsheva Lyons Rn - 06/07/2020 13:04 EST Teaching/Learning Assessment Barriers To Learning : None evident Individuals Taught : Patient Readiness to Learn : Cooperative Readiness to Learn : Explanation, Printed materials Learning Style Preferences Family : Printed materials, Verbal explanation Batsheva Lyons Rn - 06/07/2020 13:04 EST Education Topics, Periop Preadmission Perioperative Education Grid Arrival Time/Place : Verbalizes understanding NPO Status/Directions : Verbalizes understanding Preprocedure Preparations : Verbalizes understanding Preprocedure Tests/Labs : Verbalizes understanding Responsible Adult : Verbalizes understanding Take/Hold Medications Pre-Procedure : Verbalizes understanding Batsheva Lyons Rn - 06/07/2020 13:04 EST General Info Arrived From : Home Mode of Arrival on Unit : Ambulatory Patient Arrival Date/Time : 06/07/2020 11:50 EST Legal Guardian : Unaccompanied Want Family/Rep/Phys Notified of Admit : No Emergency Contact #1 : Vitaly Emergency Contact #1 Emergency Contact #1 Relationship : Emergency Contact #2 : . Emergency Contact #2 Phone Number : . Emergency Contact #2 Relationship : . Information Obtained From : Patient Primary Language : Romanian Preferred Communication Mode : Verbal Communication Barrier : None Chipping Machine Operator Needed : No Batsheva Lyons Rn - 06/07/2020 13:04 EST Nikhil Scale Nikhil Sensory Perception : No impairment Nikhil Moisture : Rarely moist Nikhil Activity : Walks frequently Nikhil Mobility : No limitation Nikhil Nutrition : Adequate Nikhil Friction and Shear : No apparent problem Nikhil Score : 22 Batsheva Lyons Rn - 06/07/2020 13:04 EST Sleep Apnea Risk Assmt Hx of Obstructive Sleep Apnea Diagnosis : No Snore Loudly : No Tired, Fatigued, or Sleepy During Day : No Observed Stopping Breathing During Sleep : No Have/Are Being Treated for Hypertension : No BMI Greater Than 35 kg/m2 : Yes Age over 50 Years Old : No Neck Circumference Greater Than 40 cm : Yes Gender Male : No STOP-BANG Sleep Apnea Risk Level Score : 2 Batsheva Lyons Rn - 06/07/2020 13:04 EST documented in this encounter Plan of Treatment Not on file documented as of this encounter Visit Diagnoses Not on filedocumented in this encounter Care Teams Technology Consultant Relationship Specialty Start Date End Date [facility], Provider Not In The System, [place] [address] PCP - General 01/02/24 documented as of this encounter
--- OUTSIDE RECORDS SUMMARY | 2024-12-24 07:18 | XMS_ITS | Encounter Summary ---
Author Organization [employer] ([place], [place], [place], [place]) Address [address] [place] [address] Care Team Providers Care Risk Adjustment Specialist Name Role Phone Sj, Provider Not In The System Primary Care Provider Unavailable Encounter Details Date Type Department Care Team (Late st Contact Info) Description 06/08/[address] [facility] [place] [address] ProviderFran MD [address] [place] [address] Social History Tobacco Use Types Packs/Day [...] - Historical ProviderMD - 06/08/2020 12:57 PM [facility] Main OR PreOp Summary Primary Physician: Kavya SCHNEIDER MD-OBG Finalized Date/Time: 06/09/20 07:44:23 Pt. Name: OLEARY LIBRADO PAGE /Sex: 1995 Female Med Rec #: [id number] Physician: Kavya SCHNEIDER MD-OBG Financial #: [id number] Pt. Type: O Room/Bed: 14 Admit/Disch: 06/08/20 03:52:00 - 06/08/20 14:52:00 [place] [facility] [place] Case Times Entry 1 In Preop 06/08/20 08:40:00 Ready for Holding n/a Room Patient Ready for 06/08/20 09:41:00 Surgery Patient Out of Preop 06/08/20 12:33:00 Patient Out of n/a Holding Room Last Modified By: Myra Doan, Property Management Accountant-Nursing 06/09/20 07:44:21 [facility] [place] Case Times Audit 06/09/20 07:44:21 Director Of Placement: [email or web address] Modifier: [id number] <+> 1 Patient Out of Preop Finalized By: Myra Doan, Property Management Accountant-Nursing Document Signatures Signed By: Myra Doan, Property Management Accountant-Nursing 06/09/20 07:44 Electronically signed by Nanda [facility] Conversion Digital Media Designer Cerner at 08/21/2022 10:40 AM CDT documented in this encounter Plan of Treatment Not on file documented as of this encounter Visit Diagnoses Not on filedocumented in this encounter Care Teams Risk Adjustment Specialist Relationship Specialty Start Date End Date [facility], Provider Not In The System, [place] [address] PCP - General 01/02/24 documented as of this encounter
--- OUTSIDE RECORDS SUMMARY | 2024-12-24 07:18 | XMS_ITS | Encounter Summary ---
Author Organization [employer] ([place], [place], [place], [place]) Address [address] [place] [address] Care Team Providers Care Ware Carrier Name Role Phone Sj, Provider Not In The System Primary Care Provider Unavailable Encounter Details Date Type Department Care Team (Late st Contact Info) Description 06/08/2020 Transcribed Document [facility] [place] [facility] [place] [address] ProviderFran MD [address] [place] [address] Social History Tobacco Use Types Packs/Day [...] Conversion Note - Historical ProviderMD - 06/08/2020 9:27 AM IT APPLICATIONS ANALYST Pre Procedure Adult Entered On: 06/08/2020 9:31 EST Performed On: 06/08/2020 9:27 EST by Amelia Cain RN Height and Weight, Clinical Dosing Height Source : Stated Height Entry Format : [place] Height, Feet : 5 ft(Converted to: 152 cm, 60 Inch) Height, Inches : 2 Inch(Converted to: 0 ft 2 Inch, 5.08 cm) Clinical Height : 157.48 cm Weight Source : Standing scale Weight Entry Format : [place] Clinical [facility] Weight : 92.27 kg Weight, Pounds : 203 lb Body Surface Area (BSA) : 1.93 m2 Body Mass Index : 37.2 kg/m2 (HI) Roy Body Weight : 50 kg Amelia Cain RN - 06/08/2020 9:27 EST Health Histories Smoking Status : Never (less than 100 in lifetime; none in last 30 days) Smokeless Tobacco Status : Never Implant/Device Type, Horse Buyer and Model : [email or web address] Amelia Cain RN - 06/08/2020 9:27 EST Social History (As Of: 06/08/2020 09:31:12 EST) Tobacco: Never (less than 100 in [...] COVID-19? : Yes, Patient stated results Negative Where was the COVID-19 Testing completed? : [facility] Where are the test results? : In EMR Results, Paper Copy on chart Date of COVID-19 test known? : Yes Date of COVID-19 Test : 06/06/2020 EST Does patient have symptoms of COVID-19? : No COVID19 Screening : No Experiencing Infectious Disease Symptoms : No symptoms Physical contact outside [place] in the last 30 days : No Infectious Disease History : MRSA, Other: MRSA to left thub a few years ago Infectious Disease History Comment : left thumb wound Tuberculosis Symptoms : None Amelia Cain RN - 06/08/2020 9:27 EST COVID19 PreProcedure Screening Is this an Emergent or Add on Procedure? : No Date PreProcedure COVID-19 test known? : Yes Date of PreProcedure COVID-19 : 06/06/2020 EST Has patient been isolated since the test : Yes Exposed to COVID19 symptoms since test? : No Amelia Cain RN - 06/08/2020 9:27 EST Anesthesia/Transfusion History Family History of Anesthesia Reaction : No prior transfusion(s) Transfusion History : Prior anesthesia without reaction Family History of Anesthesia Reaction : None Amelia Cain RN - 06/08/2020 9:27 EST Functional Assessment Living Situation : Home Patient Lives With : Spouse Persons Assisting Patient at Home : Spouse Current Daily Living Assistance : None Sensory Deficits : None Mobility Assistance Prior to Admission : Independent GOMEZ Hx Falls Immediate/Within 3 Months : No Current Home Treatments : None Home Equipment : None Professional Skilled Services : None Special Services and Community Resources : None Amelia Cain RN - 06/08/2020 9:27 EST [place] Suicide Severity Rating Scale (C-SSRS) CSSRS Past Month Wish to be : No CSSRS Past Month Suicidal Thoughts : No CSSRS Lifetime Suicide Behavior : No Suicide Severity Rating Score : 0 Suicide Severity Rating : No Additional Care Required at this time Amelia Cain RN - 06/08/2020 9:27 EST Psychosocial History Do You Have a History of the Following? : Anxiety, Depression Currently in Unsafe Situation : No Amleia Cain RN - 06/08/2020 9:27 EST Advance Directive Patient has Advance Directive *Q : No, patient refuses Advance Directive information Amelia Cain RN - 06/08/2020 9:27 EST Spiritual/Cultural Needs Any Spiritual/Cultural Needs or Requests : No Amelia Cain RN - 06/08/2020 9:27 EST Teaching/Learning Assessment Barriers To Learning : None evident Individuals Taught : Patient Readiness to Learn : Cooperative Readiness to Learn : Explanation Learning Style Preferences Patient : None Learning Style Preferences Family : Printed materials, Verbal explanation Amelia Cain RN - 06/08/2020 9:27 EST Education Topics, Periop Preadmission Perioperative Education Grid Falls : Verbalizes understanding Infection Control : Verbalizes understanding IV's : Verbalizes understanding NPO Status/Directions : Verbalizes understanding Pain Management : Verbalizes understanding Postoperative Care Preparations : Verbalizes understanding Preprocedure Preparations : Verbalizes understanding Preprocedure Tests/Labs : Verbalizes understanding Amelia Cain RN - 06/08/2020 9:27 EST General Info Arrived From : Home Mode of Arrival on Unit : Ambulatory Patient Arrival Date/Time : 06/08/2020 8:40 EST Legal Guardian : Unaccompanied Want Family/Rep/Phys Notified of Admit : No Emergency Contact #1 : Vitaly Emergency Contact #1 Emergency Contact #1 Relationship : Emergency Contact #2 : . Emergency Contact #2 Phone Number : . Emergency Contact #2 Relationship : . Information Obtained From : Patient Primary Language : Kazakh Preferred Communication Mode : Verbal Communication Barrier : None Telecommunications Consultant Needed : No Currently Lactating : No Status : Patient denies Amelia Cain RN - 06/08/2020 9:27 EST Vital Measurements Temperature Source : Temporal artery scanning Temperature Mode : Fahrenheit Temperature, Fahrenheit : 98.7 Deg F Clinical Temperature, C : 37.1 Deg C Heart Rate, Apical : 77 bpm Respiratory Rate : 16 Breaths/Min Blood Pressure Location : Arm, left upper Systolic Blood Pressure : 110 mmHg Diastolic Blood Pressure : 68 mmHg Oxygen Saturation : 98 % Oxygen Therapy Mode : Room air Amelia Cain RN - 06/08/2020 9:27 EST Sleep Apnea Risk Assmt Hx of [...] Sleep Apnea Risk Level Score : 2 Amelia Cain RN - 06/08/2020 9:27 EST Nikhil Scale Nikhil Sensory Perception : No impairment Nikhil Moisture : Rarely moist Nikhil Activity : Walks frequently Nikhil Mobility : No limitation Nikhil Nutrition : Adequate Nikhil Friction and Shear : No apparent problem Nikhil Score : 22 Amelia Cain RN - 06/08/2020 9:27 EST Oxygen Therapy Oxygen Therapy Mode : Room air Amelia Cain RN - 06/08/2020 9:27 EST Pain Assessment Pain Assessment : Initial assessment Pain Scale Goal : 4 Pain Scale Used : 0-10 Scale Amelia Cain RN - 06/08/2020 9:27 EST Fall Risk Scales ABCs Fall Injury Risk Identification : None GOMEZ Hx Falls Immediate/Within 3 Months : No Gomez Secondary Diagnosis : No GOMEZ Use of Ambulatory Aid : None GOMEZ IV Therapy or IV Access : Yes Gomez Gait/Transferring : Normal, bedrest, immobile Gomez Mental Status : Oriented to own ability Gomez Fall Risk Score : 20 GOMEZ Fall Scale Risk Level : 0-24 Low Risk Beverly Fall Interventions : Adequate lighting, Bed in low position, Call device within reach, Room free of clutter/spills, Upper side-rails up, Wheels locked Amelia Cain RN - 06/08/2020 9:27 EST Fall Risk Education Grid Call light use : Verbalizes understanding Nonskid Footwear Use : Verbalizes understanding Prevention Responsibility Patient : Verbalizes understanding Amelia Cain RN - 06/08/2020 9:27 EST Barriers to Learning : None evident Individuals Taught : Patient Readiness to Learn : Cooperative Teaching Method : Explanation Learning Style Preferences Family : Printed materials, Verbal explanation Learning Style Preferences Patient : None Amelia Cain RN - 06/08/2020 9:27 EST Education Topics, Day of Surgery DayofSurgery Education Grid Fall Risks : Verbalizes understanding Family Instructions : Verbalizes understanding Infection Control : Verbalizes understanding Infection Risks : Verbalizes understanding IV's : Verbalizes understanding Medication Instructions : Verbalizes understanding Pain Management : Verbalizes understanding Plan of Care : Verbalizes understanding Amelia Cain RN - 06/08/2020 9:27 EST Valuables and Belongings Valuables and Belongings : Clothing, Personal devices Clothing : Common streetwear Clothing Disposition : Sent to locker, Declines to send to security/safe Personal Device Disposition : Sent to locker, Declines to send to security/safe Personal Devices : Glasses Amelia Cain RN - 06/08/2020 9:27 EST Pain Scale Intensity : 0 Amelia Cain RN - 06/08/2020 9:27 EST Image 4 - Images currently included in the form version of this document have not been included in the text rendition version of the form. Annabella Coma Annabella Best Motor Response : Obey commands [place] Best Verbal Response : Oriented Annabella Eye Opening Response : Spontaneous [place] Coma Score : 15 Amelia Cain RN - 06/08/2020 9:27 EST documented in this encounter Plan of Treatment Not on file documented as of this encounter Visit Diagnoses Not on filedocumented in this encounter Care Teams Ware Carrier Relationship Specialty Start Date End Date [facility], Provider Not In The System, [place] [address] PCP - General 01/02/24 documented as of this encounter
--- OUTSIDE RECORDS SUMMARY | 2024-12-24 07:18 | XMS_ITS | Referral Summary ---
Author Organization [employer] ([place], [place], [place], [place]) Address [address] [place] [address] Care Team Providers Care Double Surface Operator Name Role Phone [facility], Provider Not In The System MD Primary [...] Date Eb rded Speak language other than Vietnamese at home Not on file 01/02/2024 Want [...] 01/02/2024 10:35 PM EDT Plan of Treatment Not on file Procedures Procedure Name Priority Date/Time Associated Diagnosis Comments HEPATITIS PANEL, ACUTE Routine 01/02/2024 10:59 PM EDT HIV 1/2 AG/AB COMBO Routine 01/02/2024 1 0:59 PM EDT from Last 3 Months or Most Recently Relevant to Health Maintenance Results * HIV 1/2 AG/AB Combo (01/02/2024 10:59 PM EDT) HIV-1 P24 Antigen Nonreactive Nonreactive 01/03/2024 2:55 AM EDT [facility] Comment: The Combo HIV procedure is [...] 10:59 PM EDT 01/02/2024 11:10 PM EDT us Panfilo Doshi DO LAB BLOOD ORDERABLES Final Res ult [facility] [address] [phone] * Hepatitis panel, acute (01/02/2024 10:59 PM EDT) Hep A IgM Nonreactive Nonreactive, Equivocal 01/03/2024 2:59 AM EDT [facility] Hep B C IgM Nonreactive Nonreactive 01/03/2024 2:59 AM EDT [facility] Hepatitis B surface antigen Nonreactive Nonreactive, Equivocal 01/03/2024 2:59 AM EDT [facility] Hepatitis C Ab Nonreactive Nonreactive, Equivocal 01/03/2024 2:59 AM EDT [facility] Blood Venipuncture / Unknown 01/02/2024 10:59 PM EDT 01/02/2024 11:10 PM EDT [facility] - 01/03/2024 2:59 AM EDT Hepatitis [...] DO LAB BLOOD ORDERABLES Final Res ult [facility] [address] [place] [id number], [facility] [phone] from Last 3 Months or Most Recently Relevant to Health Maintenance Insurance BLUE CROSS/BLUE SHIELD Advance Directives For more information, please contact: [phone] * Full Code (Latest Code Status on File) Date Activated Date Inactivated Comments 01/02/2024 10:13 PM 01/04/2024 5:29 PM -Attempt Re suscitation if person has no pulse and is not breathing. -If no pulse or not breathing attempt CPR/CODE. -Call Rapid Response if patient is in distress. Care Teams Double Surface Operator Relationship Specialty Start Date End Date [facility], Provider Not In The System, [place] [address] PCP - General 01/02/24
--- OUTSIDE RECORDS SUMMARY | 2024-12-24 07:18 | XMS_ITS | Encounter Summary ---
Author Organization [employer] ([place], [place], [place], [place]) Address [address] [place] [address] Care Team Providers Care Supervisor Poultry Processing Name Role Phone [facility], Provider Not In The System Primary Care Provider Unavailable Encounter Details Date Type Department Care Team (Late st Contact Info) Description 06/08/2020 Transcribed Document [facility] [place] [address] [place] [address] ProviderFran MD [address] [place] [id number] Social History Tobacco Use Types Packs/Day Years [...] Conversion Note - Historical ProviderMD - 06/08/2020 1:45 PM FITTER / WELDER DATE OF PROCEDURE: 06/08/2020 SURGEON: Kavya Godinez MD PREOPERATIVE DIAGNOSES: Dysfunctional uterine bleeding, dysmenorrhea, pelvic pain, polycystic ovaries, operable endometriosis. POSTOPERATIVE DIAGNOSES: Dysfunctional uterine bleeding, dysmenorrhea, pelvic pain, polycystic ovaries, operable endometriosis, retroversion, left ovarian cyst. PROCEDURES: Hysteroscopy, dilatation and curettage, cystoscopy, robotic laparoscopy, excision of left ovarian cyst, right and left ovarian drilling, uterine suspension, excision of endometriosis. IDENTIFICATION: Librado is a 24-year-old white female, 1, para 0, AB1 with a history of dysfunctional bleeding, pelvic pain, dyspareunia, dysmenorrhea. Evaluation reveals polycystic ovaries by ultrasound. She has a history of suggestive diagnosis of endometriosis and a positive family history. She is for diagnostic evaluation and therapeutic intervention at this time. DESCRIPTION OF PROCEDURE: The patient was taken to the operating quarter, placed in the supine semi-lithotomy position. After adequate general endotracheal anesthesia was obtained, she was prepped and draped in routine fashion for laparoscopic procedure. Cervix was visualized and grasped anteriorly. Uterus sounded to 8 cm. Adilson dilator was used to minimally dilate the cervix. Hysteroscope was introduced. The contour of the cavity was unremarkable. Tubal ostia were visualized bilaterally. No fibroids or polyps were noted. Endometrial curettings were obtained. Attention was turned to the abdominal procedure. Periumbilical skin incision was made. Veress needle was inserted into the peritoneal cavity. CO2 was allowed to insufflate to create a pneumoperitoneum. Laparoscope was inserted. Robotic trocars were placed 10 cm on either side and the assist port in the right upper quadrant. Robot was docked. Uterus noted to be upper limits of normal size, retroflexed, and retroverted. Anterior cul-de-sac was unremarkable. Posterior cul-de-sac revealed 3 areas consistent with endometriosis. Excisional biopsy was undertaken. The tubes were normal throughout their course with healthy-appearing fimbria. The ovaries were bilaterally enlarged, opalescent, and multicystic. There were 2 small projectile cysts on the left ovary. These were dissected and removed. RevoLix laser was used at 15 crouch continuous for ovarian drilling. Multiple sites were drilled with cystic fluid extruding for most. The appendix was normal as the bowel surface, liver edge, gallbladder, and stomach. Uterine suspension was undertaken. 0 Ethibond was used. A pass was made to the anterior abdominal wall fascia just above the symphysis pubis and just lateral to the obliterated umbilical on each side. A triplicated pass through the round ligament and a second pass through the fascia. The ligament was elevated in a macario fashion and tied down intracorporeally. The uterus now maintaining a mid-plane position. Once the trocars were removed, the incision was closed with 3-0 Monocryl and Dermabond. Cystoscopy was performed. Urethra was normal throughout its length. Contour of the bladder was unremarkable. Ureteral orifices were normal. Clear yellow urine seemed to efflux bilaterally. No lesions, tumors, or foreign bodies were noted. Sponge and needle counts were correct. Blood loss was less than 10 mL. The patient tolerated the procedure well and left the operating room in satisfactory condition. /[id number] MarvinMD COSME Craven/AQ / COSME / MODL /[id number] documented in this encounter Plan of Treatment Not on file documented as of this encounter Visit Diagnoses Not on filedocumented in this encounter Care Teams Supervisor Poultry Processing Relationship Specialty Start Date End Date [facility], Provider Not In The System, [place] [address] PCP - General 01/02/24 documented as of this encounter
--- OUTSIDE RECORDS SUMMARY | 2024-12-24 07:18 | XMS_ITS | Clinical Summary ---
Author Organization [facility] Address [address] [place] [address] Care Team Providers Care Tread Tuber Machine Operator Name Role Phone Provider, No Known Primary Care Provider Unavail able Allergies No known active allergies Medications aspirin 81 MG EC tablet Take 1 tablet by mouth Daily. 05/15/2023 Active Vit-Fe Fumarate-FA ( vitamin 27-0.8) 27-0.8 MG tablet tablet Take 1 tablet by mouth Daily. Active Active Problems Problem Noted Date Diagnosed Date History of pre-eclampsia in prior , currently in second trimester 06/06/2023 Assessment & Plan (06/06/2023 10:42 AM EST): The only proven prevention strategy for preeclampsia is low dose aspirin during . In fact, the USPTF recommends low dose aspirin initiation after 12 wks gestation for preeclampsia prevention in these women. Daily low dose aspirin has been linked to a 24% risk reduction for preeclampsia, 14% reduction in , and a 20% reduction in growth restriction (130g increased mean birthweight). Patient is currently on low-dose aspirin. Baseline preeclampsia evaluation is generally recommended at the beginning of and patients with a history of preeclampsia, available records do not indicate this was performed. Would recommend baseline serum evaluation for preeclampsia and potential 24-hour urine protein (though this may not reflect true baseline given advanced gestation) Choroid plexus cyst of fetus affecting care of mother, antepartum 06/06/2023 Assessment & Plan (06/06/2023 11:07 AM EST): Today's ultrasound does not show evidence of a choroid plexus cyst and no other abnormalities suggestive of trisomy 18. Choroid plexus cyst is seen sonographically upon evaluation of the choroid plexus in an axial view through the upper portion of the head. Choroid plexus cysts result from the obstruction of the microtubules connecting the fluid-producing cells within the lateral ventricles. They can be bilateral or unilateral, single or multiple, and are relatively common occurring in at least 1% of all fetuses. The cysts themselves are not pathologic and nearly all of them resolve by the third trimester. While debated extensively in the past, it does not appear that isolated choroid plexus cysts represent markers for Down syndrome, although they have been described as being associated with trisomy 18. Patient previously had NIPT which was low risk for aneuploidy. We discussed option for diagnostic testing with amniocentesis which patient currently declines. Social History Tobacco Use Types Packs/Day Years Used Date Smoking Tobacco: Never Smokeless Tobacco: Never Alcohol Use Standard Drinks/Week Comments Never 0 (1 standard drink = 0.6 oz pur e alcohol) Abuse Screen Answer Date Recorded Unsafe at Home or Work/School Not on file Feels Threatened by Someone? Not on file 04/2023 Does Anyone Keep You from Co ntacting Others or Doint Things Outside the Home? Not on file 02/14/2023 Physical Sign of Abuse Present Not on file 1 Housing Stability Answer Date Recorded Current Living Arrangements Not on file 02/03 Potentially Unsafe Housing Conditions Not on wenceslao e 02/14/2023 Family and Community Support Answer Valentino e Recorded Help with Day-to-Day Activities Not on file 02/14/2023 Lonely or Isolated Not on file 02/14/2023 Employment Answer Date Recorded Do you want help finding or keeping work or a vineet b? Not on file 02/14/2023 Disabilities Answer Date Recorded Concentrating, Remembering, or Making Decisions Difficulty Not on file 02/14/2023 Doing Errands Independently Difficulty Not on fi le 02/14/2023 Education Answer Date Recorded Help with school or training? Not on file Preferred Language Not on file 02/14/2023 Comments No Sex and Gender Information Value Date Recorded Sex Assigned at Not on file Legal Sex Female 4:37 PM EDT Gender Identity Not on file Sexual Orientation Not on file Last Filed Vital Signs Vital Sign Reading Time Taken Comments Blood Pressure 121/82 06/06/2023 10:27 AM EST Pulse - - Temperature - - Respiratory Rate - - Oxygen Saturation - - Inhaled Oxygen Concentration - - Weight 105 kg (232 lb 6.4 oz) 06/06/2023 10:27 A M EST Height 160 cm (5' 3 ) 06/06/2023 10:29 AM EST Body Mass Index 41.17 06/06/2023 10:27 AM EST Plan of Treatment Health Maintenance Due Date Last Done Comments Annual Gynecologic Pelvic an d Breast Exam 1995 ANNUAL PHYSICAL 05/17/2023 COVID-19 Vaccine (1 - 2023-2 5 season) 2024 INFLUENZA VACCINE 02/03/2025 03/07/2022, 03/07/2022, 01/18/2020 TDAP/TD VACCINES (2 - Td or Tdap) 10/07/2028 10/07/2018 HEPATITIS C SCREENING Completed 01/06/2024 Pneumococcal Vaccine 0-49 Aged Out No longer eligible based on patient's age to complete this topic Insurance [place] [address] PPO Care Teams Tread Tuber Machine Operator Relationship Specialty Start Date End Date Provider, No Known [facility] [place] [address] PCP - General 12/14/19
--- OUTSIDE RECORDS SUMMARY | 2024-12-24 07:18 | XMS_ITS | Encounter Summary ---
Author Organization [employer] ([place], [place], [place], [place]) Address [address] [place] [address] Care Team Providers Care Power Distribution Engineer Name Role Phone [facility], Provider Not In The System Primary Care Provider Unavailable Encounter Details Date Type Department Care Team (Late st Contact Info) Description 06/08/2020 Transcribed Document [facility] [place] [facility] [place] [address] ProviderFran MD [address] [place] [address] [phone] Social History Tobacco Use Types Packs/Day Years [...] Conversion Note - Historical ProviderMD - 06/08/2020 11:41 AM MINING ENGINEERING TECHNOLOGIST Event Note Entered On: 06/08/2020 11:41 EST Performed On: 06/08/2020 11:41 EST by Amelia Cain RN Event Note Event Date/Time : 06/08/2020 11:41 EST Description of Event : 1141: Updated family via phone call and patient. Amelia Cain RN - 06/08/2020 11:41 EST Electronically signed by Nanda [facility] Conversion [employer] Controller Cerner at 08/21/2022 10:38 AM CDT documented in this encounter Plan of Treatment Not on file documented as of this encounter Visit Diagnoses Not on filedocumented in this encounter Care Teams Power Distribution Engineer Relationship Specialty Start Date End Date [place], Provider Not In The System, [place] [address] PCP - General 01/02/24 documented as of this encounter
--- OUTSIDE RECORDS SUMMARY | 2024-12-24 07:18 | XMS_ITS | Patient Health Record ---
Author Organization [facility] Address [address] [place] [address] Care Team Providers Care Director Digital Advertising Name Role Phone Micaela Bailey Unavailable [phone] Reason For Referral No Information Social History Social History Additional Details Category Social Info Options Details Miscellaneous: Sexually active: SEXUAL AC TIV: Current Problems Problem Type SNOMED Code ICD Code Onset Dates Problem Status W/U Status Risk Notes Problem Primary dysmenorrhea (57441254) Primary dysmenorrhea (N94.4) Active confirmed Primary dysmenorrhea Problem Endometriosis of pelvic peritoneum (654164129) Broad ligament endometriosis (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.3) Active confirmed Endometriosis of pelvic peritoneum Problem Polycystic bilateral ovaries (disorder) (651148910) Bilateral polycystic ovarian syndrome (E28.2) Active confirmed PCOS Problem Pelvic and perineal pain (421728451) Abdominal pain, suprapubic (R10.2) Active confirmed Abdominal pain, pelvic and perineal Problem Breakthrough bleeding (04248713) Breakthrough bleeding (N92.1) Active confirmed Excessive and frequent menstruation with irregular cycle Plan Of Treatment No Information Medical (General) History Medical History History ICD Code anxiety PCOS Irregular cycles Dysmenorrhea Pelvic pain Endometriosis Femara 2.5 mg tablet, BY MOUTH Zoloft 50 mg tablet, BY MOUTH ibuprofen 800 mg tablet, BY MOUTH Prometrium 100 mg capsule Surgical History Surgery Date(Month/Year) hyst D&C, cysto, luan dx lap, exc of left ov cyst, right and left ov drilling, ut susp, exc of endo 06/08/2020
--- OUTSIDE RECORDS SUMMARY | 2024-12-24 07:18 | XMS_ITS | Encounter Summary ---
Author Organization [employer] ([place], [place], [place], [place]) Address [address] [place] [address] Care Team Providers Care Neuropathologist Name Role Phone [facility], Provider Not In The System Primary Care Provider Unavailable Encounter Details Date Type Department Care Team (Late st Contact Info) Description 06/08/2020 Transcribed Document [facility] [place] [facility] [place] [address] ProviderFran MD [address] [place] [address] [phone] Social History Tobacco Use Types Packs/Day Years [...] - Historical ProviderMD - 06/08/2020 12:57 PM FINAL INSPECTOR AND TESTER Event Note Entered On: 06/08/2020 12:58 EST Performed On: 06/08/2020 12:57 EST by Amelia Cain RN Event Note Event Date/Time : 06/08/2020 12:57 EST Description of Event : 1257: Updated family via phone call. Amelia Cain RN - 06/08/2020 12:57 EST Electronically signed by Nanda [facility] Conversion Title Clerk Automobile Cerner at 08/21/2022 10:25 AM CDT documented in this encounter Plan of Treatment Not on file documented as of this encounter Visit Diagnoses Not on filedocumented in this encounter Care Teams Neuropathologist Relationship Specialty Start Date End Date [facility], Provider Not In The System, [place] [address] PCP - General 01/02/24 documented as of this encounter
--- OUTSIDE RECORDS SUMMARY | 2024-12-24 07:18 | XMS_ITS | Encounter Summary ---
Author Organization [employer] ([place], [place], [place], [place]) Address [address] [place] [address] Care Team Providers Care Military Exchange Wireless Manager Name Role Phone Sj, Provider Not In The System Primary Care Provider Unavailable Encounter Details Date Type Department Care Team (Late st Contact Info) Description 06/08/2020 Transcribed Document [facility] [place] [address] ProviderFran MD [address] [place] [id number] Social History Tobacco Use Types Packs/Day [...] Conversion Note - Historical ProviderMD - 06/08/2020 2:27 PM LAWN [employer]OWER OPERATOR [address] [address] LIBRADO OLEARY :1995 Visit Time:06/08/2020 What to do next Your Diagnosis Polycystic ovarian syndrome, Polycystic ovarian syndrome Instructions From Your Care Team You have a prescription for percocet 5/325mg. take 1 tablet bymouth every 4-6hours as needed for pain Vaginal rest until follow-up. No intercourse, no tampons. Follow-Up Appointments Follow Up with Kavya SCHNEIDER MD-OBG When Within 1 week Comments follow-up as scheduled Where: [address] [facility] [address] [place] [address]- Medications What How Much When Instructions Next Dose sertraline 50 Milligram(s) Oral Every Day Take your medications faithfully. Do NOT skip medication. Do NOT stop taking medications without the direction of a physician. Carry a list of your medications with you at all times, and take this medication list with you to your first follow up visit. Report any side effects. Avoid herbal remedies unless discussed with your physician. As part of your treatment plan, your physician may have prescribed a limited course of a controlled substance. This medication may be given to help people with moderate or severe pain or for other medical conditions, but there are risks involved with treatment. Common side effects may include nausea, constipation, drowsiness, sweating, itching, dry mouth, and rash. More serious side effects may include cognitive and motor impairment, like problems with thinking, concentrating, alertness, and movement (e.g. slowed reflexes), and driving and operating heavy machinery can be dangerous. It is important for you to talk to your physician if you have these side effects or questions. These controlled substances can produce physical dependence and be habit-forming if taken for an extended period of time, which means that the body has gotten used to them and may experience withdrawal symptoms if they are abruptly stopped. Withdrawal symptoms can include runny nose, sweating, goose bumps, diarrhea, abdominal cramping, rapid heartbeat, difficulty sleeping, and nervousness. Please dispose of unused and medications per pharmacy guidance. Education Materials General Anesthesia, Adult, Care After This sheet [...] activities are safe for you. ??? Take chaq-neu-zdfwikm and prescription medicines only as told by [...] 07/29/2001 Document Revised: 04/25/2018 Document Reviewed: 12/06/2017 [employer] Patient Education ?? 2020 [employer]. Hysteroscopy, Care After This sheet gives you [...] instructions at home: Activity ??? Rest for 1???2 days after the procedure. ??? Do not [...] taking prescription pain medicines. Medicines ??? Take gxmi-djk-mwdlqrm and prescription medicines only as told by [...] urine clear or pale yellow. ? Take ayes-wev-jihzuzj or prescription medicines. ? Eat foods that [...] 02/10/2014 Document Revised: 04/04/2018 Document Reviewed: 05/21/2017 [employer] Patient Education ?? 2020 [employer] Diagnostic Laparoscopy, Care After This sheet [...] these instructions at home: Medicines ??? Take egzp-asx-afeazze and prescription medicines only as told by [...] and water are not available, use hand retail pharmacy merchandiser. ? Change your dressing as told by [...] keep your urine pale yellow. ? Take chtj-xwx-bidzyfa or prescription medicines. ? Eat foods that [...] 04/02/2016 Document Revised: 04/04/2018 Document Reviewed: 10/16/2017 [employer] Patient Education ?? 2020 [employer]isto. acetaminophen and oxycodone (a SEET a MIN oh fen and OX i KOE done) Endocet 10/325, Endocet 2.5/325, Endocet 5/325, Endocet 7.5/325, Nalocet, Percocet, Primlev What is the most important information I should know about acetaminophen and oxycodone? MISUSE OF OPIOID MEDICINE CAN CAUSE ADDICTION, OVERDOSE, OR . Keep the medication in a place where others cannot get to it. Taking opioid medicine during may cause life-threatening withdrawal symptoms in the . Fatal side effects can occur if you use opioid medicine with alcohol, or with other drugs that cause drowsiness or slow your breathing. Stop taking this medicine and call your doctor right away if you have skin redness or a rash that spreads and causes blistering and peeling. What is acetaminophen and oxycodone? Acetaminophen and oxycodone is a combination medicine used to relieve moderate to severe pain. Acetaminophen and oxycodone contains an opioide medicine and may be habit-forming. Acetaminophen and oxycodone may also be used for purposes not listed in this medication guide. What should I discuss with my healthcare provider before taking acetaminophen and oxycodone? You should not use this medicine if you are allergic to acetaminophen or oxycodone, or if you have: ?? severe asthma or breathing problems; or ?? a blockage in your stomach or intestines. Tell your doctor if you have ever had: ?? breathing problems, sleep apnea; ?? liver disease; ?? a drug or alcohol addiction; ?? kidney disease; ?? a head injury or seizures; ?? urination problems; or ?? problems with your thyroid, pancreas, or gallbladder. If you use opioid medicine while you are , your baby could become dependent on the drug. This can cause life-threatening withdrawal symptoms in the baby after it is born. Babies born dependent on opioids may need medical treatment for several weeks. Ask a doctor before using opioid medicine if you are . Tell your doctor if you notice severe drowsiness or slow breathing in the nursing baby. How should I take acetaminophen and oxycodone? Follow all directions on your prescription label. Never take this medicine in larger amounts, or for longer than prescribed. An overdose can damage your liver or cause . Tell your doctor if you feel an increased urge to use more of this medicine. Never share this medicine with another person, especially someone with a history of drug abuse or addiction. MISUSE CAN CAUSE ADDICTION, OVERDOSE, OR . Keep the medicine in a place where others cannot get to it. Selling or giving away acetaminophen and oxycodone is against the law. Measure liquid medicine carefully. Use the dosing syringe provided, or use a medicine dose-measuring device (not a kitchen spoon). If you need surgery or medical tests, tell the doctor ahead of time that you are using this medicine. You should not stop using this medicine suddenly. Follow your doctor's instructions about tapering your dose. Store at room temperature away from moisture and heat. Keep track of your medicine. You should be aware if anyone is using it improperly or without a prescription. Do not keep leftover opioid medication. Just one dose can cause in someone using this medicine accidentally or improperly. Ask your pharmacist where to locate a drug take-back disposal program. If there is no take-back program, flush the unused medicine down the toilet. What happens if I miss a dose? Since this medicine is used for pain, you are not likely to miss a dose. Skip any missed dose if it is almost time for your next dose. Do not use two doses at one time. What happens if I overdose? Seek emergency medical attention or call the Poison Help line at . An overdose of this medicine can be fatal, especially in a child or other person using the medicine without a prescription. Overdose symptoms may include nausea, vomiting, sweating, severe drowsiness, pinpoint pupils, slow breathing, or no breathing. Your doctor may recommend you get naloxone (a medicine to reverse an opioid overdose) and keep it with you at all times. A person caring for you can give the naloxone if you stop breathing or don't wake up. Your caregiver must still get emergency medical help and may need to perform CPR (cardiopulmonary resuscitation) on you while waiting for help to arrive. Anyone can buy naloxone from a pharmacy or local health department. Make sure any person caring for you knows where you keep naloxone and how to use it. What should I avoid while taking acetaminophen and oxycodone? Avoid driving or operating machinery until you know how this medicine will affect you. Dizziness or drowsiness can cause falls, accidents, or severe injuries. Do not drink alcohol. Dangerous side effects or could occur. Ask a doctor or pharmacist before using any other medicine that may contain acetaminophen (sometimes abbreviated as APAP). Taking certain medications together can lead to a fatal overdose. What are the possible side effects of acetaminophen and oxycodone? Get emergency medical help if you have signs of an allergic reaction: hives; difficulty breathing; swelling of your face, lips, tongue, or throat. Opioid medicine can slow or stop your breathing, and may occur. A person caring for you should give naloxone and/or seek emergency medical attention if you have slow breathing with long pauses, blue colored lips, or if you are hard to wake up. In rare cases, acetaminophen may cause a severe skin reaction that can be fatal. This could occur even if you have taken acetaminophen in the past and had no reaction. Stop taking this medicine and call your doctor right away if you have skin redness or a rash that spreads and causes blistering and peeling. Call your doctor at once if you have: ?? noisy breathing, sighing, shallow breathing, breathing that stops during sleep; ?? a light-headed feeling, like you might pass out; ?? weakness, tiredness, fever, unusual bruising or bleeding; ?? confusion, unusual thoughts or behavior; ?? problems with urination; ?? liver problems--nausea, upper stomach pain, tiredness, loss of appetite, dark urine, april-colored stools, jaundice (yellowing of the skin or eyes); or ?? low cortisol levels-- nausea, vomiting, loss of appetite, dizziness, worsening tiredness or weakness. Seek medical attention right away if you have symptoms of serotonin syndrome, such as: agitation, hallucinations, fever, sweating, shivering, fast heart rate, muscle stiffness, twitching, loss of coordination, nausea, vomiting, or diarrhea. Serious side effects may be more likely in older adults and those who are malnourished or debilitated. Long-term use of opioid medication may affect fertility (ability to have children) in men or women. It is not known whether opioid effects on fertility are permanent. Common side effects include: ?? dizziness, drowsiness, feeling tired; ?? feelings of extreme happiness or sadness; ?? nausea, vomiting, stomach pain; ?? constipation; or ?? headache. This is not a complete list of side effects and others may occur. Call your doctor for medical advice about side effects. You may report side effects to FDA at 7-391-QEG-0681. What other drugs will affect acetaminophen and oxycodone? You may have breathing problems or withdrawal symptoms if you start or stop taking certain other medicines. Tell your doctor if you also use an antibiotic, antifungal medication, heart or blood pressure medication, seizure medication, or medicine to treat HIV or hepatitis C. Opioid medication can interact with many other drugs and cause dangerous side effects or . Be sure your doctor knows if you also use: ?? cold or allergy medicines, bronchodilator asthma/COPD medication, or a diuretic ('water pill'); ?? medicines for motion sickness, irritable bowel syndrome, or overactive bladder; ?? other narcotic medications--opioid pain medicine or prescription cough medicine; ?? a sedative like Valium--diazepam, alprazolam, lorazepam, Xanax, Klonopin, Versed, and others; ?? drugs that make you sleepy or slow your breathing--a sleeping pill, muscle relaxer, medicine to treat mood disorders or mental illness; ?? drugs that affect serotonin levels in your body--a stimulant, or medicine for depression, Parkinson's disease, migraine headaches, serious infections, or nausea and vomiting. This list is not complete. Other drugs may affect acetaminophen and oxycodone, including prescription and gfnq-rir-hspsbpi medicines, vitamins, and herbal products. Not all possible interactions are listed here. Where can I get more information? Your doctor or pharmacist can provide more information about acetaminophen and oxycodone. Remember, keep this and all other medicines out of the reach of children, never share your medicines with others, and use this medication only for the indication prescribed. Every effort has been made to ensure that the information provided by [employer] ('[employer]') is accurate, up-to-date, and complete, but no guarantee is made to that effect. Drug information contained herein may be time sensitive. [employer] information has been compiled for use by healthcare practitioners and consumers in the [place] and therefore [employer] does not warrant that uses outside of the [place] are appropriate, unless specifically indicated otherwise. [employer]'s drug information does not endorse drugs, diagnose patients or recommend therapy. [employer] drug information is an informational resource designed to assist licensed healthcare practitioners in caring for their patients and/or to serve consumers viewing this service as a supplement to, and not a substitute for, the expertise, skill, knowledge and judgment of healthcare practitioners. The absence of a warning for a given drug or drug combination in no way should be construed to indicate that the drug or drug combination is safe, effective or appropriate for any given patient. [facility] does not assume any responsibility for any aspect of healthcare administered with the aid of information [employer] provides. The information contained herein is not intended to cover all possible uses, directions, precautions, warnings, drug interactions, allergic reactions, or adverse effects. If you have questions about the drugs you are taking, check with your doctor, nurse or pharmacist. Copyright 9637-1691 [facility] [employer]. Version: .. Revision Date: 05/18/2020. Emergency Awareness and Preventative Care STROKE is an EMERGENCY Every Minute Counts Act FAST and Check for these signs: FACE Does the face look uneven? ARM Does one arm drift down? SPEECH Does their speech sound strange? TIME Call at any sign of stroke Stroke Risk Factors Atrial Fibrillation (irregular heartbeat) Diabetes Family history of stroke Heart Disease Heavy alcohol use High Blood Pressure High Cholesterol Physical inactivity and obesity Smoking Cigarette Smoking The facts are clear, cigarette smoking will shorten your life. Smoking can cause many illnesses along the way. As a healthcare provider, we recommend that you stop smoking. Assistance with quitting is available by contacting 0-424-KUKK-NOW. This is a free resource providing counseling, support, and referral. Or you may contact your personal physician. National Suicide Prevention Lifeline: The National Suicide Prevention Lifeline is a national network of local crisis centers that provides free and confidential emotional support to people in suicidal crisis or emotional distress 24 hours a day, 7 days a week. Don't Wait! Stop a Heart Attack Before it Starts What is a heart attack? A heart attack is damage or to a part of the heart from severely decreased or lack of blood flow to the heart. Over time, arteries can become narrow from the buildup of fat and cholesterol, which is called plaque. The plaque can rupture causing a blood clot to form. When the blood clot forms, the artery can become severely narrowed or completely blocked, causing a heart attack. Heart attack is the leading cause of in the [place]. 85% of muscle damage occurs within the first 2 hours. Delay in the recognition of heart attack symptoms increases the chances of . Know the early symptoms of a heart attack: Nausea Feeling of fullness in chest Jaw Pain Pain that travels down one or both arms Fatigue/being tired Anxiety Back Pain Chest pressure, squeezing, or discomfort Shortness of breath Sweating, or a cold sweat Feeling of impending doom There are unusual signs of a heart attack, too! Women, the elderly, and diabetics may present with atypical symptoms: Fainting/dizziness Weakness Confusion Risk Factors for a Heart Attack Some heart disease risk factors, such as age and family history, cannot be changed. Others, like smoking and lack of exercise, can be changed. Smoking High Cholesterol High Blood Pressure Family History Obesity Age Gender (Males are at higher risk) Lack of Exercise Diabetes Diet Stress Excessive Alcohol Intake If you or someone you know is experiencing the signs and symptoms of a heart attack, DON???T DELAY. Call immediately and seek help. If someone collapses, perform CPR! Do not attempt to drive if you are having symptoms of heart attack. Hands-Only CPR Why Hands-Only CPR? Hands-Only CPR has been shown to be as effective as conventional CPR for cardiac arrests that occur outside of a hospital. Survival depends on immediately receiving CPR from someone nearby. How do you perform Hands-Only CPR? There are two easy steps: Call if you see a teen or adult collapse Push hard and fast in the center of the chest at a beat of 100 beats per minute. Save a life! 4 WAYS TO GET AHEAD OF SEPSIS SEPSIS is a MEDICAL EMERGENCY. Time matters! Infections put you and your family at risk for a life-threatening condition called sepsis. Sepsis is the body's extreme response to an infection. It is life-threatening, and without timely treatment, sepsis can rapidly lead to tissue damage, organ failure, and . Sepsis happens when an infection you already have-in your skin, lungs, urinary tract or somewhere else-triggers a chain reaction throughout your body. 1 PREVENT INFECTIONS Take good care of chronic conditions. Talk to your doctor about getting the recommended vaccines. 2 PRACTICE GOOD HYGIENE Wash your hands frequently. Keep cuts or open sores clean and covered until they are healed. 3 KNOW THE SYMPTOMS Confusion or disorientation Shortness of breath High heart rate Fever, shivering, or feeling very cold Extreme pain or discomfort Clammy or sweaty skin 4 ACT FAST Get medical care IMMEDIATELY if you suspect sepsis or if you have an infection that is not getting better or is getting worse. To learn more about sepsis and how to prevent infections, visit www.cdc.gov/sepsis. Test Results Laboratory or Other Results This Visit (last charted value for your 06/08/2020 visit) Hematology 06/07/2020 1:14 PM WBC: 9.9 K/uL -- Normal range between ( 3.9 and 10.0 ) RBC: 5.48 Million/uL -- Normal range between ( 3.93 and 5.22 ) Hct: 45.3 % -- Normal range between ( 34.1 and 44.9 ) Hgb: 15.4 Gram/dL -- Normal range between ( 11.2 and 15.7 ) Platelet Count: 365 K/uL -- Normal range between ( 163 and 369 ) MCH: 28.1 pg -- Normal range between ( 25.6 and 32.2 ) MCHC: 34.0 Gram/dL -- Normal range between ( 32.3 and 36.5 ) MCV: 82.7 fL -- Normal range between ( 79.0 and 94.8 ) Slide Review: No RDW: 11.7 % -- Normal range between ( 11.6 and 14.4 ) MPV: 9.5 fL -- Normal range between ( 9.4 and 12.4 ) Microbiology 06/06/2020 11:07 AM SARS-CoV-2 (COVID19 PCR): Negative General Chemistry 06/07/2020 1:14 PM Potassium Level: 3.8 mmol/L -- Normal range between ( 3.5 and 5.1 ) Endocrinology 06/07/2020 1:14 PM HCG Urine Qualitative: Negative Patient Name:LIBRADO OLEARY PAGE I have received this information and was given the opportunity to ask questions. Patient/Canvas Cutter Hand Name: Patient/Canvas Cutter Hand Signature: Relationship to Patient: Clinician/Hospital Canvas Cutter Hand Signature: Date: documented in this encounter Plan of Treatment Not on file documented as of this encounter Visit Diagnoses Not on filedocumented in this encounter Care Teams Military Exchange Wireless Manager Relationship Specialty Start Date End Date [facility], Provider Not In The System, [place] [address] PCP - General 01/02/24 documented as of this encounter
--- NOTE | 2024-12-24 07:30 | US_ITS ---
PROCEDURE: US TRANSVAGINAL CLINICAL INDICATION: Check IUD Placement COMPARISON: CT CT ABDOMEN PELVIS W CON from 01/02/2024 FINDINGS: Transvaginal sonographic images of the pelvis were obtained. UTERUS: 7.2cm x 4.8 cmx 3.2cm anteverted with a combined endometrial thickness of 6.9mm. There is a small amount of fluid within the cervix. There is an IUD within the uterine cavity in the correct position. LEFT OVARY: 3.2cmx1.8 cmx1.7cm with a volume of 5.1ml. There are several small peripheral follicles. The largest measures 1.3 cm. RIGHT OVARY: 3.8 cmx 2.6 cmx2.1cm with a volume of 10.9ml. There are multiple small peripheral follicles giving the ovary a polycystic appearance. Both ovaries are seen and appear normal. Doppler flow to both ovaries are seen. There is no fluid in the cul-de-sac. IMPRESSION: 1. Anteverted uterus normal in shape and size. The endometrium appears normal. There is an IUD within the uterine cavity in the correct position. 2. Both ovaries are seen and appear non normal. Left ovary has a small follicle. The right ovary appears polycystic. 3. No fluid in the cul-de-sac. Dictated by: Alberto Chinchilla MD 12/24/2024 16:56 Alberto Chinchilla MD in [place] 12/24/2024 16:56
== END 2024-12-24 23:59 | disposition home or self-care (01) ==
LOC: RAD 07:16
PROVIDERS: PCP Nurse Practitioner Family; Visit Provider Obstetrics & Gynecology
DX: E28.2 Polycystic ovarian syndrome (principal); Z30.431 Encounter for routine checking of intrauterine contraceptive device
CPT/HCPCS: 76830

== ENCOUNTER 2025-01-05 14:00 | Outpatient (CLI) | payer BC, SELFPAY ==
--- OUTSIDE RECORDS SUMMARY | 2025-01-06 10:47 | XMS_ITS | Encounter Summary ---
Author Organization [employer] ([place], [place], [place], [place]) Address [address] [place] [address] Care Team Providers Care Long Term Acute Care Registered Nurse Name Role Phone Sj, Provider Not In The System Primary Care Provider Unavailable Encounter Details Date Type Department Care Team (Late st Contact Info) Description 06/08/2020 Transcribed Document [facility] [place] [address] ProviderFran MD [address] [place] [address] Social History Tobacco Use Types Packs/Day [...] - Historical ProviderMD - 06/08/2020 12:57 PM MANDREL PRESS HAND [facility] Main OR PACU Summary Primary Physician: Kavya SCHNEIDER MD-OBG Finalized Date/Time: 06/08/20 14:19:39 Pt. Name: OLEARY LIBRADO PAGE /Sex: 1995 Female Med Rec #: [id number] Physician: Kavya SCHNEIDER MD-OBG Financial #: [id number] Pt. Type: O Room/Bed: Admit/Disch: 06/08/20 03:52:00 - Institution: [facility] Main OR PACU Case Times Entry 1 In PACU I 06/08/20 13:45:00 Ready for PACU 06/08/20 14:21:00 Discharge Discharge from PACU 06/08/20 14:21:00 I Last Modified By: NICK ALEXANDRA 06/08/20 14:19:38 [facility] Main OR PACU Case Times Audit 06/08/20 14:19:38 Family Service Assistant: COLEMAM Modifier: COLEMAM 1 <*> Ready for PACU Discharge 06/08/20 14:18:00 1 <*> Discharge from PACU I 06/08/20 14:18:00 06/08/20 14:18:29 Family Service Assistant: COLEMAM Modifier: COLEMAM <+> 1 Ready for PACU Discharge <+> 1 Discharge from PACU I Finalized By: NICK ALEXANDRA Document Signatures Signed By: NICK ALEXANDRA 06/08/20 14:18 NICK ALEXANDRA 06/08/20 14:19 Unfinalized History Date/Time Username Reason for Unfinalizing Freetext Reason for Unfinalizing 06/08/20 14:19 RYAN Correct Documentation documented in this encounter Plan of Treatment Not on file documented as of this encounter Visit Diagnoses Not on filedocumented in this encounter Care Teams Long Term Acute Care Registered Nurse Relationship Specialty Start Date End Date [facility], Provider Not In The System, [place] [address] PCP - General 01/02/24 documented as of this encounter
--- OUTSIDE RECORDS SUMMARY | 2025-01-06 10:47 | XMS_ITS | Encounter Summary ---
Author Organization [employer] ([place], [place], [place], [place]) Address [address] [place] [address] Care Team Providers Care Boat Laborer Name Role Phone Sj, Provider Not In The System Primary Care Provider Unavailable Encounter Details Date Type Department Care Team (Late st Contact Info) Description 06/08/2020 Transcribed Document [facility] Family Medicine [facility] [place] [address] ProviderFran MD [address] [place] [address] Social History Tobacco Use Types Packs/Day [...] - Fran ProviderMD - 06/08/2020 2:26 PM MAINTENANCE PLANNING CLERK Patient Education Materials Follows: General Anesthesia, Adult, [...] activities are safe for you. ??? Take auik-glg-thqzbsw and prescription medicines only as told by [...] 07/29/2001 Document Revised: 04/25/2018 Document Reviewed: 12/06/2017 [employer] Patient Education ? 2020 [employer] Hysteroscopy, Care After This sheet gives [...] taking prescription pain medicines. Medicines ??? Take rbli-jqx-axuswmm and prescription medicines only as told by [...] urine clear or pale yellow. ? Take kxhd-hvx-loouqrx or prescription medicines. ? Eat foods that [...] 02/10/2014 Document Revised: 04/04/2018 Document Reviewed: 05/21/2017 [employer] Patient Education ? 2020 Else[employer] Inc. Diagnostic [...] these instructions at home: Medicines ??? Take xwam-dmc-cyiobpm and prescription medicines only as told by [...] and water are not available, use hand project management director. ? Change your dressing as told by [...] keep your urine pale yellow. ? Take adjd-ihd-oargjun or prescription medicines. ? Eat foods that [...] 04/02/2016 Document Revised: 04/04/2018 Document Reviewed: 10/16/2017 [employer] Patient Education ? 2020 [employer] documented in this encounter Plan of Treatment Not on file documented as of this encounter Visit Diagnoses Not on filedocumented in this encounter Care Teams Boat Laborer Relationship Specialty Start Date End Date [facility], Provider Not In The System, [place] [address] PCP - General 01/02/24 documented as of this encounter
--- OUTSIDE RECORDS SUMMARY | 2025-01-06 10:47 | XMS_ITS | Clinical Summary ---
Author Organization Healthcare Address [address] [place] [address] Care Team Providers Care Content Publisher Name Role Phone Pcp, No Primary Care [...] 19+ 3-dose series) 2016 UKY-Pap Smear 2018 HFR-[id number]-69 Vaccine (1 - 2023-25 season) 2024 HPV [...] HIV 1/2 Differentiation (01/06/2024 1:14 PM EDT) [facility] HIV 1 & 2 Antibody/Antigen Screen Non Reactive Non Reactive 01/06/2024 2:45 PM EDT [facility]ALTH[facility]ARE [facility] Comment:Screening for HIV 1 & 2 antibodies, and P24 antigen is NONREACTIVE. No confirmatory testing is required. Blood Venous blood specimen / Unknown Venipuncture / Unknown 01/06/2024 1:14 PM EDT 01/06/2024 2:04 PM EDT Nighat Coats MD LAB BLOOD ORDERABLES Audrey l Result Performing Organization Address City/[facility]/ZIP Co de Phone Number [facility] [address] [place] [address] * Hepatitis C Antibody - ED (01/06/2024 1:14 PM EDT) [facility] Hepatitis C Antibody Negative Negative 01/06/2024 2:45 PM EDT [facility] Blood Venous blood specimen / Unknown Venipuncture / Unknown 01/06/2024 1:14 PM EDT 01/06/2024 2:04 PM EDT Nighat Coats MD LAB BLOOD ORDERABLES Audrey l Result Performing Organization Address City/[facility]/ZIP Co de Phone Number [facility] [address] [place] [address] from Last 3 Months or Most Recently Relevant to Health Maintenance Insurance Advance Directives * Full Code (Latest Code Status on File) Date Activated Date Inactivated Comments 01/06/2024 1:24 AM 01/07/2024 5:12 PM Question Answer Comments Patient has decision-making capacity? Yes Care Teams Content Publisher Relationship Specialty Start Date End Date Pcp, No [address] [place] [address] PCP - General Family Medicine 01/06/24
--- OUTSIDE RECORDS SUMMARY | 2025-01-06 10:47 | XMS_ITS | Encounter Summary ---
Author Organization [employer] ([place], [place], [place], [place]) Address [address] [place] [address] Care Team Providers Care Can Labeler Name Role Phone Sj, Provider Not In The System Primary Care Provider Unavailable Encounter Details Date Type Department Care Team (Late st Contact Info) Description 06/08/2020 Transcribed Document [facility] Family Medicine [facility] [place] [address] ProviderFran MD [address] [place] [address] Social History Tobacco Use Types Packs/Day [...] - Historical ProviderMD - 06/08/2020 12:57 PM TIE HACKER S[facility] Main OR PostOp Summary Primary Physician: Kavya SCHNEIDER MD-OBG Finalized Date/Time: 06/08/20 14:52:16 Pt. Name: OLEARY LIBRADO BETSEY /Sex: 1995 Female Med Rec #: [id number] Physician: Kavya SCHNEIDER MD-OBG Financial #: [id number] Pt. Type: O Room/Bed: Admit/Disch: 06/08/20 03:52:00 [...] on filedocumented in this encounter Care Teams Can Labeler Relationship Specialty Start Date End Date [facility], Provider Not In The System, [place] [address] PCP - General 01/02/24 documented as of this encounter
--- OUTSIDE RECORDS SUMMARY | 2025-01-06 10:47 | XMS_ITS | Encounter Summary ---
Author Organization [employer] ([place], [place], [place], [place]) Address [address] [place] [address] Care Team Providers Care Orthotic Fitter Name Role Phone [facility], Provider Not In The System Primary Care Provider Unavailable Encounter Details Date Type Department Care Team (Late st Contact Info) Description 06/08/2020 Transcribed Document [facility] [place] [address] [place] [address] ProviderFran MD [address] [place] [id number] Social History Tobacco Use Types Packs/Day Years [...] - Historical ProviderMD - 06/08/2020 1:45 PM SUPERVISOR PACKING ROOM DATE OF PROCEDURE: 06/08/2020 SURGEON: Kavya Godinez [...] left the operating room in satisfactory condition. /[id number] MarvinMD COSME Craven/AQ / COSME / MODL /[id number] Electronically signed by Interface, Chalo Conversion Telecommunication Operator Cerner at 08/21/2022 10:16 AM CDT documented in this encounter Plan of Treatment Not on file documented as of this encounter Visit Diagnoses Not on filedocumented in this encounter Care Teams Orthotic Fitter Relationship Specialty Start Date End Date [facility], Provider Not In The System, [place] [address] PCP - General 01/02/24 documented as of this encounter
--- OUTSIDE RECORDS SUMMARY | 2025-01-06 10:47 | XMS_ITS | Clinical Summary ---
Author Organization [employer] ([place], [place], [place], [place]) Address [address] [place] [address] Care Team Providers Care Hand Tier Name Role Phone [facility], Provider Not In The System MD [...] Date Eb rded Speak language other than Cambodian at home Not on file 01/02/2024 Want [...] Antigen Nonreactive Nonreactive 01/03/2024 2:55 AM EDT [facility] Comment: The Combo HIV procedure is [...] DO LAB BLOOD ORDERABLES Final Res ult [facility] [address] [phone] * Hepatitis panel, acute (01/02/2024 10:59 PM EDT) Hep A IgM Nonreactive Nonreactive, Equivocal 01/03/2024 2:59 AM EDT [facility] Hep B C IgM Nonreactive Nonreactive 01/03/2024 2:59 AM EDT [facility] Hepatitis B surface antigen Nonreactive Nonreactive, Equivocal 01/03/2024 2:59 AM EDT [facility] Hepatitis C Ab Nonreactive Nonreactive, Equivocal 01/03/2024 2:59 AM EDT [facility] Blood Venipuncture / Unknown 01/02/2024 10:59 PM EDT 01/02/2024 11:10 PM EDT Narrative [facility] - 01/03/2024 2:59 AM EDT Hepatitis [...] ORDERABLES Final Res ult Performing Organization Address City/State/[facility] Co de Phone Number [facility] [address] [phone] from Last 3 Months or Most Recently Relevant to Health Maintenance Insurance BLUE CROSS/BLUE SHIELD Advance Directives For more information, please contact: [phone] * Full Code (Latest Code Status on File) Date Activated Date Inactivated Comments 01/02/2024 10:13 PM 01/04/2024 5:29 PM -Attempt Re suscitation if person has no pulse and is not breathing. -If no pulse or not breathing attempt CPR/CODE. -Call Rapid Response if patient is in distress. Care Teams Hand Tier Relationship Specialty Start Date End Date [facility], Provider Not In The System, [place] [address] PCP - General 01/02/24
--- OUTSIDE RECORDS SUMMARY | 2025-01-06 10:47 | XMS_ITS | Patient Health Record ---
Author Organization [facility] Address [address] [facility] [address] [place] [address] Care Team Providers Care Security Infrastructure Engineer Name Role Phone Micaela Bailey Unavailable [phone] Reason For Referral No Information Social History Social History Additional Details Category Social Info Options Details Miscellaneous: Sexually active: SEXUAL AC TIV: Current Problems Problem Type SNOMED Code ICD Code Onset Dates Problem Status W/U Status Risk Notes Problem Primary dysmenorrhea (79258727) Primary dysmenorrhea (N94.4) Active confirmed Primary dysmenorrhea Problem Endometriosis of pelvic peritoneum (427731050) Broad ligament endometriosis (N80.3) Active confirmed Endometriosis of pelvic peritoneum Problem Polycystic bilateral ovaries (disorder) (002638422) Bilateral polycystic ovarian syndrome (E28.2) Active confirmed PCOS Problem Pelvic and perineal pain (362721547) Abdominal pain, suprapubic (R10.2) Active confirmed Abdominal pain, pelvic and perineal Problem Breakthrough bleeding (92368590) Breakthrough bleeding (N92.1) Active confirmed Excessive and [...]
--- OUTSIDE RECORDS SUMMARY | 2025-01-06 10:47 | XMS_ITS | Referral Summary ---
Author Organization [employer] ([place], [place], [place], [place]) Address [address] [place] [address] Care Team Providers Care Fiscal Services Director Name Role Phone [facility], Provider Not In The System MD [...] Date Eb rded Speak language other than Emirati at home Not on file 01/02/2024 Want [...] Antigen Nonreactive Nonreactive 01/03/2024 2:55 AM EDT [facility] Comment: The Combo HIV procedure is [...] DO LAB BLOOD ORDERABLES Final Res ult [facility] [address] [phone] * Hepatitis panel, acute (01/02/2024 10:59 PM EDT) Hep A IgM Nonreactive Nonreactive, Equivocal 01/03/2024 2:59 AM EDT [facility] Hep B C IgM Nonreactive Nonreactive 01/03/2024 2:59 AM EDT [facility] Hepatitis B surface antigen Nonreactive Nonreactive, Equivocal 01/03/2024 2:59 AM EDT [facility] Hepatitis C Ab Nonreactive Nonreactive, Equivocal 01/03/2024 2:59 AM EDT [facility] Blood Venipuncture / Unknown 01/02/2024 10:59 PM EDT 01/02/2024 11:10 PM EDT [facility] - 01/03/2024 2:59 AM EDT Hepatitis [...] DO LAB BLOOD ORDERABLES Final Res ult [facility] [address] [place] [id number], [facility] [phone] from Last 3 Months or Most Recently Relevant to Health Maintenance Insurance BLUE CROSS/BLUE SHIELD Advance Directives For more information, please contact: [phone] * Full Code (Latest Code Status on File) Date Activated Date Inactivated Comments 01/02/2024 10:13 PM 01/04/2024 5:29 PM -Attempt Re suscitation if person has no pulse and is not breathing. -If no pulse or not breathing attempt CPR/CODE. -Call Rapid Response if patient is in distress. Care Teams Fiscal Services Director Relationship Specialty Start Date End Date [facility], Provider Not In The System, [place] [address] PCP - General 01/02/24
--- OUTSIDE RECORDS SUMMARY | 2025-01-06 10:47 | XMS_ITS | Encounter Summary ---
Author Organization [employer] ([place], [place], [place], [place]) Address [address] [place] [address] Care Team Providers Care Converting Technician Name Role Phone Sj, Provider Not In The System Primary Care Provider Unavailable Encounter Details Date Type Department Care Team (Late st Contact Info) Description 06/08/2020 Transcribed Document [facility] [address] ProviderFran MD [address] [place] [address] Social History Tobacco Use Types Packs/Day [...] - Historical ProviderMD - 06/08/2020 2:27 PM INTERVENTIONIST [address] [address] LIBRADO DELGADO :1995 Visit Time:06/08/2020 What to do next Your Diagnosis Polycystic ovarian syndrome, Polycystic ovarian syndrome Instructions From Your Care Team You have a prescription for percocet 5/325mg. take 1 tablet bymouth every 4-6hours as needed for pain Vaginal rest until follow-up. No intercourse, no tampons. Follow-Up Appointments Follow Up with Kavya SCHNEIDER MD-OBG When Within 1 week Comments follow-up as scheduled Where: [address] [facility] [address] [place] [address]- Medications What How Much When Instructions Next [...] activities are safe for you. ??? Take zkpn-vhm-ggvpfcc and prescription medicines only as told by [...] 07/29/2001 Document Revised: 04/25/2018 Document Reviewed: 12/06/2017 [employer] Patient Education ?? 2020 [employer]. Hysteroscopy, Care After This sheet gives you [...] taking prescription pain medicines. Medicines ??? Take xvmt-owg-wocffza and prescription medicines only as told by [...] urine clear or pale yellow. ? Take xhwk-ium-obrogzc or prescription medicines. ? Eat foods that [...] 02/10/2014 Document Revised: 04/04/2018 Document Reviewed: 05/21/2017 [employer] Patient Education ?? 2020 [employer] Diagnostic Laparoscopy, Care After This sheet [...] these instructions at home: Medicines ??? Take dvks-szk-prhapqu and prescription medicines only as told by [...] and water are not available, use hand thoracic surgeon. ? Change your dressing as told by [...] keep your urine pale yellow. ? Take pidm-xpn-kbsshlb or prescription medicines. ? Eat foods that [...] 04/02/2016 Document Revised: 04/04/2018 Document Reviewed: 10/16/2017 [employer] Patient Education ?? 2020 [employer]. acetaminophen and oxycodone (a SEET a MIN [...] may report side effects to FDA at 2-516-GRU-6863. What other drugs will affect acetaminophen and [...] affect acetaminophen and oxycodone, including prescription and jnhs-flf-veyqrpn medicines, vitamins, and herbal products. Not all [...] to ensure that the information provided by [employer]. ('[employer]') is accurate, up-to-date, and complete, but no guarantee is made to that effect. Drug information contained herein may be time sensitive. [employer] information has been compiled for use by healthcare practitioners and consumers in the [place] and therefore [employer] does not warrant that uses outside of the [place] are appropriate, unless specifically indicated otherwise. [employer]s drug information does not endorse drugs, diagnose patients or recommend therapy. [employer] drug information is an informational resource designed [...] effective or appropriate for any given patient. [facility] does not assume any responsibility for any aspect of healthcare administered with the aid of information [employer] provides. The information contained herein is not intended to cover all possible uses, directions, precautions, warnings, drug interactions, allergic reactions, or adverse effects. If you have questions about the drugs you are taking, check with your doctor, nurse or pharmacist. Copyright 2789-0894 Tyler [facility]. Version: .. Revision Date: 05/18/2020. Emergency Awareness [...] Assistance with quitting is available by contacting 4-792-CICK-NOW. This is a free resource providing counseling, [...] PM HCG Urine Qualitative: Negative Patient Name:LIBRADO DELGADO PAGE I have received this information and was given the opportunity to ask questions. Patient/Analytical Engineer Name: Patient/Analytical Engineer Signature: Relationship to Patient: Clinician/Hospital Analytical Engineer Signature: Date: documented in this encounter Plan of Treatment Not on file documented as of this encounter Visit Diagnoses Not on filedocumented in this encounter Care Teams Converting Technician Relationship Specialty Start Date End Date [facility], Provider Not In The System, [place] [address] PCP - General 01/02/24 documented as of this encounter
--- OUTSIDE RECORDS SUMMARY | 2025-01-06 10:47 | XMS_ITS | Encounter Summary ---
Author Organization [employer] ([place], [place], [place], [place]) Address [address] [place] [address] Care Team Providers Care Criminal Investigator Name Role Phone [facility], Provider Not In The System Primary Care Provider Unavailable Encounter Details Date Type Department Care Team (Late st Contact Info) Description 06/08/2020 Transcribed Document [facility] [place] [address] ProviderFran MD [address] [place] [id number] Social History Tobacco Use Types Packs/Day Years [...] - Historical ProviderMD - 06/08/2020 12:57 PM ELECTRICAL TECHNICIAN Event Note Entered On: 06/08/2020 12:58 EST Performed On: 06/08/2020 12:57 EST by Amelia Cain RN Event Note Event Date/Time : 06/08/2020 12:57 EST Description of Event : 1257: Updated family via phone call. Amelia Cain RN - 06/08/2020 12:57 EST Electronically signed by Nanda [facility] Conversion Insurance And Benefits Clerk Cerner at 08/21/2022 10:25 AM CDT documented in this encounter Plan of Treatment Not on file documented as of this encounter Visit Diagnoses Not on filedocumented in this encounter Care Teams Criminal Investigator Relationship Specialty Start Date End Date [facility], Provider Not In The System, [place] [address] PCP - General 01/02/24 documented as of this encounter
--- OUTSIDE RECORDS SUMMARY | 2025-01-06 10:47 | XMS_ITS | Encounter Summary ---
Author Organization [employer] ([place], [place], [place], [place]) Address [address] [place] [address] Care Team Providers Care Anesthesia Assistant Name Role Phone [facility], Provider Not In The System Primary Care Provider Unavailable Encounter Details Date Type Department Care Team (Late st Contact Info) Description 06/07/2020 Transcribed Document [facility] [place] [facility] [place] [address] ProviderFran MD [address] [place] [phone] Social History Tobacco Use Types Packs/Day Years [...] - Historical ProviderMD - 06/07/2020 1:04 PM NEUROBIOLOGIST PAT Adult Entered On: 06/07/2020 13:09 EST [...] Source : Stated Height Entry Format : [place] Height, Feet : 5 ft(Converted to: 152 cm, 60 Inch) Height, Inches : 2 Inch(Converted to: 0 ft 2 Inch, 5.08 cm) Clinical Height : 157.48 cm Weight Source : Standing scale Weight Entry Format : [place] Clinical Dosing Weight : 94.09 kg Weight, Pounds : 207 lb Body Surface Area (BSA) : 1.94 m2 Body Mass Index : 37.9 kg/m2 (HI) [place] Body Weight : 50 kg Batsheva Lyons [...] Batsheva Lyons Rn - 06/07/2020 13:04 EST [place] Suicide Severity Rating Scale (C-SSRS) CSSRS Past [...] Obtained From : Patient Primary Language : Niuean Preferred Communication Mode : Verbal Communication Barrier : None Program Manager Environmental Planning Needed : No Batsheva Lyons Rn - [...] on filedocumented in this encounter Care Teams Anesthesia Assistant Relationship Specialty Start Date End Date [facility], Provider Not In The System, [place] [address] PCP - General 01/02/24 documented as of this encounter
--- OUTSIDE RECORDS SUMMARY | 2025-01-06 10:47 | XMS_ITS | Encounter Summary ---
Author Organization [employer] ([place], [place], [place], [place]) Address [address] [place] [address] Care Team Providers Care Weekend Anchor Name Role Phone Sj, Provider Not In The System Primary Care Provider Unavailable Encounter Details Date Type Department Care Team (Late st Contact Info) Description 06/08/2020 Transcribed Document [facility] [address] ProviderFran MD [address] [place] [address] Social History Tobacco Use Types [...] - Historical ProviderMD - 06/08/2020 9:27 AM LEATHER BELT MAKER Pre Procedure Adult Entered On: 06/08/2020 9:31 EST Performed On: 06/08/2020 9:27 EST by Amelia Cain RN Height and Weight, Clinical Dosing Height Source : Stated Height Entry Format : [place] Height, Feet : 5 ft(Converted to: 152 cm, 60 Inch) Height, Inches : 2 Inch(Converted to: 0 ft 2 Inch, 5.08 cm) Clinical Height : 157.48 cm Weight Source : Standing scale Weight Entry Format : [place] Clinical [facility] Weight : 92.27 kg Weight, Pounds : 203 lb Body Surface Area (BSA) : 1.93 m2 Body Mass Index : 37.2 kg/m2 (HI) [place] Body Weight : 50 kg Amelia Cain RN - 06/08/2020 9:27 EST Health Histories Smoking Status : Never (less than 100 in lifetime; none in last 30 days) Smokeless Tobacco Status : Never Implant/Device Type, Spirits Model and Model : joslynml Amelia Cain RN [...] Where was the COVID-19 Testing completed? : [facility] Where are the test results? : [...] Amelia Cain RN - 06/08/2020 9:27 EST [place] Suicide Severity Rating Scale (C-SSRS) CSSRS Past [...] Depression Currently in Unsafe Situation : No Amelia Cain RN - 06/08/2020 9:27 EST Advance [...] Obtained From : Patient Primary Language : Jordanian Preferred Communication Mode : Verbal Communication Barrier : None Nurse Esthetician Needed : No Currently Lactating : No [...] Scale Risk Level : 0-24 Low Risk [place] Fall Interventions : Adequate lighting, Bed in [...] the text rendition version of the form. Fifty Six Coma Fifty Six Best Motor Response : Obey commands Annabella Best Verbal Response : Oriented Fifty Six Eye Opening Response : Spontaneous Fifty Six Coma Score : 15 Amelia Cain RN - 06/08/2020 9:27 EST documented in this encounter Plan of Treatment Not on file documented as of this encounter Visit Diagnoses Not on filedocumented in this encounter Care Teams Weekend Anchor Relationship Specialty Start Date End Date [facility], Provider Not In The System, [place] [address] PCP - General 01/02/24 documented as of this encounter
--- OUTSIDE RECORDS SUMMARY | 2025-01-06 10:47 | XMS_ITS | Encounter Summary ---
Author Organization [employer] ([place], [place], [place], [place]) Address [address] [place] [address] Care Team Providers Care Rn Psych Name Role Phone [facility], Provider Not In The System Primary Care Provider Unavailable Encounter Details Date Type Department Care Team (Late st Contact Info) Description 06/08/2020 Transcribed Document [facility] [place] [facility] [place] [address] ProviderFran MD [address] [place] [id number] Social History Tobacco Use Types Packs/Day Years [...] - Historical ProviderMD - 06/08/2020 11:41 AM TECHNOLOGY CONSULTANT Event Note Entered On: 06/08/2020 11:41 EST Performed On: 06/08/2020 11:41 EST by Amelia Cain RN Event Note Event Date/Time : 06/08/2020 11:41 EST Description of Event : 1141: Updated family via phone call and patient. Amelia Cain RN - 06/08/2020 11:41 EST Electronically signed by Nanda [facility] Conversion Offline Cutter Cerner at 08/21/2022 10:38 AM CDT documented in this encounter Plan of Treatment Not on file documented as of this encounter Visit Diagnoses Not on filedocumented in this encounter Care Teams Rn Psych Relationship Specialty Start Date End Date [place], Provider Not In The System, [place] [address] PCP - General 01/02/24 documented as of this encounter
--- OUTSIDE RECORDS SUMMARY | 2025-01-06 10:47 | XMS_ITS | Encounter Summary ---
Author Organization [employer] ([place], [place], [place], [place]) Address [address] [place] [address] Care Team Providers Care Smasher Hand Name Role Phone Sj, Provider Not In The System Primary Care Provider Unavailable Encounter Details Date Type Department Care Team (Late st Contact Info) Description 06/08/2020 Transcribed Document [facility] [place] [facility] [place] [address] ProviderFran MD [address] [place] [id number] Social History Tobacco Use Types Packs/Day [...] - Historical ProviderMD - 06/08/2020 12:57 PM STAGE SET DESIGNER [facility] Main OR PreOp Summary Primary Physician: Kavya SCHNEIDER MD-OBG Finalized Date/Time: 06/09/20 07:44:23 Pt. Name: OLEARY LIBRADO BETSEY /Sex: 1995 Female Med Rec #: [id number] Physician: Kavya SCHNEIDER MD-OBG Financial #: [id number] Pt. Type: O Room/Bed: 14 Admit/Disch: 06/08/20 03:52:00 - 06/08/20 14:52:00 Institution: [facility] [place] PreOp Case Times Entry 1 In Preop 06/08/20 08:40:00 Ready for Holding n/a Room Patient Ready for 06/08/20 09:41:00 Surgery Patient Out of Preop 06/08/20 12:33:00 Patient Out of n/a Holding Room Last Modified By: Myra Doan, Planning Aide-Nursing 06/09/20 07:44:21 [facility] PreOp Case Times Audit 06/09/20 07:44:21 Quality Improvement Specialist: [email or web address] Modifier: [id number] <+> 1 Patient Out of Preop Finalized By: Myra Doan, Planning Aide-Nursing Document Signatures Signed By: Myra Doan, Planning Aide-Nursing 06/09/20 07:44 Electronically signed by Nanda [facility] Conversion Yield Loss Inspector Cerner at 08/21/2022 10:40 AM CDT documented in this encounter Plan of Treatment Not on file documented as of this encounter Visit Diagnoses Not on filedocumented in this encounter Care Teams Smasher Hand Relationship Specialty Start Date End Date [facility], Provider Not In The System, [place] [address] PCP - General 01/02/24 documented as of this encounter
--- OUTSIDE RECORDS SUMMARY | 2025-01-06 10:47 | XMS_ITS | Clinical Summary ---
Author Organization [facility] Address [address] [place] [address] Care Team Providers Care Photolithographer Name Role Phone Provider, No Known Primary [...] patient's age to complete this topic [place] [address] PPO Care Teams Photolithographer Relationship Specialty Start Date End Date Provider, No Known [facility] [place] [address] PCP - General 12/14/19
--- OUTSIDE RECORDS SUMMARY | 2025-01-06 10:47 | XMS_ITS | Encounter Summary ---
Author Organization [employer] ([place], [place], [place], [place]) Address [address] [place] [address] Care Team Providers Care Court Security Officer Name Role Phone Sj, Provider Not In The System Primary Care Provider Unavailable Encounter Details Date Type Department Care Team (Late st Contact Info) Description 06/08/2020 Transcribed Document [facility] [place] Medicine [facility] [place] [address] ProviderFran MD [address] [place] [id number] Social History Tobacco Use Types Packs/Day [...] - Historical ProviderMD - 06/08/2020 12:57 PM HEDGE TRIMMER [facility] Main OR IntraOp Summary Primary Physician: Kavya SCHNEIDER MD-OBG Finalized Date/Time: 06/08/20 13:52:36 Pt. Name: OLEARY LIBRADO BETSEY /Sex: 1995 Female Med Rec #: [id number] Physician: Kavya SCHNEIDER MD-OBG Financial #: [id number] Pt. Type: O Room/Bed: [facility] Admit/Disch: 06/08/20 03:52:00 - Institution[place] [facility] [place] Case Attendance Entry 1 Entry 2 Entry 3 Case Attendee Kavya SCHNEIDER Dooley, Carol, LATESHA CARRILLO MD-OBG FLAT MACHINE CUTTER Role Performed Surgeon/Proceduralist, Fruit Or Nut Crops Farm Manager, First FLAT MACHINE CUTTER/Nurse Grazing Aide First Time In 06/08/20 12:35:00 06/08/20 12:35:00 [...] SARAH, ST OTHER, ATTENDEE #1 Role Performed Financial Representative, First Scrub, First Scrub, Second Time In [...] [facility] IntraOp Case Attendance Audit 06/08/20 13:51:51 Row Boss: DOOLEYC Modifier: DOOLEYC 1 <+> Time Out [...] Vaginal Suspension, Ovarian Cystectomy Laparoscopic 06/08/20 13:13:34 Row Boss: DOOLEYC Modifier: DOOLEYC 1 <*> Procedure Laparoscopy [...] and C Hysteroscopy, Cystoscopy Adult 06/08/20 12:57:54 Row Boss: DOOLEYC Modifier: DOOLEYC 1 <+> Time In [...] and C Hysteroscopy, Cystoscopy Adult 06/08/20 12:51:42 Row Boss: DOOLEYC Modifier: DOOLEYC <+> 1 Procedure <+> [...] [facility] IntraOp Case Times Audit 06/08/20 13:51:50 Row Boss: DOOLEYC Modifier: DOOLEYC <+> 1 Out Room Time <+> 1 Stop Time <+> 1 Stop Time 06/08/20 12:58:00 Row Boss: DOOLEYC Modifier: DOOLEYC <+> 1 Start Time [...] Terese Pacheco RN Last Modified By: Terese Pacheco RN 06/08/20 12:52:22 [facility] IntraOp Counts Verification [...] [facility] IntraOp Counts Verification Audit 06/08/20 13:13:36 Row Boss: DOOLEYC Modifier: DOOLEYC 1 <*> Procedure Laparoscopy [...] By CUBA CHANEY PA-C Last Modified By: eTrese Pacheco RN 06/08/20 12:53:01 [facility] IntraOp Fire [...] RN 06/08/20 12:53:06 [facility] IntraOp General Case Monument Setter 1 Case Information OR OR 07 [facility] [...] 1 Medication/Irrigant Marcaine 0.5% 30ml vial - [id number] Route of LOCAL Administration Dose Dose 30 [...] [facility] IntraOp Patient Positioning Audit 06/08/20 13:13:36 Row Boss: DOOLEYC Modifier: DOOLEYC 1 <*> Procedure Laparoscopy [...] Intra Op Sign Out Audit 06/08/20 13:52:26 Row Boss: DOOLEYC Modifier: DOOLEYC <+> 1 RN Sign [...] [facility] IntraOp Skin Prep Audit 06/08/20 13:13:36 Row Boss: DOOLEYC Modifier: DOOLEYC 1 <*> Procedure Laparoscopy [...] [facility] IntraOp Surgical Procedures Audit 06/08/20 13:52:31 Row Boss: DOOLEYC Modifier: DOOLEYC <+> 1 Stop <+> 2 Stop <+> 3 Stop <+> 4 Start <+> 4 Stop <+> 5 Start <+> 5 Stop 06/08/20 13:13:28 Row Boss: DOOLEYC Modifier: DOOLEYC <+> 1 Start <+> [...] [facility] IntraOp Time Out Audit 06/08/20 13:13:37 Row Boss: [email or web address] Modifier: DOOLEYC 1 <*> Procedure to be Performed Laparoscopy Operative Robotic, Uterine D and C Hysteroscopy, Cystoscopy Adult 06/08/20 13:12:32 Row Boss: DOOLEVAZQUEZ Modifier: DOOLEYC 1 <+> Time Out Pause Time 1 <*> Procedure to be Performed Laparoscopy Operative Robotic, Uterine D and C Hysteroscopy, Cystoscopy Adult Case Comments <None> Finalized By: Terese Pacheco, RN Document Signatures Signed By: Terese Pacheco RN 06/08/20 13:52 Electronically signed by Nanda [facility] Conversion Er Medical Technician Cerner at 08/21/2022 10:28 AM CDT documented in this encounter Plan of Treatment Not on file documented as of this encounter Visit Diagnoses Not on filedocumented in this encounter Care Teams Court Security Officer Relationship Specialty Start Date End Date [facility], Provider Not In The System, [place] [address] PCP - General 01/02/24 documented as of this encounter
== END 2025-01-05 23:59 | disposition home or self-care (01) ==
LOC: LAB.DROPOF 01-06 10:42
PROVIDERS: PCP Obstetrics & Gynecology; Visit Provider Obstetrics & Gynecology
DX: N93.0 Postcoital and contact bleeding (principal)
CPT/HCPCS: 87086; 87491; 87529; 87591; 87661; 87798; 87801